=== PATIENT | male | born 1945 | race Caucasian/White ===

== ENCOUNTER 2023-02-01 18:35 | Observation (INO) ==
[2023-02-01] MEDS ORDERED: SODIUM CHLORIDE 0.9% 500 ML IV SCH (18:45)
--- NOTE | 2023-02-01 18:49 | Emergency Department Note ---
Impression & Plan Chest pain, Heart palpitations, Elevated troponin I level, Abnormal EKG ED Provider Note NAME: HUGH VILLANUEVA Jr AGE: 77 SEX: M : 1945 ARRIVES VIA: Ambulance INFORMANT: Patient, ED PROVIDER(S): Roman Varela DO CHIEF COMPLAINT: Near syncope HPI: The patient is a 77-year-old male who presented to the emergency department for an evaluation of near syncope. The patient states that he was at home sitting on his couch when he had an episode of lightheadedness. He felt as though he may pass out. The patient was not feeling well and called 911. He was noted to have episodes of tachycardia prior to coming to the emergency department. No documentation of this was obtained but the patient did have multiple twelve-lead EKGs prior to arrival. The patient denies having any chest pain or difficulty breathing at this time but he states earlier he did have some difficulty breathing. He is currently being worked up for dysphonia and vocal cord paralysis. The patient denies having any swelling in the legs. He denies having any abdominal pain or vomiting. He states his symptoms are significantly improved at this time. ROS: See above HPI for pertinent positives & negatives. A total of 10 systems reviewed and were otherwise negative. PAST MEDICAL HISTORY: See Below PAST SURGICAL HISTORY: See Below FAMILY HISTORY: See Below SOCIAL HISTORY: See Below HOME MEDICATIONS: See Below ALLERGIES: See Below VITALS: See Below PHYSICAL EXAMINATION: GENERAL: Patient is awake alert in no acute distress patient is resting comfortably and showing no signs of anxiety EYES: The conjunctivae are clear. The pupils are round and reactive. EARS, NOSE, MOUTH AND THROAT: The nose is without any evidence of any deformity. NECK: The neck is nontender and supple. RESPIRATORY: Diminished breath sounds are noted throughout. Expiratory wheezing was noted in both upper lung thomas. CARDIOVASCULAR: Regular rate and rhythm noted there no murmurs rubs or gallops normal S1 normal S2. GASTROINTESTINAL: The abdomen is soft. Abdomen is nontender. MUSCULOSKELETAL/EXTREMITIES: There is no evidence of gross deformity full range of motion is noted in the hips and shoulders. SKIN: There is no obvious evidence of any rash. There are no petechiae, pallor or cyanosis noted. NEUROLOGIC: Patient is awake alert and oriented x3 MEDICAL DECISION MAKING: The patient is a 77-year-old male who presented to the emergency department for an evaluation of near syncope and palpitations. The patient describes an episode where he became very lightheaded as though he was going to pass out. He describes some chest heaviness but no specific chest pain. This did not last very long. The patient called 911 and presented to the emergency department via ambulance. He states that his pulse rate was very high initially. The patient was not short of breath. I discussed the patient's laboratory and radiographic studies with him. He did have a troponin that was found to be elevated in the emergency department. On second draw this did appear to go up compared to his initial draw. For this reason I will discuss his condition with the on-call [facility] hospitalist. Patient was treated with aspirin. He did have a D- dimer of 540 but I feel that age adjustment would not require any further work- up. I will defer this to the admitting team. Triage Nursing notes reviewed. Prior medical records reviewed Vital Signs: reviewed and remarkable for elevated blood pressure and tachycardia. Differential diagnosis: Vasovagal event, dehydration, infection, hypoglycemia, electrolyte abnormalities, cardiac sources, intracerebral event, pulmonary embolism, seizure, toxicologic, neurologic, as well as other pathologies. ER treatment provided: See below Diagnostics interpreted by me: ECG: EKG was obtained in the emergency department. My interpretation is sinus tachycardia 110 bpm. First-degree AV block was noted with wandering atrial pacemaker. A left bundle-branch block pattern was favored. Nonspecific ST depressions were noted especially in the inferior leads. No previous EKG was available. Prehospital EKG was evaluated. My interpretation is sinus tachycardia 100 and and 4 bpm. There were PVCs noted. Bundle-branch block was appreciated. This compares similar to the initial EKG obtained in the emergency department. Cardiac Monitoring: An order was placed for continuous cardiac monitoring. The monitor shows a rate of 103 bpm with sinus tachycardia. Laboratory studies: As stated above and show below. Imaging studies: See below. Radiographic imaging was reviewed by myself Consultation(s): Discussed this case with Dr. Julian who is on-call for the [facility] hospitalist group. Past Med/Surg History Medical History Depression Multiple pulmonary nodules Chronic respiratory failure with hypoxia Ex-smoker Tobacco consumption Exertional shortness of breath Chronic bronchitis 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 Sinus tachycardia Anomalous coronary artery origin Anemia Dyspnea History of left heart catheterization 2008 Hypoxemic respiratory failure, chronic Migraine with aura, intractable, without status migrainosus Dyslipidemia Corcoran's esophagus with dysplasia Prostate cancer GERD without esophagitis Hypertension COPD (chronic obstructive pulmonary disease) Surgical History History of cataract removal with insertion of prosthetic lens bilateral H/O umbilical hernia repair 2007 Family History Mother , Cancer Cancer Father , Cancer Colorectal cancer Sister Heart disorder Stroke Brother Prostate cancer Denies family history of Crohn's disease Ulcerative colitis Social History Smoking Status: Former smoker Tobacco Type: Cigarettes Age Started Using Tobacco: 12; Age Quit Using Tobacco: 60; packs per day: 2.5; Cigarettes Per Day: 120 pack years; Do You Dip or Chew Tobacco: No; Hx Alcohol Use: Yes Hx Substance Use: No Preferred Language: Kazakh Feels Safe at Home: Yes Allergies Allergies Allergy/AdvReac Type Severity Reaction Status Date / Time simvastatin AdvReac myalgia Verified 01/19/23 11:28 Home Meds Home Medications Medication Instructions Recorded Confirmed albuterol sulfate 2.5 mg/3 mL 2.5 mg inhalation Q4H PRN 06/13/21 01/19/23 (0.083 %) solution for nebulization shortness of breath or wheezing esomeprazole magnesium 40 mg 40 mg PO DAILY 06/13/21 01/19/23 capsule,delayed release fluticasone propionate 50 1 spray intranasal Q12H 06/13/21 01/19/23 mcg/actuation nasal spray,suspension guaifenesin 600 mg tablet, 600 mg PO BID 06/13/21 01/19/23 extended release 12 hr losartan 50 mg tablet 50 mg PO DAILY 06/13/21 01/19/23 mucus clearing device 06/13/21 01/19/23 naproxen sodium 220 mg tablet 220 mg PO Q12H PRN pain 06/13/21 01/19/23 polyethylene glycol 3350 17 17 g PO DAILY PRN constipation 06/13/21 01/19/23 gram/dose oral powder (Miralax) sumatriptan succinate 6 mg/0.5 mL 6 mg subcut ONCE PRN migraine 06/13/21 01/19/23 subcutaneous pen injector headache tamsulosin 0.4 mg capsule 0.4 mg PO DAILY 06/13/21 01/19/23 multivitamin 1 tab PO DAILY 06/20/21 01/19/23 Previous Rx's Medication Instructions Recorded rosuvastatin 10 mg tablet 10 mg PO DAILY #30 tabs 07/20/21 Portable Oxygen #1 ea 09/25/22 albuterol sulfate 90 mcg/actuation 2 puff inhalation Q4H PRN 09/25/22 aerosol inhaler shortness of breath or wheezing #8.5 grams mometasone-formoterol HFA 200 2 puff inhalation BID #13 grams 09/25/22 mcg-5 mcg/actuation aerosol inhaler (Dulera) nebulizers (Aeroneb Go Nebulizer) #1 ea 09/25/22 tiotropium bromide 2.5 2 puff inhalation DAILY #4 grams 09/25/22 mcg/actuation mist for inhalation (Spiriva Respimat) Results & Data (ED) Vital Signs Vital Signs - 24 hr 02/01/23 18:45 02/01/23 18:55 02/01/23 19:00 Temperature 36.9 C Temperature Source Temporal Artery Scan Pulse Rate 108 H 105 H 105 H Respiratory Rate 19 25 H Respiratory Effort / Characteristics Non-Labored Spontaneous Respiratory Depth Normal Blood Pressure 198/111 H Blood Pressure Mean 140 Pulse Oximetry 100 100 Oxygen Delivery Method Nasal Cannula Oxygen Flow Rate 2.5 Sepsis Recent Fever Within 48 Hours No Sepsis New/Unexplained Change in Mental Status No Sepsis Action Taken by Nursing No Action Required 02/01/23 19:30 02/01/23 20:00 02/01/23 20:30 Temperature Temperature Source Pulse Rate 104 H 102 H 97 H Respiratory Rate 24 23 24 Respiratory Effort / Characteristics Respiratory Depth Blood Pressure Blood Pressure Mean Pulse Oximetry 99 99 99 Oxygen Delivery Method Oxygen Flow Rate Sepsis Recent Fever Within 48 Hours Sepsis New/Unexplained Change in Mental Status Sepsis Action Taken by Nursing 02/01/23 21:00 02/01/23 21:30 Temperature Temperature Source Pulse Rate 96 H 103 H Respiratory Rate 31 H 25 H Respiratory Effort / Characteristics Respiratory Depth Blood Pressure 161/110 H Blood Pressure Mean 127 Pulse Oximetry 99 99 Oxygen Delivery Method Oxygen Flow Rate Sepsis Recent Fever Within 48 Hours Sepsis New/Unexplained Change in Mental Status Sepsis Action Taken by [facility] Medications Current Medication List: was personally reviewed by me Laboratory Data Attestation: I reviewed the patient's lab results. 02/01/23 18:45 02/01/23 18:45 Lab Results 02/01/23 02/01/23 02/01/23 Range/Units 18:45 19:12 20:31 WBC 10.74 (4.8-10.8) K/ul RBC 4.55 L (4.70-6.10) M/uL Hgb 12.8 L (14.0-18.0) g/dl Hct 40.2 L (42.0-52.0) % MCV 88.4 (80.0-100.0) fL MCH 28.1 (25.0-34.0) pg MCHC 31.8 L (32.0-36.0) g/dL RDW Std Deviation 44.1 (36.4-46.3) fL RDW Coeff of Mich 13.7 (11.5-14.5) % Plt Count 243 (130-400) K/uL MPV 8.5 L (9.4-12.4) fL Immature Gran % (Auto) 0.3 % Neut % (Auto) 86.7 % Lymph % (Auto) 7.8 % Dickens % (Auto) 4.0 % Eos % (Auto) 0.7 % Baso % (Auto) 0.5 % Neut # (Auto) 9.31 H (1.40-6.50) K/uL Lymph # (Auto) 0.84 L (1.20-3.40) K/uL Dickens # (Auto) 0.43 (0.11-0.59) K/uL Eos # (Auto) 0.08 (0.00-0.50) K/uL Baso # (Auto) 0.05 (0.00-0.20) K/uL Immature Gran # (Auto) 0.03 (0.01-0.20) K/uL PT 10.9 (9.0-12.0) Seconds INR 1.0 (0.9-1.1) APTT 23.0 (21.0-31.0) Seconds PTT Ratio 0.8 D-Dimer 540 H* (0-500) ug/L FEU VBG pH 7.31 L (7.36-7.41) VBG pCO2 57 H (38-50) mmHg VBG pO2 < 20 mmHg VBG HCO3 29 mmol/L VBG O2 Saturation < 60.0 % VBG Base Excess 1.2 mEq/L Sodium 136 (136-145) mmol/L Potassium 3.7 (3.5-5.1) mmol/L Chloride 101 (98-107) mmol/L Carbon Dioxide 26 (21-32) mmol/L Anion Gap 9 (3-11) BUN 16 (6-23) mg/dl Creatinine 1.03 (0.6-1.4) mg/dl Est Cr Clr Drug Dosing 50.7 ml/min Est GFR ( Amer) 80.3 ml/min Est GFR (Non-Af Amer) 69.3 ml/min BUN/Creatinine Ratio 15.5 (10-20) Glucose 121 H (70-99(Fasting)) mg/dl Calcium 9.5 (8.6-10.3) mg/dl Magnesium 1.9 (1.7-2.4) mg/dl Total Bilirubin 0.3 (0.2-1.0) mg/dl AST 17 (13-39) U/L ALT 13 (7-52) U/L Alkaline Phosphatase 80 (34-104) U/L Total Creatine Kinase 81 (30-223) U/L Troponin I High Sens 20.7 H 30.2 H (0-20) pg/ml Total Protein 6.7 (6.0-8.3) gm/dl Albumin 3.7 (3.4-5.0) gm/dl Globulin 3.0 (2.5-4.0) gm/dl Albumin/Globulin Ratio 1.2 (0.9-2) TSH 3.090 (0.300-4.500) uIu/ml Administered Medications Discontinued Medications Aspirin (Aspirin Chew 324 Mg) 324 mg PO NOW STA Stop: 02/01/23 21:13 Last Admin: 02/01/23 21:17 Dose: 324 mg Documented By: PAUL Sodium Chloride (Nss) 500 mls @ 999 mls/hr IV .Q31M KACIE Stop: 02/01/23 19:15 Last Infusion: 02/01/23 20:45 Dose: Infused Documented By: Admin: 02/01/23 19:30 Dose: 999 mls/hr Documented By: PAUL Imaging Data Attestation: I personally reviewed and interpreted this imaging study as follows: My Impression: 1 view chest x-ray was obtained in the emergency department. My interpretation is no free air or free, final report pending. Radiologist's Impression: Chest X-Ray 02/01/23 18:43 XR chest 1V portable CLINICAL HISTORY: weakness COMPARISON STUDY: Chest CT June 23, 2022. FINDINGS: Emphysema is again noted. There is no pneumothorax or pleural effusion. No consolidation is identified. No evidence for pulmonary edema. Cardiomediastinal silhouette is stable. Indeterminate left lung nodules on chest CT of June 23, 2022 are not well visualized by radiography. IMPRESSION: 1. No acute cardiopulmonary findings. Emphysema. 2. Indeterminate left lung nodules on prior chest CT not well-visualized by radiography. Continued CT follow-up is recommended. ACT 112: Negative or not required by law. Electronically signed by: Stanley Zhu M.D. 02/01/2023 7:19 PM Discharge Plan Visit Data Chief Complaint: Syncope (Near Syncope) Stated Complaint: WEAKNESS ED Provider: Roman Varela Discharge Problem: Chest pain, Heart palpitations, Elevated troponin I level, Abnormal EKG Patient Disposition: Being Evaluated by Hospitalist Forms Stand Alone Forms: My [facility] [employer] Prescriptions Prescriptions: No Action polyethylene glycol 3350 [Miralax] 17 gram/dose powder 17 g PO DAILY PRN (Reason: constipation) naproxen sodium 220 mg tablet 220 mg PO Q12H PRN (Reason: pain) albuterol sulfate 2.5 mg /3 mL (0.083 %) solution for nebulization 2.5 mg inhalation Q4H PRN (Reason: shortness of breath or wheezing) (DME) mucus clearing device Device See Rx Instructions .Route Rx Instructions: As directed sumatriptan succinate 6 mg/0.5 mL pen injector 6 mg subcut ONCE PRN (Reason: migraine headache) fluticasone propionate 50 mcg/actuation spray,suspension 1 spray intranasal Q12H Rx Instructions: administer into each nostril esomeprazole magnesium 40 mg capsule,delayed release(DR/EC) 40 mg PO DAILY guaifenesin 600 mg tablet extended release 12hr 600 mg PO BID losartan 50 mg tablet 50 mg PO DAILY tamsulosin 0.4 mg capsule 0.4 mg PO DAILY multivitamin Tablet 1 tab PO DAILY rosuvastatin 10 mg tablet 10 mg PO DAILY Qty: 30 2RF (DME) nebulizers [Aeroneb Go Nebulizer] Misc See Rx Instructions .MEDSUPPLY Qty: 1 0RF Rx Instructions: With tubing and supplies. J44.9. J45.9. (DME) Portable Oxygen Misc See Rx Instructions .MEDSUPPLY Qty: 1 0RF Rx Instructions: Oxygen 2 liters continuous via nasal cannula on exertion with portable concentrator. KATIE 99 albuterol sulfate 90 mcg/actuation HFA aerosol inhaler 2 puff inhalation Q4H PRN (Reason: shortness of breath or wheezing) Qty: 8.5 3RF Dulera 200-5 mcg/actuation HFA aerosol inhaler 2 puff inhalation BID Qty: 13 6RF Spiriva Respimat 2.5 mcg/actuation mist 2 puff inhalation DAILY Qty: 4 6RF Referrals Referrals: Cyn Mejía, PALilianaC [Primary Care Provider] - Discharge Problem: Chest pain Qualifiers: Chest pain type: unspecified Qualified Code(s): R07.9 - Chest pain, unspecified
[2023-02-01 18:55] LABS: Basophils # (auto) 0.05 K/uL (0.00-0.20); Basophils % (auto) 0.5 %; Eosinophils # (auto) 0.08 K/uL (0.00-0.50); Eosinophils % (auto) 0.7 %; Hematocrit (blood only) 40.2 % (42.0-52.0); Hemoglobin 12.8 g/dl (14.0-18.0); Immature Granulocytes # (auto) 0.03 K/uL (0.01-0.20); Immature Granulocytes % (auto) 0.3 %; Lymphocytes # (auto) 0.84 K/uL (1.20-3.40); Lymphocytes % (auto) 7.8 %; Mean Corpuscular Hemoglobin 28.1 pg (25.0-34.0); Mean Corpuscular Hgb Conc 31.8 g/dL (32.0-36.0); Mean Corpuscular Volume 88.4 fL (80.0-100.0); Mean Platelet Volume 8.5 fL (9.4-12.4); Monocytes # (auto) 0.43 K/uL (0.11-0.59); Neutrophils # (auto) 9.31 K/uL (1.40-6.50); Neutrophils % (auto) 86.7 %; Platelet Count 243 K/uL (130-400); RDW Coefficient of Variation 13.7 % (11.5-14.5); RDW Standard Deviation 44.1 fL (36.4-46.3); Red Blood Count 4.55 M/uL (4.70-6.10); White Blood Count 10.74 K/ul (4.8-10.8)
[2023-02-01 19:08] LABS: Partial Thromboplastin Ratio 0.8; Prothrombin Time 10.9 Seconds (9.0-12.0)
[2023-02-01 19:17] LABS: Albumin Globulin Ratio 1.2 (0.9-2); Albumin Level 3.7 gm/dl (3.4-5.0); BUN Creatinine Ratio 15.5 (10-20); Bilirubin,Total 0.3 mg/dl (0.2-1.0); Calcium 9.5 mg/dl (8.6-10.3); Creatinine Clr Calc Pharmacy 50.7 ml/min; Est GFR (African American) 80.3 ml/min; Est GFR (Non-African American) 69.3 ml/min; Magnesium 1.9 mg/dl (1.7-2.4); Potassium 3.7 mmol/L (3.5-5.1); Total Protein 6.7 gm/dl (6.0-8.3)
[2023-02-01 19:18] LABS: D Dimer 540 ug/L FEU (0-500)
--- NOTE | 2023-02-01 19:20 | XRay Report ---
XR chest 1V portable CLINICAL HISTORY: weakness COMPARISON STUDY: Chest CT June 23, 2022. FINDINGS: Emphysema is again noted. There is no pneumothorax or pleural effusion. No consolidation is identified. No evidence for pulmonary edema. Cardiomediastinal silhouette is stable. Indeterminate l eft lung nodules on chest CT of June 23, 2022 are not well visualized by radiography. IMPRESSION: 1. No acute cardiopulmonary findings. Emphysema. 2. Indeterminate left lung nodules on prior chest CT not well-visualized by radiography. Continued CT follow-up is recommended. ACT 112: Negative or not required by law. Electronically signed by: Stanley Zhu M.D. 02/01/2023 7:19 PM
[2023-02-01 19:23] LABS: Troponin I High Sensitivity 20.7 pg/ml (0-20)
[2023-02-01 19:29] LABS: Base Excess VBG 1.2 mEq/L; HCO3 VBG 29 mmol/L; Oxygen Saturation VBG < 60.0 %; PCO2 VBG 57 mmHg (38-50); PO2 VBG < 20 mmHg; pH VBG 7.31 (7.36-7.41)
[2023-02-01 19:32] LABS: Thyroid Stimulating Hormone 3.09 uIu/ml (0.300-4.500)
[2023-02-01] MEDS ORDERED: ASPIRIN CHEW 324 MG PO STA (21:12)
--- NOTE | 2023-02-01 22:12 | History & Physical Report ---
Date of Service February 01, 2023 Assessment & Plan (1) Near syncope: Plan: Patient experienced an episode of near syncope while at home talking with his sister on the phone He felt dizzy and lightheaded however the fuzziness eased up before he got to the hospital. Etiology could have been an episode of arrhythmia or vasovagal Upon arrival at the emergency department, his troponin was slightly elevated blood pressure was also elevated He had a dobutamine stress test a few months ago which was deemed normal We will obtain 2D echo to rule out any structural heart abnormality Also obtain orthostatic blood pressure Monitor on telemetry (2) Elevated troponin I level: Plan: Slight elevation in troponin could be due to demand ischemia, from elevated blood pressure or yet to be diagnosed arrhythmia Initial troponin was 20, repeat was 30 Patient seems to have baseline bundle branch block, on EKG, no ST changes Repeat EKG, monitor troponin Obtain 2D echo as above Monitor on telemetry (3) COPD (chronic obstructive pulmonary disease): Plan: Baseline severe COPD on home oxygen Not in exacerbation Continue DuoNebs as needed and scheduled and supplemental oxygen (4) Hypertension: Plan: Poorly controlled blood pressure, initial blood pressure was almost 200 systolic Repeat 151 systolic Resume home medications Continue to monitor blood pressure. Plan Admit to telemetry Full code SCD prophylaxis History of Present Illness Chief Complaint: Near syncope Primary Care Provider: Cyn Mejía PA-C This is a 77-year-old with a history of COPD on oxygen, hypertension, CAD who presents to the hospital today following a near syncopal episode. Acco rding to the patient, he was seated at home and was on the phone talking with his sister when all of a sudden he felt dizzy and lightheaded and thought he was going to pass out. He said he brain got fuzzy for a while but eventually eased up but by that time he had already called 911. He denies any palpitations or chest pain but states because of his COPD has some baseline shortness of breath. Here in the emergency department initial blood pressure was 198/111 pulse 103 troponin was 20.7 recheck was 30.2 chest x-ray was done we did not show any acute pathology only chronic emphysema. Patient will be admitted to the hospital for further investigation. Allergies Allergy/AdvReac Type Severity Reaction Status Date / Time simvastatin AdvReac myalgia Verified 01/19/23 11:28 Home Medications Medication Instructions Recorded Confirmed Type albuterol sulfate 2.5 mg/3 mL 2.5 mg inhalation Q4H PRN 06/13/21 01/19/23 History (0.083 %) solution for nebulization shortness of breath or wheezing esomeprazole magnesium 40 mg 40 mg PO DAILY 06/13/21 01/19/23 History capsule,delayed release fluticasone propionate 50 1 spray intranasal Q12H 06/13/21 01/19/23 History mcg/actuation nasal spray,suspension guaifenesin 600 mg tablet, 600 mg PO BID 06/13/21 01/19/23 History extended release 12 hr losartan 50 mg tablet 50 mg PO DAILY 06/13/21 01/19/23 History mucus clearing device 06/13/21 01/19/23 History naproxen sodium 220 mg tablet 220 mg PO Q12H PRN pain 06/13/21 01/19/23 History polyethylene glycol 3350 17 17 g PO DAILY PRN constipation 06/13/21 01/19/23 History gram/dose oral powder (Miralax) sumatriptan succinate 6 mg/0.5 mL 6 mg subcut ONCE PRN migraine 06/13/21 01/19/23 History subcutaneous pen injector headache tamsulosin 0.4 mg capsule 0.4 mg PO DAILY 06/13/21 01/19/23 History multivitamin 1 tab PO DAILY 06/20/21 01/19/23 History rosuvastatin 10 mg tablet 10 mg PO DAILY #30 tabs 07/20/21 01/19/23 Rx Portable Oxygen #1 ea 09/25/22 01/19/23 Rx albuterol sulfate 90 mcg/actuation 2 puff inhalation Q4H PRN 09/25/22 01/19/23 Rx aerosol inhaler shortness of breath or wheezing #8.5 grams mometasone-formoterol HFA 200 2 puff inhalation BID #13 grams 09/25/22 01/19/23 Rx mcg-5 mcg/actuation aerosol inhaler (Dulera) nebulizers (Aeroneb Go Nebulizer) #1 ea 09/25/22 01/19/23 Rx tiotropium bromide 2.5 2 puff inhalation DAILY #4 grams 09/25/22 01/19/23 Rx mcg/actuation mist for inhalation (Spiriva Respimat) Past Med/Surg History Medical History Depression Multiple pulmonary nodules Chronic respiratory failure with hypoxia Ex-smoker Tobacco consumption Exertional shortness of breath Chronic bronchitis 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 Sinus tachycardia Anomalous coronary artery origin Anemia Dyspnea History of left heart catheterization 2008 Hypoxemic respiratory failure, chronic Migraine with aura, intractable, without status migrainosus Dyslipidemia Corcoran's esophagus with dysplasia Prostate cancer GERD without esophagitis Hypertension COPD (chronic obstructive pulmonary disease) Surgical History History of cataract removal with insertion of prosthetic lens bilateral H/O umbilical hernia repair 2007 Family History Mother , Cancer Cancer Father , Cancer Colorectal cancer Sister Heart disorder Stroke Brother Prostate cancer Denies family history of Crohn's disease Ulcerative colitis Social History Smoking Status: Former smoker Tobacco Type: Cigarettes Age Started Using Tobacco: 12; Age Quit Using Tobacco: 60; packs per day: 2.5; Cigarettes Per Day: 120 pack years; Do You Dip or Chew Tobacco: No; Hx Alcohol Use: Yes Hx Substance Use: No Preferred Language: Armenian Feels Safe at Home: Yes Review of Systems Review of Systems: All systems reviewed are negative, apart from the ones contained in the history. Physical Exam Physical Exam: The patient is awake, alert and oriented 3, well developed and well nourished, normocephalic and atraumatic, lying in bed and in no acute distress. HEENT--PERRL, EOMI, mucous membranes and oropharynx mildly dry Neck--supple. No JVD. No bruits. Thyroid normal, trachea midline, no adenopathy. Heart--normal S1 and S2. No murmurs, rubs or gallops. Lungs--reduced air entry on auscultation e. Abdomen--normal bowel sounds and soft. Mild epigastric and left sided abdominal pain Extremities--no cyanosis or clubbing. No edema. Dermatologic--normal skin turgor, normal color, no abnormal lymph nodes, no rash. Neurologic--cranial nerves II through XII grossly intact. Rheumatologic--normal range of motion. Psychiatric--normal affect. Results & Data Results & Data Vital Signs (Past 12 Hours) Vital Signs Temp Pulse Resp BP Pulse Ox O2 Del Method O2 Flow Rate 02/01/23 21:30 103 H 25 H 161/110 H 99 02/01/23 21:00 96 H 31 H 99 02/01/23 20:30 97 H 24 99 02/01/23 20:00 102 H 23 99 02/01/23 19:30 104 H 24 99 02/01/23 19:00 105 H 25 H 100 02/01/23 18:55 105 H 02/01/23 18:45 98.4 F 108 H 19 198/111 H 100 Nasal Cannula 2.5 PG Care Time/CCT Total # of Minutes Spent Total Time Spent with Patient: Total time spent is greater than 50% in coordination of care (as documented) at patient's floor/unit and/or counseling patient: Coding Level of Care Code 73878 INT INP/OBS CARE 3/75MIN Diagnoses Near syncope R55 Elevated troponin I level R79.89 COPD (chronic obstructive pulmonary disease) J44.9 Hypertension I10 Time Spent (min) 75
[2023-02-01] MEDS ORDERED: ALBUTEROL 0.083% NEBU SOLN 3 ML VIAL INH PRN (23:50)
--- NOTE | 2023-02-02 07:27 | Hospitalist Progress Note ---
Date of Service February 02, 2023 Assessment & Plan Plan This is a 77-year-old with a history of COPD on oxygen, hypertension, CAD who presents to the hospital today following a near syncope Near syncope: -near syncope -He felt dizzy and lightheaded however the fuzziness eased up before he got to the hospital. Etiology could have been an episode of arrhythmia or vasovagal He had a dobutamine stress test a few months ago which was deemed normal Echo ordered orthostatic blood pressure Monitor on telemetry Elevated troponin I level: Slight elevation in troponin could be due to demand ischemia, from elevated blood pressure or yet to be diagnosed arrhythmia Initial troponin: 20, repeat was 30 - baseline bundle branch block, on EKG, no ST changes Repeat EKG, monitor troponin Monitor on telemetry COPD (chronic obstructive pulmonary disease): Baseline severe COPD on home oxygen Not in exacerbation Continue DuoNebs as needed and scheduled and supplemental oxygen Hypertension: Poorly controlled blood pressure, initial blood pressure was almost 200 systolic Resume home medications Continue to monitor blood pressure. Plan Admit to telemetry Full code SCD prophylaxis Admission and Anticipated Discharge Date Admission Date: February 01, 2023 Subjective This is a 77-year-old with a history of COPD on oxygen, hypertension, CAD who presents to the hospital today following a near syncopal episode. According to the patient, he was seated at home and was on the phone talking with his sister when all of a sudden he felt dizzy and lightheaded and thought he was going to pass out. He said he brain got fuzzy for a while but eventually eased up but by that time he had already called 911. He denies any palpitations or chest pain but states because of his COPD has some baseline shortness of breath. Here in the emergency department initial blood pressure was 198/111 pulse 103 troponin was 20.7 recheck was 30.2 chest x-ray was done we did not show any acute pathology only chronic emphysema. Patient will be admitted to the hospital for further investigation. Review of Systems Review of Systems: as per HPI Physical Exam Constitutional: WD/WN, vitals as above Respiratory: Reduced air entry Cardiovascular: RRR, no murmur, no edema Gastrointestinal (Abdomen): normal bowel sounds, soft, nontender, no hepatosplenomegaly Musculoskeletal: no cyanosis or clubbing, extremities motor strength 5/5 Skin: no rashes, warm and dry Results & Data Results & Data Vital Signs (Past 12 Hours) Vital Signs Pulse Pulse Resp BP BP Pulse Ox O2 Del Method 02/02/23 06:58 69 20 158/77 H 98 Nasal Cannula 02/02/23 03:00 70 18 150/79 H 100 Nasal Cannula 02/02/23 00:35 Nasal Cannula 02/02/23 00:35 89 19 177/127 H 100 Nasal Cannula 02/02/23 00:35 Nasal Cannula 02/02/23 00:03 84 16 173/92 H 100 Nasal Cannula 02/01/23 23:00 86 23 100 02/01/23 22:54 89 02/01/23 22:30 91 H 21 177/69 H 99 02/01/23 22:00 89 20 173/95 H 99 02/01/23 21:46 96 H 20 161/110 H 100 02/01/23 21:30 103 H 25 H 161/110 H 99 02/01/23 21:00 96 H 31 H 99 02/01/23 20:30 97 H 24 99 02/01/23 20:00 102 H 23 99 02/01/23 19:30 104 H 24 99 O2 Flow Rate 02/02/23 06:58 3 02/02/23 03:00 3 02/02/23 00:35 2 02/02/23 00:35 2 02/02/23 00:35 2 02/02/23 00:03 2 02/01/23 23:00 02/01/23 22:54 02/01/23 22:30 02/01/23 22:00 02/01/23 21:46 02/01/23 21:30 02/01/23 21:00 02/01/23 20:30 02/01/23 20:00 02/01/23 19:30
[2023-02-02] MEDS ORDERED: PNEUMOCOCCAL VACCINE (PCV20) 20-VAL CONJ-DIP CRM/PF 0.5 ML SYR IM ONE (09:00)
[2023-02-02] MEDS ORDERED: ROSUVASTATIN CALCIUM 10 MG TAB PO SCH (09:00)
[2023-02-02] MEDS ORDERED: TAMSULOSIN HCL 0.4 MG CAP PO SCH (09:00)
[2023-02-02] MEDS ORDERED: PANTOprazole 40 MG TAB PO SCH (09:00)
[2023-02-02] MEDS ORDERED: LOSARTAN POTASSIUM 50 MG TAB PO SCH (09:00)
[2023-02-02] MEDS ORDERED: FLUTICASONE/VILANTEROL 100/25MCG 14 PUFFS/INHALER INH SCH (09:00)
[2023-02-02 09:07] LABS: Alanine Aminotransferase 10 U/L (7-52); Albumin Globulin Ratio 1.2 (0.9-2); Albumin Level 3.3 gm/dl (3.4-5.0); Alkaline Phosphatase 66 U/L (34-104); BUN Creatinine Ratio 16.5 (10-20); Bilirubin,Total 0.4 mg/dl (0.2-1.0); Blood Urea Nitrogen 13 mg/dl (6-23); Calcium 8.8 mg/dl (8.6-10.3); Carbon Dioxide 30 mmol/L (21-32); Chloride 105 mmol/L (98-107); Creatinine Clr Calc Pharmacy 66.1 ml/min; Est GFR (African American) 99.7 ml/min; Globulin 2.8 gm/dl (2.5-4.0); Glucose 98 mg/dl (70-99(Fasting)); Total Protein 6.1 gm/dl (6.0-8.3); Troponin I High Sensitivity 43.5 pg/ml (0-20)
[2023-02-02 10:07] LABS: Potassium 4.3 mmol/L (3.5-5.1)
--- NOTE | 2023-02-02 16:20 | XCELERA ---
[id number] \\[id number]
--- NOTE | 2023-02-02 17:32 | Discharge Summary ---
Date of Service February 02, 2023 Admission HPI Per Admitting Provider This is a 77-year-old with a history of COPD on oxygen, hypertension, CAD who presents to the hospital today following a near syncopal episode. According to the patient, he was seated at home and was on the phone talking with his sister when all of a sudden he felt dizzy and lightheaded and thought he was going to pass out. He said he brain got fuzzy for a while but eventually eased up but by that time he had already called 911. He denies any palpitations or chest pain but states because of his COPD has some baseline shortness of breath. Here in the emergency department initial blood pressure was 198/111 pulse 103 troponin was 20.7 recheck was 30.2 chest x-ray was done we did not show any acute pathology only chronic emphysema. Patient will be admitted to the hospital for further investigation. Admission Exam Per Admitting Provider The patient is awake, alert and oriented 3, well developed and well nourished, normocephalic and atraumatic, lying in bed and in no acute distress. HEENT--PERRL, EOMI, mucous membranes and oropharynx mildly dry Neck--supple. No JVD. No bruits. Thyroid normal, trachea midline, no arie nopathy. Heart--normal S1 and S2. No murmurs, rubs or gallops. Lungs--reduced air entry on auscultation e. Abdomen--normal bowel sounds and soft. Mild epigastric and left sided abdominal pain Extremities--no cyanosis or clubbing. No edema. Dermatologic--normal skin turgor, normal color, no abnormal lymph nodes, no rash. Neurologic--cranial nerves II through XII grossly intact. Rheumatologic--normal range of motion. Psychiatric--normal affect. Principal Diagnosis Pre-syncope Discharge Exam Constitutional WD/WN, vitals as above Respiratory Reduced air bilateral Cardiovascular RRR, no murmur, no edema Gastrointestinal (Abdomen) normal bowel sounds, soft, nontender, no hepatosplenomegaly Musculoskeletal no cyanosis or clubbing, extremities motor strength 5/5 Skin no rashes, warm and dry Discharge Data Allergies Allergy/AdvReac Type Severity Reaction Status Date / Time simvastatin AdvReac myalgia Verified 02/01/23 22:30 Consultations 02/01/23 21:47 ED Decision to Admit Stat Ordered Studies Labs 02/01/23 02/01/23 02/01/23 18:45 19:12 20:31 WBC 10.74 RBC 4.55 L Hgb 12.8 L Hct 40.2 L MCV 88.4 MCH 28.1 MCHC 31.8 L RDW Std Deviation 44.1 RDW Coeff of [place] 13.7 Plt Count 243 MPV 8.5 L Immature Gran % (Auto) 0.3 Neut % (Auto) 86.7 Lymph % (Auto) 7.8 [place] % (Auto) 4.0 Eos % (Auto) 0.7 Baso % (Auto) 0.5 Neut # (Auto) 9.31 H Lymph # (Auto) 0.84 L [place] # (Auto) 0.43 Eos # (Auto) 0.08 Baso # (Auto) 0.05 Immature Gran # (Auto) 0.03 PT 10.9 INR 1.0 APTT 23.0 PTT Ratio 0.8 D-Dimer 540 H* VBG pH 7.31 L VBG pCO2 57 H VBG pO2 < 20 VBG HCO3 29 VBG O2 Saturation < 60.0 VBG Base Excess 1.2 Sodium 136 Potassium 3.7 Chloride 101 Carbon Dioxide 26 Anion Gap 9 BUN 16 Creatinine 1.03 Est Cr Clr Drug Dosing 50.7 Est GFR ( Amer) 80.3 Est GFR (Non-Af Amer) 69.3 BUN/Creatinine Ratio 15.5 Glucose 121 H Calcium 9.5 Magnesium 1.9 Total Bilirubin 0.3 AST 17 ALT 13 Alkaline Phosphatase 80 Total Creatine Kinase 81 Troponin I High Sens 20.7 H 30.2 H Total Protein 6.7 Albumin 3.7 Globulin 3.0 Albumin/Globulin Ratio 1.2 TSH 3.090 02/02/23 02/02/23 08:17 09:31 WBC RBC Hgb Hct MCV MCH MCHC RDW Std Deviation RDW Coeff of Mich Plt Count MPV Immature Gran % (Auto) Neut % (Auto) Lymph % (Auto) [place] % (Auto) Eos % (Auto) Baso % (Auto) Neut # (Auto) Lymph # (Auto) [place] # (Auto) Eos # (Auto) Baso # (Auto) Immature Gran # (Auto) PT INR APTT PTT Ratio D-Dimer VBG pH VBG pCO2 VBG pO2 VBG HCO3 VBG O2 Saturation VBG Base Excess Sodium TNP 138 Potassium TNP 4.3 Chloride 105 Carbon Dioxide 30 Anion Gap TNP BUN 13 Creatinine 0.79 Est Cr Clr Drug Dosing 66.1 Est GFR ( Amer) 99.7 Est GFR (Non-Af Amer) 86.0 BUN/Creatinine Ratio 16.5 Glucose 98 Calcium 8.8 Magnesium Total Bilirubin 0.4 AST TNP 14 ALT 10 Alkaline Phosphatase 66 Total Creatine Kinase Troponin I High Sens 43.5 H D Total Protein 6.1 Albumin 3.3 L Globulin 2.8 Albumin/Globulin Ratio 1.2 TSH Chest X-Ray 02/01/23 18:43 XR chest 1V portable CLINICAL HISTORY: weakness COMPARISON STUDY: Chest CT June 23, 2022. FINDINGS: Emphysema is again noted. There is no pneumothorax or pleural effusion. No consolidation is identified. No evidence for pulmonary edema. Cardiomediastinal silhouette is stable. Indeterminate left lung nodules on chest CT of June 23, 2022 are not well visualized by radiography. IMPRESSION: 1. No acute cardiopulmonary findings. Emphysema. 2. Indeterminate left lung nodules on prior chest CT not well-visualized by radiography. Continued CT follow-up is recommended. ACT 112: Negative or not required by law. Electronically signed by: Stanley Zhu M.D. 02/01/2023 7:19 PM Hospital Course (1) Near syncope: (2) Elevated troponin I level: (3) COPD with emphysema: Plan This is a 77-year-old with a history of COPD on oxygen, hypertension, CAD who presents to the hospital today following a near syncope Near syncope: -He felt dizzy and lightheaded however the fuzziness eased up before he got to the hospital He had a dobutamine stress test a few months ago which was deemed normal Echo ordered: EF 55-60%. A new mitral regurgitation is now present No cardiac etiology See to be due to vasovagal episode We recommend heart monitor outpatient as well monitoring the mitral regurgitation Elevated troponin I level: Slight elevation in troponin could be due to demand ischemia, from elevated blood pressure Initial troponin: 20, repeat was 30 - baseline bundle branch block, on EKG, no ST changes no chest pain, no SOB COPD (chronic obstructive pulmonary disease): Baseline severe COPD on home oxygen Not in exacerbation Continue DuoNebs as needed and scheduled and supplemental oxygen Hypertension: Poorly controlled blood pressure, initial blood pressure was almost 200 systolic Resume home medications Total Time Total Time Spent Total Time Spent (In Minutes): <30 Discharge Plan Discharge Items Patient Disposition: Home - Self-Care Reason For Visit: PRESYNCOPE Discharge Diagnosis: pre -Syncope Condition on Discharge: Good Activity: Resume your previous activity Non-emergency contact: Primary Care Provider Call non-emergency contact if: you have any medication questions, your pain is worsening and your temperature is above 101 Follow-up/Referrals: Cyn Mejía PA-C [Primary Care Provider] - Diet: Regular Addtl Attending Provider Instructions: Near syncope (lightheadedness that felt like, but did not result in a faint) -Fortunately, we are not seeing any worrisome cardiac or neurologic causes for the near fainting spell. Like we discussed, most of these episodes tend to have a common pathway of blood vessels not staying squeezed tight enough against gravity, causing a bit of a drop in blood pressure. While it is a little bit hard to pin down exactly why it happened yesterday, certainly not being hydrated enough on a regular basis is a significant contributor. As we discussed, try to drink at least 60 ounces of fluid a daydo not count coffee towards your total. We will ask that you get set up for a heart monitor to wear at home for a few weeksas we discussed, while we are not really seeing anything that would suggest you had heart rhythm issues leading to the lightheadedness, you are in the right "risk profile" for slow heart rates to happen somewhat randomly. While its not likely this was the cause, it is very easy to set up a monitor to rule this out more definitively. Your echocardiogram is showing a new degree of a leaky mitral valve compared to previous. At this point it is not likely to be causing you any symptoms, but we will definitely want people to keep an eye on it to make sure it does not get worse. This should be rechecked around the end of April, or no later than early May. If it worsens, the main things we would be doing her medicines to take strain off of your heart, and create a "path of least resistance" of blood flow moving forward. Since you had said you might be trying to find a new primary care physicianDr. Toi Villegas with [facility], [phone], Dr Jj Andres [facility] on [address], , or as we discussed I have heard good things from patients in your area regarding docs in "[facility]" Pending Studies at Discharge: No Stand-Alone Forms: My [facility], Smoking Cessation Medications and DC Order Prescriptions: Continued (DME) mucus clearing device Device See Rx Instructions .Route Rx Instructions: As directed sumatriptan succinate 6 mg/0.5 mL pen injector 6 mg subcut ONCE PRN (Reason: migraine headache) fluticasone propionate 50 mcg/actuation spray,suspension 2 spray intranasal Q12H Rx Instructions: administer into each nostril esomeprazole magnesium 40 mg capsule,delayed release(DR/EC) 40 mg PO DAILY guaifenesin 600 mg tablet extended release 12hr 600 mg PO BID losartan 50 mg tablet 50 mg PO DAILY (DME) nebulizers [Aeroneb Go Nebulizer] Misc See Rx Instructions .MEDSUPPLY Qty: 1 0RF Rx Instructions: With tubing and supplies. J44.9. J45.9. (DME) Portable Oxygen Misc See Rx Instructions .MEDSUPPLY Qty: 1 0RF Rx Instructions: Oxygen 2 liters continuous via nasal cannula on exertion with portable concentrator. KATIE 99 albuterol sulfate 90 mcg/actuation HFA aerosol inhaler 2 puff inhalation Q4H PRN (Reason: shortness of breath or wheezing) Qty: 8.5 3RF Multiple Vitamin-Minerals Tablet 1 tab PO DAILY rosuvastatin 10 mg Tablet 10 mg PO DAILY tamsulosin 0.4 mg Capsule 0.4 mg PO DAILY tiotropium bromide 2.5 mcg/actuation Mist 1 puff INHALATION DAILY polyethylene glycol 3350 17 gram/dose Powder 17 g PO DAILY PRN (Reason: Constipation) Dulera 50-5 mcg/actuation Hfa Aerosol Inhaler 2 puff INHALATION Q12H latanoprost (PF) 0.005 % Dropperette 1 drp OPB HS Discharge Orders: Discharge Order (Routine); Ordered 02/02/23 Ordered By: Osbaldo Marcelino Admission Data Admit Date/Time: 02/01/23 22:03 Attending Provider: Osbaldo Marcelino Admit Provider: Og Julian Primary Care Provider: Cyn Mejía Other Providers: Og Julian Other Interventions: Discharge Summary Assessment (RN) Last Done: 02/02/23 17:24 Supervising Physician Co-Signing Physician Notes I personally examined the patient and verified all gomes points of history and exam, discussed case, and agree with decision making with Dr Toi Villegas Feeling better and would like to go home. Revisited HPIhe felt dizzy and lightheaded like he was going to pass out, he did not lose consciousness. Sat, and then lay down, symptoms resolved, hard to tell if the symptoms resolved when he laid down or before and then he laid down afteroverall he has a hard time pinning down exactly how long the symptoms lasted, but his best guess is about 15 minutes. They have not recurred since. He had nothing unusual about yesterday, but does note on directed questioning that he is sure he does not drink enough liquids. Vitals noted, in general he is awake and alert pleasant no distress. HEENT normocephalic atraumatic mucous membranes moist. Breathing unlabored no accessory muscle use good effort. Skin shows no rashes no pallor or icterus. Neuro without focal deficits. Near syncopealmost certainly vasoactive mechanism. Discussed staying adequately hydrated. Safe/stable for home. Given his age and comorbidities, cardiac event monitor to rule out bradycardia arrhythmias (although discussed with patient these seem to be fairly unlikely, but definitely appear warranted for completeness). Doubt mitral regurgitation plays a role in this Mitral regurgitationnew compared to echo from about 3 months agorepeat echo in about 2-3 months to ensure no progression. Cardiology follow-up if worsening. No specific treatment/asymptomatic from this at this time. Safe/stable for home
--- NOTE | 2023-02-02 18:46 | Billing Data ---
Date of Service February 02, 2023 Coding Level of Care Code 75077 IN/OBS DISCH 30 MIN/LESS
== END 2023-02-02 17:25 | disposition home or self-care (01) ==
LOC: EDINP 18:35 → ED 18:35 → SUATTDRO 22:03 → EDINP 23:49

== ENCOUNTER 2023-07-04 22:41 | Inpatient (IN) ==
--- OUTSIDE RECORDS SUMMARY | 2023-07-04 22:44 | External Medical Summary ---
Author Name Unknown Address Unknown Organization K01:[facility] [address] [place] [address] Laboratory Report Ordering Provider Test Date Status YAYA URIBE 05/12/2023 09:59:21 Final Observation Date Value Abnormality Reference (Units ) Status PSA 05/12/2023 09:59:21 0.34 <4.10 (ng/ mL) Final Performing Location [facility] [address] [place] [address]
--- OUTSIDE RECORDS SUMMARY | 2023-07-04 22:44 | External Medical Summary | Summary of Care ---
Author Name Unknown Organization [facility] Address [address] [place] [address] Phone [phone] Care Team Providers Care Horticulture Instructor Name Role Phone Cyn Mejía PA-C Primary Care Provider Reason for Visit * Reason Comments Outpatient Testing Encounter Details Date Type Department Care Team (Late st Contact Info) Description 05/12/2023 10:10 AM EST Laboratory [facility] [address] [place], [facility] [address] [place] [address] [phone] Malignant neoplasm of prostate (HCC) Allergies Active Allergy Reactions Criticality Noted Date Comments Simvastatin 06/20/2011 Leg cramps documented as of this encounter (statuses as of 05/12/2023) Medications Medication Sig Dispensed Refills Start Date End Date Status MULTIVITAMINS OR CAPS one q da 0 0 07/09/2004 Active FLUTTER CELESTINA Use as directed. 0 Active Naproxen Sodium 220 MG Oral Tablet Take 2 Tablets by mouth every 12 hours as needed. 0 Active oxygen GAS 2L/min EMPLOYEE SERVICES MANAGER continuously 0 Active polyethylene glycol 3350 (MIRALAX) 255 gram powder Take 17 g by mouth as needed for Constipation. Dissolve one heaping tablespoon in 8 ounces of water or juice. 1 Bottle 2 10/10/2015 Active albuterol sulfate (PROVENTIL) (2.5 MG/3ML) 0.083% nebulizer solution Inhale 1 Vial via nebulizer every 4 hours as needed for Wheezing or Shortness of Breath. 2 Box Dosing Unit 10 05/23/2019 Active guaiFENesin ER 600 MG Oral Tablet Extended Release 12 HourIndications:Bob rgic rhinitis with postnasal drip,COPD, group B, by GOLD 2017 classification ([facility]) Take 1 Tab by mouth 2 times a day as needed for Cough. 120 Tab 1 01/13/2020 Active Tamsulosin HCl 0.4 MG Oral Capsule (Flomax)Indications: Benign localized prostatic hyperplasia without lower urinary tract symptoms (LUTS) TAKE ONE CAPSULE BY MOUTH EVERY DAY 90 Capsule 0 06/05/2022 4 Active Fluticasone Propionate 50 MCG/ACT Nasal Suspension (Flonase)Indications :Allergic rhinitis with postnasal drip ADMINISTER 2 SPRAYS INTO EACH NOSTRIL EVERY 12 HOURS FOR 2 WEEKS THEN 1 SPRAY IN EACH NOSTRIL EVERY 12 HOURS PRECEDED BY SALINE RINSE 48 mL 0 06/05/2022 4 Active Albuterol Sulfate HFA 108 (90 Base) MCG/ACT Inhalation Aerosol SolutionIndications: COPD, group B, by GOLD 2017 classification ([facility]),Need for yvgkqcjyof-jttrakp-l ertussis (Tdap) vaccine Inhale 2 Puffs by mouth every 4 hours as needed for Dyspnea or Wheezing. 54 g 0 10/31/2022 Active Esomeprazole Magnesium 40 MG Oral Capsule Delayed ReleaseIndications:G astroesophageal reflux disease without esophagitis Take 1 Capsule by mouth daily before breakfast. 90 Capsule 1 10/31/2022 Active Losartan Potassium 50 MG Oral Tablet (Cozaar)Indications: HTN, goal below 140/90 Take 1 Tablet by mouth in the morning. 90 Tablet 1 10/31/2022 Active SUMAtriptan Succinate 6 MG/0.5ML Subcutaneous Solution Auto-injector (Imitrex) 0 Active Rosuvastatin Calcium 10 MG Oral Tablet (Crestor) Take 1 Tablet by mouth in the morning. 0 Active Latanoprost PF 0.005 % Ophthalmic Solution Instill 1 Drop into both eyes at bedtime. 0 02/01/2023 Active Aspirin 81 MG Oral Tablet Delayed Release Take 1 Tablet by mouth in the morning. 0 03/04/2023 Active Hospital, Clinic, or Other Facility Administered Medication Ordered Dose Route Frequency Start Date End Date Status albuterol sulfate (PROVENTIL) (2.5 MG/3ML) 0.083% inhalation solution 2.5 mgIndications:Centrilobul ar emphysema (HCC) 2.5 mg NEBULIZER ONCE PRN 05/23/2019 Active documented as of this encounter (statuses as of 05/12/2023) Active Problems Problem Noted Date Diagnosed Date Asymptomatic bilateral carotid artery stenosis 1 05/05/2022 Edentulous 05/26/2021 Prostate cancer 07/06/2019 Cancer Staging:Clinical stage from 02/01/2020:Stage II(T1c, N0, M0, G1) - Signed by Deuce Ennis MD on 02/01/2020 COPD, group B, by GOLD 2017 classification 01/24 Overview: Per COPD GOLD Classification Chronic hypoxemic respiratory failure 01/13/2019 Dupuytren's contracture of both hands 07/19/2015 Benign neoplasm of colon 09/29/2013 Overview: colonoscopy 2 endoclips History of tobacco use 12/18/2011 DYSLIPIDEMIA, GOAL TO BE DETERMINED 03/05/2009 Overview: Per Lipid Taxonomy. Other nonspecific abnormal c ardiovascular system function study 10/03/2008 hx ka dorsum left hand/173.6 04/22/2007 Umbilical hernia 01/05/2006 Osteoarthritis of multiple joints 06/19/2005 Overview: ICD-10 update of inactive term Benign localized prostatic h yperplasia without lower urinary tract symptoms (LUTS) 03/26/2005 ADVANCE DIRECTIVE INFORMATION 12/27/2004 Overview: No, Advance Directive brochure given to patient at prior appointment. Corcoran's esophagus 12/27/2004 Overview: next EGD- 01/18 Elevated prostate specific antigen (PSA) 004 Overview: see uro 11/17- back there in 6-7 months After cataract not obscuring vision 09/08/2003 Overview: ICD-10 update of inactive term Family history of colon cancer CLASSICAL MIGRAINE WITHOU MENTION OF INTRACTABLE MIGRAINE documented as of this encounter (statuses as of 05/12/2023) Resolved Problems Problem Noted Date Diagnosed Date Resolved Date Dupuytren's contracture of left hand 11/22/2015 01/10/2019 Overview: Duplicate, more specified code on PL COPD, very severe 08/28/2014 01/28/2019 Overview: Per COPD GOLD Classification Hypoxemia 12/18/2011 01/13/2019 Follow-up examination, follo wing other surgery 12/20/2008 01/13/2019 Malignant neoplasm of prostate 12/11/2008 02/09/2017 Vomiting 10/04/2008 01/10/2019 Overview: ICD-10 update of inactive term Acute condition Contracture of tendon 05/14/20072018 Dyslipidemia, goal LDL below 160 01/18/2007 03/05/2009 Overview: Per Lipid Taxonomy. Cellulitis of toe 07/10/2006 01/13/2019 CONTRACTURE FASCIA - PALMAR 01/05/2006 01/13/2019 COPD, severity to be determined 06/19/2005 03/13/2011 COPD, severe 06/19/2005 08/28/2014 Overview: Per COPD Protocol #24. Last PFT - 2010-04-23 Tobacco use disorder 012 Dermatitis 01/13/2019 Headache 01/13/2019 Overview: ICD-10 update of inactive term documented as of this encounter (statuses as of 05/12/2023) Immunizations Name Administration Dates Next Due COVID-19 mRNA, LNP-s, No Pre serve, 2-Dose Series ([employer]) 04/16/2021,05/24/2020,04/26/2020 Covid-19, Mrna, Lnp-s, Pf, B ivalent, 30 Mcg, IM, 12 yrs and above ([employer]) 01/21/2022 H1N1 2009 Influenza, IM 03/01/2009 Pneumococcal Conjugate Vacc, 13 Valent (Prevnar) 06/01/2015 Pneumococcal Polysaccharide PPV23 (Pneumovax) 06/06/2010 Season Influenza, Cell Cultu re, 18+ Yrs, With Preserv (Flucelvax) 02/17/2013 Seasonal Influenza, PF, 6 M & above, IM , (FluLaval or Fluzone) 12/18/2017,12/05/2016 Seasonal Influenza, Quadriva lent Hd (Fluzone Hd) 01/21/2022,11/22/2020 Seasonal Influenza, Quadriva lent Hd, 65+ Yrs 11/15/2019 Seasonal Influenza, Quadriva lent, No Preserve, IM 12/17/2015 Seasonal Influenza, Split, I IV3, With Preserve, Inj 12/01/2014,11/28/2013,11/26/2011,12/05,12/13/2009,12/07/2008,12/07/2008 (Deferred: Patient Refused),01/06/2008 Seasonal Influenza, Trivalen t, Adjuvanted, 65+ yrs 12/02/2018 TD, Preservative Free 11/01/2009 Varicella Zoster Vaccine (Adult) 06/04/2012 documented as of this encounter Social History Tobacco Use Types Packs/Day Years Used Date Smoking Tobacco: Former Cigarettes 2.5 40 1 - 12/28/2005 Pipe Cigars Smokeless Tobacco: Never Comments:06/18- 1-2 cig per d candida joy again12/20/04. quit on 12/11/06 Alcohol Use Standard Drinks/Week Comments Not Currently 0 (1 standard drink = 0.6 oz pure alcohol) rarely- couple of beers per year PHQ-2 Answer Date Recorded PHQ-2 Score 6 01/13/2019 Hunger Vital Sign Answer Date Recorded Worried About Running Out of Food in the Last Ye ar Never true 01/13/2019 Ran Out of Food in the Last Year Never true 01/13/2019 Sex and Gender Information Value Date Recorded Sex Assigned at Male 01/13/2019 4:27 PM EDT Gender Identity Male 01/13/2019 4:27 PM EDT Sexual Orientation Straight 01/13/2019 4: 27 PM EDT Job Start Date Occupation Industry Not on file Not on file Not on file documented as of this encounter Plan of Treatment Upcoming Encounters Date Type Department Care Team (Late st Contact Info) Description 05/13/2023 10:00 AM EST Office Visit Urology, [facility] [address] [place] [phone] Abril Walters PA-C [address] [place] [address] Pending Results Name Type Priority Associated Diagnoses Date /Time PSA Lab Routine Malignant neoplasm of prostate (HCC) 05/12/2023 9:59 AM EST Health Maintenance Due Date Last Done Comments Alpha-1 Antitrypsin 1963 Hepatitis C Screening 1963 Corcoran's Esophagus Surveilance 01/30/2007 01/31/2004 DTaP,Tdap,and Td Vaccines (1 - Tdap) 11/02/2009 11/01/2009, 08/16/1999 Zoster Vaccines (2 of 3) 07/30/2012 06/04/2012 COLONOSCOPY-ANNUAL AGES 18-100 09/29/2014 09/29/2013, 09/29/2013, 11/29/2009 Depression Screening 01/14/2020 01/13/2019 COVID-19 Vaccine (5 - 2022- season) 2022 01/21/2022, 04/16/2021, 05/24/2020, Additional history exists Influenza Vaccine (FLU shot) (#1) 2022 01/21/2022, 11/22/2020, 11/15/2019, Additional history exists O2 ASSESSMENT COMPLETED IN PAST YEAR FOR COPD 02/14/2024 02/13/2023 Pneumococcal Vaccine: 65+ Years Completed 02/02/2023, 06/01/2015, 06/06/2010, Additional history exists GARDASIL-HPV IMMUNIZATION SERIES Aged Out No longer eligible based on patient's age to complete this topic Hepatitis B Aged Out No longer eligi ble based on patient's age to complete this topic MENINGOCOCCAL (MENACTRA/MENVEO) Aged Out No longer eligible based on patient's age to complete this topic documented as of this encounter Medical Devices Implanted Type Area Dot Net Architect Device Identifier Shelf Expiration Date Model / Serial / Lot Endo Clips [place]ed:[place]: [place] [facility] [place] as of this encounter Visit Diagnoses Diagnosis Malignant neoplasm of prostate (HCC) Malignant neoplasm of prostate documented in this encounter Advance Directives Latest Code Status on File Code Status Date Activated Date Inactivated Comments Full Code 01/24/2010 1:31 PM 01/24/2010 11:53 PM Th is order reflects the patients wishes and were consensually agreed upon. Code Status History Code Status Date Activated Date Inactivated Comments Full Code 12/20/2008 4:29 PM 12/21/2008 7:57 PM This order reflects the patients wishes and were consensually agreed upon. Full Code 12/20/2008 9:44 AM 12/20/2008 4:29 PM This order reflects the patients wishes and were consensually agreed upon. Care Teams Horticulture Instructor Relationship Specialty Start Date End Date Cyn Mejía PA-C [address] [place] [id number] PCP - General Physician Senior Office Support Assistant Sosa 10/02/22 documented as of this encounter
--- OUTSIDE RECORDS SUMMARY | 2023-07-04 22:44 | External Medical Summary | Summary of Care ---
Author Name Unknown Organization [facility] Address [address] [place] [address] Phone [phone] Care Team Providers Care Chief Engineer'S Helper Name Role Phone Cyn Mejía PA-C Primary Care Provider Reason for Visit * Reason Comments Follow Up * Evaluate & Treat - Unlimited Visits (Within 30 days (routine)) - Authorized Specialty Diagnoses / Procedures Referred By Tyrell riojas Referred To Contact Urology Diagnoses Carcinoma in situ of prostate Procedures EVALUATE AND TREAT Christal Villanueva PA-C [address] [place] [address] Referral ID Status Reason Start Date Expiration Date Visits Requested Visits Authorized [id number] Authorized Specialty Services Required 05/08/2023 11/09/[phone] Encounter Details Date Type Department Care Team (Late st Contact Info) Description 05/13/2023 10:00 AM EST Office Visit Urology [facility] [address] [place] [address] Abril Walters PA-C [address] [place] [address] Malignant neoplasm of prostate (HCC)* Allergies Active Allergy Reactions Criticality Noted Date Comments Simvastatin Muscle pain 06/20/2011 Leg cramps documented as of this encounter (statuses as of 05/13/2023) Medications Medication Sig Dispensed Refills Start Date End Date Status MULTIVITAMINS OR CAPS one q da 0 0 5 Active FLUTTER CELESTINA Use as directed. 0 Active Naproxen Sodium 220 MG Oral Tablet Take 2 Tablets by mouth every 12 hours as needed. 0 Active oxygen GAS 2L/min WOOD MECHANIST continuously 0 Active polyethylene glycol 3350 (MIRALAX) 255 gram powder Take 17 g by mouth as needed for Constipation. Dissolve one heaping tablespoon in 8 ounces of water or juice. 1 Bottle 2 6 Active albuterol sulfate (PROVENTIL) (2.5 MG/3ML) 0.083% nebulizer solution Inhale 1 Vial via nebulizer every 4 hours as needed for Wheezing or Shortness of Breath. 2 Box Dosing Unit 10 0 Active guaiFENesin ER 600 MG Oral Tablet Extended Release 12 HourIndications:All ergic rhinitis with postnasal drip,COPD, group B, by GOLD 2017 classification ([facility]) Take 1 Tab by mouth 2 times a day as needed for Cough. 120 Tab 1 0 Active Tamsulosin HCl 0.4 MG Oral Capsule (Flomax)Indications :Benign localized prostatic hyperplasia without lower urinary tract symptoms (LUTS) TAKE ONE CAPSULE BY MOUTH EVERY DAY 90 Capsule 0 3 06/05/19 24 Active Fluticasone Propionate 50 MCG/ACT Nasal Suspension (Flonase)Indication s:Allergic rhinitis with postnasal drip ADMINISTER 2 SPRAYS INTO EACH NOSTRIL EVERY 12 HOURS FOR 2 WEEKS THEN 1 SPRAY IN EACH NOSTRIL EVERY 12 HOURS PRECEDED BY SALINE RINSE 48 mL 0 3 06/05/19 24 Active Albuterol Sulfate HFA 108 (90 Base) MCG/ACT Inhalation Aerosol SolutionIndications :COPD, group B, by GOLD 2017 classification ([facility]),Need for diphtheria-tetanus- pertussis (Tdap) vaccine Inhale 2 Puffs by mouth every 4 hours as needed for Dyspnea or Wheezing. 54 g 0 3 Active Esomeprazole Magnesium 40 MG Oral Capsule Delayed ReleaseIndications: Gastroesophageal reflux disease without esophagitis Take 1 Capsule by mouth daily before breakfast. 90 Capsule 1 3 Active Losartan Potassium 50 MG Oral Tablet (Cozaar)Indications :HTN, goal below 140/90 Take 1 Tablet by mouth in the morning. 90 Tablet 1 3 Active SUMAtriptan Succinate 6 MG/0.5ML Subcutaneous Solution Auto-injector (Imitrex) 0 Active Rosuvastatin Calcium 10 MG Oral Tablet (Crestor) Take 1 Tablet by mouth in the morning. 0 Active Latanoprost PF 0.005 % Ophthalmic Solution Instill 1 Drop into both eyes at bedtime. 0 3 Active Aspirin 81 MG Oral Tablet Delayed Release Take 1 Tablet by mouth in the morning. 0 3 Active Dulera 50-5 MCG/ACT Inhalation Aerosol Inhale 2 Puffs by mouth in the morning and 2 Puffs before bedtime. 0 3 Active Spiriva Respimat 2.5 MCG/ACT Inhalation Aerosol Solution Inhale 2 Puffs by mouth in the morning. 0 3 Active dilTIAZem HCl ER Coated Beads 180 MG Oral Capsule Extended Release 24 Hour (Cardizem CD) Take 1 Capsule by mouth in the morning. 0 4 Active Mometasone Furo-Formoterol Fum 200-5 MCG/ACT Inhalation Aerosol (Dulera)Indications :Chronic hypoxemic respiratory failure (HCC),COPD, group B, by GOLD 2017 classification (HCC) INHALE TWO PUFFS BY MOUTH TWICE A DAY RINSE MOUTH AFTER EACH USE 13 g 1 3 05/13/19 24 Discontinu ed(Medicat ion List Clean Up) Hospital, Clinic, or Other Facility Administered Medication Ordered Dose Route Frequency Start Date End Date Status albuterol sulfate (PROVENTIL) (2.5 MG/3ML) 0.083% inhalation solution 2.5 mgIndications:Centrilob ular emphysema (HCC) 2.5 mg NEBULIZER ONCE PRN 05/23/2019 Acti ve Leuprolide Acetate (6 Month) (Lupron) inj 45 mgIndications:Malignant neoplasm of prostate (HCC) 45 mg IM ONCE 05/13/2023 05/13/2023 Ended documented as of this encounter (statuses as of 05/13/2023) Active Problems Problem Noted Date Diagnosed Date [...] as of this encounter (statuses as of 05/13/2023) Resolved Problems Problem Noted Date Diagnosed Date [...] as of this encounter (statuses as of 05/13/2023) Immunizations Name Administration Dates Next Due COVID-19 mRNA, LNP-s, No Pre serve, 2-Dose Series ([employer]) 04/16/2021,05/24/2020,04/26/2020 Covid-19, Mrna, Lnp-s, Pf, B ivalent, 30 Mcg, IM, 12 yrs and above (Pfizer) 01/21/2022 H1N1 2009 Influenza, IM 03/01/2009 Pneumococcal [...] Tobacco: Never Comments:06/18- 1-2 cig per d ay, quti again12/20/04. quit on 12/11/06 Alcohol Use Standard [...] on file documented as of this encounter Last Filed Vital Signs Vital Sign Reading Time Taken Comments Blood Pressure - - Pulse - - Temperature 35.9 C (96.6 F) 05/13/2023 10:[address] Respiratory Rate - - Oxygen Saturation - - Inhaled Oxygen Concentration - - Weight - - Height - - Body Mass Index - - documented in this encounter Progress Notes * Abril Walters PA-C - 05/13/2023 10:04 AM EST Urology, [facility] [address] [place] [phone] Name: Mauricio Zamora . This 77 year old male was diagnosed with prostate cancer in 2008. cT1c GS 6 PSA 6.41 s/p cryoablation in 2008. Repeat biopsy before starting radiation for an elevated PSA 09/02 showed GS 6,7 favorablerisk prostate cancer. He was scheduled for radiation twice but cancelled and wants to just treat with lupron. There was no evidence of metastatic disease on CT or bone scan . He has been receiving hormonal therapy since 04/06. He denies significant side effects, urological complaints or unusual bone discomfort. Nocturia x 1 Dysuria: No Hematuria: No PSA: PSA:LAB PSA Latest Ref Rng <4.10 ng/mL 04/07/2019 25.36 (H) 07/06/2019 24.44 (H) 10/18/2019 3.95 01/03/2021 27.51 (H) 01/29/2022 0.34 10/31/2022 0.27 05/12/2023 0.34 Legend: (H) High 45 mg Lupron depot given in the right buttock Impression: A 77 year old male with prostate cancer who has been on hormonal therapy since 04/06. PSA is low and stable Plan: Continue Lupron injections Follow up in 6 months for next Lupron injection and PSA Abril Walters PA-C 05/13/2023 10:04 AM documented in this encounter Plan of Treatment Upcoming Encounters Date Type Department Care Team (Late st Contact Info) Description 11/11/2023 11:00 AM EDT Office Visit Urology, [facility] [address] [place] [address] Abril Walters PA-C [address] [place] [address] Scheduled Orders Name Type Priority Associated Diagnoses Orde r Schedule PSA Lab Routine Malignant neoplasm of prostate (HCC) Expected: 11/11/2023 (Approximate), Expires: 05/13/2024 Health Maintenance Due Date Last Done Comments Alpha-1 Antitrypsin 1963 Hepatitis C Screening 1963 Corcoran's Esophagus Surveilance 01/30/2007 01/31/2004 DTaP,Tdap,and Td Vaccines (1 - Tdap) 11/02/2009 11/01/2009, 08/16/1999 Zoster Vaccines (2 of 3) 07/30/2012 06/04/2012 COLONOSCOPY-ANNUAL AGES 18-100 09/29/2014 09/29/2013, 09/29/2013, 11/29/2009 Depression Screening 01/14/2020 01/13/2019 COVID-19 Vaccine ( season) 2022 01/21/2022, 04/16/2021, 05/24/2020, Additional history [...] this encounter Medical Devices Implanted Type Area Telephone Exchange Operator Device Identifier Shelf Expiration Date Model / Serial / Lot Endo Clips Implanted:Qty: 1 [place] 09[place]2013 [place] [facility] [place] as of this encounter Visit Diagnoses Diagnosis Malignant neoplasm of prostate (HCC)- Primary Malignant neoplasm of prostate documented in this encounter Administered Medications Inactive Administered Medications - up to 3 most recent administrations Medication Order MAR Action Action Date Dose Rate Site Leuprolide Acetate (6 Month) (Lupron) inj 45 mg 45 mg, Intramuscular, ONCE, On Thu05/13/23 at 1045, For 1 dose Given 05/13/2023 10:10 AM EST 45 mg Dorsogluteal Right documented in this encounter Advance Directives Latest [...] and were consensually agreed upon. Care Teams Chief Engineer'S Helper Relationship Specialty Start Date End Date Cyn Mejía PA-C [address] [facility], [place] [id number] PCP - General Physician Hospital Director 10/02/22 documented as of this encounter
[2023-07-04] MEDS: SODIUM CHLORIDE 0.9% 500 ML IV SCH (23:25)
[2023-07-04] MEDS: FAMOTIDINE 20MG IV PUSH 20 MG/5 ML SYR IV STA (23:31)
[2023-07-04] MEDS: ALBUT/IPRATROP 3MG/0.5MG NEB 3 ML VIAL NEB STA (23:31)
--- NOTE | 2023-07-04 23:37 | Emergency Department Note ---
Impression & Plan Weakness, COPD (chronic obstructive pulmonary disease), Elevated troponin, Elevated lactic acid level, Confusion ED Provider Note Provider: Evan Romero MD DATE OF SERVICE: 07/04/2023 CHIEF COMPLAINT: Some confusion, weakness, cough, not eating HISTORY OF PRESENT ILLNESS: Patient is a 77-year-old gentleman history of COPD on chronic oxygen, hypertension, GERD/Corcoran's esophagus, pulmonary nodule, prostate cancer, CAD, A-fib and SVT with tachybradycardia syndrome and pacemaker presenting here via ambulance from his home. The patient later arrives. According to her and from the EMS report to nursing, reports that the patient has not been himself for the last several weeks. They report that he is paranoid that his neighbors are starving him and has been staying in his house. No reports he contacted area agency on aging a week or 2 ago but did not hear anything back from them. As I had not seen him around and became concerned about him, friend states they did a welfare check and went through a window and found him. He is somewhat confused and thinking again that his neighbors are starting him. It is unclear how long it has been since he had food that could have been a week or 2. He is states he is taking some medicines but not sure if he is taking what he supposed to be. Denies falls. Denies pain. Does report he has a significant cough at this time. Does not know the month or day of the week or able to tell me the year but is able to tell me his birthday. Does have some VA benefits and does not want to give up and wants to get better and agreeable to stay in the hospital PAST MEDICAL HISTORY: As noted above MEDICATIONS: Reviewed home medication list again his compliance is questionable, on home oxygen SOCIAL HISTORY: Lives by himself, additional family in [place], former smoker PHYSICAL EXAM: GENERAL: alert and oriented to person but not time or recent history well in no acute distress on stretcher, frail in appearance Head: normocephalic and atraumatic EYES: No injection, discharge or icterus. EOMI. NECK: Trachea midline. Supple. ENT: Mucous membranes pink and dry in appearance LUNGS: Airway patent. No retractions but intermittently coughing. Breath sounds faint expiratory wheeze HEART: Regular tachycardic rate and rhythm. No chest wall tenderness ABDOMEN: Soft and non-tender, without guarding or rebound. SKIN: Acyanotic, warm, dry, without rashes EXTREMITIES: Without swelling, tenderness or deformity NEUROLOGICAL: No focal deficits which is generalized weakness. No aphasia. No facial droop or slurred speech. EK bpm sinus tachycardia. Nonspecific T wave changes without acute ST segment elevation. Right axis. QTc 418. CONTINUOUS CARDIAC MONITORING: was ordered and showed a heart rate of 90s-130s bpm in normal sinus rhythm to sinus tachycardia occasional PVC and later at times seems almost if he has rapid A-fib in the 130s to 140s. 1 view chest x-ray: Per my interpretation no evidence of pneumonia, pulmonary edema, pneumothorax, or pleural effusion. Emphysematous changes noted including some apical bulla. Pacemaker in place. Patient's laboratory studies and imaging reviewed. Differential includes Reactive airway disease, pneumonia, pneumothorax, COPD, CHF, infections, cardiac ischemia, pulmonary embolism, musculoskeletal, gastrointestinal, as well as other pathologies. IMPRESSION/MEDICAL DECISION MAKING: Patient with a history of cardiac issues as well as COPD on home oxygen. Does not appear to be secondarily hypoxic although using an air pulse ox. Appears weak and somewhat dehydrated. Given some IV fluid prior to arrival about 4 disease and will give additional 500 here. Will interrogate pacemaker. VBG and blood work ordered. CT of the head ordered although did not seem significantly focal as a stroke. Low suspicion for meningitis at this time. Benign abdomen. Denies chest pain. Will obtain chest x-ray and again given a DuoNeb to see if there is underlying pneumonia or if this is more just COPD exacerbation. Will look for significant lecture light abnormality or signs of renal dysfunction given his decreased intake and weakness. Does express that he would like a strawberry milkshake. Does have a bit of heartburn and given some Pepcid. [id number]-uuis blood sugar within normal limits. Lactate elevated 3.9 however. Again received 400 mL of fluid prior to arrival and additional 1.5 L here. Prior echo and review of chart without evidence of CHF from January. Rhythm appears to be sinus tachycardia as opposed to A-fib or SVT and will not aggressively rate control given findings concerning for some dehydration. Patient not hypercarbic but acidotic at 7.2 likely from the lactate. Chest x- ray on my review without findings of pneumonia pneumothorax or significant pulmonary edema. Stable mild anemia but leukocytosis of 13.1. No severe electrolyte abnormality with creatinine up 1.26 near baseline of 1. No significant LFT abnormalities noted. Given leukocytosis and elevated lactate will cover with a dose ceftriaxone for broad coverage in case there is any occult pulmonary process present. UA still pending. Blood cultures have been sent. Troponin elevation likely secondary to dehydration and demand from his tachycardia as he is not having active chest pain. Again at times appears that he is having some periods of rapid A-fib. Does appear to have some PVCs at times and given elevated heart rates at times exceeding 130 bpm and given a small dose of diltiazem as I have a concern he may have missed his home dose. Will give a dose of aspirin. Patient maker interrogation with a few episodes of nontreated VT and some A-fib/atrial tachycardia noted but not treated. Less than 2% period of atrial or ventricle pacing since last interrogation in April 2023. Unclear based on last cardiology note why the patient is not anticoagulated given history. Will defer to inpatient team at this point. DIAGNOSIS: Weakness, COPD, elevated lactate, elevated troponin, tachycardia, confusion DISPOSITION: Hospitalist will evaluate Patient was agreeable with this plan. Critical Care I have personally spent 38 minutes of critical care time in the direct management of this patient. This includes bedside care, interpretation of diagnostic studies, and testing, discussion with consultants, patient, and friends at bedside, and other required patient management activities. These 38 minutes is in excess of all separately billable procedures. Past Med/Surg History Medical History Near syncope Abnormal EKG Elevated troponin I level Heart palpitations Depression Multiple pulmonary nodules Chronic respiratory failure with hypoxia Ex-smoker Tobacco consumption Exertional shortness of breath Chronic bronchitis 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 Sinus tachycardia Anomalous coronary artery origin Anemia Dyspnea History of left heart catheterization Hypoxemic respiratory failure, chronic Migraine with aura, intractable, without status migrainosus Dyslipidemia Corcoran's esophagus with dysplasia Prostate cancer GERD without esophagitis Hypertension COPD (chronic obstructive pulmonary disease) Surgical History History of cataract removal with insertion of prosthetic lens H/O umbilical hernia repair Family History Mother Cancer Father Colorectal cancer Sister Heart disorder Stroke Brother Prostate cancer Denies family history of Crohn's disease Ulcerative colitis Social History Smoking Status: Former smoker Tobacco Type: Cigarettes Age Started Using Tobacco: 12; Age Quit Using Tobacco: 60; packs per day: 2.5; Cigarettes Per Day: 120 pack years; Do You Dip or Chew Tobacco: No; Hx Alcohol Use: Yes Alcohol type: beer Hx Substance Use: No Preferred Language: Irish Communication Ability: Effective Student Life Dean Required: No Beliefs That Will Affect Care: None Current Living Situation: Alone Feels Safe at Home: Yes Assistive Devices: Glasses Allergies Allergies Allergy/AdvReac Type Severity Reaction Status Date / Time simvastatin AdvReac Intermediate myalgia Verified 07/05/23 01:06 Home Meds Home Medications Medication Instructions Recorded Confirmed esomeprazole magnesium 40 mg 40 mg PO DAILY 06/13/21 07/05/23 capsule,delayed release mucus clearing device 06/13/21 07/05/23 sumatriptan succinate 6 mg/0.5 mL 6 mg subcut DIRECTED PRN 06/13/21 07/05/23 subcutaneous pen injector migraine headache latanoprost (PF) 0.005 % eye drops 1 drp OPB HS 02/01/23 07/05/23 in a dropperette multivitamin with minerals 1 tab PO DAILY 02/01/23 07/05/23 (Multiple Vitamin-Minerals tablet) polyethylene glycol 3350 17 17 g PO DAILY PRN Constipation 02/01/23 07/05/23 gram/dose oral powder rosuvastatin 10 mg tablet 10 mg PO DAILY 02/01/23 07/05/23 tamsulosin 0.4 mg capsule 0.4 mg PO DAILY 02/01/23 07/05/23 Previous Rx's Medication Instructions Recorded Portable Oxygen E0431 #1 ea 09/25/22 albuterol sulfate 90 mcg/actuation 2 puff inhalation Q4H PRN 09/25/22 aerosol inhaler shortness of breath or wheezing #8.5 grams nebulizers (Aeroneb Go Nebulizer) #1 ea 09/25/22 mometasone-formoterol HFA 50 mcg-5 2 puff inhalation Q12H #13 grams 02/23/23 mcg/actuation aerosol inhaler (Dulera) tiotropium bromide 2.5 1 puff inhalation DAILY #4 grams 02/23/23 mcg/actuation mist for inhalation diltiazem HCl 180 mg 180 mg PO DAILY #30 caps 05/06/23 capsule,extended release 24 hr Results & Data (ED) Vital Signs Vital Signs - 24 hr 07/04/23 22:50 07/04/23 23:11 07/04/23 23:15 Temperature 36.4 C L Temperature Source Oral Pulse Rate Pulse Rate [Apical] 119 H Pulse Rate from SpO2 Sensor Respiratory Rate 20 Blood Pressure Blood Pressure [Right Arm] 90/76 L Blood Pressure Mean Blood Pressure Mean [Right Arm] 80 Pulse Oximetry 100 Oxygen Delivery Method Nasal Cannula Oxygen Flow Rate 3 Sepsis Recent Fever Within 48 Hours No Sepsis New/Unexplained Change in Mental Status Yes Sepsis Action Taken by Nursing No Action Required 07/04/23 23:23 07/04/23 23:43 07/05/23 00:01 Temperature Temperature Source Pulse Rate 120 H 98 H 124 H Pulse Rate [Apical] Pulse Rate from SpO2 Sensor 120 H 125 H Respiratory Rate 23 23 Blood Pressure 136/77 149/97 H Blood Pressure [Right Arm] Blood Pressure Mean 96 114 Blood Pressure Mean [Right Arm] Pulse Oximetry 98 95 Oxygen Delivery Method Nasal Cannula Nasal Cannula Oxygen Flow Rate 3 3 Sepsis Recent Fever Within 48 Hours Sepsis New/Unexplained Change in Mental Status Sepsis Action Taken by Nursing 07/05/23 01:00 07/05/23 01:24 Temperature Temperature Source Pulse Rate 112 H Pulse Rate [Apical] 117 H Pulse Rate from SpO2 Sensor 106 H Respiratory Rate 19 Blood Pressure 137/96 Blood Pressure [Right Arm] Blood Pressure Mean 109 Blood Pressure Mean [Right Arm] Pulse Oximetry 98 Oxygen Delivery Method Nasal Cannula Oxygen Flow Rate 3 Sepsis Recent Fever Within 48 Hours Sepsis New/Unexplained Change in Mental Status Sepsis Action Taken by Nursing Laboratory Data 07/04/23 23:59 07/04/23 23:59 Lab Results 07/04/23 07/04/23 07/05/23 Range/Units 23:19 23:59 00:08 WBC 13.11 H (4.8-10.8) K/ul RBC 4.94 (4.70-6.10) M/uL Hgb 13.2 L (14.0-18.0) g/dl Hct 43.4 (42.0-52.0) % MCV 87.9 (80.0-100.0) fL MCH 26.7 (25.0-34.0) pg MCHC 30.4 L (32.0-36.0) g/dL RDW Std Deviation 53.3 H (36.4-46.3) fL RDW Coeff of [place] 16.7 H (11.5-14.5) % Plt Count 121 L (130-400) K/uL MPV 9.2 L (9.4-12.4) fL Immature Gran % (Auto) 0.7 % Neut % (Auto) 91.1 % Lymph % (Auto) 3.4 % [place] % (Auto) 4.6 % Eos % (Auto) 0.0 % Baso % (Auto) 0.2 % Neut # (Auto) 11.95 H (1.40-6.50) K/uL Lymph # (Auto) 0.45 L (1.20-3.40) K/uL [place] # (Auto) 0.60 H (0.11-0.59) K/uL Eos # (Auto) 0.00 (0.00-0.50) K/uL Baso # (Auto) 0.02 (0.00-0.20) K/uL Immature Gran # (Auto) 0.09 (0.01-0.20) K/uL PT 11.9 (9.0-12.0) Seconds INR 1.1 (0.9-1.1) VBG pH 7.25 L (7.36-7.41) VBG pCO2 47 (38-50) mmHg VBG pO2 21 mmHg VBG HCO3 21 mmol/L VBG O2 Saturation < 60.0 % VBG Base Excess -6.7 mEq/L Sodium 141 (136-145) mmol/L Potassium 4.5 (3.5-5.1) mmol/L Chloride 105 (98-107) mmol/L Carbon Dioxide 20 L (21-32) mmol/L Anion Gap 16 H (3-11) BUN 26 H (6-23) mg/dl Creatinine 1.26 (0.6-1.4) mg/dl Est Cr Clr Drug Dosing 32.5 ml/min Est GFR ( Amer) 62.9 ml/min Est GFR (Non-Af Amer) 54.3 ml/min BUN/Creatinine Ratio 20.6 H (10-20) Glucose 92 (70-99(Fasting)) mg/dl POC Glucose 77 (70-99) mg/dl Lactate 3.9 H* (0.4-2.0) mmol/L Calcium 8.8 (8.6-10.3) mg/dl Magnesium 1.8 (1.7-2.4) mg/dl Total Bilirubin 0.5 (0.2-1.0) mg/dl AST 22 (13-39) U/L ALT 13 (7-52) U/L Alkaline Phosphatase 58 (34-104) U/L Total Creatine Kinase 89 (30-223) U/L Troponin I High Sens 109.0 H* (0-20) pg/ml Total Protein 5.5 L (6.0-8.3) gm/dl Albumin 2.7 L (3.4-5.0) gm/dl Globulin 2.8 (2.5-4.0) gm/dl Albumin/Globulin Ratio 1.0 (0.9-2) Procalcitonin 0.27 (0-0.5) ng/ml TSH 5.753 H (0.300-4.500) uIu/ml Free T4 0.91 (0.61-1.60) ng/dl Adenovirus (PCR) Not Detected (NotDetected) B. pertussis DNA (PCR) Not Detected (NotDetected) B.parapertussis DNA PCR Not Detected (NotDetected) C. pneumoniae DNA (PCR) Not Detected (NotDetected) Coronavirus OC43 (PCR) Not Detected (NotDetected) Coronavirus HKU1 (PCR) Not Detected (NotDetected) Coronavirus 229E (PCR) Not Detected (NotDetected) SARS-CoV-2 (PCR) Not Detected (NotDetected) Coronavirus NL63 (PCR) Not Detected (NotDetected) Human Metapneumovir PCR Not Detected (NotDetected) Influenza Type A (PCR) Not Detected (NotDetected) Influenza Type B (PCR) Not Detected (NotDetected) M. pneumoniae (PCR) Not Detected (NotDetected) Parainfluenza 1 (PCR) Not Detected (NotDetected) Parainfluenza 2 (PCR) Not Detected (NotDetected) Parainfluenza 3 (PCR) Not Detected (NotDetected) Parainfluenza 4 (PCR) Not Detected (NotDetected) RSV (PCR) Not Detected (NotDetected) Entero/Rhino (PCR) Not Detected (NotDetected) Administered Medications Discontinued Medications Albuterol (Albut/Ipratrop 3mg/0.5mg Neb 3 Ml Vial) 3 ml NEB NOW STA; Protocol Stop: 07/04/23 23:24 Last Admin: 07/04/23 23:31 Dose: 3 ml Documented By: JELANI Aspirin (Aspirin 81 Mg Chew) 324 mg PO NOW STA Stop: 07/05/23 00:52 Last Admin: 07/05/23 01:33 Dose: 324 mg Documented By: JELANI Diltiazem HCl (Diltiazem Hcl 5 Mg/Ml 5 Ml Vial) 10 mg IV NOW STA Stop: 07/05/23 00:52 Last Admin: 07/05/23 01:29 Dose: 10 mg Documented By: JELANI Co-signed By: Sodium Chloride (Nss) 500 mls @ 999 mls/hr IV .Q31M KACIE Stop: 07/05/23 00:00 Last Infusion: 07/04/23 23:52 Dose: Infused Documented By: Admin: 07/04/23 23:25 Dose: 999 mls/hr Documented By: JELANI Famotidine (Pepcid 20mg Iv Push) 20 mg in 5 mls @ 2.5 mls/min IV NOW STA Stop: 07/04/23 23:24 Last Admin: 07/04/23 23:31 Dose: 2.5 mls/min Documented By: JELANI Sodium Chloride (Nss) 1,000 mls @ 999 mls/hr IV .Q1H1M ONE Stop: 07/05/23 01:15 Last Admin: 07/05/23 01:19 Dose: 999 mls/hr Documented By: JELANI Ceftriaxone Sodium (Rocephin) 2,000 mg in 50 mls @ 100 mls/hr IV NOW STA Stop: 07/05/23 01:06 Last Admin: 07/05/23 01:33 Dose: 100 mls/hr Documented By: JELANI Imaging Data Radiologist's Impression: Head CT 07/04/23 23:22 Exam(s): CT HEAD Without Contrast EXAM: CT Head Without Intravenous Contrast CLINICAL HISTORY: Reason for exam: ams. TECHNIQUE: Axial computed tomography images of the head/brain without intravenous contrast. Automated exposure control was utilized for the study. A dose lowering technique was utilized adhering to the principles of ALARA. COMPARISON: No relevant prior studies available. FINDINGS: No acute intracranial hemorrhage. No midline shift or mass effect. The territorial pedraza-white matter differentiation is maintained throughout. Age-related cerebral volume loss. Periventricular and subcortical white matter hypoattenuation, consistent with chronic microangiopathy. The visualized orbits appear grossly unremarkable. The calvarium is intact. The visualized paranasal sinuses and mastoid air cells are grossly clear. IMPRESSION: No acute intracranial hemorrhage, midline shift, or mass effect. Electronically signed by: Jarrett Hutton MD 07/05/23 00:38 AM Discharge Plan Visit Data Chief Complaint: Altered Mental Status Stated Complaint: Weakness, Altered ED Provider: Evan Romero Discharge Problem: Weakness, COPD (chronic obstructive pulmonary disease), Elevated troponin, Elevated lactic acid level, Confusion Patient Disposition: Being Evaluated by Hospitalist Forms Stand Alone Forms: [facility] Prescriptions Prescriptions: No Action (DME) mucus clearing device Device See Rx Instructions .Route Rx Instructions: As directed sumatriptan succinate 6 mg/0.5 mL pen injector 6 mg subcut DIRECTED PRN (Reason: migraine headache) esomeprazole magnesium 40 mg capsule,delayed release(DR/EC) 40 mg PO DAILY Dulera 50-5 mcg/actuation HFA aerosol inhaler 2 puff INHALATION Q12H Qty: 13 5RF tiotropium bromide 2.5 mcg/actuation mist 1 puff INHALATION DAILY Qty: 4 5RF (DME) nebulizers [Aeroneb Go Nebulizer] [facility] See Rx Instructions .MEDSUPPLY Qty: 1 0RF Rx Instructions: With tubing and supplies. J44.9. J45.9. (DME) Portable Oxygen E0431 [facility] See Rx Instructions .MEDSUPPLY Qty: 1 0RF Rx Instructions: Oxygen 2 liters continuous via nasal cannula on exertion with portable concentrator. KATIE 99 albuterol sulfate 90 mcg/actuation HFA aerosol inhaler 2 puff inhalation Q4H PRN (Reason: shortness of breath or wheezing) Qty: 8.5 3RF diltiazem HCl 180 mg capsule,extended release 24hr 180 mg PO DAILY Qty: 30 5RF Multiple Vitamin-Minerals Tablet 1 tab PO DAILY rosuvastatin 10 mg Tablet 10 mg PO DAILY tamsulosin 0.4 mg Capsule 0.4 mg PO DAILY polyethylene glycol 3350 17 gram/dose Powder 17 g PO DAILY PRN (Reason: Constipation) latanoprost (PF) 0.005 % Dropperette 1 drp OPB HS Referrals Referrals: Cyn Mejía PA-C [Primary Care Provider] -
[2023-07-05 00:20] LABS: Base Excess VBG -6.7 mEq/L; HCO3 VBG 21 mmol/L; Oxygen Saturation VBG < 60.0 %; PCO2 VBG 47 mmHg (38-50); PO2 VBG 21 mmHg; pH VBG 7.25 (7.36-7.41)
[2023-07-05 00:35] LABS: Albumin Level 2.7 gm/dl (3.4-5.0); BUN Creatinine Ratio 20.6 (10-20); Bilirubin,Total 0.5 mg/dl (0.2-1.0); Calcium 8.8 mg/dl (8.6-10.3); Creatinine Clr Calc Pharmacy 32.5 ml/min; Est GFR (African American) 62.9 ml/min; Est GFR (Non-African American) 54.3 ml/min; Globulin 2.8 gm/dl (2.5-4.0); Hematocrit (blood only) 43.4 % (42.0-52.0); Hemoglobin 13.2 g/dl (14.0-18.0); Magnesium 1.8 mg/dl (1.7-2.4); Mean Corpuscular Hemoglobin 26.7 pg (25.0-34.0); Mean Corpuscular Hgb Conc 30.4 g/dL (32.0-36.0); Mean Corpuscular Volume 87.9 fL (80.0-100.0); Mean Platelet Volume 9.2 fL (9.4-12.4); Platelet Count 121 K/uL (130-400); Potassium 4.5 mmol/L (3.5-5.1); RDW Coefficient of Variation 16.7 % (11.5-14.5); RDW Standard Deviation 53.3 fL (36.4-46.3); Red Blood Count 4.94 M/uL (4.70-6.10); Total Protein 5.5 gm/dl (6.0-8.3); White Blood Count 13.11 K/ul (4.8-10.8)
--- NOTE | 2023-07-05 00:39 | CT Scan Report ---
Exam(s): CT HEAD Without Contrast EXAM: CT Head Without Intravenous Contrast CLINICAL HISTORY: Reason for exam: ams. TECHNIQUE: Axial computed tomography images of the head/brain without intravenous contrast. Automated exposure control was utilized for the study. A dose lowering technique was utilized adhering to the principles of ALARA. COMPARISON: No relevant prior studies available. FINDINGS: No acute intracranial hemorrhage. No midline shift or mass effect. The territorial pedraza-white matter differentiation is maintained throughout. Age-related cerebral volume loss. Periventricular and subcortical white matter hypoattenuation, consistent with chronic microangiopathy. The visualized orbits appear grossly unremarkable. The calvarium is intact. The visualized paranasal sinuses and mastoid air cells are grossly clear. IMPRESSION: No acute intracranial hemorrhage, midline shift, or mass effect. Electronically signed by: Jarrett Hutton MD 07/05/23 00:38 AM
[2023-07-05 00:44] LABS: INR 1.1 (0.9-1.1); Prothrombin Time 11.9 Seconds (9.0-12.0)
[2023-07-05 00:50] LABS: Thyroid Stimulating Hormone 5.753 uIu/ml (0.300-4.500)
[2023-07-05 00:52] LABS: Basophils # (auto) 0.02 K/uL (0.00-0.20); Basophils % (auto) 0.2 %; Immature Granulocytes # (auto) 0.09 K/uL (0.01-0.20); Immature Granulocytes % (auto) 0.7 %; Lymphocytes # (auto) 0.45 K/uL (1.20-3.40); Lymphocytes % (auto) 3.4 %; Monocytes % (auto) 4.6 %; Neutrophils # (auto) 11.95 K/uL (1.40-6.50); Neutrophils % (auto) 91.1 %
[2023-07-05 01:15] LABS: Adenovirus PCR Not Detected (NotDetected); Bordetella parapertussis PCR Not Detected (NotDetected); Bordetella pertussis PCR Not Detected (NotDetected); Chlamydia pneumoniae PCR Not Detected (NotDetected); Coronavirus 229E PCR Not Detected (NotDetected); Coronavirus CoV-2 (COVID19)PCR Not Detected (NotDetected); Coronavirus HKU1 PCR Not Detected (NotDetected); Coronavirus NL63 PCR Not Detected (NotDetected); Coronavirus OC43PCR Not Detected (NotDetected); Human Metapneumovirus PCR Not Detected (NotDetected); Influenza A PCR Not Detected (NotDetected); Influenza B PCR Not Detected (NotDetected); Mycoplasma pneumoniae PCR Not Detected (NotDetected); Parainfluenza Virus 1 PCR Not Detected (NotDetected); Parainfluenza Virus 2 PCR Not Detected (NotDetected); Parainfluenza Virus 3 PCR Not Detected (NotDetected); Parainfluenza Virus 4 PCR Not Detected (NotDetected); Respiratory Syncytial VirusPCR Not Detected (NotDetected); Rhinovirus/Enterovirus PCR Not Detected (NotDetected)
[2023-07-05] MEDS: SODIUM CHLORIDE 0.9% 1,000 ML IV ONE (01:19)
[2023-07-05 01:25] LABS: T4 Free Thyroxine 0.91 ng/dl (0.61-1.60)
[2023-07-05] MEDS: dilTIAZem HCl 5 MG/ML 5 ML VIAL IV STA (01:29)
[2023-07-05] MEDS: ASPIRIN 81 MG CHEW PO STA (01:33)
[2023-07-05] MEDS: cefTRIAXone SODIUM 2,000 MG/50 ML BAG IV STA (01:33)
--- NOTE | 2023-07-05 01:41 | History & Physical Report ---
Date of Service July 05, 2023 Assessment & Plan (1) Protein calorie malnutrition: (2) Confusion: (3) NSTEMI (non-ST elevated myocardial infarction): (4) Weakness: (5) Weight loss, abnormal: (6) Tachy-tiffany syndrome: (7) Paroxysmal atrial fibrillation: (8) COPD (chronic obstructive pulmonary disease): (9) Corcoran's esophagus with dysplasia: (10) Prostate cancer: (11) Tobacco consumption: (12) Depression: (13) Hypertension: (14) Visual hallucinations: (15) Paranoia: Plan Failure to thrive/abnormal weight loss/protein calorie malnutrition/dehydration- Patient has had severe weight loss, and by estimates may be only eating a meal every few days to a week The patient is not physically able to live by himself at this time, and his living environment is reportedly to [place] [facility] Will consult speech therapy and dietitian, and then place him on what ever diet they recommend From the ED received the following: NSS total of 1.5 L LR at 80 mL/h x 2 L Chronic respiratory failure with hypoxia/COPD/tobacco use history- Nasal cannula oxygen, titrate to keep pulse ox around 90-92% Albuterol HFA 2 puffs every 4 hours as needed Mometasone-formoterol HFA 2 puffs every 12 hours Spiriva 1 inhalation daily Elevated troponin/uncontrolled hypertension and tachycardia/history of paroxysmal atrial fibrillation/tachybradycardia syndrome/mild CAD/presence of pacemaker- Unclear when patient may have taken his last medication The patient will be admitted to telemetry for serial cardiac enzymes, serial EKG's, cardiac rhythm monitoring and a 2-D echocardiogram with Dopplers. Troponin 109.0 on admission with follow-up ordered Give Cardizem 30 mg p.o. now, and then resume Cardizem CD 180 mg in the a.m. Consult cardiology, whom he followed with as recently as 05/06/2023 Visual hallucinations/paranoia/depression- Patient has reportedly been carrying a gun with him in the house, and friend says he has not been out for days to weeks When asked, he reports that he feels that his neighbors are out to get him, but cannot explain why CT scan of head negative No suggestion of encephalopathy at this time, but he is showing significant signs of dehydration GERD/Corcoran's esophagus/dysphagia- Continue esomeprazole/pantoprazole Nursing reports that patient was having some intermittent issues with swallowing, will therefore minimize oral intake until assessed by speech therapy Prostate cancer/bladder outlet obstruction- Continue tamsulosin 0.4 mg p.o. daily Disposition- Patient is not fit to live by himself, and will need to have his home living situation assessed. His house reportedly has significant issues with mouse droppings, bird droppings and in general is not fit for him to live and Will ask social science research assistant to get involved, and contact office of aging Patient does have a sister who lives in one of the [facility] One of his neighbors has periodically checked in on him, and she helped bring his situation up to get him help Patient is a , and suspect he would be able to get some form of benefits from the [place] system History of Present Illness Chief Complaint: The patient is brought to the emergency department by ambulance from his home, after a friend became concerned that she had not been seeing him regularly, and she contacted tire maintenance technician to go in through a window and have the patient brought to the ED for assessment Primary Care Provider: Cyn Mejía PA-C The patient is a 77-year-old male with a past medical history including tachybradycardia syndrome, sinus node dysfunction, paroxysmal atrial fibrillation, complete heart block, SVT, carotid stenosis, dysphonia, depression, COPD, hypertension, prostate cancer, GERD, dyslipidemia, migraine with aura, tobacco use, chronic respiratory failure with hypoxia and multiple pulmonary nodules. The patient's friend had been periodically breaking him food, which she later reports she thinks he was only eating that meal for the entire week. She became concerned when he become more more reclusive in his home, and reports that while she had his sister talk to him on the phone to keep him occupied, a tire maintenance technician went into his house to the window, and talked the patient to coming into the ED for assessment. The patient has been carrying a gun with him in the house, as he has become very paranoid with hallucinations about saying that his neighbors were out to get him. His home reportedly is full of mice droppings, bird droppings and has a terrible smell to it. He reportedly has lost significant amounts of weight, and in general has not been taking care of himself. His friend reports that she had called the office of aging, and they had done some type of assessment a few weeks ago, and reported that they were unable to help. The patient was brought to the emergency department for general health assessment, and possible skilled nursing placement. The friend is also concerned that the patient has not been keeping his doctors appointments. The patient himself is somewhat confused and disoriented, and has an HPI and ROS which are not considered to be reliable Allergies Allergy/AdvReac Type Severity Reaction Status Date / Time simvastatin AdvReac Intermediate myalgia Verified 07/05/23 01:06 Home Medications Medication Instructions Recorded Confirmed Type esomeprazole magnesium 40 mg 40 mg PO DAILY 06/13/21 07/05/23 History capsule,delayed release mucus clearing device 06/13/21 07/05/23 History sumatriptan succinate 6 mg/0.5 mL 6 mg subcut DIRECTED PRN 06/13/21 07/05/23 History subcutaneous pen injector migraine headache Portable Oxygen E0431 #1 ea 09/25/22 07/05/23 Rx albuterol sulfate 90 mcg/actuation 2 puff inhalation Q4H PRN 09/25/22 07/05/23 Rx aerosol inhaler shortness of breath or wheezing #8.5 grams nebulizers (Aeroneb Go Nebulizer) #1 ea 09/25/22 07/05/23 Rx latanoprost (PF) 0.005 % eye drops 1 drp OPB HS 02/01/23 07/05/23 History in a dropperette multivitamin with minerals 1 tab PO DAILY 02/01/23 07/05/23 History (Multiple Vitamin-Minerals tablet) polyethylene glycol 3350 17 17 g PO DAILY PRN Constipation 02/01/23 07/05/23 History gram/dose oral powder rosuvastatin 10 mg tablet 10 mg PO DAILY 02/01/23 07/05/23 History tamsulosin 0.4 mg capsule 0.4 mg PO DAILY 02/01/23 07/05/23 History mometasone-formoterol HFA 50 mcg-5 2 puff inhalation Q12H #13 grams 02/23/23 07/05/23 Rx mcg/actuation aerosol inhaler (Dulera) tiotropium bromide 2.5 1 puff inhalation DAILY #4 grams 02/23/23 07/05/23 Rx mcg/actuation mist for inhalation diltiazem HCl 180 mg 180 mg PO DAILY #30 caps 05/06/23 07/05/23 Rx capsule,extended release 24 hr Past Med/Surg History Medical History Near syncope Abnormal EKG Elevated troponin I level Heart palpitations Depression Multiple pulmonary nodules Chronic respiratory failure with hypoxia Ex-smoker Tobacco consumption Exertional shortness of breath Chronic bronchitis 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 Sinus tachycardia Anomalous coronary artery origin Anemia Dyspnea History of left heart catheterization Hypoxemic respiratory failure, chronic Migraine with aura, intractable, without status migrainosus Dyslipidemia Corcoran's esophagus with dysplasia Prostate cancer GERD without esophagitis Hypertension COPD (chronic obstructive pulmonary disease) Surgical History History of cataract removal with insertion of prosthetic lens H/O umbilical hernia repair Family History Mother Cancer Father Colorectal cancer Sister Heart disorder Stroke Brother Prostate cancer Denies family history of Crohn's disease Ulcerative colitis Social History Smoking Status: Former smoker Tobacco Type: Cigarettes Age Started Using Tobacco: 12; Age Quit Using Tobacco: 60; packs per day: 2.5; Cigarettes Per Day: 120 pack years; Do You Dip or Chew Tobacco: No; Hx Alcohol Use: Yes Alcohol type: beer Hx Substance Use: No Preferred Language: Paraguayan Communication Ability: Effective Stone Decorator Required: No Beliefs That Will Affect Care: None Current Living Situation: Alone Feels Safe at Home: Yes Assistive Devices: Glasses Review of Systems Review of Systems: HPI and review of systems is not considered reliable, due to patient confusion and hallucinations Physical Exam Physical Exam: The patient is awake, disoriented and confused, disheveled and malnourished, normocephalic and atraumatic, lying in bed and in no acute distress. HEENT--PERRL, EOMI, mucous membranes and oropharynx moderately dry. Neck--supple. No JVD. No bruits. Thyroid normal, trachea midline, no adenopathy. Heart--tachycardic and regular. No murmurs, rubs or gallops. Lungs--decreased breath sounds throughout Abdomen--normal bowel sounds and soft. Nontender. Nondistended, no hernias or masses, no organomegaly. Extremities--no cyanosis or clubbing. No edema. Dermatologic--normal skin turgor, normal color, no abnormal lymph nodes, no rash. Neurologic--cranial nerves II through XII grossly intact. Rheumatologic--normal range of motion. Psychiatric--confused and disoriented Results & Data Results & Data Vital Signs (Past 12 Hours) Vital Signs Temp Pulse Pulse Resp BP BP Pulse Ox 07/05/23 01:24 117 H 07/05/23 01:00 112 H 19 137/96 98 07/05/23 00:01 124 H 23 149/97 H 95 07/04/23 23:43 98 H 07/04/23 23:23 120 H 23 136/77 98 07/04/23 23:11 100 07/04/23 22:50 36.4 C L 119 H 20 90/76 L O2 Del Method O2 Flow Rate 07/05/23 01:24 07/05/23 01:00 Nasal Cannula 3 07/05/23 00:01 Nasal Cannula 3 07/04/23 23:43 07/04/23 23:23 Nasal Cannula 3 07/04/23 23:11 Nasal Cannula 3 07/04/23 22:50 Laboratory Results Laboratory Results WBC 13.11 K/ul (4.8-10.8) H 07/04/23 23:59 RBC 4.94 M/uL (4.70-6.10) 07/04/23 23:59 Hgb 13.2 g/dl (14.0-18.0) L 07/04/23 23:59 Hct 43.4 % (42.0-52.0) 07/04/23 23:59 MCV 87.9 fL (80.0-100.0) 07/04/23 23:59 MCH 26.7 pg (25.0-34.0) 07/04/23 23:59 MCHC 30.4 g/dL (32.0-36.0) L 07/04/23 23:59 RDW Std Deviation 53.3 fL (36.4-46.3) H 07/04/23 23:59 RDW Coeff of Mich 16.7 % (11.5-14.5) H 07/04/23 23:59 Plt Count 121 K/uL (130-400) L 07/04/23 23:59 MPV 9.2 fL (9.4-12.4) L 07/04/23 23:59 Immature Gran % (Auto) 0.7 % 07/04/23 23:59 Neut % (Auto) 91.1 % 07/04/23 23:59 Lymph % (Auto) 3.4 % 07/04/23 23:59 Cassia % (Auto) 4.6 % 07/04/23 23:59 Eos % (Auto) 0.0 % 07/04/23 23:59 Baso % (Auto) 0.2 % 07/04/23 23:59 Neut # (Auto) 11.95 K/uL (1.40-6.50) H 07/04/23 23:59 Lymph # (Auto) 0.45 K/uL (1.20-3.40) L 07/04/23 23:59 Cassia # (Auto) 0.60 K/uL (0.11-0.59) H 07/04/23 23:59 Eos # (Auto) 0.00 K/uL (0.00-0.50) 07/04/23 23:59 Baso # (Auto) 0.02 K/uL (0.00-0.20) 07/04/23 23:59 Immature Gran # (Auto) 0.09 K/uL (0.01-0.20) 07/04/23 23:59 PT 11.9 Seconds (9.0-12.0) 07/04/23 23:59 INR 1.1 (0.9-1.1) 07/04/23 23:59 VBG pH 7.25 (7.36-7.41) L 07/04/23 23:59 VBG pCO2 47 mmHg (38-50) 07/04/23 23:59 VBG pO2 21 mmHg 07/04/23 23:59 VBG HCO3 21 mmol/L 07/04/23 23:59 VBG O2 Saturation < 60.0 % 07/04/23 23:59 VBG Base Excess -6.7 mEq/L 07/04/23 23:59 Sodium 141 mmol/L (136-145) 07/04/23 23:59 Potassium 4.5 mmol/L (3.5-5.1) 07/04/23 23:59 Chloride 105 mmol/L (98-107) 07/04/23 23:59 Carbon Dioxide 20 mmol/L (21-32) L 07/04/23 23:59 Anion Gap 16 (3-11) H 07/04/23 23:59 BUN 26 mg/dl (6-23) H 07/04/23 23:59 Creatinine 1.26 mg/dl (0.6-1.4) 07/04/23 23:59 Est Cr Clr Drug Dosing 32.5 ml/min 07/04/23 23:59 Est GFR ( Amer) 62.9 ml/min 07/04/23 23:59 Est GFR (Non-Af Amer) 54.3 ml/min 07/04/23 23:59 BUN/Creatinine Ratio 20.6 (10-20) H 07/04/23 23:59 Glucose 92 mg/dl (70-99(Fasting)) 07/04/23 23:59 POC Glucose 77 mg/dl (70-99) 07/04/23 23:19 Lactate 2.9 mmol/L (0.4-2.0) H* 07/05/23 02:12 Calcium 8.8 mg/dl (8.6-10.3) 07/04/23 23:59 Magnesium 1.8 mg/dl (1.7-2.4) 07/04/23 23:59 Total Bilirubin 0.5 mg/dl (0.2-1.0) 07/04/23 23:59 AST 22 U/L (13-39) 07/04/23 23:59 ALT 13 U/L (7-52) 07/04/23 23:59 Alkaline Phosphatase 58 U/L (34-104) 07/04/23 23:59 Total Creatine Kinase 89 U/L (30-223) 07/04/23 23:59 Troponin I High Sens 104.8 pg/ml (0-20) H* 07/05/23 02:12 Total Protein 5.5 gm/dl (6.0-8.3) L 07/04/23 23:59 Albumin 2.7 gm/dl (3.4-5.0) L 07/04/23 23:59 Globulin 2.8 gm/dl (2.5-4.0) 07/04/23 23:59 Albumin/Globulin Ratio 1.0 (0.9-2) 07/04/23 23:59 Procalcitonin 0.27 ng/ml (0-0.5) 07/04/23 23:59 TSH 5.753 uIu/ml (0.300-4.500) H 07/04/23 23:59 Free T4 0.91 ng/dl (0.61-1.60) 07/04/23 23:59 Adenovirus (PCR) Not Detected (NotDetected) 07/05/23 00:08 B. pertussis DNA (PCR) Not Detected (NotDetected) 07/05/23 00:08 B.parapertussis DNA PCR Not Detected (NotDetected) 07/05/23 00:08 C. pneumoniae DNA (PCR) Not Detected (NotDetected) 07/05/23 00:08 Coronavirus OC43 (PCR) Not Detected (NotDetected) 07/05/23 00:08 Coronavirus HKU1 (PCR) Not Detected (NotDetected) 07/05/23 00:08 Coronavirus 229E (PCR) Not Detected (NotDetected) 07/05/23 00:08 SARS-CoV-2 (PCR) Not Detected (NotDetected) 07/05/23 00:08 Coronavirus NL63 (PCR) Not Detected (NotDetected) 07/05/23 00:08 Human Metapneumovir PCR Not Detected (NotDetected) 07/05/23 00:08 Influenza Type A (PCR) Not Detected (NotDetected) 07/05/23 00:08 Influenza Type B (PCR) Not Detected (NotDetected) 07/05/23 00:08 M. pneumoniae (PCR) Not Detected (NotDetected) 07/05/23 00:08 Parainfluenza 1 (PCR) Not Detected (NotDetected) 07/05/23 00:08 Parainfluenza 2 (PCR) Not Detected (NotDetected) 07/05/23 00:08 Parainfluenza 3 (PCR) Not Detected (NotDetected) 07/05/23 00:08 Parainfluenza 4 (PCR) Not Detected (NotDetected) 07/05/23 00:08 RSV (PCR) Not Detected (NotDetected) 07/05/23 00:08 Entero/Rhino (PCR) Not Detected (NotDetected) 07/05/23 00:[address] 07/04/23 23:22 Exam(s): CT HEAD Without Contrast EXAM: CT Head Without Intravenous Contrast CLINICAL HISTORY: Reason for exam: ams. TECHNIQUE: Axial computed tomography images of the head/brain without intravenous contrast. Automated exposure control was utilized for the study. A dose lowering technique was utilized adhering to the principles of ALARA. COMPARISON: No relevant prior studies available. FINDINGS: No acute intracranial hemorrhage. No midline shift or mass effect. The territorial pedraza-white matter differentiation is maintained throughout. Age-related cerebral volume loss. Periventricular and subcortical white matter hypoattenuation, consistent with chronic microangiopathy. The visualized orbits appear grossly unremarkable. The calvarium is intact. The visualized paranasal sinuses and mastoid air cells are grossly clear. IMPRESSION: No acute intracranial hemorrhage, midline shift, or mass effect. Electronically signed by: Jarrett Hutton MD 07/05/23 00:38 AM Code Status & VTE Plan Code Status Full code VTE Prophylaxis Plan VTE Prophylaxis will be ordered: Yes PG Care Time/CCT Total # of Minutes Spent Total Time Spent with Patient: Total time spent is greater than 50% in coordination of care (as documented) at patient's floor/unit and/or counseling patient: Coding Level of Care Code 53973 INT INP/OBS CARE 3/75MIN Diagnoses Protein calorie malnutrition E46 Confusion R41.0 NSTEMI (non-ST elevated myocardial infarction) I21.4 Weakness R53.1 Weight loss, abnormal R63.4 Tachy-tiffany syndrome I49.5 Paroxysmal atrial fibrillation I48.0 COPD (chronic obstructive pulmonary disease) J44.9 Corcoran's esophagus with dysplasia K22.719 Prostate cancer C61 Tobacco consumption Z72.0 Depression F32.A Hypertension, unspecified type I10 Hypertension type: unspecified Visual hallucinations R44.1 Paranoia F22 (13) Hypertension Hypertension type: unspecified Qualified Code(s): I10 - Essential (primary) hypertension
[2023-07-05] MEDS ORDERED: ACETAMINOPHEN 325 MG TAB PO PRN (03:17)
[2023-07-05] MEDS: LACTATED RINGER'S 1,000 ML IV SCH (03:56)
[2023-07-05] MEDS: dilTIAZem HCL 30 MG TAB PO ONE (06:17)
--- NOTE | 2023-07-05 07:18 | XRay Report ---
XR chest 1V portable CLINICAL HISTORY: weakness, cough COMPARISON STUDY: Chest CT February 04, 2023. Chest radiograph March 26, 2023. FINDINGS: A dual-lead left subclavian pacer remains in place. There are severe emphysema. No pneumoth orax or pleural effusion is present. There is no evidence for pulmonary edema or pneumonia. 1.1 cm le ft upper lobe nodule appears similar to chest CT of February 04, 2023. This remains indeterminate. IMPRESSION: 1. No acute cardiopulmonary findings. 2. Emphysema. 3. Redemonstration of an indeterminate 1.1 cm left upper lobe nodule, similar in appearance to chest CT of February 04, 2023. ACT 112: Negative or not required by law. Electronically signed by: Stanley Zhu M.D. 07/05/2023 7:15 AM
--- NOTE | 2023-07-05 08:48 | Hospitalist Progress Note ---
Date of Service July 05, 2023 Assessment & Plan (1) Pulmonary embolism: Plan: 77-year-old male with a past medical history including tachybradycardia syndrome, sinus node dysfunction, paroxysmal atrial fibrillation, complete heart block, SVT, carotid stenosis, dysphonia, depression, COPD, hypertension, prostate cancer, GERD, dyslipidemia, migraine with aura, tobacco use, chronic respiratory failure with hypoxia and multiple pulmonary nodules. By report of neighbors has been living in [facility], not eating, paranoid, seems confused. Obtained contrast CT to evaluate suspicious BARBIE pulmonary nodules - found to have several PEs especially 3.6x1.5 cm PE adherent to wall of R pulmonary artery -start enoxaparin 1 mg/kg -eventual DOAC - likely low dose apixaban -troponin elevation is caused by PE - trend flat at 100. mildly decreased RV on TTE 07/04 (2) Protein calorie malnutrition: Plan: Severe protein calorie malnutrition >15 kg weight loss since last summer, severe sarcopenia, BMI 17 Severe pulmonary disease, possible lung cancer, encephalopathy, lack of access to food -consulted RD and discussed with him. dermatitis could be symptom of an EFA deficiency -hx B12 deficiency has been on injections, checked B12 level nl 537 -check B1 and replace empirically -nutritional supplements -started mirtazapine 7.5 HS -at risk for refeeding syndrome BMP/mag/phos in AM (3) Pneumonia: Plan: Productive cough, leukocytosis, weakness, ground glass opacities in RLL on chest CT suspicious for infectious process, bronchial wall thickening and moderate secretions. At risk of gram negative infections inc pseudomonas because of chronic lung disease -MRSA nares was negative -PCT in ED neg, recheck in AM -pip-tazo started 07/04 -ST consulted - VFSS negative 01/2023 (4) Pulmonary nodule: Plan: BARBIE suspicious pulmonary nodule, had FDG uptake on PET, Dr. Agarwal offered bronch early February but carries significant risk of complications, Mauricio said "he'd think about it" follow up CT was planned for 3 mo which is a little overdue at this point -chest CT with contrast ordered - reviewed CT films and report - two suspicious BARBIE pulmonary nodules persist (5) Encephalopathy: Plan: possible acute or chronic encephalopathy or neurodegenerative disorder less likely primary psychiatric disorder - failure to care for self, paranoia, denies depressive symptoms and SI/HI, severe medical illness Patient has reportedly been carrying a gun with him in the house, and friend says he has not been out for days to weeks When asked, he reports that he feels that his neighbors are out to get him, but cannot explain why Unclear whether acute and chronic components. Could have delirium related to acute illness including pneumonia and dehydration, at risk for nutritional deficiencies, may have dementia. -consulted psychiatry - discussed with behavioral health liaison -TSH 5.7 T4 0.91 -vbg without hypercarbia -B12 wnl 04/2023, TSH 5.7 on admission, vbg without hypercarbia, no evidence of liver disease, check B1 and start empiric IV thiamine 500 mg q8h x 6 doses then 200 mg po bid -reviewed med list - no culprits to cause mental status changes -UA not collected yet. Got one dose ceftriaxone 2g in ED and on ABX for pna (6) Tachy-tiffany syndrome: Plan: dual-chamber pacer with left bundle pacing lead 03/26/23 Dr. Caraballo - for complete heart block, near syncope, PSVT - followed by Dr. Casas. Recent device interrogation PSVT likely atrial tachycardia mild CAD, neg DSE normal EF 10/2022, mod MR sinus node dysfunction, atrial tachycardia - improved since diltiazem resumed on admission -appreciate consult by Dr. Burns, discussed with him -follow up device interrogation (7) COPD (chronic obstructive pulmonary disease): Plan: Chronic hypoxic respiratory failure with 2L home O2, Severe COPD at baseline, -reviewed PFT from [address] Agarwal, has chronic bronchitis and severe emphysema on chest CT -not wheezing or laboring does not appear to be in exacerbation Nasal cannula oxygen, titrate to keep pulse ox around 90-92% Albuterol HFA 2 puffs every 4 hours as needed Mometasone-formoterol HFA 2 puffs every 12 hours Spiriva 1 inhalation daily (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 per my review of [facility] records, has been followed by GI at [facility] -continue PPI -maalox PRN -moderately dilated stomach noted on CT (9) Prostate cancer: Plan: Treated cryoablation in 2008 per [facility] records, is on q6 mo lupron injections but states he missed his last one -cont tamsulosin -some urinary retention noted 07/04 Plan Tobacco use Hypertension Bilateral carotid stenosis - seen on previous neck CT PT/OT eval Consult case management [facility]. Was in the [place] Admission and Anticipated Discharge Date Admission Date: July 05, 2023 Subjective chronic cough severe weight loss no chest pain vague on why he's not eating - neighbor who owns diner has been bringing food once a week and not clear he's eating anything else, used to drive and go to diner but recently too sick to go out having heartburn symptoms Physical Exam 2 Physical Exam: PHYSICAL EXAMINATION Last 24h vital signs reviewed, see documentation in flowsheet General: comfortable appearing, no distress, extremely cachectic appearing - bitemporal wasting severe sarcopenia of 4 extremities HEENT: Normocephalic, atraumatic, pupils round and equal, sclerae anicteric, no conjunctival injection, moist mucus membranes Lungs: barrel chested prolonged expiratory phase coarse scattered breath sounds and loose cough no wheezing Heart: Regular rate and rhythm, systolic murmur. No JVD Abdomen: Soft, nontender, nondistended. Bowel sounds present. Extremities: Warm, dry, well-perfused. No extremity edema. Skin: severe thick flaky dry skin especially both feet, severe onychomycosis Neuro: Alert and oriented x 4, face symmetric, moves 4 extremities well Psych: affect and behavior, vague historian, makes paranoid statements Results & Data Results & Data Vital Signs (Past 12 Hours) Vital Signs Temp Pulse Pulse Resp BP BP Pulse Ox 07/05/23 07:53 36.5 C 94 H 20 152/80 H 100 07/05/23 04:00 07/05/23 03:17 36.6 C 71 20 139/91 98 07/05/23 03:10 103 H 07/05/23 02:34 162/109 H 07/05/23 01:30 103 H 23 99 07/05/23 01:24 117 H 07/05/23 01:00 112 H 19 137/96 98 07/05/23 00:01 124 H 23 149/97 H 95 07/04/23 23:43 98 H 07/04/23 23:23 120 H 23 136/77 98 07/04/23 23:11 100 07/04/23 22:50 36.4 C L 119 H 20 90/76 L O2 Del Method O2 Flow Rate 07/05/23 07:53 Nasal Cannula 2 07/05/23 04:00 Nasal Cannula 3 07/05/23 03:17 Nasal Cannula 3 07/05/23 03:10 07/05/23 02:34 07/05/23 01:30 Nasal Cannula 3 07/05/23 01:24 07/05/23 01:00 Nasal Cannula 3 07/05/23 00:01 Nasal Cannula 3 07/04/23 23:43 07/04/23 23:23 Nasal Cannula 3 07/04/23 23:11 Nasal Cannula 3 07/04/23 22:50 Laboratory Results 07/05/23 09:10 07/05/23 09:10 PG Care Time/CCT Total # of Minutes Spent Total Time Spent with Patient: I personally spent: 55 minutes today on clinical care activities including: reviewing chart notes and vital signs reviewing labs reviewing studies, imaging films discussion with vinyl welder and fabricator, dietitian, behavioral health liaison examining and counseling the patient obtaining history from neighbor, bedside RN reviewing outside records writing orders documentation Coding Level of Care Code 56075 SUB INP/OBS CARE 3/50MIN Diagnoses Pulmonary embolism I26.99 Protein calorie malnutrition E46 Pneumonia J18.9 Pulmonary nodule R91.1 Encephalopathy G93.40 Tachy-tiffany syndrome I49.5 COPD (chronic obstructive pulmonary disease) J44.9 Corcoran's esophagus with dysplasia K22.719 Prostate cancer C61
[2023-07-05] MEDS: THIAMINE HCL 500 MG in SODIUM CHLORIDE 0.9% 50 ML IV SCH (09:13)
[2023-07-05] MEDS: dilTIAZem HCL 180 MG CAPCR PO SCH (09:15)
[2023-07-05] MEDS: TAMSULOSIN HCL 0.4 MG CAP PO SCH (09:15)
[2023-07-05] MEDS: ASPIRIN 81 MG ECTAB PO SCH (09:15)
[2023-07-05] MEDS: CEROVITE ADV FORMULA TAB PO SCH (09:16)
[2023-07-05] MEDS: HEPARIN SOD 5,000 UNIT/0.5 ML VIAL SQ SCH (09:16)
[2023-07-05] MEDS: PANTOprazole 40 MG TAB PO SCH ×2 (09:16→21:23)
[2023-07-05] MEDS: FLUTICASONE/VILANTEROL 100/25MCG 14 PUFFS/INHALER INH SCH (09:20)
[2023-07-05] MEDS: UMECLIDINIUM BROMIDE 62.5MCG/BLISTER 7 PUFFS/INHALER INH SCH (09:20)
[2023-07-05 09:35] LABS: Hematocrit (blood only) 39.7 % (42.0-52.0); Hemoglobin 12.5 g/dl (14.0-18.0); Mean Corpuscular Hemoglobin 27.3 pg (25.0-34.0); Mean Corpuscular Hgb Conc 31.5 g/dL (32.0-36.0); Mean Corpuscular Volume 86.7 fL (80.0-100.0); Mean Platelet Volume 10.3 fL (9.4-12.4); Platelet Count 122 K/uL (130-400); RDW Standard Deviation 53.3 fL (36.4-46.3); Red Blood Count 4.58 M/uL (4.70-6.10); White Blood Count 10.82 K/ul (4.8-10.8)
[2023-07-05 09:41] LABS: BUN Creatinine Ratio 21.4 (10-20); Calcium 8.5 mg/dl (8.6-10.3); Creatinine Clr Calc Pharmacy 37.1 ml/min; Est GFR (African American) 68.8 ml/min; Est GFR (Non-African American) 59.4 ml/min; Potassium 4.4 mmol/L (3.5-5.1)
[2023-07-05 09:56] LABS: Troponin I High Sensitivity 105.3 pg/ml (0-20)
--- NOTE | 2023-07-05 10:55 | Cardiology Consultation ---
Date of Consultation July 05, 2023 Assessment & Plan (1) Weakness: (2) Elevated troponin: (3) Sinus node dysfunction: (4) Pacemaker: (5) Tachy-tiffany syndrome: (6) Complete heart block: Plan 1. Weakness: He presented with weakness which appears to be due to malnourishment and dehydration. There is not appear to be a cardiovascular reason for this. 2. Elevated troponin: His troponin is elevated, however I do not believe there is an acute cardiac event and the trend does not suggest that. I would not pursue coronary evaluation. 3. Sinus node dysfunction: He has a history of sinus node dysfunction but here in the hospital his heart rate has been elevated, probably due to his presenting condition, it does not seem to be an abnormal rhythm. He is back on diltiazem (I suspect he was not taking at home) and with that and other treatment his heart rate has improved following presentation. I would not specifically treat the tachycardia at this time. 4. Pacemaker: His pacemaker was put in for bradycardia, I believe both sinus bradycardia and intermittent heart block. As of his last office visit was not pacing often. I believe it has been interrogated this admission but I do not see the paperwork. There is no evidence that is not functioning correctly and I do not think further evaluation is indicated at this time. Once available I will review his interrogation. 5. Tachybradycardia syndrome: We have not seen evidence of tachycardia on the monitor. If he does develop this we could consider increasing his AV leny blocking medications but I would not do it without documentation of rapidly conducting atrial arrhythmias. 6. Complete heart block: We have not seen evidence of ventricular pacing, we can review his pacemaker interrogation when it becomes available, however the device should be able to accommodate this if it occurs. It could be missed on telemetry as the pacemaker will berry picker pacing but that would not alter our treatment of his tachycardia. History of Present Illness Reason for Consultation: Weakness, tachycardia Attending Physician: Yana Pinzon MD History of Present Illness This is a 77-year-old male with a a lot of medical problems including COPD, hypertension dyslipidemia, pulmonary nodules, prostate cancer, mild coronary artery disease as well as carotid arterial disease, paroxysmal atrial fibrillation and sinus node dysfunction (tachybradycardia syndrome) and high- grade AV block. He had a [employer]onic dual-chamber pacemaker implanted on March 26, 2023. He was recently seen in the office May 06, 2023 and was doing well with his pacemaker which was essentially not pacing due to appropriate heart rate without pacing. He did continue to episodes of PSVT and his diltiazem was increased to 180 mg daily for rate and rhythm control. It is not clear however whether he was taking medications at home, probably not. He presented to the emergency room on July 04, 2023 with confusion and weakness, he arrived by ambulance but apparently has not been doing well for the last several weeks with paranoia and not eating and progressive weakness and his neighbors were concerned and called the ambulance. On arrival here he was not hypoxic, he was weak and dehydrated and was given intravenous fluid. No clear metabolic abnormalities were identified and it was felt that a lot of his difficulty was malnutrition and dehydration. Due to his cognitive status I cannot obtain a history. Allergies Allergy/AdvReac Type Severity Reaction Status Date / Time simvastatin AdvReac Intermediate myalgia Verified 07/05/23 01:06 Home Medications Medication Instructions Recorded Confirmed Type mucus clearing device 06/13/21 07/05/23 History Portable Oxygen E0431 #1 ea 09/25/22 07/05/23 Rx albuterol sulfate 90 mcg/actuation 2 puff inhalation Q4H PRN 09/25/22 07/05/23 Rx aerosol inhaler shortness of breath or wheezing #8.5 grams nebulizers (Aeroneb Go Nebulizer) #1 ea 09/25/22 07/05/23 Rx latanoprost (PF) 0.005 % eye drops 1 drp OPB HS 02/01/23 07/05/23 History in a dropperette multivitamin with minerals 1 tab PO DAILY 02/01/23 07/05/23 History (Multiple Vitamin-Minerals tablet) polyethylene glycol 3350 17 17 g PO DAILY PRN Constipation 02/01/23 07/05/23 History gram/dose oral powder rosuvastatin 10 mg tablet 10 mg PO DAILY 02/01/23 07/05/23 History tamsulosin 0.4 mg capsule 0.4 mg PO DAILY 02/01/23 07/05/23 History mometasone-formoterol HFA 50 mcg-5 2 puff inhalation Q12H #13 grams 02/23/23 07/05/23 Rx mcg/actuation aerosol inhaler (Dulera) tiotropium bromide 2.5 1 puff inhalation DAILY #4 grams 02/23/23 07/05/23 Rx mcg/actuation mist for inhalation L.acidop,casei,lactis,rham-B.lact,shaunna 1 cap PO DAILY #0 caps 07/14/23 Rx 625 mg (10 billion cell) capsule (Advanced Probiotic) acetaminophen 325 mg tablet 650 mg (2 x 325 mg) PO Q4H PRN #0 07/14/23 Rx tabs aluminum-magnesium hydroxide 200 30 ml PO Q6H PRN #0 mL 07/14/23 Rx mg-200 mg/5 mL oral suspension (MAG-AL) apixaban 5 mg tablet (Eliquis) 5 mg PO BID #0 tabs 07/14/23 Rx aspirin 81 mg tablet,delayed 81 mg PO QAM #0 tabs 07/14/23 Rx release cholecalciferol (vitamin D3) 125 125 mcg PO QAM #0 tabs 07/14/23 Rx mcg (5,000 unit) tablet ipratropium 0.5 mg-albuterol 3 mg 3 ml NEB QIDR PRN shortness of 07/14/23 Rx (2.5 mg base)/3 mL nebulization breath or wheezing #0 mL soln loperamide 2 mg capsule 2 mg PO Q4H PRN #0 caps 07/14/23 Rx melatonin 3 mg tablet 3 mg PO HS #0 tabs 07/14/23 Rx metoprolol succinate 25 mg 25 mg PO QAM #0 tabs 07/14/23 Rx tablet,extended release 24 hr mirtazapine 15 mg tablet 15 mg PO HS #0 tabs 07/14/23 Rx pantoprazole 40 mg tablet,delayed 40 mg PO BID #0 tabs 07/14/23 Rx release prednisone 20 mg tablet 20 mg PO QAM 2 days #2 tabs 07/14/23 Rx thiamine HCl (vitamin B1) 100 mg 200 mg (2 x 100 mg) PO BID #0 tabs 07/14/23 Rx tablet Patient History Medical History Pulmonary embolism Near syncope Abnormal EKG Elevated troponin I level Heart palpitations Depression Multiple pulmonary nodules Chronic respiratory failure with hypoxia Ex-smoker Tobacco consumption Exertional shortness of breath Chronic bronchitis 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 Sinus tachycardia Anomalous coronary artery origin Anemia Dyspnea History of left heart catheterization 2009 Hypoxemic respiratory failure, chronic Migraine with aura, intractable, without status migrainosus Dyslipidemia Corcoran's esophagus with dysplasia Prostate cancer GERD without esophagitis Hypertension COPD (chronic obstructive pulmonary disease) Surgical History History of cataract removal with insertion of prosthetic lens bilateral H/O umbilical hernia repair 2007 Family History Mother , Cancer Cancer Father , Cancer Colorectal cancer Sister Heart disorder Stroke Brother Prostate cancer Denies family history of Crohn's disease Ulcerative colitis Social History Smoking Status: Former smoker Tobacco Type: Cigarettes Age Started Using Tobacco: 12; Age Quit Using Tobacco: 60; packs per day: 2.5; Cigarettes Per Day: 120 pack years; Do You Dip or Chew Tobacco: No; Hx Alcohol Use: No Hx Substance Use: No Preferred Language: Australian Communication Ability: Effective Insole And Outsole Preparer Required: No Beliefs That Will Affect Care: None Current Living Situation: Alone Feels Safe at Home: Hesitant to Answer Assistive Devices: Glasses and Oxygen - Continuous Review of Systems Review of Systems: Unobtainable due to cognitive status Physical Exam Physical Exam: Constitutional: Alert, cooperative and in no obvious distress and he is somewhat conversational. He is very cachectic HEENT: Unremarkable Neck: No jugular venous distention, carotid pulses are normal and equal bilaterally without bruits. Pulmonary: Clear to auscultation bilaterally. Cardiac: Regular rhythm with a soft holosystolic murmur at the apex, no gallop or rub. Abdomen: Soft, nontender with normal bowel sounds. Extremities: No edema. Neurologic: No focal findings. Skin: The device site is well-healed without erythema, swelling or tenderness. No rash, ecchymoses or petechiae. Results & Data Vital Signs (Past 12 Hours) Vital Signs Temp Pulse Pulse Resp BP BP Pulse Ox 07/05/23 08:12 07/05/23 07:53 36.5 C 94 H 20 152/80 H 100 07/05/23 04:00 07/05/23 03:17 36.6 C 71 20 139/91 98 07/05/23 03:10 103 H 07/05/23 02:34 162/109 H 07/05/23 01:30 103 H 23 99 07/05/23 01:24 117 H 07/05/23 01:00 112 H 19 137/96 98 07/05/23 00:01 124 H 23 149/97 H 95 07/04/23 23:43 98 H 07/04/23 23:23 120 H 23 136/77 98 07/04/23 23:11 100 O2 Del Method O2 Flow Rate 07/05/23 08:12 Nasal Cannula 3 07/05/23 07:53 Nasal Cannula 2 07/05/23 04:00 Nasal Cannula 3 07/05/23 03:17 Nasal Cannula 3 07/05/23 03:10 07/05/23 02:34 07/05/23 01:30 Nasal Cannula 3 07/05/23 01:24 07/05/23 01:00 Nasal Cannula 3 07/05/23 00:01 Nasal Cannula 3 07/04/23 23:43 07/04/23 23:23 Nasal Cannula 3 07/04/23 23:11 Nasal Cannula 3 Laboratory Results Cardiac Enzymes 07/04/23 07/05/23 07/05/23 Range/Units 23:59 02:12 09:10 AST 22 (13-39) U/L Troponin I High Sens 109.0 H* 104.8 H* 105.3 H* (0-20) pg/ml Coagulation 07/04/23 Range/Units 23:59 PT 11.9 (9.0-12.0) Seconds CBC 07/04/23 07/05/23 Range/Units 23:59 09:10 WBC 13.11 H 10.82 H (4.8-10.8) K/ul RBC 4.94 4.58 L (4.70-6.10) M/uL Hgb 13.2 L 12.5 L (14.0-18.0) g/dl Hct 43.4 39.7 L (42.0-52.0) % Plt Count 121 L 122 L (130-400) K/uL Neut # (Auto) 11.95 H (1.40-6.50) K/uL Lymph # (Auto) 0.45 L (1.20-3.40) K/uL Cataño # (Auto) 0.60 H (0.11-0.59) K/uL Eos # (Auto) 0.00 (0.00-0.50) K/uL Baso # (Auto) 0.02 (0.00-0.20) K/uL Comprehensive Metabolic Panel 07/04/23 07/05/23 Range/Units 23:59 09:10 Sodium 141 141 (136-145) mmol/L Potassium 4.5 4.4 (3.5-5.1) mmol/L Chloride 105 107 (98-107) mmol/L Carbon Dioxide 20 L 22 (21-32) mmol/L BUN 26 H 25 H (6-23) mg/dl Creatinine 1.26 1.17 (0.6-1.4) mg/dl Glucose 92 133 H (70-99(Fasting)) mg/dl Calcium 8.8 8.5 L (8.6-10.3) mg/dl AST 22 (13-39) U/L ALT 13 (7-52) U/L Alkaline Phosphatase 58 (34-104) U/L Total Protein 5.5 L (6.0-8.3) gm/dl Albumin 2.7 L (3.4-5.0) gm/dl Intake and Output 07/04/23 07/05/23 07/05/23 22:59 06:59 14:59 Intake Total 1650 / 1650 55 / 55 Balance 1650 / 1650 55 / 55 Intake: IV 1550 / 1550 55 / 55 Sodium Chloride 0.9% 1,000 ml @ 1000 / 1000 999 mls/hr IV .Q1H1M ONE Rx#: [id number] Sodium Chloride 0.9% 500 ml @ 500 / 500 999 mls/hr IV .Q31M [facility] Rx#: [id number] Thiamine HCl 500 mg In Sodium 55 / 55 Chloride 0.9% 50 ml @ 210 mls/ hr IV Q8H [facility] Rx#:[id number] cefTRIAXone SODIUM 2,000 mg In 50 / 50 50 ml @ 100 mls/hr IV NOW STA Rx#:[id number] Oral 100 / 100 Other: Weight 50.349 kg Weight Measurement Method Built in [facility] Diagnostic Findings Telemetry: Predominantly sinus tachycardia with a heart rate of around 100, frequent premature atrial beats. No clear atrial arrhythmia. ECG Additional Comments: His presenting electrocardiogram shows sinus tachycardia at 117 bpm with inferior T wave abnormalities but no ST elevation. PG Care Time/CCT Total # of Minutes Spent Total Time Spent with Patient: Total time spent is greater than 50% in coordination of care (as documented) at patient's floor/unit and/or counseling patient: Coding Level of Care Code 25262 INT INP/OBS CARE 3/75MIN Diagnoses Weakness R53.1 Elevated troponin R79.89 Sinus node dysfunction I49.5 Pacemaker Z95.0 Tachy-tiffany syndrome I49.5 Complete heart block I44.2
[2023-07-05] MEDS: OPTIRAY 320 100ml IV ONE (11:46)
[2023-07-05] MEDS: ALUMINUM/MAGNESIUM SUSP 30 ML UDC PO STA (12:03)
[2023-07-05] MEDS: CLOTRIMAZOLE 1% CR 15 GM TUBE EXT SCH (12:04)
[2023-07-05] MEDS: ONDANSETRON INJ 2 MG/ML 2 ML VIAL IV PRN (12:05)
--- NOTE | 2023-07-05 12:18 | CT Scan Report ---
CT OF THE CHEST WITH IV CONTRAST CLINICAL HISTORY: BARBIE suspicious nodule, cough, cachexia COMPARISON STUDY: Chest CT February 04, 2023 and PET/CT February 18, 2023. TECHNIQUE: Following IV administration of 94 mL of Optiray, helical axial images of the chest were o btained. Sagittal and coronal reconstructions were viewed as well as maximal intensity projections o n an independent 3-D workstation. Automated exposure control was utilized for the study. A dose low ering technique was utilized adhering to the principles of ALARA. CT DOSE: 370.33 mGy.cm FINDINGS: No enlarged axillary, mediastinal or hilar lymph nodes are present. A partially calcified low-attenuation left paraesophageal abnormality remains unchanged since initial CT of September 12, 2021. The esophagus is moderately dilated and fluid-filled. There is mild esophageal wall thickening. The s tomach is mildly distended and partially fluid-filled. There is no thoracic aortic dissection. Left s ubclavian pacer is in place. There is extensive coronary artery calcification. Note is made of a 3.6 x 1.5 cm embolus adherent to the wall of the distal right pulmonary artery extending into the interlo bar pulmonary artery. This slightly extends into segmental branch of the right middle lobe. An additi onal segmental embolus within the left lower lobe is present. These are new since CT of February 04, 2023. There is no pneumothorax. Trace bilateral pleural effusions are present. There are severe emphy sema. Bronchial wall thickening is noted. There are moderate secretions within the airways. Minimal g roundglass opacity within the right lower lobe is new since chest CT of February 04, 2023. A 1.1 cm l eft upper lobe nodule on image 62, measured in coronal plane, is unchanged since initial CT of August 162021. A 1.3 cm left upper lobe nodule on image 118 of [address] of February 04. This has slightly increased since CT of September 12, 2022. No suspicious lesions within the bony thor ax are noted. Bilateral adrenal nodules are unchanged since initial chest CT. These are likely benign . IMPRESSION: 1. Several pulmonary emboli, including a 3.6 x 1.5 cm embolus adherent to the wall of the right pulmo nary artery. These emboli are new since CT of February 04, 2023 and likely acute to subacute. 2. Two left upper lobe pulmonary nodules, as described above. These nodules remain indeterminate and may reflect neoplasms, particularly the more inferior of the left upper lobe nodules, as described ab ove. 3. Severe emphysema. 4. Mild groundglass opacities within the right lower lobe which favors a mild infectious process. 5. Moderately distended, fluid-filled stomach with mild esophageal wall thickening. Partially fluid-f illed, mildly distended stomach. 6. Trace bilateral pleural effusions. 7. Bronchial wall thickening. Moderate secretions within the airways. ACT 112: Negative or not required by law. Electronically signed by: Stanley Zhu M.D. 07/05/2023 12:15 PM
[2023-07-05] MEDS: ENOXAPARIN INJ 60 MG/0.6 ML SYR SC SCH (14:00)
[2023-07-05] MEDS: PIPER/TAZO 4.5g in D5W MINI-B 100 ML IV ONE (15:13)
--- NOTE | 2023-07-05 15:20 | XCELERA ---
[id number]
[2023-07-05] MEDS: PIPERACILLIN/TAZOBACTAM 4.5 GM in DEXTROSE 5% MINI-B 100 ML IV SCH (21:15)
[2023-07-05] MEDS: LATANOPROST 0.005% OP SOLN 2.5 ML BTL OP SCH (21:22)
[2023-07-05] MEDS: MIRTAZAPINE TAB 15 MG TAB PO SCH (21:23)
[2023-07-06] MEDS: ALUMINUM/MAGNESIUM SUSP 30 ML UDC PO PRN (02:33)
[2023-07-06 02:34] LABS: Appearance Urine Cloudy (Clear); Bacteria Urine Automated 3+ (None Seen); Bilirubin Urine Negative (Negative); Blood Urine Negative (Negative); Cast Urine Automated 0-2 /lpf (0-2); Color Urine Yellow; Epithelial Cell Urine Auto 0-2 /hpf (0-2); Glucose Urine UA Negative (Negative); Ketones Urine Trace (Negative); Leukocyte Esterase Urine 1+ (Negative); Nitrite Urine Negative (Negative); Protein Urine 1+ (Negative); Specific Gravity Urine > 1.045 (1.000-1.030); Uric Acid Crystals Urine Present (None Prsent); Urobilinogen Urine Negative (Negative); WBC Urine Automated >50 /hpf (0-5); pH Urine 5.5 (4.5-7.5)
--- NOTE | 2023-07-06 05:46 | Electrocardiogram Report ---
Test Reason : Blood Pressure : / mmHG Vent. Rate : 117 BPM Atrial Rate : 117 BPM P-R Int : 182 ms QRS Dur : 102 ms QT Int : 300 ms P-R-T Axes : 088 090 -84 degrees QTc Int : 418 ms Sinus tachycardia Rightward axis Pulmonary disease pattern T wave abnormality, consider inferior ischemia Abnormal ECG When compared with ECG of 26-MAR-2023 09:55, T wave inversion now evident in Inferior leads Confirmed by Tomi Burns ([id number]) on 07/06/2023 5:46:20 AM Referred By: REFERRED SELF Confirmed By:Tomi Burns
[2023-07-06 07:19] LABS: Basophils # (auto) 0.02 K/uL (0.00-0.20); Basophils % (auto) 0.3 %; Eosinophils # (auto) 0.05 K/uL (0.00-0.50); Eosinophils % (auto) 0.7 %; Hematocrit (blood only) 34.4 % (42.0-52.0); Hemoglobin 10.9 g/dl (14.0-18.0); Immature Granulocytes # (auto) 0.03 K/uL (0.01-0.20); Immature Granulocytes % (auto) 0.4 %; Lymphocytes # (auto) 0.83 K/uL (1.20-3.40); Lymphocytes % (auto) 12.3 %; Mean Corpuscular Hemoglobin 27.2 pg (25.0-34.0); Mean Corpuscular Hgb Conc 31.7 g/dL (32.0-36.0); Mean Corpuscular Volume 85.8 fL (80.0-100.0); Mean Platelet Volume 9.5 fL (9.4-12.4); Monocytes # (auto) 0.39 K/uL (0.11-0.59); Monocytes % (auto) 5.8 %; Neutrophils # (auto) 5.41 K/uL (1.40-6.50); Neutrophils % (auto) 80.5 %; Platelet Count 112 K/uL (130-400); RDW Coefficient of Variation 16.8 % (11.5-14.5); RDW Standard Deviation 51.9 fL (36.4-46.3); Red Blood Count 4.01 M/uL (4.70-6.10); White Blood Count 6.73 K/ul (4.8-10.8)
[2023-07-06 07:56] LABS: Albumin Level 2.2 gm/dl (3.4-5.0); BUN Creatinine Ratio 20.6 (10-20); Bilirubin,Total 0.4 mg/dl (0.2-1.0); Calcium 8.3 mg/dl (8.6-10.3); Est GFR (African American) 81.2 ml/min; Est GFR (Non-African American) 70.1 ml/min; Globulin 2.2 gm/dl (2.5-4.0); Magnesium 1.8 mg/dl (1.7-2.4); Phosphorus 1.6 mg/dl (2.5-4.9); Potassium 3.8 mmol/L (3.5-5.1); Total Protein 4.4 gm/dl (6.0-8.3)
[2023-07-06] MEDS ORDERED: SODIUM PHOSPHATE 3 MMOL/1 ML INFUSION IV STA (08:51)
[2023-07-06] MEDS: SODIUM PHOSPHATE 21 MMOL in SODIUM CHLORIDE 0.9% 500 ML IV ONE (09:19)
[2023-07-06] MEDS: MAGNESIUM SULFATE / D5W 1 GM/100 ML BAG IV ONE (09:34)
--- NOTE | 2023-07-06 17:51 | Hospitalist Progress Note ---
Date of Service July 06, 2023 Assessment & Plan (1) Pulmonary embolism: Plan: 77-year-old male with a past medical history including tachybradycardia syndrome, sinus node dysfunction, paroxysmal atrial fibrillation, complete heart block, SVT, carotid stenosis, dysphonia, depression, COPD, hypertension, prostate cancer, GERD, dyslipidemia, migraine with aura, tobacco use, chronic respiratory failure with hypoxia and multiple pulmonary nodules. By report of neighbors has been living in [facility], not eating, paranoid, seems confused. Obtained contrast CT to evaluate suspicious BARBIE pulmonary nodules - found to have several PEs especially 3.6x1.5 cm PE adherent to wall of R pulmonary artery -start enoxaparin 1 mg/kg -eventual DOAC - likely low dose apixaban -troponin elevation is caused by PE - trend flat at 100. mildly decreased RV on TTE 07/04 (2) Protein calorie malnutrition: Plan: Severe protein calorie malnutrition >15 kg weight loss since last summer, severe sarcopenia, BMI 17 Severe pulmonary disease, possible lung cancer, encephalopathy, lack of access to food -consulted RD and discussed with him. dermatitis could be symptom of an EFA deficiency -hx B12 deficiency has been on injections, checked B12 level nl 537 -check B1- pending and replace empirically -nutritional supplements -started mirtazapine 7.5 HS -at risk for refeeding syndrome BMP/mag/phos in QA (3) Pneumonia: Plan: Productive cough, leukocytosis, weakness, ground glass opacities in RLL on chest CT suspicious for infectious process, bronchial wall thickening and moderate secretions. At risk of gram negative infections inc pseudomonas because of chronic lung disease -MRSA nares was negative -PCT negative -pip-tazo started 07/04 -ST consulted - VFSS negative 01/2023 (4) Pulmonary nodule: Plan: BARBIE suspicious pulmonary nodule, had FDG uptake on PET, Dr. Agarwal offered bronch early February but carries significant risk of complications, Mauricio said "he'd think about it" follow up CT was planned for 3 mo which is a little overdue at this point -chest CT with contrast ordered - reviewed CT films and report - two suspicious BARBIE pulmonary nodules persist -planned to consult Dr. Agarwal who is on service this week, but today Mr. Zamora refused to talk to anyone. Try again later (5) Encephalopathy: Plan: possible acute or chronic encephalopathy or neurodegenerative disorder less likely primary psychiatric disorder - failure to care for self, paranoia, denies depressive symptoms and SI/HI, severe medical illness Patient has reportedly been carrying a gun with him in the house, and friend says he has not been out for days to weeks When asked, he reports that he feels that his neighbors are out to get him, but cannot explain why Unclear whether acute and chronic components. Could have delirium related to acute illness including pneumonia and dehydration, at risk for nutritional deficiencies, may have dementia. -consulted psychiatry - discussed with behavioral health liaison. He is [facility], and [facility] requiring psychiatric consult prior to assisting with placement etc, discussed with psychiatrist - will eval tomorrow -TSH 5.7 T4 0.91 -vbg without hypercarbia -B12 wnl 04/2023, TSH 5.7 on admission, vbg without hypercarbia, no evidence of liver disease, check B1 and start empiric IV thiamine 500 mg q8h x 6 doses then 200 mg po bid -reviewed med list - no culprits to cause mental status changes -UA with pyuria - await culture. Got one dose ceftriaxone 2g in ED and on ABX for pna (6) Tachy-tiffany syndrome: Plan: dual-chamber pacer with left bundle pacing lead 03/26/23 Dr. Caraballo - for complete heart block, near syncope, PSVT - followed by Dr. Casas. Recent device interrogation PSVT likely atrial tachycardia mild CAD, neg DSE normal EF 10/2022, mod MR sinus node dysfunction, atrial tachycardia - improved since diltiazem resumed on admission -appreciate consult by Dr. Burns, discussed with him -follow up device interrogation (7) COPD (chronic obstructive pulmonary disease): Plan: Chronic hypoxic respiratory failure with 2L home O2, Severe COPD at baseline, -reviewed PFT from [address] Agarwal, has chronic bronchitis and severe emphysema on chest CT -not wheezing or laboring does not appear to be in exacerbation Nasal cannula oxygen, titrate to keep pulse ox around 90-92% Albuterol HFA 2 puffs every 4 hours as needed Mometasone-formoterol HFA 2 puffs every 12 hours Spiriva 1 inhalation daily (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 per my review of [place] records, has been followed by GI at [place] -continue PPI -maalox PRN -moderately dilated stomach noted on CT (9) Prostate cancer: Plan: Treated [facility]abl[facility] 2008 [facility], is on q6 mo lupron injections but states he missed his last one -cont tamsulosin -some urinary retention noted 07/04 Plan VT - had 15 beats today, low phosphorus at that time. If recurrent can discuss with cardiology - saw earlier in stay Hypophosphatemia - replacing with 21g IV, repeat in AM. Replacing normal borderline magnesium IV today, recheck in AM Tobacco use Hypertension Bilateral carotid stenosis - seen on previous neck CT PT/OT eval Consult case management Reviewed outside records from the [place] - is service connected. Was in the [place] Admission and Anticipated Discharge Date Admission Date: July 05, 2023 Subjective Per report of nursing staff he was extremely cooperative pleasant and appreciative this morning did his ADLs, meds, ate well. Then midmorning he had an abrupt change with no clear precipitant became angry and hostile refused to talk to anyone. When I saw him he would not talk to me he was staring straight ahead and said "leave me the F alone" Physical Exam 2 Physical Exam: PHYSICAL EXAMINATION Last 24h vital signs reviewed, see documentation in flowsheet General: comfortable appearing, no distress, extremely cachectic appearing - bitemporal wasting severe sarcopenia of 4 extremities. Sitting in bed awake alert and staring forward at the wall HEENT: Normocephalic, atraumatic, pupils round and equal, sclerae anicteric, no conjunctival injection, moist mucus membranes Lungs: Refused exam but appears to be in no respiratory distress Heart: Refused Abdomen: Refused Extremities: Covered up in blankets, yesterday had no edema Skin: severe thick flaky dry skin especially both feet, severe onychomycosis - 07/04 exam Neuro: Alert speech intact, face symmetric Psych: angry affect, refused to talk to me Results & Data Results & Data Vital Signs (Past 12 Hours) Vital Signs Temp Pulse Pulse Resp BP Pulse Ox O2 Del Method 07/06/23 14:59 36.5 C 72 18 115/66 100 Nasal Cannula 07/06/23 14:55 80 07/06/23 11:52 36.4 C L 69 18 115/66 100 Nasal Cannula 07/06/23 09:30 68 07/06/23 08:00 Nasal Cannula 07/06/23 07:48 36.3 C L 68 18 114/66 100 Nasal Cannula O2 Flow Rate 07/06/23 14:59 1.5 07/06/23 14:55 07/06/23 11:52 2 07/06/23 09:30 07/06/23 08:00 3 07/06/23 07:48 2 Laboratory Results 07/06/23 06:20 07/06/23 06:20 PG Care Time/CCT Total # of Minutes Spent Total Time Spent with Patient: Total time spent is greater than 50% in coordination of care (as documented) at patient's floor/unit and/or counseling patient: Coding Level of Care Code 27742 SUB INP/OBS CARE 2/35MIN Diagnoses Pulmonary embolism I26.99 Protein calorie malnutrition E46 Pneumonia J18.9 Pulmonary nodule R91.1 Encephalopathy G93.40 Tachy-tiffany syndrome I49.5 COPD (chronic obstructive pulmonary disease) J44.9 Corcoran's esophagus with dysplasia K22.719 Prostate cancer C61
[2023-07-07 06:55] LABS: Basophils # (auto) 0.02 K/uL (0.00-0.20); Basophils % (auto) 0.4 %; Eosinophils # (auto) 0.23 K/uL (0.00-0.50); Eosinophils % (auto) 4.4 %; Hematocrit (blood only) 33.3 % (42.0-52.0); Hemoglobin 10.5 g/dl (14.0-18.0); Immature Granulocytes # (auto) 0.03 K/uL (0.01-0.20); Immature Granulocytes % (auto) 0.6 %; Lymphocytes # (auto) 0.87 K/uL (1.20-3.40); Lymphocytes % (auto) 16.8 %; Mean Corpuscular Hemoglobin 27.3 pg (25.0-34.0); Mean Corpuscular Hgb Conc 31.5 g/dL (32.0-36.0); Mean Corpuscular Volume 86.5 fL (80.0-100.0); Mean Platelet Volume 9.7 fL (9.4-12.4); Monocytes # (auto) 0.37 K/uL (0.11-0.59); Monocytes % (auto) 7.2 %; Neutrophils # (auto) 3.65 K/uL (1.40-6.50); Neutrophils % (auto) 70.6 %; Platelet Count 120 K/uL (130-400); RDW Coefficient of Variation 16.5 % (11.5-14.5); RDW Standard Deviation 51.6 fL (36.4-46.3); Red Blood Count 3.85 M/uL (4.70-6.10); White Blood Count 5.17 K/ul (4.8-10.8)
[2023-07-07 07:16] LABS: BUN Creatinine Ratio 19.8 (10-20); Calcium 7.8 mg/dl (8.6-10.3); Creatinine Clr Calc Pharmacy 48.1 ml/min; Est GFR (African American) 87.4 ml/min; Est GFR (Non-African American) 75.4 ml/min; Magnesium 1.9 mg/dl (1.7-2.4); Phosphorus 2.4 mg/dl (2.5-4.9); Potassium 3.3 mmol/L (3.5-5.1)
[2023-07-07] MEDS: POTASSIUM CHLORIDE CRTAB 20 MEQ TABCR PO SCH (09:42)
--- NOTE | 2023-07-07 09:52 | Psychiatric Consultation ---
Date of Consultation July 07, 2023 Impression / Recommendations Impression Mr. Zamora exhibits cognitive deterioration in the midst being malnourished and other health-related problems. He did not appear delirious at the time of the interview but holds strong false beliefs directed to specific individuals. Due to his history of being a , prior Trauma-related symptoms, living by himself and retort setter of guns, he is at a high risk of acting on those ideas if feeling threatened and in the need to defend himself by misinterpreting cues in the environment. He is currently in the hospital, without access to the guns or the neighbors. Primary team has recommended transitioning to rehab and and patient is agreeable. Imminent risk of harm is low. These ideas made disappear in the course of treatment and will need to be reassessed prior to returning home (if he is to return home) in order to comply with [place] Duty to Warn laws. 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 Rexulti is FDA approved for agitation in dementia and may be useful to target the delusional thoughts. Psych History Identifying Data Mr. Zamora is a 77 yo WM with no formal psychiatric dx. He was admitted to the medical floor due to confusion, weakness, cough, not eating. He is being treated for failure to thrive/abnormal weight loss/protein calorie malnutrition/dehydration. He has multiple chronic medical conditions including history of COPD on chronic oxygen, hypertension, GERD/Corcoran's esophagus, pulmonary nodule, prostate cancer, CAD, A-fib and SVT with tachybradycardia syndrome and pacemaker presenting. Psychiatry was consulted to explore paranoia. Chief Complaint "I have personal problems with so called friends". History of Present Illness According to the ED not on 07/04/23 : ". . . He is somewhat confused and thinking again that his neighbors are starting him. It is unclear how long it has been since he had food that could have been a week or 2. He is states he is taking some medicines but not sure if he is taking what he supposed to be . . ." According to primary team H&P on 07/05/23: ". . .he patient's friend had been periodically breaking him food, which she later reports she thinks he was only eating that meal for the entire week. She became concerned when he become more more reclusive in his home, and reports that while she had his sister talk to him on the phone to keep him occupied, a vegetable specker went into his house to the window, and talked the patient to coming into the ED for assessment. The patient has been carrying a gun with him in the house, as he has become very paranoid with hallucinations about saying that his neighbors were out to get him. His home reportedly is full of mice droppings, bird droppings and has a terrible smell to it. He reportedly has lost significant amounts of weight, and in general has not been taking care of himself. . ." Mr. Zamora is a [place] . He denied receiving psychotropic medication treatment for PTSD but acknowledged a history of emotional difficulties related to his experience and the loss of friends during the war. He described one period of depressed mood 7 years ago after the of his . He recalled being "In a very dark place" at that time and receiving psychotherapy but not psychotropic medications. During the exam, he denied symptoms of depression or anxiety. He was polite and superficially forthcoming with information. He appeared selective of which questions to answer and was careful with the use of certain words; however, he indicated that he strongly believes his neighbors are stealing from him. He stated that his neighbors took his credit card and later returned it, he believes they took his checkbook. He also expressed that he hears his neighbors talk thought the radio and use the radio to hear/spy on him. He did not overtly threaten to harm others but suggested that if someone comes to his property, he would defend himself. Mr. Zamora told me he own guns and lives by himself at home. He is strange form his two adult children. His step daughter and sister, contact him frequently but live in other states([place], [place]). He does not appear to have the same suspicious thoughts against other friends aside from his neighbor. On exam, he was oriented in person and situation but disoriented in time. There is no collateral informant to assess if his concerns are based on reality or not. The allusion to hearing the neighbors voice thought the radio, make me believe this is a false belief. Past Psychiatric History Previous Psych History: As stated above. Past Medication Trials: MIrtazapine for sleep Allergies Allergy/AdvReac Type Severity Reaction Status Date / Time simvastatin AdvReac Intermediate myalgia Verified 07/05/23 01:06 Home Medications Medication Instructions Recorded Confirmed Type esomeprazole magnesium 40 mg 40 mg PO DAILY 06/13/21 07/05/23 History capsule,delayed release mucus clearing device 06/13/21 07/05/23 History sumatriptan succinate 6 mg/0.5 mL 6 mg subcut DIRECTED PRN 06/13/21 07/05/23 History subcutaneous pen injector migraine headache Portable Oxygen [id number] #1 ea 09/25/22 07/05/23 Rx albuterol sulfate 90 mcg/actuation 2 puff inhalation Q4H PRN 09/25/22 07/05/23 Rx aerosol inhaler shortness of breath or wheezing #8.5 grams nebulizers (Aeroneb Go Nebulizer) #1 ea 09/25/22 07/05/23 Rx latanoprost (PF) 0.005 % eye drops 1 drp OPB HS 02/01/23 07/05/23 History in a dropperette multivitamin with minerals 1 tab PO DAILY 02/01/23 07/05/23 History (Multiple Vitamin-Minerals tablet) polyethylene glycol 3350 17 17 g PO DAILY PRN Constipation 02/01/23 07/05/23 History gram/dose oral powder rosuvastatin 10 mg tablet 10 mg PO DAILY 02/01/23 07/05/23 History tamsulosin 0.4 mg capsule 0.4 mg PO DAILY 02/01/23 07/05/23 History mometasone-formoterol HFA 50 mcg-5 2 puff inhalation Q12H #13 grams 02/23/23 07/05/23 Rx mcg/actuation aerosol inhaler (Dulera) tiotropium bromide 2.5 1 puff inhalation DAILY #4 grams 02/23/23 07/05/23 Rx mcg/actuation mist for inhalation diltiazem HCl 180 mg 180 mg PO DAILY #30 caps 05/06/23 07/05/23 Rx capsule,extended release 24 hr Patient History Medical History Pulmonary embolism Near syncope Abnormal EKG Elevated troponin I level Heart palpitations Depression Multiple pulmonary nodules Chronic respiratory failure with hypoxia Ex-smoker Tobacco consumption Exertional shortness of breath Chronic bronchitis 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 Sinus tachycardia Anomalous coronary artery origin Anemia Dyspnea History of left heart catheterization 2009 Hypoxemic respiratory failure, chronic Migraine with aura, intractable, without status migrainosus Dyslipidemia Corcoran's esophagus with dysplasia Prostate cancer GERD without esophagitis Hypertension COPD (chronic obstructive pulmonary disease) Surgical History History of cataract removal with insertion of prosthetic lens bilateral H/O umbilical hernia repair 2007 Family History Mother , Cancer Cancer Father , Cancer Colorectal cancer Sister Heart disorder Stroke Brother Prostate cancer Denies family history of Crohn's disease Ulcerative colitis Social History Smoking Status: Former smoker Tobacco Type: Cigarettes Age Started Using Tobacco: 12; Age Quit Using Tobacco: 60; packs per day: 2.5; Cigarettes Per Day: 120 pack years; Do You Dip or Chew Tobacco: No; Hx Alcohol Use: No Hx Substance Use: No Preferred Language: Yi Communication Ability: Effective Fruit Picker Required: No Beliefs That Will Affect Care: None Current Living Situation: Alone Feels Safe at Home: Hesitant to Answer Assistive Devices: Glasses and Oxygen - Continuous Physical Exam Psychiatric: Orientation: alert and oriented to person; + not oriented to time Apperance: + disheveled Eye Contact: + fair eye contact Not assessed. Patient in bed. He reported he is able to ambulate without assistance. Speech: + loud speech and normal rate/rhythm/volume of speech Affect: euthymic affect Mood: no depressed mood and no irritable mood Thought Process: + confabulations Thought Content: + delusions Suicidal Thoughts: + reports suicidal thoughts Only if he feels threatened. Hallucinations: + auditory hallucinations Insight: + poor insight Judgment: + limited judgement Vital Signs (Past 24 Hours): Last Vital Signs Temp 36.6 C 07/07/23 07:39 Pulse 75 07/07/23 07:39 Resp 18 07/07/23 07:39 BP 131/73 07/07/23 07:39 Pulse Ox 97 07/07/23 07:39 O2 Del Method Nasal Cannula 07/07/23 07:39 O2 Flow Rate 0.5 07/07/23 07:39 Results & Data (PSY) Laboratory Results 07/07/23 Range/Units 06:12 WBC 5.17 (4.8-10.8) K/ul RBC 3.85 L (4.70-6.10) M/uL Hgb 10.5 L (14.0-18.0) g/dl Hct 33.3 L (42.0-52.0) % MCV 86.5 (80.0-100.0) fL MCH 27.3 (25.0-34.0) pg MCHC 31.5 L (32.0-36.0) g/dL RDW Std Deviation 51.6 H (36.4-46.3) fL RDW Coeff of Mich 16.5 H (11.5-14.5) % Plt Count 120 L (130-400) K/uL MPV 9.7 (9.4-12.4) fL Immature Gran % (Auto) 0.6 % Neut % (Auto) 70.6 % Lymph % (Auto) 16.8 % [place] % (Auto) 7.2 % Eos % (Auto) 4.4 % Baso % (Auto) 0.4 % Neut # (Auto) 3.65 (1.40-6.50) K/uL Lymph # (Auto) 0.87 L (1.20-3.40) K/uL [place] # (Auto) 0.37 (0.11-0.59) K/uL Eos # (Auto) 0.23 (0.00-0.50) K/uL Baso # (Auto) 0.02 (0.00-0.20) K/uL Immature Gran # (Auto) 0.03 (0.01-0.20) K/uL Sodium 144 (136-145) mmol/L Potassium 3.3 L (3.5-5.1) mmol/L Chloride 112 H (98-107) mmol/L Carbon Dioxide 27 (21-32) mmol/L Anion Gap 5 (3-11) BUN 19 (6-23) mg/dl Creatinine 0.96 (0.6-1.4) mg/dl Est Cr Clr Drug Dosing 48.1 ml/min Est GFR ( Amer) 87.4 ml/min Est GFR (Non-Af Amer) 75.4 ml/min BUN/Creatinine Ratio 19.8 (10-20) Glucose 89 (70-99(Fasting)) mg/dl Calcium 7.8 L (8.6-10.3) mg/dl Phosphorus 2.4 L (2.5-4.9) mg/dl Magnesium 1.9 (1.7-2.4) mg/dl Diagnostic Findings Unspecfied psychosis, late onset Consider neurocognitive disorder with behavioral disturbance Medications Administered Al Hydrox/Mg Hydrox/Simethicone (Aluminum/Magnesium Susp 30 Ml Udc) 30 ml PO Q6H PRN PRN Reason: Dyspepsia Stop: 08/04/23 11:03 Last Admin: 07/06/23 02:33 Dose: 30 ml Documented By: MICHELLE Aspirin (Aspirin 81 Mg Ectab) 81 mg PO QAM [facility] Stop: 08/04/23 08:59 Last Admin: 07/07/23 08:29 Dose: 81 mg Documented By: Admin: 07/06/23 08:45 Dose: 81 mg Documented By: Admin: 07/05/23 09:15 Dose: 81 mg Documented By: MAKENZIE Clotrimazole (Clotrimazole 1% Cr 15 Gm Tube) 1 appln EXT BID [facility] Stop: 08/04/23 11:06 Last Admin: 07/07/23 08:31 Dose: 1 appln Documented By: Admin: 07/06/23 21:09 Dose: 1 appln Documented By: Admin: 07/06/23 08:45 Dose: 1 appln Documented By: Admin: 07/05/23 21:21 Dose: 1 appln Documented By: Admin: 07/05/23 12:04 Dose: 1 appln Documented By: MAKENZIE Diltiazem HCl (Diltiazem Hcl 180 Mg Capcr) 180 mg PO DAILY [facility] Stop: 08/04/23 08:59 Last Admin: 07/07/23 08:30 Dose: 180 mg Documented By: Admin: 07/06/23 08:44 Dose: 180 mg Documented By: Admin: 07/05/23 09:15 Dose: 180 mg Documented By: EP Enoxaparin Sodium (Enoxaparin Inj 60 Mg/0.6 Ml Syr) 50 mg SC Q12H [facility]ACIE Stop: 08/04/23 13:44 Last Admin: 07/07/23 01:22 Dose: 50 mg Documented By: Admin: 07/06/23 13:05 Dose: 50 mg Documented By: Admin: 07/06/23 01:38 Dose: 50 mg Documented By: Admin: 07/05/23 14:00 Dose: 50 mg Documented By: EP Fluticasone/Vilanterol (Fluticasone/Vilanterol 100/25mcg 14 Puffs/Inhaler) 1 puffs INH DAILY KACIE Stop: 08/04/23 08:59 Last Admin: 07/07/23 08:30 Dose: 1 puffs Documented By: Admin: 07/06/23 08:45 Dose: 1 puffs Documented By: Admin: 07/05/23 09:20 Dose: 1 puffs Documented By: MAKENZIE Piperacillin Sod/Tazobactam (Sod 4.5 gm/ Dextrose) 100 mls @ 25 mls/hr IV Q8H KACIE; Protocol Stop: 07/12/23 19:59 Last Infusion: 07/07/23 07:59 Dose: Infused Documented By: Admin: 07/07/23 03:59 Dose: 25 mls/hr Documented By: Infusion: 07/07/23 01:08 Dose: Infused Documented By: Admin: 07/06/23 20:06 Dose: 25 mls/hr Documented By: Infusion: 07/06/23 17:23 Dose: Infused Documented By: Admin: 07/06/23 12:55 Dose: 25 mls/hr Documented By: Infusion: 07/06/23 08:49 Dose: Infused Documented By: Admin: 07/06/23 04:17 Dose: 25 mls/hr Documented By: Infusion: 07/06/23 01:49 Dose: Infused Documented By: Admin: 07/05/23 21:15 Dose: 25 mls/hr Documented By: MICHELLE Latanoprost (Latanoprost 0.005% Op Soln 2.5 Ml Btl) 1 drops OP HS KACIE Stop: 08/04/23 20:59 Last Admin: 07/06/23 21:06 Dose: 1 drops Documented By: Admin: 07/05/23 21:22 Dose: 1 drops Documented By: MICHELLE Mirtazapine (Mirtazapine Tab 15 Mg Tab) 7.5 mg PO HS KACIE Stop: 08/04/23 20:59 Last Admin: 07/06/23 21:05 Dose: 7.5 mg Documented By: Admin: 07/05/23 21:23 Dose: 7.5 mg Documented By: MICHELLE Multivitamins/Minerals (Cerovite Adv Formula Tab) 1 tab PO DAILY KACIE Stop: 08/04/23 08:59 Last Admin: 07/07/23 08:30 Dose: 1 tab Documented By: Admin: 07/06/23 08:46 Dose: 1 tab Documented By: Admin: 07/05/23 09:16 Dose: 1 tab Documented By: MAKENZIE Ondansetron HCl (Ondansetron Inj 2 Mg/Ml 2 Ml Vial) 4 mg IV Q6H PRN PRN Reason: Nausea Stop: 08/04/23 03:16 Last Admin: 07/05/23 12:05 Dose: 4 mg Documented By: MAKENZIE Pantoprazole Sodium (Pantoprazole 40 Mg Tab) 40 mg PO BID KACIE Stop: 08/04/23 20:59 Last Admin: 07/07/23 08:31 Dose: 40 mg Documented By: Admin: 07/06/23 21:06 Dose: 40 mg Documented By: Admin: 07/06/23 08:47 Dose: 40 mg Documented By: Admin: 07/05/23 21:23 Dose: 40 mg Documented By: MICHELLE Tamsulosin HCl (Tamsulosin Hcl 0.4 Mg Cap) 0.4 mg PO DAILY KACIE Stop: 08/04/23 08:59 Last Admin: 07/07/23 08:31 Dose: 0.4 mg Documented By: Admin: 07/06/23 08:43 Dose: 0.4 mg Documented By: Admin: 07/05/23 09:15 Dose: 0.4 mg Documented By: MAKENZIE Umeclidinium [place] (Umeclidinium [place] 62.5mcg/Blister 7 Puffs/Inhaler) 1 puffs INH DAILY KACIE Stop: 08/04/23 08:59 Last Admin: 07/07/23 08:30 Dose: 1 puffs Documented By: Admin: 07/06/23 08:46 Dose: 1 puffs Documented By: Admin: 07/05/23 09:20 Dose: 1 puffs Documented By: EP [place] [address] IN/OBS CONSULT LVL 5,80M Patient Type New History Expanded Problem Focused Exam Expanded Problem Focused Medical Decision Making High Complexity Diagnoses Encephalopathy G93.40 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
[2023-07-07] MEDS: POTASSIUM CHLORIDE 20 MEQ/15 ML UDC PO SCH (10:25)
[2023-07-07] MEDS: POT PHOSPHATE MONOBASIC W/ SOD TAB PO SCH (12:45)
--- NOTE | 2023-07-07 19:55 | Hospitalist Progress Note ---
Date of Service July 07, 2023 Assessment & Plan (1) Pulmonary embolism: Plan: CT chest at admission - multiple PEs with largest in the right pulmonary artery Likely provoked by suspected lung cancer Remains on lovenox 50mg BID Can likely change to Eliquis in near-future if not cost-prohibitive (2) Protein calorie malnutrition: Plan: Severe protein calorie malnutrition 15+ kg weight loss since 2022 BMI 18.5 Suspected lung cancer, lack of access to food, other factors likely to blame Severe pulmonary disease, possible lung cancer, encephalopathy, lack of access to food Replace low K, low phos Mag noted to be wnl today Cont MVI Remeron low-dose started by Dr Pinzon - agree with such Await B1 level - thiamine empirically in meantime B12 level wnl TSH 5.7, but FT4 0.9 (normal) -- likely sick euthyroid Folate was normal in April but recheck in am (3) Pneumonia: Plan: ground glass opacities in RLL sputum cx with staph species and ?fungus as well remains on zosyn VFSS negative 01/2023 o2 sats wnl today (4) Pulmonary nodule: Plan: BARBIE -- 2 nodules highly suspicious for lung cancer has seen Dr Agarwal from pulmonary in the past but patient declined additional w/u at that time likely will consult pulmonary formally this week (5) Encephalopathy: Plan: uncertain if what we are seeing is acute metabolic encephalopathy from infection, nutritional deficiencies, etc. OR - could be more of a chronic issue (ie early dementia process) appreciate psych consultation treat infections (pneumonia, UTI, etc) again TSH 5.7 but FT4 0.91 - no replacement at this time B12 wnl 04/2023, B1 level pending - s/p empiric IV thiamine 500 mg q8h x 6 doses then [address] head neg at admission Could consider MRI brain if pacer is MR compatible (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 apical akinesis noted by cardiology - also new from prior echo. this is highly suggestive of ischemic cardiomyopathy. despite depressed EF he is compensated on exam today. of note, per chart review, last cardiac catheterization was in 2008 at [facility]. 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 * 50% ostial RCA stenosis noted. * Mild luminal irregularities in the coronary arteries otherwise. No further stress testing or invasive cardiac evaluation since 2008. In light of numerous other issues pursuing additional, invasive w/u right now likely not possible. Treat medically for now with aspirin. Ideally we change his diltiazem to low-dose meto succinate. Should be on statin agent but allergy list with simvastatin (myalgias). (14) UTI (urinary tract infection): Plan: 2nd enterococcus - cont zosyn until final cx results (15) Hypokalemia: Plan: replace repeat BMP am (16) Hypophosphatemia: Plan: replaced IV improving repeat level 48 hours add K-phos neutral QID orally (17) NSVT (nonsustained ventricular tachycardia): Plan: 15-beat run by report 48 hours ago switch diltiazem to metoprolol monitor for recurrent runs could be electrolyte related could be ischemic related given echo findings Plan PT/OT evals needed Psych consult appreciated manager equity assistance appreciated If patient remains confused he would need a healthcare power of corporate associate attorney by proxy to make decisions on his behalf Hopefully confusion does improve, however Very complicated medical issues at this time Admission and Anticipated Discharge Date Admission Date: July 05, 2023 Subjective tele overnight wnl patient resting in bed comfortably eating his meal he likes our food he was calm, cooperative and pleasant during the visit he denied any pain in any location denied dyspnea or chest pain does have cough he talked significantly about his time in the [place] 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 Review of Systems Review of Systems: gen - feels decent today; no fever GI - no N/V pulm - no hemoptysis CV - no orthopnea Physical Exam Physical Exam: gen - cachectic but NAD; cooperative/calm for me; mildly confused neck - no JVD mouth - MMM heart - RRR, s1 s2 lungs - mild rales bases; no increased work of breathing; severe bronchial cough with wheezes b/l as well abd - soft NT ND BS+ ext - thin, no edema, pulses 1+ b/l psych - not responding to internal stimuli, awake, alert, oriented to person Results & Data Results & Data Vital Signs (Past 12 Hours) Vital Signs Temp Pulse Resp BP BP Pulse Ox O2 Del Method 07/07/23 19:39 Nasal Cannula 07/07/23 19:08 36.6 C 72 19 150/77 H 98 Nasal Cannula 07/07/23 15:00 36.7 C 79 19 129/79 98 Nasal Cannula 07/07/23 11:44 36.5 C 74 17 148/78 H 98 Nasal Cannula 07/07/23 09:57 Nasal Cannula O2 Flow Rate 07/07/23 19:39 0.5 07/07/23 19:08 0.5 07/07/23 15:00 0.5 07/07/23 11:44 0.5 07/07/23 09:57 0.5 Laboratory Results Laboratory Results - last 24 hr 07/07/23 06:12 WBC 5.17 RBC 3.85 L Hgb 10.5 L Hct 33.3 L MCV 86.5 MCH 27.3 MCHC 31.5 L RDW Std Deviation 51.6 H RDW Coeff of Mich 16.5 H Plt Count 120 L MPV 9.7 Immature Gran % (Auto) 0.6 Neut % (Auto) 70.6 Lymph % (Auto) 16.8 [place] % (Auto) 7.2 Eos % (Auto) 4.4 Baso % (Auto) 0.4 Neut # (Auto) 3.65 Lymph # (Auto) 0.87 L [place] # (Auto) 0.37 Eos # (Auto) 0.23 Baso # (Auto) 0.02 Immature Gran # (Auto) 0.03 Sodium 144 Potassium 3.3 L Chloride 112 H Carbon Dioxide 27 Anion Gap 5 BUN 19 Creatinine 0.96 Est Cr Clr Drug Dosing 48.1 Est GFR ( Amer) 87.4 Est GFR (Non-Af Amer) 75.4 BUN/Creatinine Ratio 19.8 Glucose 89 Calcium 7.8 L Phosphorus 2.4 L Magnesium 1.9 PG Care Time/CCT Total # of Minutes Spent Total Time Spent with Patient: Total time spent is greater than 50% in coordination of care (as documented) at patient's floor/unit and/or counseling patient: Coding Level of Care Code 86293 SUB INP/OBS CARE 3/50MIN Diagnoses Pulmonary embolism I26.99 Protein calorie malnutrition E46 Pneumonia J18.9 Pulmonary nodule R91.1 Encephalopathy G93.40 Tachy-tiffany syndrome I49.5 COPD (chronic obstructive pulmonary disease) J44.9 Corcoran's esophagus with dysplasia K22.719 Prostate cancer C61 Pacemaker Z95.0 Hypoxemic respiratory failure, chronic J96.11 Tobacco consumption Z72.0 Ischemic cardiomyopathy I25.5 UTI (urinary tract infection) N39.0 Hypokalemia E87.6 Hypophosphatemia E83.39 NSVT (nonsustained ventricular tachycardia) I47.29
[2023-07-08] MEDS: ALBUTEROL HFA 8 GM INHALER INH PRN (04:20)
[2023-07-08 07:33] LABS: BUN Creatinine Ratio 21.7 (10-20); Calcium 7.8 mg/dl (8.6-10.3); Est GFR (African American) 97.7 ml/min; Est GFR (Non-African American) 84.3 ml/min; Potassium 3.7 mmol/L (3.5-5.1)
[2023-07-08] MEDS: METOPROLOL TARTRATE 25 MG TAB PO SCH (09:19)
[2023-07-08] MEDS: THIAMINE HCL 100 MG TAB PO SCH (09:21)
[2023-07-08] MEDS: CHOLECALCIFEROL 125 MCG (5,000 UNITS) TAB PO SCH (09:37)
[2023-07-08] MEDS: AMOXICILLIN/CLAVULANATE 875 MG TAB PO ONE (20:08)
[2023-07-08] MEDS: MELATONIN 3 MG TAB PO SCH (21:00)
--- NOTE | 2023-07-08 21:17 | Hospitalist Progress Note ---
Date of Service July 08, 2023 Assessment & Plan (1) Pulmonary embolism: Plan: CT chest at admission - multiple PEs with largest in the right pulmonary artery Likely provoked by suspected lung cancer Remains on lovenox 50mg BID Can likely change to Eliquis in near-future if not cost-prohibitive (2) Protein calorie malnutrition: Plan: Severe protein calorie malnutrition 15+ kg weight loss since 2022 BMI 18.5 Suspected lung cancer, lack of access to food, other factors likely to blame Severe pulmonary disease, possible lung cancer, encephalopathy, lack of access to food Cont MVI Remeron low-dose started by Dr Pinzon - agree with such Await B1 level - thiamine empirically in meantime B12 level wnl TSH 5.7, but FT4 0.9 (normal) -- likely sick euthyroid Folate normal today (3) Pneumonia: Plan: ground glass opacities in RLL sputum cx with staph aureus - MSSA remains on zosyn - since stable/improved can d/c and change to augmentin to complete the course VFSS negative 01/2023 o2 sats wnl today sputum cx with fungus?? will speak with Dr Agarwal about this (4) Pulmonary nodule: Plan: BARBIE -- 2 nodules highly suspicious for lung cancer has seen Dr Agarwal from pulmonary in the past but patient declined additional w/u at that time patient still uncertain on what he wants to do - offered to consult Dr Agarwal to talk with him about it more he was agreeable (5) Encephalopathy: Plan: improving at minimum metabolic factors from his infections contributing nutritional deficiencies also likely at play appreciate psych consultation treat infections (pneumonia, UTI, etc) again TSH 5.7 but FT4 0.91 - no replacement at this time B12 wnl 04/2023, B1 level pending - s/p empiric IV thiamine 500 mg q8h x 6 doses then [address] head neg at admission Could consider MRI brain if pacer is MR compatible (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 Caraballo placed due to complete heart block, near syncope, PSVT primary lithograph designer - Dr. 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 apical akinesis noted by cardiology - also new from prior echo. this is highly suggestive of ischemic cardiomyopathy. despite depressed EF he is compensated on exam today. of note, per chart review, last cardiac catheterization was in [address] [facility]. 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 * 50% ostial RCA stenosis noted. * Mild luminal irregularities in the coronary arteries otherwise. No further stress testing or invasive cardiac evaluation since 2008. In light of numerous other issues pursuing additional, invasive w/u right now likely not possible. Treat medically for now with aspirin. Ideally we change his diltiazem to low-dose meto succinate. Should be on statin agent but allergy list with simvastatin (myalgias). (14) UTI (urinary tract infection): Plan: 2nd enterococcus stop zosyn; change to augmentin PO (15) Hypokalemia: Plan: replace resolved (16) Hypophosphatemia: Plan: replaced IV improving repeat level later this week cont K-phos neutral QID (17) NSVT (nonsustained ventricular tachycardia): Plan: 15-beat run by report earlier this week switch diltiazem to metoprolol monitor for recurrent runs could be electrolyte related could be ischemic related given echo findings Plan PT/OT evals needed Psych consult appreciated piping manager assistance appreciated progressing can likely d/c tele tomorrow and move to med/surg diarrhea - check a c diff Admission and Anticipated Discharge Date Admission Date: July 05, 2023 Subjective tele overnight again wnl patient resting comfortably in bed denies any new complaints although staff report diarrhea about 2x/shift liquid stool coughing, but no dyspnea at rest he is not sure if he wants to perform additional work-up for the nodules in the lungs (previously saw Dr Agarwal for this) Review of Systems Review of Systems: cv - no chest pain pulm - no hemoptysis GI - no abd pain or N/V Physical Exam Physical Exam: gen - cachectic but NAD; no hallucinations; knows he is in the hospital and that it is 2023 neck - no JVD mouth - MMM heart - RRR, s1 s2, no murmur lungs - mild rales bases; b/l wheezes; coughing; no distress abd - soft NT ND BS+ ext - thin, no edema, pulses 1+ b/l psych - awake,alert,more oriented Results & Data Results & Data Vital Signs (Past 12 Hours) Vital Signs Temp Pulse Pulse Resp BP Pulse Ox O2 Del Method 07/08/23 15:50 36.4 C L 75 18 119/71 100 Nasal Cannula 07/08/23 15:21 75 07/08/23 11:28 36.3 C L 79 18 115/66 100 Nasal Cannula 07/08/23 09:39 Nasal Cannula O2 Flow Rate 07/08/23 15:50 1 07/08/23 15:21 07/08/23 11:28 1 07/08/23 09:39 0.5 Laboratory Results Laboratory Results - last 48 hr 07/08/23 07/08/23 06:18 Unknown Sodium 141 Potassium 3.7 Chloride 110 H Carbon Dioxide 27 Anion Gap 4 BUN 18 Creatinine 0.83 Est Cr Clr Drug Dosing 57.0 Est GFR ( Amer) 97.7 Est GFR (Non-Af Amer) 84.3 BUN/Creatinine Ratio 21.7 H Glucose 101 H Calcium 7.8 L 25-OH Vitamin D Total 20.7 L Folate 9.00 Stl C. diff Tox B Gene Negative Cdiff Gene Diagnostic Findings Microbiology 07/05/23 Unknown Sputum, Expectorated Gram Stain - Final 07/05/23 Unknown Sputum, Expectorated Sputum Culture - Final Staphylococcus aureus Aspergillus sp.not fumigatus 07/06/23 01:48 Urine,Clean Catch Urine Culture - Final Enterococcus faecalis 07/04/23 23:59 Blood Aerobic Blood Culture - Preliminary No growth in Aerobic bottle after 48 hours. 07/04/23 23:59 Blood Anaerobic Blood Culture - Final 07/04/23 23:59 Blood Aerobic Blood Culture - Preliminary No growth in Aerobic bottle after 48 hours. 07/04/23 23:59 Blood Anaerobic Blood Culture - Preliminary No growth in Anaerobic bottle after 48 hours. PG Care Time/CCT Total # of Minutes Spent Total Time Spent with Patient: Total time spent is greater than 50% in coordination of care (as documented) at patient's floor/unit and/or counseling patient: Coding Level of Care Code 17815 SUB INP/OBS CARE 3/50MIN Diagnoses Pulmonary embolism I26.99 Protein calorie malnutrition E46 Pneumonia J18.9 Pulmonary nodule R91.1 Encephalopathy G93.40 Tachy-tiffany syndrome I49.5 COPD (chronic obstructive pulmonary disease) J44.9 Corcoran's esophagus with dysplasia K22.719 Prostate cancer C61 Pacemaker Z95.0 Hypoxemic respiratory failure, chronic J96.11 Tobacco consumption Z72.0 Ischemic cardiomyopathy I25.5 UTI (urinary tract infection) N39.0 Hypokalemia E87.6 Hypophosphatemia E83.39 NSVT (nonsustained ventricular tachycardia) I47.29
[2023-07-09 06:51] LABS: BUN Creatinine Ratio 21.2 (10-20); Calcium 7.9 mg/dl (8.6-10.3); Creatinine Clr Calc Pharmacy 55.9 ml/min; Est GFR (African American) 96.7 ml/min; Est GFR (Non-African American) 83.5 ml/min; Potassium 4.3 mmol/L (3.5-5.1)
[2023-07-09] MEDS: AMOXICILLIN/CLAVULANATE 875 MG TAB PO SCH (09:14)
--- NOTE | 2023-07-09 13:01 | Pulmonary Consultation ---
Date of Consultation July 09, 2023 Assessment & Plan (1) Pulmonary embolism: (2) COPD with emphysema: (3) Exertional shortness of breath: (4) Ex-smoker: (5) Multiple pulmonary nodules: (6) Hypoxemic respiratory failure, chronic: Plan CT chest 07/05/2023 personally reviewed: Severe centrilobular and paraseptal emphysema appreciated bilaterally Left upper lobe as well as lingular pulmonary nodule Pulmonary emboli in the right main as well as right upper pulmonary artery Dilated esophagus No significant mediastinal lymphadenopathy 2D echo 07/05/2023: EF 45-50%, apical akinesis, RV grossly normal in size, systolic function borderline reduced --Acute pulmonary emboli Unprovoked In a patient who has known history of pulmonary nodules Would recommend lifetime anticoagulation --Multiple pulmonary nodules Largest measuring around 13 mm * 11mm (10mm 11/2021) in the lingula [id number] smoking history Left upper lobe pulmonary nodules has been gradually increased in size. In a patient who has significant smoking history, possibility of lung cancer is there Patient is interested in robotic bronchoscopy in the near future. PET/CT 02/18/2023 showed mildly FDG avid nodules in the left upper lobe Mild FDG avid hilar lymph nodes Paraesophageal lesion does not demonstrate FDG uptake significantly -- COPD with emphysema and chronic bronchitis Gold class E On Dulera as well as Spiriva at home [id number] on 07/04/2023, will consider azithromycin 250 mg [id number] as an outpatient For chronic bronchitis use Mucinex on an as-needed basis PFT 12/05/21 personally reviewed: Severe obstructive lung dysfunction, insignificant bronchodilator response, increased lung volume with air trapping, moderate decrease in DLCO FVC 2.270 to 67%, FEV1 0.91 L 78%, FEV1/FVC 40%, RV 188%, TLC 126%, RV/TLC 150%, DLCO 47%, DLCO/VA 54% -- Ex-smoker [id number] smoking history Quit in 2005 Encouraged to continue abstinence from smoking Plan: Patient has lost weight significantly compared to when I saw him in the clinic Unprovoked pulmonary emboli is always of concern especially in somebody who has history of pulmonary nodules. I did go over robotic bronchoscopy again with the patient, he is Inclining towards pursuing the biopsy in the near future. I order Doppler bilateral lower extremity to see if he had any clot in the legs. The Aspergillus in the sputum is a colonizer and I would not pursue treating it MSSA in the sputum can be treated with amoxicillin clavulanic acid, complete the course for 10-14 days Case was discussed with primary team Please note the above document was generated using voice recognition software. It may contain grammatical, syntax or spelling errors.Any formal questions or concerns about the content, text or information contained within the body of this dictation should be directly addressed to the provider for clarification. History of Present Illness Attending Physician: Thor Aldridge MD History of Present Illness 77-year-old male was brought to the hospital because of generalized weakness Previous medical history GERD, hyper tension, migraine, dyslipidemia Patient follows up with me in the pulmonary clinic and was last seen by me on 02/23/2023 Pulmonary consulted for multiple pulmonary nodules that he has along with unprovoked PE. At the time of examination patient stated that he is feeling much better compared to when he presented to the hospital He was able to recognize me and remember the discussion that I had with him on the last visit regarding his pulmonary nodule. He said he is doing well when it comes to his breathing right now. Has been using oxygen as needed. Denies any chest pain No cough, no hemoptysis No headache, no blurry vision No dysuria, no diarrhea. Social history: [id number] smoking history, quit in 2005. No alcohol, denies any illicit drug use. 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 No exposure to chemicals or fumes Pets: Has a dog at home. Used to have horses in the past. No birds or poultry nearby Allergies: Seasonal. Asthma: No personal or family history of asthma Lung cancer: No history of lung cancer in the family Allergies Allergy/AdvReac Type Severity Reaction Status Date / Time simvastatin AdvReac Intermediate myalgia Verified 07/05/23 01:06 Home Medications Medication Instructions Recorded Confirmed Type esomeprazole magnesium 40 mg 40 mg PO DAILY 06/13/21 07/05/23 History capsule,delayed release mucus clearing device 06/13/21 07/05/23 History sumatriptan succinate 6 mg/0.5 mL 6 mg subcut DIRECTED PRN 06/13/21 07/05/23 History subcutaneous pen injector migraine headache Portable Oxygen [id number] #1 ea 09/25/22 07/05/23 Rx albuterol sulfate 90 mcg/actuation 2 puff inhalation Q4H PRN 09/25/22 07/05/23 Rx aerosol inhaler shortness of breath or wheezing #8.5 grams nebulizers (Aeroneb Go Nebulizer) #1 ea 09/25/22 07/05/23 Rx latanoprost (PF) 0.005 % eye drops 1 drp OPB HS 02/01/23 07/05/23 History in a dropperette multivitamin with minerals 1 tab PO DAILY 02/01/23 07/05/23 History (Multiple Vitamin-Minerals tablet) polyethylene glycol 3350 17 17 g PO DAILY PRN Constipation 02/01/23 07/05/23 History gram/dose oral powder rosuvastatin 10 mg tablet 10 mg PO DAILY 02/01/23 07/05/23 History tamsulosin 0.4 mg capsule 0.4 mg PO DAILY 02/01/23 07/05/23 History mometasone-formoterol HFA 50 mcg-5 2 puff inhalation Q12H #13 grams 02/23/23 07/05/23 Rx mcg/actuation aerosol inhaler (Dulera) tiotropium bromide 2.5 1 puff inhalation DAILY #4 grams 02/23/23 07/05/23 Rx mcg/actuation mist for inhalation diltiazem HCl 180 mg 180 mg PO DAILY #30 caps 05/06/23 07/05/23 Rx capsule,extended release 24 hr Patient History Medical History Pulmonary embolism Near syncope Abnormal EKG Elevated troponin I level Heart palpitations Depression Multiple pulmonary nodules Chronic respiratory failure with hypoxia Ex-smoker Tobacco consumption Exertional shortness of breath Chronic bronchitis 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 Sinus tachycardia Anomalous coronary artery origin Anemia Dyspnea History of left heart catheterization 2008 Hypoxemic respiratory failure, chronic Migraine with aura, intractable, without status migrainosus Dyslipidemia Corcoran's esophagus with dysplasia Prostate cancer GERD without esophagitis Hypertension COPD (chronic obstructive pulmonary disease) Surgical History History of cataract removal with insertion of prosthetic lens bilateral H/O umbilical hernia repair 2007 Family History Mother , Cancer Cancer Father , Cancer Colorectal cancer Sister Heart disorder Stroke Brother Prostate cancer Denies family history of Crohn's disease Ulcerative colitis Social History Smoking Status: Former smoker Tobacco Type: Cigarettes Age Started Using Tobacco: 12; Age Quit Using Tobacco: 60; packs per day: 2.5; Cigarettes Per Day: 120 pack years; Do You Dip or Chew Tobacco: No; Hx Alcohol Use: No Hx Substance Use: No Preferred Language: Guatemalan Communication Ability: Effective Library Science Instructor Required: No Beliefs That Will Affect Care: None Current Living Situation: Alone Feels Safe at Home: Hesitant to Answer Assistive Devices: Glasses and Oxygen - Continuous Review of Systems 2 Review of Systems: All systems reviewed & are unremarkable except as noted in HPI & below Physical Exam 2 Physical Exam: Constitutional: No acute distress HEENT: EOMI, PERRLA Respiratory system: Decreased air entry bilaterally, no wheeze, no rhonchi, no crackles CVS: S1-S2 positive, no murmurs or gallops Abdomen: Soft, nontender, nondistended, positive bowel sounds x4 Extremities: +2 pulses bilaterally radialis/ dorsalis pedis, no cyanosis, minimal clubbing bilaterally Neuro: Awake alert oriented x3 Psych: Normal mood and affect G/U: No [place] Skin: no rashes, warm and dry Lymphatic: no cervical or axillary lymphadenopathy Results & Data Results & Data Vital Signs (Past 12 Hours) Vital Signs Temp Pulse Pulse Pulse Resp BP Pulse Ox 07/09/23 11:52 36.4 C L 75 16 116/79 100 07/09/23 08:03 36.6 C 79 16 144/73 H 95 07/09/23 08:00 07/09/23 06:00 78 07/09/23 03:24 36.5 C 75 18 128/58 L 100 O2 Del Method O2 Flow Rate 07/09/23 11:52 Nasal Cannula 1 07/09/23 08:03 Nasal Cannula 1 07/09/23 08:00 Nasal Cannula 1 07/09/23 06:00 07/09/23 03:24 Nasal Cannula 1.0 Laboratory Results 07/07/23 06:12 04/25/24 05:45 PG Care Time/CCT Total # of Minutes Spent Total Time Spent with Patient: Total time spent is greater than 50% in coordination of care (as documented) at patient's floor/unit and/or counseling patient: Coding Level of Care Code 63209 INT INP/OBS CARE 3/75MIN Diagnoses Pulmonary embolism I26.99 COPD with emphysema J43.9 Exertional shortness of breath R06.02 Ex-smoker Z87.891 Multiple pulmonary nodules R91.8 Hypoxemic respiratory failure, chronic J96.11
--- NOTE | 2023-07-09 16:21 | Ultrasound Report ---
BILATERAL LOWER EXTREMITY VENOUS DOPPLER HISTORY: Bilateral lower extremity pain. r/o DVT COMPARISON STUDY: None. FINDINGS: There is normal compressibility, flow, and augmentation within the bilateral lower extremit y deep venous systems. IMPRESSION: No DVT within the right or left lower extremity. ACT 112: Negative or not required by law. Electronically signed by: Kevyn Palacio M.D. 07/09/2023 4:19 PM
--- NOTE | 2023-07-09 20:28 | Hospitalist Progress Note ---
Date of Service July 09, 2023 Assessment & Plan (1) Pulmonary embolism: Plan: CT chest at admission - multiple PEs with largest in the right pulmonary artery Likely provoked by suspected lung cancer Remains on lovenox 50mg BID At 7 days would change to Eliquis 5mg BID (2) Protein calorie malnutrition: Plan: Severe protein calorie malnutrition 15+ kg weight loss since 2022 BMI 18.5 Suspected lung cancer, lack of access to food, other factors likely to blame Severe pulmonary disease, possible lung cancer, encephalopathy, lack of access to food Cont MVI Cont remeron Await B1 level - thiamine empirically in meantime B12 level wnl TSH 5.7, but FT4 0.9 (normal) -- likely sick euthyroid Folate normal (3) Pneumonia: Plan: ground glass opacities in RLL sputum cx with staph aureus - MSSA initially on zosyn; changed to augmentin BID overall clinically improved VFSS negative 01/2023 sputum cx with aspergillus - Dr Agarwal feels this is a colonizer - no Rx needed (4) Pulmonary nodule: Plan: BARBIE -- 2 nodules highly suspicious for lung cancer consulted Dr Agarwal -- he offered navigational bronch for biopsy -- patient leaning towards doing such Dr Agarwal would do as outpatient in about a month (5) Encephalopathy: Plan: improving/resolving suspect metabolic factors from his infections contributing nutritional deficiencies also likely at play appreciate psych consultation treat infections (pneumonia, UTI, etc) again TSH 5.7 but FT4 0.91 - no replacement at this time B12 wnl 04/2023 B1 level pending - s/p empiric IV thiamine 500 mg q8h x 6 doses; now on [address] head neg at admission Could consider MRI brain if pacer is MR compatible but defer for now (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 apical akinesis noted by cardiology - also new from prior echo. this is highly suggestive of ischemic cardiomyopathy. despite depressed EF he is compensated on exam today. of note, per chart review, last cardiac catheterization was in 2008 at [facility]. 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 * 50% ostial RCA stenosis noted. * Mild luminal irregularities in the coronary arteries otherwise. No further stress testing or invasive cardiac evaluation since 2008. In light of numerous other issues pursuing additional, invasive w/u right now likely not possible. Treat medically for now with aspirin. Stopped his diltiazem; changed to meto tartrate; ultimately make this meto succ. Should be on statin agent but allergy list with simvastatin (myalgias). (14) UTI (urinary tract infection): Plan: 2nd enterococcus s/p zosyn; changed to augmentin PO (15) Hypokalemia: Plan: replaced resolved (16) Hypophosphatemia: Plan: repeat level tomorrow s/p IV and PO replacement (17) NSVT (nonsustained ventricular tachycardia): Plan: 15-beat run by report earlier this week switched diltiazem to metoprolol no recurrent runs could have been electrolyte related could have been ischemic related given echo findings Plan PT/OT evals completed; needs rehab Psych consult appreciated it program manager assistance appreciated progressing d/c tele move to med/surg diarrhea - c diff negative Admission and Anticipated Discharge Date Admission Date: July 05, 2023 Subjective no issues overnight pt continues to feel better each day tele overnight wnl eating well denies any hallucinations more oriented, and feels more like himself he recalls the visit earlier today with Dr Agarwal leaning towards doing bx of his pulmonary nodules Review of Systems Review of Systems: cv - no chest pain, no orthopnea pulm - coughing but no hemoptysis or significant sputum GI - no abd pain or N/V; still with diarrhea Physical Exam Physical Exam: gen - cachectic but NAD; no hallucinations; knows he is in the hospital and that it is 2023; looks better than earlier this week neck - no JVD mouth - MMM heart - RRR, s1 s2, no murmur lungs - mild rales bases; b/l wheezes abd - soft NT ND BS+ ext - thin, no edema, pulses 1+ b/l psych - awake,alert,oriented x 3 Results & Data Results & Data Vital Signs (Past 12 Hours) Vital Signs Temp Pulse Pulse Resp BP BP Pulse Ox 07/09/23 15:26 36.4 C 76 18 138/66 98 07/09/23 11:52 36.4 C L 75 16 116/79 100 O2 Del Method O2 Flow Rate 07/09/23 15:26 Nasal Cannula 1 07/09/23 11:52 Nasal Cannula 1 Laboratory Results Laboratory Results - last 24 hr 07/09/23 05:45 Sodium 143 Potassium 4.3 Chloride 112 H Carbon Dioxide 30 Anion Gap 1 L BUN 18 Creatinine 0.85 Est Cr Clr Drug Dosing 55.9 Est GFR ( Amer) 96.7 Est GFR (Non-Af Amer) 83.5 BUN/Creatinine Ratio 21.2 H Glucose 93 Calcium 7.9 L Diagnostic Findings Microbiology 07/05/23 Unknown Sputum, Expectorated Gram Stain - Final 07/05/23 Unknown Sputum, Expectorated Sputum Culture - Final Staphylococcus aureus Aspergillus sp.not fumigatus 07/06/23 01:48 Urine,Clean Catch Urine Culture - Final Enterococcus faecalis 07/04/23 23:59 Blood Aerobic Blood Culture - Preliminary No growth in Aerobic bottle after 48 hours. 07/04/23 23:59 Blood Anaerobic Blood Culture - Final 07/04/23 23:59 Blood Aerobic Blood Culture - Preliminary No growth in Aerobic bottle after 48 hours. 07/04/23 23:59 Blood Anaerobic Blood Culture - Preliminary No growth in Anaerobic bottle after 48 hours. PG Care Time/CCT Total # of Minutes Spent Total Time Spent with Patient: Total time spent is greater than 50% in coordination of care (as documented) at patient's floor/unit and/or counseling patient: Coding Level of Care Code 94097 SUB INP/OBS CARE 2/35MIN Diagnoses Pulmonary embolism I26.99 Protein calorie malnutrition E46 Pneumonia J18.9 Pulmonary nodule R91.1 Encephalopathy G93.40 Tachy-tiffany syndrome I49.5 COPD (chronic obstructive pulmonary disease) J44.9 Corcoran's esophagus with dysplasia K22.719 Prostate cancer C61 Pacemaker Z95.0 Hypoxemic respiratory failure, chronic J96.11 Tobacco consumption Z72.0 Ischemic cardiomyopathy I25.5 UTI (urinary tract infection) N39.0 Hypokalemia E87.6 Hypophosphatemia E83.39 NSVT (nonsustained ventricular tachycardia) I47.29
[2023-07-10 07:57] LABS: Calcium 7.6 mg/dl (8.6-10.3); Carbon Dioxide 28 mmol/L (21-32); Chloride 109 mmol/L (98-107)
[2023-07-10 07:59] LABS: BUN Creatinine Ratio 24.6 (10-20); Blood Urea Nitrogen 17 mg/dl (6-23); Creatinine Clr Calc Pharmacy 68.9 ml/min; Est GFR (African American) 105.4 ml/min; Est GFR (Non-African American) 90.9 ml/min; Glucose 92 mg/dl (70-99(Fasting)); Phosphorus 1.8 mg/dl (2.5-4.9)
[2023-07-10] MEDS: ADVANCED PROBIOTIC 625 MG CAPSULE PO SCH (08:13)
[2023-07-10 09:00] LABS: Potassium 4.1 mmol/L (3.5-5.1)
--- NOTE | 2023-07-10 12:04 | Pulmonology Progress Note ---
Date of Service July 10, 2023 Assessment & Plan (1) Pulmonary embolism: (2) COPD with emphysema: (3) Exertional shortness of breath: (4) Ex-smoker: (5) Multiple pulmonary nodules: (6) Hypoxemic respiratory failure, chronic: Plan CT chest 07/05/2023 personally reviewed: Severe centrilobular and paraseptal emphysema appreciated bilaterally Left upper lobe as well as lingular pulmonary nodule Pulmonary emboli in the right main as well as right upper pulmonary artery Dilated esophagus No significant mediastinal lymphadenopathy 2D echo 07/05/2023: EF 45-50%, apical akinesis, RV grossly normal in size, systolic function borderline reduced --Acute pulmonary emboli Unprovoked In a patient who has known history of pulmonary nodules Doppler bilateral lower extremities negative for DVT on 07/09/2023 Would recommend lifetime anticoagulation --Multiple pulmonary nodules Largest measuring around 13 mm * 11mm (10mm 11/2021) in the lingula [id number] smoking history Left upper lobe pulmonary nodules has been gradually increased in size. In a patient who has significant smoking history, possibility of lung cancer is there Patient is interested in robotic bronchoscopy in the near future. PET/CT 02/18/2023 showed mildly FDG avid nodules in the left upper lobe Mild FDG avid hilar lymph nodes Paraesophageal lesion does not demonstrate FDG uptake significantly Patient has lost weight significantly compared to when I saw him in the clinic Unprovoked pulmonary emboli is always of concern especially in somebody who has history of pulmonary nodules. I did go over robotic bronchoscopy again with the patient, he is Inclining towards pursuing the biopsy in the near future. -- COPD with emphysema and chronic bronchitis Gold class E On Dulera as well as Spiriva at home [id number] on 07/04/2023, will consider azithromycin 250 mg [id number] as an outpatient For chronic bronchitis use Mucinex on an as-needed basis PFT 12/05/21 personally reviewed: Severe obstructive lung dysfunction, insignificant bronchodilator response, increased lung volume with air trapping, moderate decrease in DLCO FVC 2.270 to 67%, FEV1 0.91 L 78%, FEV1/FVC 40%, RV 188%, TLC 126%, RV/TLC 150%, DLCO 47%, DLCO/VA 54% -- Ex-smoker [id number] smoking history Quit in 2005 Encouraged to continue abstinence from smoking Plan: Patient is thinking about robotic bronchoscopy. He wants me to talk to his friend who is a decision maker. I will come and talk to her later today I order Doppler bilateral lower extremity to see if he had any clot in the legs. The Aspergillus in the sputum is a colonizer and I would not pursue treating it MSSA in the sputum can be treated with amoxicillin clavulanic acid, complete the course for 10-14 days Case was discussed with primary team Please note the above document was generated using voice recognition software. It may contain grammatical, syntax or spelling errors.Any formal questions or concerns about the content, text or information contained within the body of this dictation should be directly addressed to the provider for clarification. Admission and Anticipated Discharge Date Admission Date: July 05, 2023 Subjective Patient seen and examined at bedside. No acute distress, no dressings overnight Patient was saturating 97% on 1 L nasal cannula, I went down to 0.5 L Stated that overall he is feeling better. His appetite is improved Denies any nausea vomiting No headache, no blurry vision No chest pain Review of Systems 2 Review of Systems: All systems reviewed & are unremarkable except as noted in Subjective Physical Exam 2 Physical Exam: Constitutional: No acute distress HEENT: EOMI, PERRLA Respiratory system: Decreased air entry bilaterally, no wheeze, no rhonchi, no crackles CVS: S1-S2 positive, no murmurs or gallops Abdomen: Soft, nontender, nondistended, positive bowel sounds x4 Extremities: +2 pulses bilaterally radialis/ dorsalis pedis, no cyanosis, minimal clubbing bilaterally Neuro: Awake alert oriented x3 Psych: Normal mood and affect G/U: No Celaya Skin: no rashes, warm and dry Lymphatic: no cervical or axillary lymphadenopathy Results & Data Results & Data Vital Signs (Past 12 Hours) Vital Signs Temp Pulse Pulse Resp BP Pulse Ox O2 Del Method 07/10/23 07:42 36.4 C L 79 79 18 143/79 H 95 Nasal Cannula Laboratory Results 07/07/23 06:12 07/10/23 08:12 PG Care Time/CCT Total # of Minutes Spent Total Time Spent with Patient: Total time spent is greater than 50% in coordination of care (as documented) at patient's floor/unit and/or counseling patient: Coding Level of Care Code 90573 SUB INP/OBS CARE 50MIN Diagnoses Pulmonary embolism I26.99 COPD with emphysema J43.9 Exertional shortness of breath R06.02 Ex-smoker Z87.891 Multiple pulmonary nodules R91.8 Hypoxemic respiratory failure, chronic J96.11
[2023-07-10] MEDS: POT PHOSPHATE MONOBASIC W/ SOD TAB PO SCH (12:12)
[2023-07-10] MEDS: LOPERAMIDE HCL 2 MG CAP PO STA (12:12)
--- NOTE | 2023-07-10 20:05 | Hospitalist Progress Note ---
Date of Service July 10, 2023 Assessment & Plan (1) Pulmonary embolism: Plan: CT chest at admission - multiple PEs with largest in the right pulmonary artery Likely provoked by suspected lung cancer Remains on lovenox 50mg BID - day #6 of such After 7 days of lovenox would change to Eliquis 5mg BID of note - dopplers b/l LEs neg for DVT (2) Protein calorie malnutrition: Plan: Severe protein calorie malnutrition 15+ kg weight loss since 2022 BMI 18.5 Suspected lung cancer, lack of access to food, severe COPD, other factors likely to blame Cont MVI Cont remeron 7.5mg HS Await B1 level - thiamine empirically in meantime B12 level wnl TSH 5.7, but FT4 0.9 (normal) -- likely sick euthyroid - recheck 1 month Folate normal (3) Pneumonia: Plan: ground glass opacities in RLL sputum cx with staph aureus - MSSA initially on zosyn; changed to augmentin BID day #6 of IV/PO abx after 7 days of Rx d/c all abx overall clinically improved weaning NC O2 VFSS negative 01/2023 sputum cx with aspergillus - Dr Agarwal feels this is a colonizer - no Rx needed (4) Pulmonary nodule: Plan: BARBIE -- 2 nodules highly suspicious for lung cancer consulted Dr Agarwal -- he offered navigational bronch for biopsy -- patient leaning towards doing such Dr Agarwal would do as outpatient in about a month (5) Encephalopathy: Plan: improving/resolving suspect metabolic factors from his infections contributing nutritional deficiencies also likely at play appreciate psych consultation treat infections (pneumonia, UTI, etc) again TSH 5.7 but FT4 0.91 - no replacement at this time B12 wnl 04/2023 B1 level pending - s/p empiric IV thiamine 500 mg q8h x 6 doses; now on [address] head neg at admission Could consider MRI brain if pacer is MR compatible but defer for now since he is improving (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 apical akinesis noted by cardiology - also new from prior echo. this is highly suggestive of ischemic cardiomyopathy. despite depressed EF he is compensated on exam today. of note, per chart review, last cardiac catheterization was in 2008 at [facility]. 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 * 50% ostial RCA stenosis noted. * Mild luminal irregularities in the coronary arteries otherwise. No further stress testing or invasive cardiac evaluation since 2008. In light of numerous other issues pursuing additional, invasive w/u right now likely not possible. Treat medically for now with aspirin. Stopped his diltiazem; changed to meto tartrate; ultimately make this meto succ - will make that change tomorrow am. Should be on statin agent but allergy list with simvastatin (myalgias). (14) UTI (urinary tract infection): Plan: 2nd enterococcus s/p zosyn; changed to augmentin PO Rx 7 days in total; he is day #6 today (15) Hypokalemia: Plan: replaced resolved (16) Hypophosphatemia: Plan: repeat level still low will resume PO replacement (17) NSVT (nonsustained ventricular tachycardia): Plan: 15-beat run by report earlier this week switched diltiazem to metoprolol no recurrent runs could have been electrolyte related could have been ischemic related given echo findings Plan PT/OT evals completed; needs rehab Psych consult appreciated woods manager assistance appreciated progressing diarrhea - c diff negative - may use loperamide prn I updated pt's sister by phone this evening - she lives in [place] Admission and Anticipated Discharge Date Admission Date: July 05, 2023 Subjective no events overnight still having loose stools but no abd pain mild cough unchanged no dyspnea at rest appetite is good / improved knows the plan is for rehab post-d/c today he knew he was in the hospital, knew the year, but could not tell me the date/month/day no hallucinations Review of Systems Review of Systems: cv - no orthopnea, no chest pain GI - no vomiting gen - "feeling better" Physical Exam Physical Exam: gen - very thin but NAD; no hallucinations neck - no JVD mouth - MMM heart - RRR, s1 s2, no murmur lungs - relatively clear today b/l, no rales or wheeze; no increased work of breathing abd - soft NT ND BS+ ext - thin, no edema, pulses 1+ b/l Results & Data Results & Data Vital Signs (Past 12 Hours) Vital Signs Temp Pulse Resp BP Pulse Ox O2 Del Method O2 Flow Rate 07/10/23 15:03 36.7 C 77 18 133/76 100 Nasal Cannula 1 07/10/23 11:51 Nasal Cannula 1 Laboratory Results Laboratory Results - last 24 hr 07/10/23 07/10/23 07:09 08:12 Sodium TNP 140 Potassium TNP 4.1 Chloride 109 H Carbon Dioxide 28 Anion Gap TNP BUN 17 Creatinine 0.69 Est Cr Clr Drug Dosing 68.9 Est GFR ( Amer) 105.4 Est GFR (Non-Af Amer) 90.9 BUN/Creatinine Ratio 24.6 H Glucose 92 Calcium 7.6 L Phosphorus 1.8 L PG Care Time/CCT Total # of Minutes Spent Total Time Spent with Patient: Total time spent is greater than 50% in coordination of care (as documented) at patient's floor/unit and/or counseling patient: Coding Level of Care Code 02908 SUB INP/OBS CARE 2/35MIN Diagnoses Pulmonary embolism I26.99 Protein calorie malnutrition E46 Pneumonia J18.9 Pulmonary nodule R91.1 Encephalopathy G93.40 Tachy-tiffany syndrome I49.5 COPD (chronic obstructive pulmonary disease) J44.9 Corcoran's esophagus with dysplasia K22.719 Prostate cancer C61 Pacemaker Z95.0 Hypoxemic respiratory failure, chronic J96.11 Tobacco consumption Z72.0 Ischemic cardiomyopathy I25.5 UTI (urinary tract infection) N39.0 Hypokalemia E87.6 Hypophosphatemia E83.39 NSVT (nonsustained ventricular tachycardia) I47.29
[2023-07-11] MEDS ORDERED: LOPERAMIDE HCL 2 MG CAP PO PRN (06:02)
[2023-07-11 07:04] LABS: BUN Creatinine Ratio 31.8 (10-20); Blood Urea Nitrogen 21 mg/dl (6-23); Calcium 7.2 mg/dl (8.6-10.3); Carbon Dioxide 30 mmol/L (21-32); Chloride 111 mmol/L (98-107); Est GFR (African American) 107.3 ml/min; Est GFR (Non-African American) 92.6 ml/min; Glucose 95 mg/dl (70-99(Fasting))
[2023-07-11] MEDS: METOPROLOL SUCC 25MG EXT REL TAB PO SCH (07:18)
--- NOTE | 2023-07-11 08:09 | Pulmonology Progress Note ---
Date of Service July 11, 2023 Assessment & Plan (1) Pulmonary embolism: (2) COPD with emphysema: (3) Exertional shortness of breath: (4) Ex-smoker: (5) Multiple pulmonary nodules: (6) Hypoxemic respiratory failure, chronic: Plan CT chest 07/05/2023 personally reviewed: Severe centrilobular and paraseptal emphysema appreciated bilaterally Left upper lobe as well as lingular pulmonary nodule Pulmonary emboli in the right main as well as right upper pulmonary artery Dilated esophagus No significant mediastinal lymphadenopathy 2D echo 07/05/2023: EF 45-50%, apical akinesis, RV grossly normal in size, systolic function borderline reduced --Acute pulmonary emboli Unprovoked In a patient who has known history of pulmonary nodules Doppler bilateral lower extremities negative for DVT on 07/09/2023 Would recommend lifetime anticoagulation --Multiple pulmonary nodules Largest measuring around 13 mm * 11mm (10mm 11/2021) in the lingula [id number] smoking history Left upper lobe pulmonary nodules has been gradually increased in size. In a patient who has significant smoking history, possibility of lung cancer is there Patient is interested in robotic bronchoscopy in the near future. PET/CT 02/18/2023 showed mildly FDG avid nodules in the left upper lobe Mild FDG avid hilar lymph nodes Paraesophageal lesion does not demonstrate FDG uptake significantly Patient has lost weight significantly compared to when I saw him in the clinic Unprovoked pulmonary emboli is always of concern especially in somebody who has history of pulmonary nodules. I did go over robotic bronchoscopy again with the patient, he is Inclining towards pursuing the biopsy in the near future. -- COPD with emphysema and chronic bronchitis Gold class E On Dulera as well as Spiriva at home [id number] on 07/04/2023, will consider azithromycin 250 mg [id number] as an outpatient For chronic bronchitis use Mucinex on an as-needed basis PFT 12/05/21 personally reviewed: Severe obstructive lung dysfunction, insignificant bronchodilator response, increased lung volume with air trapping, moderate decrease in DLCO FVC 2.270 to 67%, FEV1 0.91 L 78%, FEV1/FVC 40%, RV 188%, TLC 126%, RV/TLC 150%, DLCO 47%, DLCO/VA 54% -- Ex-smoker [id number] smoking history Quit in 2005 Encouraged to continue abstinence from smoking Plan: Patient is thinking about robotic bronchoscopy. He wants me to talk to his friend who is a decision maker. I did speak with Mansoor Flores at [phone]. I gave brief overview of what the procedure entitles, risks as well as benefits. Try to answer the question in the best possible way. She will let us know if she has any more questions The Aspergillus in the sputum is a colonizer and I would not pursue treating it MSSA in the sputum can be treated with amoxicillin clavulanic acid, complete the course for 10-14 days Please note the above document was generated using voice recognition software. It may contain grammatical, syntax or spelling errors.Any formal questions or concerns about the content, text or information contained within the body of this dictation should be directly addressed to the provider for clarification. Admission and Anticipated Discharge Date Admission Date: July 05, 2023 Subjective Patient seen and examined at bedside. No acute distress, no symptoms overnight He was saturating 97% on 3 to nasal cannula but I went down to 1 L. Appetite is getting better. No nausea vomiting Denies any headache, no blurry vision Review of Systems 2 Review of Systems: All systems reviewed & are unremarkable except as noted in Subjective Physical Exam 2 Physical Exam: Constitutional: No acute distress HEENT: EOMI, PERRLA Respiratory system: Decreased air entry bilaterally, no wheeze, no rhonchi, no crackles CVS: S1-S2 positive, no murmurs or gallops Abdomen: Soft, nontender, nondistended, positive bowel sounds x4 Extremities: +2 pulses bilaterally radialis/ dorsalis pedis, no cyanosis, minimal clubbing bilaterally Neuro: Awake alert oriented x3 Psych: Normal mood and affect G/U: No Celaya Skin: no rashes, warm and dry Lymphatic: no cervical or axillary lymphadenopathy Results & Data Results & Data Vital Signs (Past 12 Hours) Vital Signs Temp Pulse Resp BP Pulse Ox O2 Del Method O2 Flow Rate 07/10/23 21:51 36.4 C L 65 18 121/72 97 Nasal Cannula 2.5 07/10/23 20:39 Nasal Cannula 1 Laboratory Results 07/07/23 06:12 PG Care Time/CCT Total # of Minutes Spent Total Time Spent with Patient: Total time spent is greater than 50% in coordination of care (as documented) at patient's floor/unit and/or counseling patient: Coding Level of Care Code 23286 SUB INP/OBS CARE MIN Diagnoses Pulmonary embolism I26.99 COPD with emphysema J43.9 Exertional shortness of breath R06.02 Ex-smoker Z87.891 Multiple pulmonary nodules R91.8 Hypoxemic respiratory failure, chronic J96.11
[2023-07-11 08:21] LABS: Magnesium 1.4 mg/dl (1.7-2.4)
[2023-07-11] MEDS: MAGNESIUM SULFATE / D5W 1 GM/100 ML BAG IV SCH (11:24)
--- NOTE | 2023-07-11 14:38 | Hospitalist Progress Note ---
Date of Service July 11, 2023 Assessment & Plan (1) Pulmonary embolism: Plan: CT chest at admission - multiple PEs with largest in the right pulmonary artery Likely provoked by suspected lung cancer Remains on lovenox 50mg BID - day #7 of such -will change to apixaban 5 mg bid in AM of note - dopplers b/l LEs neg for DVT (2) Protein calorie malnutrition: Plan: Severe protein calorie malnutrition 15+ kg weight loss since 2022 BMI 18.5 Suspected lung cancer, lack of access to food, severe COPD, other factors likely to blame Cont MVI Cont remeron 7.5mg HS Await B1 level - thiamine empirically in meantime B12 level wnl TSH 5.7, but FT4 0.9 (normal) -- likely sick euthyroid - recheck 1 month Folate normal (3) Pneumonia: Plan: ground glass opacities in RLL sputum cx with staph aureus - MSSA initially on zosyn; changed to augmentin BID day #7 of IV/PO abx -will stop antibiotics overall clinically improved weaning NC O2 VFSS negative 01/2023 sputum cx with aspergillus - Dr Agarwal feels this is a colonizer - no Rx needed (4) Pulmonary nodule: Plan: BARBIE -- 2 nodules highly suspicious for lung cancer consulted Dr Agarwal -- he offered navigational bronch for biopsy -- patient leaning towards doing such Dr Agarwal would do as outpatient in about a month (5) Encephalopathy: Plan: seems to be much improved compared to a week ago suspect metabolic factors from his infections contributing nutritional deficiencies also likely at play appreciate psych consultation treat infections (pneumonia, UTI, etc) again TSH 5.7 but FT4 0.91 - no replacement at this time B12 wnl 04/2023 B1 level pending - s/p empiric IV thiamine 500 mg q8h x 6 doses; now on [address] head neg at admission Could consider MRI brain if pacer is MR compatible but defer for now since he is improving (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 apical akinesis noted by cardiology - also new from prior echo. this is highly suggestive of ischemic cardiomyopathy. despite depressed EF he is compensated on exam today. of note, per chart review, last cardiac catheterization was in 2008 at [facility]. 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 * 50% ostial RCA stenosis noted. * Mild luminal irregularities in the coronary arteries otherwise. No further stress testing or invasive cardiac evaluation since 2008. In light of numerous other issues pursuing additional, invasive w/u right now likely not possible. Treat medically for now with aspirin. Stopped his diltiazem; changed to meto tartrate; ultimately make this meto succ - will make that change tomorrow am. Should be on statin agent but allergy list with simvastatin (myalgias). (14) UTI (urinary tract infection): Plan: 2nd enterococcus s/p zosyn; changed to augmentin PO Rx 7 days in total, completed 07/10 (15) Hypokalemia: Plan: replaced resolved (16) Hypophosphatemia: Plan: repeat level still low will resume PO replacement hypomagnesemia - replacing IV 07/10 (17) NSVT (nonsustained ventricular tachycardia): Plan: 15-beat run by report earlier this week switched diltiazem to metoprolol no recurrent runs could have been electrolyte related could have been ischemic related given echo findings Plan PT/OT evals completed; needs rehab Psych consult appreciated internal communications manager assistance appreciated progressing diarrhea - c diff negative - may use loperamide prn I updated pt's sister by phone this evening - she lives in [place] Admission and Anticipated Discharge Date Admission Date: July 05, 2023 Subjective having an episode of increased dyspnea at the moment, no CP or wheezing, had been eating appetite and mental status has improved Physical Exam Physical Exam: PHYSICAL EXAMINATION Last 24h vital signs reviewed, see documentation in flowsheet General: comfortable appearing, no distress, extremely cachectic appearing - bitemporal wasting severe sarcopenia of 4 extremities. Sitting in bed with breakfast, has hands on top of head HEENT: Normocephalic, atraumatic, pupils round and equal, sclerae anicteric, no conjunctival injection, moist mucus membranes Lungs: increased WOB, diminished breath sounds throughout without rrw Heart: reg distant no JVD Abdomen: S/NT/ND +BT Extremities: wwp no edema Neuro: Alert oriented to hospital and situation, speech intact, face symmetric Psych: normal affect, calm and cooperative Results & Data Results & Data Vital Signs (Past 12 Hours) Vital Signs O2 Del Method O2 Flow Rate 07/11/23 07:15 Nasal Cannula 1 PG Care Time/CCT Total # of Minutes Spent Total Time Spent with Patient: Total time spent is greater than 50% in coordination of care (as documented) at patient's floor/unit and/or counseling patient: Coding Level of Care Code 23718 SUB INP/OBS CARE 2/35MIN Diagnoses Pulmonary embolism I26.99 Protein calorie malnutrition E46 Pneumonia J18.9 Pulmonary nodule R91.1 Encephalopathy G93.40 Tachy-tiffany syndrome I49.5 COPD (chronic obstructive pulmonary disease) J44.9 Corcoran's esophagus with dysplasia K22.719 Prostate cancer C61 Pacemaker Z95.0 Hypoxemic respiratory failure, chronic J96.11 Tobacco consumption Z72.0 Ischemic cardiomyopathy I25.5 UTI (urinary tract infection) N39.0 Hypokalemia E87.6 Hypophosphatemia E83.39 NSVT (nonsustained ventricular tachycardia) I47.29
[2023-07-12 06:32] LABS: Hematocrit (blood only) 31.9 % (42.0-52.0); Hemoglobin 9.7 g/dl (14.0-18.0); Mean Corpuscular Hemoglobin 27.5 pg (25.0-34.0); Mean Corpuscular Hgb Conc 30.4 g/dL (32.0-36.0); Mean Corpuscular Volume 90.4 fL (80.0-100.0); Mean Platelet Volume 9.6 fL (9.4-12.4); Platelet Count 228 K/uL (130-400); RDW Coefficient of Variation 18.2 % (11.5-14.5); RDW Standard Deviation 57.6 fL (36.4-46.3); Red Blood Count 3.53 M/uL (4.70-6.10); White Blood Count 4.49 K/ul (4.8-10.8)
[2023-07-12 06:47] LABS: BUN Creatinine Ratio 31.7 (10-20); Calcium 7.4 mg/dl (8.6-10.3); Creatinine Clr Calc Pharmacy 79.2 ml/min; Est GFR (African American) 111.6 ml/min; Est GFR (Non-African American) 96.3 ml/min; Potassium 4.6 mmol/L (3.5-5.1)
--- NOTE | 2023-07-12 08:12 | Pulmonology Progress Note ---
Date of Service July 12, 2023 Assessment & Plan (1) Pulmonary embolism: (2) COPD with emphysema: (3) Exertional shortness of breath: (4) Ex-smoker: (5) Multiple pulmonary nodules: (6) Hypoxemic respiratory failure, chronic: Plan CT chest 07/05/2023 personally reviewed: Severe centrilobular and paraseptal emphysema appreciated bilaterally Left upper lobe as well as lingular pulmonary nodule Pulmonary emboli in the right main as well as right upper pulmonary artery Dilated esophagus No significant mediastinal lymphadenopathy 2D echo 07/05/2023: EF 45-50%, apical akinesis, RV grossly normal in size, systolic function borderline reduced --Acute pulmonary emboli Unprovoked In a patient who has known history of pulmonary nodules Doppler bilateral lower extremities negative for DVT on 07/09/2023 Would recommend lifetime anticoagulation --Multiple pulmonary nodules Largest measuring around 13 mm * 11mm (10mm 11/2021) in the lingula [id number] smoking history Left upper lobe pulmonary nodules has been gradually increased in size. In a patient who has significant smoking history, possibility of lung cancer is there Patient is interested in robotic bronchoscopy in the near future. PET/CT 02/18/2023 showed mildly FDG avid nodules in the left upper lobe Mild FDG avid hilar lymph nodes Paraesophageal lesion does not demonstrate FDG uptake significantly Patient has lost weight significantly compared to when I saw him in the clinic Unprovoked pulmonary emboli is always of concern especially in somebody who has history of pulmonary nodules. I did go over robotic bronchoscopy again with the patient, he is Inclining towards pursuing the biopsy in the near future. -- COPD with emphysema and chronic bronchitis Gold class E On Dulera as well as Spiriva at home [id number] on 07/04/2023, will consider azithromycin 250 mg [id number] as an outpatient For chronic bronchitis use Mucinex on an as-needed basis PFT 12/05/21 personally reviewed: Severe obstructive lung dysfunction, insignificant bronchodilator response, increased lung volume with air trapping, moderate decrease in DLCO FVC 2.270 to 67%, FEV1 0.91 L 78%, FEV1/FVC 40%, RV 188%, TLC 126%, RV/TLC 150%, DLCO 47%, DLCO/VA 54% -- Ex-smoker [id number] smoking history Quit in 2005 Encouraged to continue abstinence from smoking Plan: Patient is wheezing today as well as rhonchorous sounds and difficulty bringing up the phlegm Start the patient hypertonic saline nebulized twice a day, give 20 mg of Solu- Medrol Mucinex and flutter valve Patient is thinking about robotic bronchoscopy. He wants me to talk to his friend who is a decision maker. I did speak with Mansoor Flores at [phone]. I gave brief overview of what the procedure entitles, risks as well as benefits. Try to answer the question in the best possible way. 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 It may contain grammatical, syntax or spelling errors.Any formal questions or concerns about the content, text or information contained within the body of this dictation should be directly addressed to the provider for clarification. Admission and Anticipated Discharge Date Admission Date: July 05, 2023 Subjective Patient seen and examined at bedside. No acute distress. He says that today he is feeling more tight. More lethargic Is coughing and is having some difficulty bringing up phlegm. Denies any headache, no blurry vision No chest pain. Saturating 98-99% on 2 L nasal cannula Review of Systems 2 Review of Systems: All systems reviewed & are unremarkable except as noted in Subjective Physical Exam 2 Physical Exam: Constitutional: No acute distress HEENT: EOMI, PERRLA Respiratory system: Decreased air entry bilaterally, positive expiratory wheeze bilaterally, no rhonchi, no crackles CVS: S1-S2 positive, no murmurs or gallops Abdomen: Soft, nontender, nondistended, positive bowel sounds x4 Extremities: +2 pulses bilaterally radialis/ dorsalis pedis, no cyanosis, minimal clubbing bilaterally Neuro: Awake alert oriented x3 Psych: Normal mood and affect G/U: No [place] Skin: no rashes, warm and dry Lymphatic: no cervical or axillary lymphadenopathy Results & Data Results & Data Vital Signs (Past 12 Hours) Vital Signs Temp Pulse Resp BP Pulse Ox O2 Del Method O2 Flow Rate 07/11/23 21:50 Nasal Cannula 2 07/11/23 20:50 36.3 C L 71 18 119/62 98 Nasal Cannula 2 Laboratory Results 07/12/23 05:36 07/12/23 05:36 PG Care Time/CCT Total # of Minutes Spent Total Time Spent with Patient: Total time spent is greater than 50% in coordination of care (as documented) at patient's floor/unit and/or counseling patient: Coding Level of Care Code 79361 SUB INP/OBS CARE 2/35MIN Diagnoses Pulmonary embolism I26.99 COPD with emphysema J43.9 Exertional shortness of breath R06.02 Ex-smoker Z87.891 Multiple pulmonary nodules R91.8 Hypoxemic respiratory failure, chronic J96.11
[2023-07-12] MEDS: APIXABAN 5 MG TABLET PO SCH (08:16)
[2023-07-12] MEDS ORDERED: methylPREDNISolone 1000 MG/16 ML IV STA (09:20)
[2023-07-12] MEDS: methylPREDNISolone 20 MG in SYRINGE 0 ML IV STA (09:52)
--- NOTE | 2023-07-12 14:42 | Hospitalist Progress Note ---
Date of Service July 12, 2023 Assessment & Plan (1) Pulmonary embolism: Plan: CT chest at admission - multiple PEs with largest in the right pulmonary artery Likely provoked by suspected lung cancer Completed 7 days of lovenox 50mg BID Switching to Eliquis 5mg BID today of note - dopplers b/l LEs neg for DVT (2) Protein calorie malnutrition: Plan: Severe protein calorie malnutrition 15+ kg weight loss since 2022 BMI 18.5 Suspected lung cancer, lack of access to food, severe COPD, other factors likely to blame Cont MVI Cont remeron 7.5mg HS Await B1 level - thiamine empirically in meantime B12 level wnl TSH 5.7, but FT4 0.9 (normal) -- likely sick euthyroid - recheck 1 month Folate normal (3) Pneumonia: Plan: ground glass opacities in RLL sputum cx with staph aureus - MSSA initially on zosyn; changed to augmentin BID -- completed 7 days of IV/PO abx overall clinically improved VFSS negative 01/2023 sputum cx with aspergillus - Dr Agarwal feels this is a colonizer - no Rx needed (4) Pulmonary nodule: Plan: BARBIE -- 2 nodules highly suspicious for lung cancer consulted Dr Agarwal -- he offered navigational bronch for biopsy -- patient leaning towards doing such Dr Agarwal would do as outpatient in about a month (5) Encephalopathy: Plan: seems resolved suspect metabolic factors from his infections contributing nutritional deficiencies also likely at play appreciate psych consultation treat infections (pneumonia, UTI, etc) again TSH 5.7 but FT4 0.91 - no replacement at this time B12 wnl 04/2023 B1 level pending - s/p empiric IV thiamine 500 mg q8h x 6 doses; now on [address] head neg at admission Could consider MRI brain if pacer is MR compatible but defer for now since he is improving (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 Caraballo placed due to complete heart block, near syncope, PSVT primary machine greaser - Dr. 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 [facility] continue PPI twice daily (9) Prostate cancer: Plan: Treated [facility]ablation [facility] q6 month lupron injections - but patient stated he missed his last one cont tamsulosin Treated his UTI (10) Pacemaker: Plan: s/p placement 03/2023 - Dr Caraballo (11) Hypoxemic respiratory failure, chronic: Plan: on home O2 - stable; is requiring less NC O2 than at baseline 2nd severe COPD (12) Tobacco consumption: Plan: heavy usage, 2ppd minimum for 50+ years (13) Ischemic cardiomyopathy: Plan: EF 45-50% on echo this admission - which is reduction from 2022 echo. apical akinesis noted by cardiology - also new from prior echo. this is highly suggestive of ischemic cardiomyopathy. despite depressed EF he is compensated on exam today. of note, per chart review, last cardiac catheterization was in 2008 at [facility]. 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 * 50% ostial RCA stenosis noted. * Mild luminal irregularities in the coronary arteries otherwise. No further stress testing or invasive cardiac evaluation since 2008. In light of numerous other issues pursuing additional, invasive w/u right now likely not possible. Treat medically for now with aspirin. Stopped his diltiazem; changed to meto tartrate; ultimately make this meto succ - will make that change tomorrow am. Should be on statin agent but allergy list with simvastatin (myalgias). Today's episode of "chest tightness" could have been due to bronchospasm from COPD Ischemia less likely Tightness resolved with steroids, bronchodilators, time Checked troponin this afternoon - negative Monitor (14) UTI (urinary tract infection): Plan: 2nd enterococcus completed course of IV zosyn/PO augmentin now off abx (15) Hypokalemia: Plan: replaced resolved (16) Hypophosphatemia: Plan: replaced with IV/PO supplementation now resolved will stop K-phos neutral supplement (17) NSVT (nonsustained ventricular tachycardia): Plan: 15-beat run by report earlier this week switched diltiazem to metoprolol no recurrent runs could have been electrolyte related could have been ischemic related given echo findings (18) Hypocalcemia: Plan: most recent albumin 2.2 today's total calcium level 7.4 correct calcium for the low albumin is normal ionized calcium also normal no Rx needed Plan PT/OT evals completed; needs rehab Psych consult appreciated sales planning manager assistance appreciated diarrhea - c diff negative - may use loperamide prn I updated pt's sister by phone 07/09 - she lives in [place] Admission and Anticipated Discharge Date Admission Date: July 05, 2023 Subjective patient had episode of chest tightness with dyspnea lasting about 20-30 min this am he states the staff increased his O2 briefly symptoms ultimately resolved he has had episodes like this at home in the past tightness/pain was central; did not radiate has cough - no change from prior visits eating well Review of Systems Review of Systems: gen - no fevers; fatigue/weak cv - see subjective portion of note; no orthopnea pulm - cough, wheezing GI - no abd pain or N/V Physical Exam Physical Exam: gen - very thin but NAD; no hallucinations; coughing neck - no JVD mouth - MMM heart - RRR, s1 s2, no murmur chest - no reproducible chest wall pain to palpation lungs - b/l wheezes; no increased work of breathing; no rales abd - soft NT ND BS+ ext - thin, no edema, pulses 1+ b/l Results & Data Results & Data Vital Signs (Past 12 Hours) Vital Signs Temp Pulse Resp BP Pulse Ox O2 Del Method O2 Flow Rate 07/12/23 08:27 36.3 C L 97 H 18 131/68 100 Nasal Cannula 2 07/12/23 07:15 Nasal Cannula 2 Laboratory Results Laboratory Results - last 48 hr 07/11/23 07/12/23 07/12/23 07:58 05:36 14:53 WBC 4.49 L RBC 3.53 L Hgb 9.7 L Hct 31.9 L MCV 90.4 MCH 27.5 MCHC 30.4 L RDW Std Deviation 57.6 H RDW Coeff of [place] 18.2 H Plt Count 228 MPV 9.6 Sodium 144 144 Potassium 4.0 4.6 Chloride 110 H Carbon Dioxide 33 H Anion Gap 1 L BUN 19 Creatinine 0.60 Est Cr Clr Drug Dosing 79.2 Est GFR ( Amer) 111.6 Est GFR (Non-Af Amer) 96.3 BUN/Creatinine Ratio 31.7 H Glucose 96 Calcium 7.4 L Ionized Calcium 1.13 Phosphorus 2.9 Magnesium 1.4 L 2.0 Troponin I High Sens 19.3 PG Care Time/CCT Total # of Minutes Spent Total Time Spent with Patient: Total time spent is greater than 50% in coordination of care (as documented) at patient's floor/unit and/or counseling patient: Coding Level of Care Code 87367 SUB INP/OBS CARE 2/35MIN Diagnoses Pulmonary embolism I26.99 Protein calorie malnutrition E46 Pneumonia J18.9 Pulmonary nodule R91.1 Encephalopathy G93.40 Tachy-tiffany syndrome I49.5 COPD (chronic obstructive pulmonary disease) J44.9 Corcoran's esophagus with dysplasia K22.719 Prostate cancer C61 Pacemaker Z95.0 Hypoxemic respiratory failure, chronic J96.11 Tobacco consumption Z72.0 Ischemic cardiomyopathy I25.5 UTI (urinary tract infection) N39.0 Hypokalemia E87.6 Hypophosphatemia E83.39 NSVT (nonsustained ventricular tachycardia) I47.29 Hypocalcemia E83.51
[2023-07-12 15:44] LABS: Phosphorus 2.9 mg/dl (2.5-4.9); Troponin I High Sensitivity 19.3 pg/ml (0-20)
[2023-07-12] MEDS: SODIUM CHLOR 7% 4 ML NEB NEB SCH (19:10)
[2023-07-12] MEDS: guaiFENesin 600 MG TABCR PO SCH (20:59)
[2023-07-13] MEDS: predniSONE 20 MG TAB PO SCH (16:30)
--- NOTE | 2023-07-13 19:43 | Hospitalist Progress Note ---
Date of Service July 13, 2023 Assessment & Plan (1) Pulmonary embolism: Plan: CT chest at admission - multiple PEs with largest in the right pulmonary artery Likely provoked by suspected lung cancer Completed 7 days of lovenox 50mg BID Switched to Eliquis 5mg BID on 07/12/23 of note - dopplers b/l LEs neg for DVT (2) Protein calorie malnutrition: Plan: Severe protein calorie malnutrition 15+ kg weight loss since 2022 BMI 18.5 Suspected lung cancer, lack of access to food, severe COPD, other factors likely to blame Cont MVI Cont remeron 7.5mg HS B1 level undetectable - cont thiamine B12 level wnl TSH 5.7, but FT4 0.9 (normal) -- likely sick euthyroid - recheck 1 month Folate normal (3) Pneumonia: Plan: ground glass opacities in RLL sputum cx with staph aureus - MSSA initially on zosyn; changed to augmentin BID -- completed 7 days of IV/PO abx overall clinically improved VFSS negative 01/2023 sputum cx with aspergillus - Dr Agarwal feels this is a colonizer - no Rx needed (4) Pulmonary nodule: Plan: BARBIE -- 2 nodules highly suspicious for lung cancer consulted Dr Agarwal -- he offered navigational bronch for biopsy -- patient leaning towards doing such Dr Agarwal would do as outpatient in about a month (5) Encephalopathy: Plan: seems resolved suspect metabolic factors from his infections contributed; thiamine deficiency could have contribute; other factors possible appreciate psych consultation treated infections (pneumonia, UTI, etc) replacing thiamine again TSH 5.7 but FT4 0.91 - no replacement at this time B12 wnl 04/2023 CT head neg at admission Could consider MRI brain if pacer is MR compatible but defer for now since he is improved (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 Caraballo placed due to complete heart block, near syncope, PSVT primary reprint sorter - Dr. Casas Recent device interrogation - likely runs of atrial tachycardia (7) COPD (chronic obstructive pulmonary disease): Plan: Chronic hypoxic respiratory failure with 2L home O2 Severe COPD at baseline Has seen Dr Agarwal in the past Mild-mod wheezing on exam yesterday & today -- Dr Agarwal gave IV solumedrol on 07/11 Will start PO prednisone 40mg daily starting today, 07/12 plan 5-7 days of PO prednisone start scheduled duonebs qid for cough/wheeze/congestion Cont NC O2 - adjust to keep sats 90-92% Cont Mometasone-formoterol HFA 2 puffs every 12 hours Spiriva 1 inhalation daily Extensive tobacco use history per the chart (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 [facility] continue PPI twice daily (9) Prostate cancer: Plan: Treated with cryoablation in 2008 [facility] q6 month lupron injections - but patient stated he missed his last one cont tamsulosin Treated his UTI (10) Pacemaker: Plan: s/p placement 03/2023 - Dr Caraballo (11) Hypoxemic respiratory failure, chronic: Plan: on home O2 - stable; is requiring less NC O2 than at baseline 2nd severe COPD (12) Tobacco consumption: Plan: heavy usage, 2ppd minimum for 50+ years (13) Ischemic cardiomyopathy: Plan: EF 45-50% on echo this admission - which is reduction from 2022 echo. apical akinesis noted by cardiology - also new from prior echo. this is highly suggestive of ischemic cardiomyopathy. despite depressed EF he is compensated on exam today. of note, per chart review, last cardiac catheterization was in 2008 at [facility]. 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 * 50% ostial RCA stenosis noted. * Mild luminal irregularities in the coronary arteries otherwise. No further stress testing or invasive cardiac evaluation since 2008. In light of numerous other issues pursuing additional, invasive w/u right now likely not possible. Treat medically for now with aspirin. Stopped his diltiazem; changed to meto tartrate; ultimately make this meto succ - will make that change tomorrow am. Should be on statin agent but allergy list with simvastatin (myalgias). Had "chest tightness" on 07/11 -- troponin checked -- negative could have been due to bronchospasm from COPD Ischemia less likely Tightness resolved with steroids, bronchodilators monitor closely (14) UTI (urinary tract infection): Plan: 2nd enterococcus completed course of IV zosyn/PO augmentin now off abx (15) Hypokalemia: Plan: replaced resolved (16) Hypophosphatemia: Plan: replaced with IV/PO supplementation now resolved stopped K-phos supplement (17) NSVT (nonsustained ventricular tachycardia): Plan: 15-beat run by report early in admission switched diltiazem to metoprolol no recurrent runs could have been electrolyte related could have been ischemic related given echo findings (18) Hypocalcemia: Plan: most recent albumin 2.2 recent total calcium level 7.4 corrected calcium for the low albumin is normal ionized calcium also normal no Rx needed (19) Thiamine deficiency: Plan: undetectable level s/p high-dose thiamine early in admission now on PO thiamine 200mg BID x 1 month Plan PT/OT evals completed; needs rehab referrals are pending diarrhea - c diff negative - was abx associated diarrhea diarrhea has resolved I updated pt's sister by phone 07/09 and again nelly, 07/12, by phone Admission and Anticipated Discharge Date Admission Date: July 05, 2023 Subjective no events overnight c/o fatigue and being tired cough at baseline HARRIS at baseline denies pain any location mental status - knew he was in the hospital ("[facility]"), 2023 for year, did ultimately get the month; could not name the day or date is recalling prior events from this hospitalization more easily eating well diarrhea is better Review of Systems Review of Systems: gen - fatigue/weak/tired; no fevers cv - no chest pain or tightness today pulm - coughing/wheezing; but no dyspnea today (had such yesterday) Gi - no abd pain or N/V Physical Exam Physical Exam: gen - very thin but NAD; lying in bed flat comfortably; no hallucinations; coughing - harsh, bronchial neck - no JVD mouth - MMM, no thrush heart - RRR, s1 s2, no murmur lungs - b/l wheezes especially anteriorly; no increased work of breathing; no rales abd - soft NT ND BS+ ext - thin, no edema, pulses 1+ b/l psych - alert, oriented to person/place/and partially time Results & Data Results & Data Vital Signs (Past 12 Hours) Vital Signs Temp Pulse Resp BP Pulse Ox O2 Del Method O2 Flow Rate 07/13/23 15:12 36.6 C 88 16 121/70 96 Nasal Cannula 2.5 Laboratory Results Laboratory Results - last 24 hr 07/05/23 09:10 Vitamin B1 <6 L PG Care Time/CCT Total # of Minutes Spent Total Time Spent with Patient: Total time spent is greater than 50% in coordination of care (as documented) at patient's floor/unit and/or counseling patient: Coding Level of Care Code 96464 SUB INP/OBS CARE 2/35MIN Diagnoses Pulmonary embolism I26.99 Protein calorie malnutrition E46 Pneumonia J18.9 Pulmonary nodule R91.1 Encephalopathy G93.40 Tachy-tiffany syndrome I49.5 COPD (chronic obstructive pulmonary disease) J44.9 Corcoran's esophagus with dysplasia K22.719 Prostate cancer C61 Pacemaker Z95.0 Hypoxemic respiratory failure, chronic J96.11 Tobacco consumption Z72.0 Ischemic cardiomyopathy I25.5 UTI (urinary tract infection) N39.0 Hypokalemia E87.6 Hypophosphatemia E83.39 NSVT (nonsustained ventricular tachycardia) I47.29 Hypocalcemia E83.51 Thiamine deficiency E51.9
[2023-07-13] MEDS: ALBUT/IPRATROP 3MG/0.5MG NEB 3 ML VIAL NEB SCH (19:50)
--- NOTE | 2023-07-14 12:12 | Discharge Summary ---
Date of Service July 14, 2023 Admission HPI Per Admitting Provider The patient is a 77-year-old male with a past medical history including tachybradycardia syndrome, sinus node dysfunction, paroxysmal atrial fibrillation, complete heart block, SVT, carotid stenosis, dysphonia, depression, COPD, hypertension, prostate cancer, GERD, dyslipidemia, migraine with aura, tobacco use, chronic respiratory failure with hypoxia and multiple pulmonary nodules. The patient's friend had been periodically breaking him food, which she later reports she thinks he was only eating that meal for the entire week. She became concerned when he become more more reclusive in his home, and reports that while she had his sister talk to him on the phone to keep him occupied, a [employer]ance [employer] officer went into his house to the window, and talked the patient to coming into the ED for assessment. The patient has been carrying a gun with him in the house, as he has become very paranoid with hallucinations about saying that his neighbors were out to get him. His home reportedly is full of mice droppings, bird droppings and has a terrible smell to it. He reportedly has lost significant amounts of weight, and in general has not been taking care of himself. His friend reports that she had called the office of aging, and they had done some type of assessment a few weeks ago, and reported that they were unable to help. The patient was brought to the emergency department for general health assessment, and possible snf placement. The friend is also concerned that the patient has not been keeping his doctors appointments. The patient himself is somewhat confused and disoriented, and has an HPI and ROS which are not considered to be reliable Principal Diagnosis Acute metabolic encephalopathy, acute pulmonary embolism, pneumonia Discharge Exam PHYSICAL EXAMINATION Last 24h vital signs reviewed, see documentation in flowsheet General: awake alert sitting in bed looks much improved HEENT: Normocephalic, atraumatic, pupils round and equal, sclerae anicteric, no conjunctival injection, moist mucus membranes Lungs: comfortable WOB, diminished breath sounds throughout but improved, barrel chest, prolonged exp phase, one low pitched exp wheeze, occasional scattered ronchi but fairly clear bilaterally Heart: reg distant no JVD Abdomen: S/NT/ND +BT Extremities: wwp no edema Neuro: Alert oriented x4, speech intact, face symmetric Psych: normal affect, calm and cooperative Discharge Data Allergies Allergy/AdvReac Type Severity Reaction Status Date / Time simvastatin AdvReac Intermediate myalgia Verified 07/05/23 01:06 Consultations 07/05/23 01:41 Consult Cardiology Routine 07/06/23 15:24 Consult Psychiatry Routine 07/09/23 12:14 Consult Pulmonology Routine Ordered Studies 07/04/23 23:22 CT head/brain wo con Stat 07/05/23 11:16 CT chest diagnostic w con Routine 07/09/23 13:07 US venous doppler LE BI Routine Chest X-Ray 07/04/23 23:22 XR chest 1V portable CLINICAL HISTORY: weakness, cough COMPARISON STUDY: Chest CT February 04, 2023. Chest radiograph March 26, 2023. FINDINGS: A dual-lead left subclavian pacer remains in place. There are severe emphysema. No pneumothorax or pleural effusion is present. There is no evidence for pulmonary edema or pneumonia. 1.1 cm left upper lobe nodule appears similar to chest CT of February 04, 2023. This remains indeterminate. IMPRESSION: 1. No acute cardiopulmonary findings. 2. Emphysema. 3. Redemonstration of an indeterminate 1.1 cm left upper lobe nodule, similar in appearance to chest CT of February 04, 2023. ACT 112: Negative or not required by law. Electronically signed by: Stanley Zhu M.D. 07/05/2023 7:[address] 07/04/23 23:22 Exam(s): CT HEAD Without Contrast EXAM: CT Head Without Intravenous Contrast CLINICAL HISTORY: Reason for exam: ams. TECHNIQUE: Axial computed tomography images of the head/brain without intravenous contrast. Automated exposure control was utilized for the study. A dose lowering technique was utilized adhering to the principles of ALARA. COMPARISON: No relevant prior studies available. FINDINGS: No acute intracranial hemorrhage. No midline shift or mass effect. The territorial pedraza-white matter differentiation is maintained throughout. Age-related cerebral volume loss. Periventricular and subcortical white matter hypoattenuation, consistent with chronic microangiopathy. The visualized orbits appear grossly unremarkable. The calvarium is intact. The visualized paranasal sinuses and mastoid air cells are grossly clear. IMPRESSION: No acute intracranial hemorrhage, midline shift, or mass effect. Electronically signed by: Jarrett Hutton MD 07/05/23 00:[address] 07/05/23 11:16 CT OF THE CHEST WITH IV CONTRAST CLINICAL HISTORY: BARBIE suspicious nodule, cough, cachexia COMPARISON STUDY: Chest CT February 04, 2023 and PET/CT February 18, 2023. TECHNIQUE: Following IV administration of 94 mL of Optiray, helical axial images of the chest were obtained. Sagittal and coronal reconstructions were viewed as well as maximal intensity projections on an independent 3-D workstation. Automated exposure control was utilized for the study. A dose lowering technique was utilized adhering to the principles of ALARA. CT DOSE: 370.33 mGy.cm FINDINGS: No enlarged axillary, mediastinal or hilar lymph nodes are present. A partially calcified low-attenuation left paraesophageal abnormality remains unchanged since initial CT of September 12, 2021. The esophagus is moderately dilated and fluid-filled. There is mild esophageal wall thickening. The stomach is mildly distended and partially fluid-filled. There is no thoracic aortic dissection. Left subclavian pacer is in place. There is extensive coronary artery calcification. Note is made of a 3.6 x 1.5 cm embolus adherent to the wall of the distal right pulmonary artery extending into the interlobar pulmonary artery. This slightly extends into segmental branch of the right middle lobe. An additional segmental embolus within the left lower lobe is present. These are new since CT of February 04, 2023. There is no pneumothorax. Trace bilateral pleural effusions are present. There are severe emphysema. Bronchial wall thickening is noted. There are moderate secretions within the airways. Minimal groundglass opacity within the right lower lobe is new since chest CT of February 04, 2023. A 1.1 cm left upper lobe nodule on image 62, measured in coronal plane, is unchanged since initial CT of September 12, 2021. A 1.3 cm left upper lobe nodule on image 118 of [address] of February 04, 2023. This has slightly increased since CT of September 12, 2022. No suspicious lesions within the bony thorax are noted. Bilateral adrenal nodules are unchanged since initial chest CT. These are likely benign. IMPRESSION: 1. Several pulmonary emboli, including a 3.6 x 1.5 cm embolus adherent to the wall of the right pulmonary artery. These emboli are new since CT of February 04, 2023 and likely acute to subacute. 2. Two left upper lobe pulmonary nodules, as described above. These nodules remain indeterminate and may reflect neoplasms, particularly the more inferior of the left upper lobe nodules, as described above. 3. Severe emphysema. 4. Mild groundglass opacities within the right lower lobe which favors a mild infectious process. 5. Moderately distended, fluid-filled stomach with mild esophageal wall thickening. Partially fluid-filled, mildly distended stomach. 6. Trace bilateral pleural effusions. 7. Bronchial wall thickening. Moderate secretions within the airways. ACT 112: Negative or not required by law. Electronically signed by: Stanley Zhu M.D. 07/05/2023 12:15 PM Venous Doppler Study 07/09/23 13:07 BILATERAL LOWER EXTREMITY VENOUS DOPPLER HISTORY: Bilateral lower extremity pain. r/o DVT COMPARISON STUDY: None. FINDINGS: There is normal compressibility, flow, and augmentation within the bilateral lower extremity deep venous systems. IMPRESSION: No DVT within the right or left lower extremity. ACT 112: Negative or not required by law. Electronically signed by: Kevyn Palacio M.D. 07/09/2023 4:19 PM 07/12/23 05:36 07/12/23 05:36 Hospital Course (1) Pulmonary embolism: 77 y/o man with severe PE and BARBIE pulmonary nodule suspicious for lung cancer admitted with altered mental status, had been confused hallucinating paranoid and not eating according to neighbors. Found to have pulmonary embolism and pneumonia on CT chest. Completed course of antibiotics for pneumonia and UTI in hospital. PE treated with apixaban. Was severely malnourished and thiamine deficient - treated with IV thiamine in hospital. With this his mental status normalized and has been oriented and cooperative with care. Remains malnourished and physically deconditioned and SNF arranged for rehab. CT chest after admission - multiple PEs with largest in the right pulmonary artery. dopplers b/l LEs neg for DVT Likely related to suspected lung cancer Completed 7 days of lovenox 50mg BID Switched to Eliquis 5mg BID on 07/12/23 Treatment should probably be indefinite given probable underlying malignancy. (2) Pneumonia: ground glass opacities in RLL sputum cx with staph aureus - MSSA initially on zosyn for presumed aspiration pneumonia; changed to augmentin BID -- completed 7 days of IV/PO abx overall clinically improved VFSS negative 01/2023 sputum cx with aspergillus - Dr Agarwal feels this is a colonizer - no Rx needed (3) Pulmonary nodule: BARBIE -- 2 nodules highly suspicious for lung cancer. They have been stable for 6 months. Had PET scan in February. consulted Dr Agarwal -- he offered navigational bronch for biopsy -- Mr. Zamora has been on the fence about proceeding with this because of risk:benefit. Follow up with Dr. Stefano Agarwal would do as outpatient in about a month (4) Protein calorie malnutrition: Severe protein calorie malnutrition 15+ kg weight loss since 2022 BMI 18.5 Suspected lung cancer, lack of access to food, severe COPD, other factors likely to blame Cont MVI Cont remeron 7.5mg HS - increased to 15 mg on discharge B1 level undetectable - cont thiamine B12 level wnl TSH 5.7, but FT4 0.9 (normal) -- likely sick euthyroid - recheck 1 month Folate normal (5) Encephalopathy: Acute metabolic encephalopathy, resolved metabolic factors from his infections contributed; thiamine deficiency could have contribute; other factors possible appreciate psych consultation treated infections (pneumonia, UTI, etc) replacing thiamine again TSH 5.7 but FT4 0.91 - no replacement at this time B12 wnl 04/2023 CT head neg at admission (6) Tachy-tiffany syndrome: dual-chamber pacemaker with left bundle pacing lead - 03/26/23 - Dr. 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 Casas Recent device interrogation - likely runs of atrial tachycardia (7) COPD (chronic obstructive pulmonary disease): Chronic hypoxic respiratory failure with 2L home O2 Severe COPD at baseline Has seen Dr Agarwal in the past Mild acute COPD exacerbation started 07/11 with increased wheezing. solumedrol IV 07/11 followed by oral prednisone. No wheezing today, will complete two more days oral prednisone (for total 5d course) Cont NC O2 - adjust to keep sats 90-92% Cont bronchodilators and control inhaler Extensive tobacco use history per the chart (8) Corcoran's esophagus with dysplasia: Hx esophageal leiomyoma [facility] continue PPI twice daily (9) Prostate cancer: Treated with cryoablation in 2008 [facility] q6 month lupron injections - but patient stated he missed his last one - will need to be scheduled cont tamsulosin Treated his UTI (10) Pacemaker: s/p placement 03/2023 - Dr Caraballo (11) Hypoxemic respiratory failure, chronic: on home O2 - stable; is requiring less NC O2 than at baseline 2nd severe COPD (12) Tobacco consumption: heavy usage, 2ppd minimum for 50+ years (13) Ischemic cardiomyopathy: EF 45-50% on echo this admission - which is reduction from 2022 echo. apical akinesis noted by cardiology - also new from prior echo. this is highly suggestive of ischemic cardiomyopathy. despite depressed EF he is compensated on exam. of note, per chart review, last cardiac catheterization was in 2008 at [facility]. 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 * 50% ostial RCA stenosis noted. * Mild luminal irregularities in the coronary arteries otherwise. No further stress testing or invasive cardiac evaluation since 2008. In light of numerous other issues pursuing additional, invasive w/u right now likely not possible. Treat medically for now with aspirin. Stopped his diltiazem; changed to metoprolol Resumed atorvastatin Had "chest tightness" on 07/11 -- troponin checked -- negative could have been due to bronchospasm from COPD Ischemia less likely Tightness resolved with steroids, bronchodilators Cardiology consulted this admission did not have any additional recommendations. Follow up with Dr. Casas (14) UTI (urinary tract infection): 2nd enterococcus completed course of IV zosyn/PO augmentin now off abx (15) Hypokalemia: replaced resolved (16) Hypophosphatemia: replaced with IV/PO supplementation now resolved stopped K-phos supplement (17) NSVT (nonsustained ventricular tachycardia): 15-beat run by report early in admission switched diltiazem to metoprolol no recurrent runs could have been electrolyte related could have been ischemic related given echo findings (18) Hypocalcemia: most recent albumin 2.2 recent total calcium level 7.4 corrected calcium for the low albumin is normal ionized calcium also normal no Rx needed (19) Thiamine deficiency: undetectable level high-dose IV thiamine early in admission now on PO thiamine 200mg BID x 1 month, then should be on 100 mg po daily indefinitely Plan PT/OT evals completed; needs rehab diarrhea - c diff negative - was abx associated diarrhea diarrhea has resolved updated pt's sister by phone 07/09, 07/12 Total Time Total Time Spent Total Time Spent (In Minutes): I personally spent: 40 minutes today on clinical care activities including: reviewing chart notes and vital signs discussion with care companion examining and counseling the patient discharge orders, instructions and documentation Discharge Plan Discharge Items Patient Disposition: Transfer Alf Fac Reason For Visit: NSTEMI,PROTEIN CALORIE MALNUTRITION Discharge Diagnosis: Acute metabolic encephalopathy, pneumonia, pulmonary embolism, severe malnutrition, severe COPD in mild acute exacerbation Activity: Resume your previous activity Weightbearing: Full weightbearing Non-emergency contact: Primary Care Provider and Poultry Breeder Call non-emergency contact if: you have any medication questions and your symptoms worsen Follow-up/Referrals: Cyn Mejía PA-C [Primary Care Provider] - Diet: Regular Diet Comment: easy to chew Addtl Attending Provider Instructions: PT and OT evaluate and treat BID nutritional supplement has home oxygen at baseline for severe COPD two more days prednisone for mild exacerbation completed antibiotics for pneumonia and UTI in hospital apixaban for PE - likely indefinite because of suspicion of BARBIE lung cancer thiamine deficiency - 200 mg po bid for a month then 100 mg po daily indefinitely please schedule follow up with Dr. Agarwal - pulmonology Pending Studies at Discharge: No Stand-Alone Forms: My [facility] Skilled Items Patient informed of condition?: Yes DNR: No Discharge Level of Care: Skilled Communicable Disease: No Discharge Prognosis: Improving Lines: None Urinary Catheter: No Medications and DC Order Prescriptions: New thiamine HCl (vitamin B1) 100 mg Tablet 200 mg PO BID Qty: 0 0RF MAG-AL 200-200 mg/5 mL Suspension 30 ml PO Q6H PRNQty: 0 0RF cholecalciferol (vitamin D3) 125 mcg (5,000 unit) Tablet 125 mcg PO QAM Qty: 0 0RF melatonin 3 mg Tablet 3 mg PO HS Qty: 0 0RF loperamide 2 mg Capsule 2 mg PO Q4H PRNQty: 0 0RF metoprolol succinate 25 mg Tablet Extended Release 24 Hr 25 mg PO QAM Qty: 0 0RF ipratropium-albuterol 0.5 mg-3 mg(2.5 mg base)/3 mL Solution For Nebulization 3 ml NEB QIDR PRN (Reason: shortness of breath or wheezing) Qty: 0 0RF prednisone 20 mg Tablet 20 mg PO QAM 2 Days Qty: 2 0RF aspirin 81 mg Tablet,Delayed Release (Dr/Ec) 81 mg PO QAM Qty: 0 0RF acetaminophen 325 mg Tablet 650 mg PO Q4H PRNQty: 0 0RF mirtazapine 15 mg Tablet 15 mg PO HS Qty: 0 0RF pantoprazole 40 mg Tablet,Delayed Release (Dr/Ec) 40 mg PO BID Qty: 0 0RF Advanced Probiotic 625 mg (10 billion cell) Capsule 1 cap PO DAILY Qty: 0 0RF Eliquis 5 mg Tablet 5 mg PO BID Qty: 0 0RF Continued (DME) mucus clearing device Device See Rx Instructions .Route Rx Instructions: As directed Dulera 50-5 mcg/actuation HFA aerosol inhaler 2 puff INHALATION Q12H Qty: 13 5RF tiotropium bromide 2.5 mcg/actuation mist 1 puff INHALATION DAILY Qty: 4 5RF (DME) nebulizers [Aeroneb Go Nebulizer] Mis See Rx Instructions .MEDSUPPLY Qty: 1 0RF Rx Instructions: With tubing and supplies. J44.9. J45.9. (DME) Portable Oxygen E0431 Mis See Rx Instructions .MEDSUPPLY Qty: 1 0RF Rx Instructions: Oxygen 2 liters continuous via nasal cannula on exertion with portable concentrator. KATIE 99 albuterol sulfate 90 mcg/actuation HFA aerosol inhaler 2 puff inhalation Q4H PRN (Reason: shortness of breath or wheezing) Qty: 8.5 3RF Multiple Vitamin-Minerals Tablet 1 tab PO DAILY rosuvastatin 10 mg Tablet 10 mg PO DAILY tamsulosin 0.4 mg Capsule 0.4 mg PO DAILY polyethylene glycol 3350 17 gram/dose Powder 17 g PO DAILY PRN (Reason: Constipation) latanoprost (PF) 0.005 % Dropperette 1 drp OPB HS Discontinued sumatriptan succinate 6 mg/0.5 mL pen injector 6 mg subcut DIRECTED PRN (Reason: migraine headache) esomeprazole magnesium 40 mg capsule,delayed release(DR/EC) 40 mg PO DAILY diltiazem HCl 180 mg capsule,extended release 24hr 180 mg PO DAILY Qty: 30 5RF Discharge Orders: Discharge Order (Routine); Ordered 07/14/23 Ordered By: Yana Pinzon Admission Data Admit Date/Time: 07/05/23 01:41 Attending Provider: Yana Pinzon Admit Provider: Jay Morgan Primary Care Provider: Cyn Mejía Other Providers: [facility]; Robi [facility] [place]; [facility],; [place]; [facility]; Tomi Burns; Kelly Galvez; Deuce Ragland; Rene Blackwell Jr; Izabella Amaro; Sophy Michael; Gaby Agarwal Coding Level of Care Code 04671 INP/OBS DISCH >30 MIN Diagnoses Pulmonary embolism I26.99 Pneumonia J18.9 Pulmonary nodule R91.1 Protein calorie malnutrition E46 Encephalopathy G93.40 Tachy-tiffany syndrome I49.5 COPD (chronic obstructive pulmonary disease) J44.9 Corcoran's esophagus with dysplasia K22.719 Prostate cancer C61 Pacemaker Z95.0 Hypoxemic respiratory failure, chronic J96.11 Tobacco consumption Z72.0 Ischemic cardiomyopathy I25.5 UTI (urinary tract infection) N39.0 Hypokalemia E87.6 Hypophosphatemia E83.39 NSVT (nonsustained ventricular tachycardia) I47.29 Hypocalcemia E83.51 Thiamine deficiency E51.9
== END 2023-07-14 14:37 | DRG 175 ==
LOC: ED 22:41 → SUATTDRO 07-05 01:41 → 2S 07-05 01:41 → 3N 07-09 18:31

== ENCOUNTER 2024-05-04 15:03 | Inpatient (IN) ==
[2024-05-04 16:10] LABS: Basophils # (auto) 0.02 K/uL (0.00-0.20); Basophils % (auto) 0.1 %; Eosinophils # (auto) 0.02 K/uL (0.00-0.50); Eosinophils % (auto) 0.1 %; Hematocrit (blood only) 33.2 % (42.0-52.0); Hemoglobin 9.9 g/dl (14.0-18.0); Immature Granulocytes # (auto) 0.09 K/uL (0.01-0.20); Immature Granulocytes % (auto) 0.6 %; Lymphocytes # (auto) 0.72 K/uL (1.20-3.40); Mean Corpuscular Hemoglobin 24.8 pg (25.0-34.0); Mean Corpuscular Hgb Conc 29.8 g/dL (32.0-36.0); Mean Platelet Volume 8.7 fL (9.4-12.4); Monocytes # (auto) 0.85 K/uL (0.11-0.59); Monocytes % (auto) 5.8 %; Neutrophils # (auto) 12.83 K/uL (1.40-6.50); Neutrophils % (auto) 88.4 %; Platelet Count 331 K/uL (130-400); RDW Coefficient of Variation 19.5 % (11.5-14.5); RDW Standard Deviation 57.1 fL (36.4-46.3); White Blood Count 14.53 K/ul (4.8-10.8)
--- NOTE | 2024-05-04 16:20 | XRay Report ---
Chest radiograph, one view History: Weakness Comparison: None Findings: Single AP view of the chest performed. No focal consolidation. Blunting of the costophrenic angles with possible small pleural effusions. No pneumothorax. The cardiomediastinal silhouette is within normal limits. Normal pulmonary vascularity. No evidence for lymphadenopathy. Left chest wall dual-lead AICD. No visualized bony or soft tissue abnormality. Impression: Possible small pleural effusions. Electronically signed by Dino Au 05-04-2024 4:19 PM
[2024-05-04 16:22] LABS: Alanine Aminotransferase 18 U/L (7-52); Albumin Globulin Ratio 0.7 (0.9-2); Alkaline Phosphatase 165 U/L (34-104); Anion Gap 6 (3-11); Aspartate Aminotransferase 22 U/L (13-39); BUN Creatinine Ratio 21.4 (10-20); Bilirubin,Total 0.3 mg/dl (0.2-1.0); Blood Urea Nitrogen 22 mg/dl (6-23); Carbon Dioxide 26 mmol/L (21-32); Chloride 107 mmol/L (98-107); Glucose 104 mg/dl (70-99(Fasting)); Magnesium 1.5 mg/dl (1.7-2.4); Potassium 4.2 mmol/L (3.5-5.1); Sodium 139 mmol/L (136-145)
[2024-05-04 16:28] LABS: Troponin I High Sensitivity 19.4 pg/ml (0-20)
[2024-05-04 16:37] LABS: Partial Thromboplastin Ratio 0.9; Partial Thromboplastin Time 25 Seconds (21-31); Prothrombin Time 10.9 Seconds (9.0-12.0)
[2024-05-04 16:38] LABS: Thyroid Stimulating Hormone 6.671 uIu/ml (0.300-4.500)
--- NOTE | 2024-05-04 17:14 | Emergency Department Note ---
Impression & Plan Weakness, Anemia, Leukocytosis, Tachycardia, SOB (shortness of breath), Acute UTI, Elevated lactic acid level, Hypomagnesemia ED Provider Note NAME: HUGH VILLANUEVA Jr AGE: 78 SEX: M : 1945 ARRIVES VIA: Walk-In INFORMANT: [Patient] ED PROVIDER(S): [Tenzin Landry MD] CHIEF COMPLAINT: Weakness HISTORY OF PRESENT ILLNESS: The patient is a 78-year-old male who was sent from the cancer center to this ED for the possibility of bacteremia or sepsis. The patient has been weak for 2 days. He states that currently, he feels short of breath and is asking for a breathing treatment. He does believe he has been coughing a bit more lately. No fever, no vomiting. He does have diarrhea chronically but this is unchanged. He denies chest pain or abdominal pain. The patient does admit that he has noticed a difficult time making his urine lately, he thinks the penile head is a bit swollen. PMHx/PSHx/Social Hx: See Below PHYSICAL EXAM: GENERAL: Patient is in mild respiratory distress. Thin and frail. HEENT: No acute trauma, normocephalic atraumatic, mucous membranes moist, no nasal congestion. NECK: No stridor, no adenopathy, no meningismus, trachea is midline. LUNGS: Diminished breath sounds bilaterally, appears short of breath, mild respiratory distress. Speaks in shorter sentences. Scattered crackles and wheezes heard. HEART: Tachycardic with a regular rhythm. Heart tones are quite distant. No obvious murmur. ABDOMEN: Soft, nontender, no peritonitis. EXTREMITIES: No cyanosis, full range of motion of all the joints without pain or difficulty. Mild bilateral pedal edema. NEUROLOGIC: Oriented x 3, no acute motor or sensory deficits, no focal weakness. SKIN: No jaundice, no diaphoresis. Pale. Groin: He does have some penile shaft edema. No erythema to suggest cellulitis. DIFFERENTIAL DIAGNOSIS: Exacerbation of COPD, bronchitis or pneumonia, UTI, bacteremia or sepsis, dehydration, among others. EMERGENCY DEPARTMENT PROCEDURES: MEDICAL DECISION MAKING: There is a moderate leukocytosis, this would be consistent with infection. The patient was anemic however, this appears to be a chronic issue. Platelet count was normal. No coagulopathy. Magnesium was low 1.5, no renal failure. Lactic acid level was elevated at over 4. This lactic acid elevation could be consistent with bacteremia/sepsis. No worrisome liver enzyme elevation. ECG showed a sinus tachycardia with a poor baseline, no acute ischemia. Cardiac enzyme testing x 1 was not consistent with acute cardiac injury. TSH was somewhat elevated indicating some hypothyroidism. Urinalysis was suggestive of infection. Respiratory bio fire was negative. Chest x-ray showed some chronic change, no focal pneumonia. On exam, the patient appeared dyspneic and pale. He presented weak with concerns for sepsis. The patient was aggressively managed. He did receive 1750 cc of IV saline. This would cover for the 30 cc/kg for sepsis protocol. This was given based on his actual body weight. He was given IV Solu-Medrol, IV magnesium and IV cefepime. He received 2 DuoNebs. The patient does feel improved with treatment. He is less short of breath. The patient will meet criteria for sepsis. The source may be urinary. He was treated for this possibility. He will require further IV antibiotic therapy, close monitoring and further pulmonary care. I did speak with the patient and case management, the on-call hospitalist was consulted. Prior/Outside records/notes reviewed: None ECG per my interpretation: Indication was weakness. The ECG shows what appears to be a sinus tachycardia with a very poor baseline. The rate is 131. There is an old anterior septal infarct. No acute ST elevation, no PVCs. The QTc is 443. Continuous Cardiac Monitoring per my interpretation: An order was placed for continuous cardiac monitoring. The monitor shows a rate of 106 with sinus tachycardia. Imaging/x-ray results per my interpretation: Chest x-ray shows some chronic lung disease, no focal pneumonia or CHF. Chronic Medical/Social conditions affecting care: Advanced age, currently undergoing cancer treatment. Care/Management discussed with: Case management, the on-call hospitalist. Level of care consideration(s): After review of the information above and other included data: --I believe the patient requires escalation of care to admission Critical Care Note: I have personally spent 51 minutes of critical care time in the direct management of this patient. This includes bedside care, interpretation of diagnostic studies, and testing, discussion with consultants, patient, and family members, and other required patient management activities. This 51 minutes is in excess of all separately billable procedures. DISPOSITION: Admission Past Med/Surg History Problem List (Updated 05/04/24 @ 22:31 by Tenzin Landry MD) Hypomagnesemia (Acute) Elevated lactic acid level (Acute) Acute UTI (Acute) SOB (shortness of breath) (Acute) Tachycardia (Acute) Leukocytosis (Acute) Anemia (Acute) Weakness (Acute) Colonic mass Thiamine deficiency Pulmonary nodule Pulmonary embolism Weight loss, abnormal Protein calorie malnutrition Confusion (Acute) entered into EMR 07/05/23 Weakness (Acute) Pacemaker Sinus node dysfunction Tachy-tiffany syndrome Paroxysmal atrial fibrillation Complete heart block SVT (supraventricular tachycardia) Carotid stenosis Near syncope last activated in EMR 03/25/23 Chest pain (Acute) entered into EMR 02/01/23; unable to verify with patient Dysphonia Vocal fold paralysis, right Mild CAD Depression Multiple pulmonary nodules Chronic respiratory failure with hypoxia Ex-smoker Chronic bronchitis 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 Sinus tachycardia Anomalous coronary artery origin Anemia Dyspnea Hypoxemic respiratory failure, chronic Migraine with aura, intractable, without status migrainosus Dyslipidemia Corcoran's esophagus with dysplasia Prostate cancer GERD without esophagitis Hypertension Medical History History of confusion per record 07/07, pt. 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 ron, [facility]- pacer 04/08 Pacemaker (03/2023) [facility], [employer] Multiple pulmonary nodules Hx of migraines Hypertension GERD (gastroesophageal reflux disease) Dyslipidemia Depression Complete heart block Medtronic pacemaker 03/2023, [facility] On home O2 2L continous Chronic respiratory failure with hypoxia 2L 02 continuously C. 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 ron, [place] Surgical History History of bronchoscopy (08/26/23) [facility] History of esophagogastroduodenoscopy (EGD) Hx of colonoscopy History of cryosurgery for prostate cancer S/P cardiac pacemaker procedure (03/2023) [facility] - follows with cardio at [facility] History of cataract removal with insertion of prosthetic lens bilateral H/O umbilical hernia repair (2007) Family History Mother , Cancer Cancer Father , Cancer Colorectal cancer Sister Heart disorder Stroke Brother Prostate cancer Denies family history of Crohn's disease Ulcerative colitis Social History Smoking Status: Former smoker Tobacco Type: Cigarettes Age Started Using Tobacco: 12; Age Quit Using Tobacco: 60; packs per day: 2.5; Cigarettes Per Day: 120 pack years; Second Hand Exposure: No; Do You Dip or Chew Tobacco: No; Hx Alcohol Use: Yes Alcohol type: beer Hx Substance Use: No Preferred Language: Polish Communication Ability: Effective 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 Beliefs That Will Affect Care: None Current Living Situation: Alone Current Living Situation Comment: nursing comes in 2x per week Feels Safe at Home: No Is there a partner from a previous relationship who is making you feel unsafe now?: No Assistive Devices: Cane, Oxygen - Continuous, Walker and Wheelchair Allergies Allergies Allergy/AdvReac Type Severity Reaction Status Date / Time simvastatin AdvReac Intermediate myalgia Verified 03/25/24 15:17 Home Meds Home Medications Medication Instructions Recorded Confirmed mucus clearing device 06/13/21 03/25/24 latanoprost (PF) 0.005 % eye drops 1 drp OPB HS 02/01/23 03/25/24 in a dropperette polyethylene glycol 3350 17 17 g PO DAILY PRN Constipation 02/01/23 03/25/24 gram/dose oral powder tamsulosin 0.4 mg capsule 0.4 mg PO DAILY 02/01/23 03/25/24 aluminum-magnesium hydroxide 200 30 ml PO Q6H PRN Indigestion 08/19/23 03/25/24 mg-200 mg/5 mL oral suspension (MAG-AL) atorvastatin 20 mg tablet 20 mg PO QAM 08/19/23 03/25/24 loperamide 2 mg capsule (Imodium 2 mg PO Q4H PRN Diarrhea 08/19/23 03/25/24 A-D) melatonin 5 mg capsule 5 mg PO HS 08/19/23 03/25/24 umeclidinium 62.5 mcg/actuation 1 inh inhalation QAM 08/19/23 03/25/24 blister powder for inhalation (Incruse Ellipta) mirtazapine 15 mg tablet (Remeron) 15 mg PO HS 08/26/23 03/25/24 tiotropium bromide 2.5 1 puff inhalation DAILY 08/26/23 03/25/24 mcg/actuation mist for inhalation (Spiriva Respimat) cephalexin 500 mg capsule 500 mg PO TID 03/25/24 03/25/24 Previous Rx's Medication Instructions Recorded Portable Oxygen #1 ea 09/25/22 albuterol sulfate 90 mcg/actuation 2 puff inhalation Q4H PRN 09/25/22 aerosol inhaler shortness of breath or wheezing #8.5 grams nebulizers (Aeroneb Go Nebulizer) #1 ea 09/25/22 L.acidop,casei,lactis,rham-B.lact,katie 1 cap PO DAILY #0 caps 07/14/23 625 mg (10 billion cell) capsule (Advanced Probiotic) acetaminophen 325 mg tablet 650 mg (2 x 325 mg) PO Q4H PRN #0 07/14/23 tabs apixaban 5 mg tablet (Eliquis) 5 mg PO BID #0 tabs 07/14/23 aspirin 81 mg tablet,delayed 81 mg PO QAM #0 tabs 07/14/23 release cholecalciferol (vitamin D3) 125 125 mcg PO QAM #0 tabs 07/14/23 mcg (5,000 unit) tablet ipratropium 0.5 mg-albuterol 3 mg 3 ml NEB QIDR PRN shortness of 07/14/23 (2.5 mg base)/3 mL nebulization breath or wheezing #0 mL soln metoprolol succinate 25 mg 25 mg PO QAM #0 tabs 07/14/23 tablet,extended release 24 hr pantoprazole 40 mg tablet,delayed 40 mg PO BID #0 tabs 07/14/23 release thiamine HCl (vitamin B1) 100 mg 200 mg (2 x 100 mg) PO BID #0 tabs 07/14/23 tablet mometasone-formoterol HFA 50 mcg-5 2 puff inhalation Q12H #13 grams 08/17/23 mcg/actuation aerosol inhaler (Dulera) peg 3350-electrolytes 236 240 ml PO Q10M #4,000 mL 10/01/23 gram-22.74 gram-6.74 gram-5.86 gram solution (GaviLyte-G) Results & Data (ED) Vital Signs Vital Signs - 24 hr 05/04/24 15:17 05/04/24 17:26 05/04/24 17:30 Temperature 36.4 C L Temperature Source Skin Pulse Rate 72 121 H Pulse Rate [Apical] 127 H Pulse Rate from SpO2 Sensor 121 H Respiratory Rate 20 24 20 Respiratory Effort / Characteristics Respiratory Depth Normal Respiratory Pattern Blood Pressure 102/67 Blood Pressure [Right Arm] 153/71 H Blood Pressure Mean 78 Blood Pressure Mean [Right Arm] 98 Blood Pressure Position [Right Arm] Pulse Oximetry 97 100 100 Oxygen Delivery Method Nasal Cannula Nebulizer Nasal Cannula Oxygen Flow Rate 2 4 Sepsis Recent Fever Within 48 Hours No Sepsis New/Unexplained Change in Mental Status N/A Sepsis Action Taken by Nursing No Action Required 05/04/24 17:30 05/04/24 17:31 05/04/24 18:15 Temperature Temperature Source Pulse Rate 124 H 108 H Pulse Rate [Apical] Pulse Rate from SpO2 Sensor 115 H Respiratory Rate 20 Respiratory Effort / Characteristics Respiratory Depth Respiratory Pattern Blood Pressure 118/83 Blood Pressure [Right Arm] Blood Pressure Mean 99 Blood Pressure Mean [Right Arm] Blood Pressure Position [Right Arm] Pulse Oximetry 100 Oxygen Delivery Method Nasal Cannula Oxygen Flow Rate 4 Sepsis Recent Fever Within 48 Hours Sepsis New/Unexplained Change in Mental Status Sepsis Action Taken by Nursing 05/04/24 18:30 05/04/24 18:36 05/04/24 19:00 Temperature Temperature Source Pulse Rate 118 H Pulse Rate [Apical] Pulse Rate from SpO2 Sensor 118 H Respiratory Rate 19 Respiratory Effort / Characteristics Respiratory Depth Respiratory Pattern Blood Pressure 122/76 Blood Pressure [Right Arm] Blood Pressure Mean 98 Blood Pressure Mean [Right Arm] Blood Pressure Position [Right Arm] Pulse Oximetry 100 100 Oxygen Delivery Method Nasal Cannula Nasal Cannula Oxygen Flow Rate 4 3 Sepsis Recent Fever Within 48 Hours Sepsis New/Unexplained Change in Mental Status Sepsis Action Taken by Nursing 05/04/24 19:00 05/04/24 19:00 05/04/24 19:06 Temperature 36.3 C L Temperature Source Oral Pulse Rate 120 H Pulse Rate [Apical] 105 H Pulse Rate from SpO2 Sensor 119 H Respiratory Rate 21 19 Respiratory Effort / Characteristics Non-Labored Spontaneous Respiratory Depth Normal Respiratory Pattern Regular Blood Pressure 114/85 Blood Pressure [Right Arm] 114/85 Blood Pressure Mean 92 Blood Pressure Mean [Right Arm] 94 Blood Pressure Position [Right Arm] Semi-fowlers Pulse Oximetry 100 100 Oxygen Delivery Method Room Air Oxygen Flow Rate Sepsis Recent Fever Within 48 Hours Sepsis New/Unexplained Change in Mental Status Sepsis Action Taken by Nursing 05/04/24 19:30 05/04/24 19:39 05/04/24 20:00 Temperature Temperature Source Pulse Rate 116 H 108 H Pulse Rate [Apical] Pulse Rate from SpO2 Sensor 116 H 108 H Respiratory Rate 21 20 Respiratory Effort / Characteristics Respiratory Depth Respiratory Pattern Blood Pressure 126/81 106/57 L Blood Pressure [Right Arm] Blood Pressure Mean 91 73 Blood Pressure Mean [Right Arm] Blood Pressure Position [Right Arm] Pulse Oximetry 100 100 Oxygen Delivery Method Nasal Cannula Oxygen Flow Rate 2 Sepsis Recent Fever Within 48 Hours Sepsis New/Unexplained Change in Mental Status Sepsis Action Taken by Nursing 05/04/24 20:30 05/04/24 20:36 05/04/24 21:00 Temperature Temperature Source Pulse Rate 121 H Pulse Rate [Apical] 115 H Pulse Rate from SpO2 Sensor 122 H Respiratory Rate 15 18 Respiratory Effort / Characteristics Respiratory Depth Respiratory Pattern Blood Pressure 111/76 Blood Pressure [Right Arm] Blood Pressure Mean 100 Blood Pressure Mean [Right Arm] Blood Pressure Position [Right Arm] Pulse Oximetry 100 Oxygen Delivery Method Oxygen Flow Rate Sepsis Recent Fever Within 48 Hours Sepsis New/Unexplained Change in Mental Status Sepsis Action Taken by Nursing 05/04/24 21:00 05/04/24 21:06 05/04/24 21:14 Temperature Temperature Source Pulse Rate 125 H 127 H Pulse Rate [Apical] Pulse Rate from SpO2 Sensor 125 H Respiratory Rate 23 Respiratory Effort / Characteristics Respiratory Depth Respiratory Pattern Blood Pressure 113/74 Blood Pressure [Right Arm] Blood Pressure Mean 91 Blood Pressure Mean [Right Arm] Blood Pressure Position [Right Arm] Pulse Oximetry 100 Oxygen Delivery Method Oxygen Flow Rate Sepsis Recent Fever Within 48 Hours Sepsis New/Unexplained Change in Mental Status Sepsis Action Taken by Nursing 05/04/24 21:30 05/04/24 21:40 Temperature Temperature Source Pulse Rate 117 H Pulse Rate [Apical] 130 H Pulse Rate from SpO2 Sensor 116 H Respiratory Rate 17 20 Respiratory Effort / Characteristics Non-Labored Spontaneous Respiratory Depth Normal Respiratory Pattern Regular Blood Pressure 93/65 L Blood Pressure [Right Arm] 123/71 Blood Pressure Mean 74 Blood Pressure Mean [Right Arm] 88 Blood Pressure Position [Right Arm] Semi-fowlers Pulse Oximetry 100 100 Oxygen Delivery Method Nasal Cannula Nasal Cannula Oxygen Flow Rate 2 2 Sepsis Recent Fever Within 48 Hours Sepsis New/Unexplained Change in Mental Status Sepsis Action Taken by [facility] Medications Current Medication List: was personally reviewed by me Laboratory Data Attestation: I reviewed the patient's lab results. 05/04/24 15:44 05/04/24 15:44 Lab Results 05/04/24 05/04/24 05/04/24 Range/Units 15:44 18:04 18:25 WBC 14.53 H (4.8-10.8) K/ul RBC 4.00 L (4.70-6.10) M/uL Hgb 9.9 L (14.0-18.0) g/dl Hct 33.2 L (42.0-52.0) % MCV 83.0 (80.0-100.0) fL MCH 24.8 L (25.0-34.0) pg MCHC 29.8 L (32.0-36.0) g/dL RDW Std Deviation 57.1 H (36.4-46.3) fL RDW Coeff of Mich 19.5 H (11.5-14.5) % Plt Count 331 (130-400) K/uL MPV 8.7 L (9.4-12.4) fL Immature Gran % (Auto) 0.6 % Neut % (Auto) 88.4 % Lymph % (Auto) 5.0 % Stearns % (Auto) 5.8 % Eos % (Auto) 0.1 % Baso % (Auto) 0.1 % Neut # (Auto) 12.83 H (1.40-6.50) K/uL Lymph # (Auto) 0.72 L (1.20-3.40) K/uL Stearns # (Auto) 0.85 H (0.11-0.59) K/uL Eos # (Auto) 0.02 (0.00-0.50) K/uL Baso # (Auto) 0.02 (0.00-0.20) K/uL Immature Gran # (Auto) 0.09 (0.01-0.20) K/uL PT 10.9 (9.0-12.0) Seconds INR 1.0 (0.9-1.1) APTT 25 (21-31) Seconds PTT Ratio 0.9 Sodium 139 (136-145) mmol/L Potassium 4.2 (3.5-5.1) mmol/L Chloride 107 (98-107) mmol/L Carbon Dioxide 26 (21-32) mmol/L Anion Gap 6 (3-11) BUN 22 (6-23) mg/dl Creatinine 1.03 (0.6-1.4) mg/dl Est Cr Clr Drug Dosing Not Reportable eGFR 73.89 BUN/Creatinine Ratio 21.4 H (10-20) Glucose 104 H (70-99(Fasting)) mg/dl Lactate 4.3 H* (0.4-2.0) mmol/L Calcium 8.0 L (8.6-10.3) mg/dl Magnesium 1.5 L (1.7-2.4) mg/dl Total Bilirubin 0.3 (0.2-1.0) mg/dl AST 22 (13-39) U/L ALT 18 (7-52) U/L Alkaline Phosphatase 165 H (34-104) U/L Troponin I High Sens 19.4 (0-20) pg/ml Total Protein 5.0 L (6.0-8.3) gm/dl Albumin 2.0 L (3.4-5.0) gm/dl Globulin 3.0 (2.5-4.0) gm/dl Albumin/Globulin Ratio 0.7 L (0.9-2) Procalcitonin 0.20 (0-0.5) ng/ml TSH 6.671 H (0.300-4.500) uIu/ml Urine Color Yellow Urine Appearance Cloudy A (Clear) Urine pH 8.5 H (4.5-7.5) Ur Specific Bowler 1.020 (1.000-1.030) Urine Protein 3+ H (Negative) Urine Glucose (UA) Negative (Negative) Urine Ketones Negative (Negative) Urine Blood Trace-intact H (Negative) Urine Nitrite Negative (Negative) Urine Bilirubin Negative (Negative) Urine Urobilinogen Negative (Negative) Ur Leukocyte Esterase 3+ H (Negative) Adenovirus (PCR) Not Detected (NotDetected) B. pertussis DNA (PCR) Not Detected (NotDetected) B.parapertussis DNA PCR Not Detected (NotDetected) C. pneumoniae DNA (PCR) Not Detected (NotDetected) Coronavirus OC43 (PCR) Not Detected (NotDetected) Coronavirus HKU1 (PCR) Not Detected (NotDetected) Coronavirus 229E (PCR) Not Detected (NotDetected) SARS-CoV-2 (PCR) Not Detected (NotDetected) Coronavirus NL63 (PCR) Not Detected (NotDetected) Human Metapneumovir PCR Not Detected (NotDetected) Influenza Type A (PCR) Not Detected (NotDetected) Influenza Type B (PCR) Not Detected (NotDetected) M. pneumoniae (PCR) Not Detected (NotDetected) Parainfluenza 1 (PCR) Not Detected (NotDetected) Parainfluenza 2 (PCR) Not Detected (NotDetected) Parainfluenza 3 (PCR) Not Detected (NotDetected) Parainfluenza 4 (PCR) Not Detected (NotDetected) RSV (PCR) Not Detected (NotDetected) Entero/Rhino (PCR) Not Detected (NotDetected) 05/04/24 Range/Units 20:27 WBC (4.8-10.8) K/ul RBC (4.70-6.10) M/uL Hgb (14.0-18.0) g/dl Hct (42.0-52.0) % MCV (80.0-100.0) fL MCH (25.0-34.0) pg MCHC (32.0-36.0) g/dL RDW Std Deviation (36.4-46.3) fL RDW Coeff of Mich (11.5-14.5) % Plt Count (130-400) K/uL MPV (9.4-12.4) fL Immature Gran % (Auto) % Neut % (Auto) % Lymph % (Auto) % Stearns % (Auto) % Eos % (Auto) % Baso % (Auto) % Neut # (Auto) (1.40-6.50) K/uL Lymph # (Auto) (1.20-3.40) K/uL Stearns # (Auto) (0.11-0.59) K/uL Eos # (Auto) (0.00-0.50) K/uL Baso # (Auto) (0.00-0.20) K/uL Immature Gran # (Auto) (0.01-0.20) K/uL PT (9.0-12.0) Seconds INR (0.9-1.1) APTT (21-31) Seconds PTT Ratio Sodium (136-145) mmol/L Potassium (3.5-5.1) mmol/L Chloride (98-107) mmol/L Carbon Dioxide (21-32) mmol/L Anion Gap (3-11) BUN (6-23) mg/dl Creatinine (0.6-1.4) mg/dl Est Cr Clr Drug Dosing eGFR BUN/Creatinine Ratio (10-20) Glucose (70-99(Fasting)) mg/dl Lactate 3.1 H* (0.4-2.0) mmol/L Calcium (8.6-10.3) mg/dl Magnesium (1.7-2.4) mg/dl Total Bilirubin (0.2-1.0) mg/dl AST (13-39) U/L ALT (7-52) U/L Alkaline Phosphatase (34-104) U/L Troponin I High Sens (0-20) pg/ml Total Protein (6.0-8.3) gm/dl Albumin (3.4-5.0) gm/dl Globulin (2.5-4.0) gm/dl Albumin/Globulin Ratio (0.9-2) Procalcitonin (0-0.5) ng/ml TSH (0.300-4.500) uIu/ml Urine Color Urine Appearance (Clear) Urine pH (4.5-7.5) Ur Specific Bowler (1.000-1.030) Urine Protein (Negative) Urine Glucose (UA) (Negative) Urine Ketones (Negative) Urine Blood (Negative) Urine Nitrite (Negative) Urine Bilirubin (Negative) Urine Urobilinogen (Negative) Ur Leukocyte Esterase (Negative) Adenovirus (PCR) (NotDetected) B. pertussis DNA (PCR) (NotDetected) B.parapertussis DNA PCR (NotDetected) C. pneumoniae DNA (PCR) (NotDetected) Coronavirus OC43 (PCR) (NotDetected) Coronavirus HKU1 (PCR) (NotDetected) Coronavirus 229E (PCR) (NotDetected) SARS-CoV-2 (PCR) (NotDetected) Coronavirus NL63 (PCR) (NotDetected) Human Metapneumovir PCR (NotDetected) Influenza Type A (PCR) (NotDetected) Influenza Type B (PCR) (NotDetected) M. pneumoniae (PCR) (NotDetected) Parainfluenza 1 (PCR) (NotDetected) Parainfluenza 2 (PCR) (NotDetected) Parainfluenza 3 (PCR) (NotDetected) Parainfluenza 4 (PCR) (NotDetected) RSV (PCR) (NotDetected) Entero/Rhino (PCR) (NotDetected) Administered Medications Magnesium Sulfate/Dextrose (Magnesium Sulfate / D5w) 1 gm in 100 mls @ 50 mls/hr IV Q2H KACIE Stop: 05/05/24 00:59 Last Admin: 05/04/24 21:27 Dose: 50 mls/hr Documented By: COLTEN Discontinued Medications Albuterol (Albut/Ipratrop 3mg/0.5mg Neb 3 Ml Vial) 3 ml NEB NOW STA; Protocol Stop: 05/04/24 17:07 Last Admin: 05/04/24 17:22 Dose: 3 ml Documented By: ENRIQUE Albuterol (Albut/Ipratrop 3mg/0.5mg Neb 3 Ml Vial) 3 ml NEB NOW STA; Protocol Stop: 05/04/24 18:04 Last Admin: 05/04/24 18:39 Dose: 3 ml Documented By: ENRIQUE Cefepime HCl (Maxipime 2000mg) 2,000 mg in 20 mls @ 5 mls/min IV NOW STA; Protocol Stop: 05/04/24 17:09 Last Admin: 05/04/24 18:37 Dose: 5 mls/min Documented By: ENRIQUE Sodium Chloride (Nss) 500 mls @ 999 mls/hr IV .Q31M ONE Stop: 05/04/24 18:00 Last Infusion: 05/04/24 18:13 Dose: Infused Documented By: Admin: 05/04/24 17:43 Dose: 999 mls/hr Documented By: ENRIQUE Magnesium Sulfate/Dextrose (Magnesium Sulfate / D5w) 1 gm in 100 mls @ 100 mls/hr IV NOW STA Stop: 05/04/24 18:29 Last Infusion: 05/04/24 18:43 Dose: Infused Documented By: Admin: 05/04/24 17:43 Dose: 100 mls/hr Documented By: ENRIQUE Sodium Chloride (Nss) 500 mls @ 999 mls/hr IV .Q31M ONE Stop: 05/04/24 19:16 Last Infusion: 05/04/24 20:30 Dose: Infused Documented By: Admin: 05/04/24 18:53 Dose: 999 mls/hr Documented By: ENRIQUE Sodium Chloride (Nss) 500 mls @ 999 mls/hr IV .Q31M ONE Stop: 05/04/24 19:17 Last Infusion: 05/04/24 20:40 Dose: Infused Documented By: Admin: 05/04/24 18:53 Dose: 999 mls/hr Documented By: ENRIQUE Sodium Chloride (Nss) 250 mls @ 999 mls/hr IV .Q16M ONE Stop: 05/04/24 19:02 Last Infusion: 05/04/24 19:13 Dose: Infused Documented By: Admin: 05/04/24 18:54 Dose: 999 mls/hr Documented By: ENRIQUE Sodium Chloride (Nss) 500 mls @ 999 mls/hr IV .Q31M KCAIE Stop: 05/04/24 21:27 Last Admin: 05/04/24 21:29 Dose: 999 mls/hr Documented By: COLTEN Methylprednisolone (Methylprednisolone 125 Mg/2 Ml Vial) 40 mg IV NOW STA Stop: 05/04/24 18:04 Last Admin: 05/04/24 18:36 Dose: 40 mg Documented By: ENRIQUE Metoprolol Succinate (Metoprolol Succ 25mg Ext Rel Tab) 25 mg PO NOW STA Stop: 05/04/24 20:58 Last Admin: 05/04/24 21:42 Dose: 25 mg Documented By: COLTEN Imaging Data Radiologist's Impression: Chest X-Ray 05/04/24 15:22 Chest radiograph, one view History: Weakness Comparison: None Findings: Single AP view of the chest performed. No focal consolidation. Blunting of the costophrenic angles with possible small pleural effusions. No pneumothorax. The cardiomediastinal silhouette is within normal limits. Normal pulmonary vascularity. No evidence for lymphadenopathy. Left chest wall dual-lead AICD. No visualized bony or soft tissue abnormality. Impression: Possible small pleural effusions. Electronically signed by Dino Au 05-04-2024 4:19 PM Discharge Plan Visit Data Chief Complaint: Weakness Stated Complaint: RULE OUT SEPSIS, [facility] Provider: Tenzin Landry Discharge Problem: Weakness, Anemia, Leukocytosis, Tachycardia, SOB (shortness of breath), Acute UTI, Elevated lactic acid level, Hypomagnesemia Patient Disposition: Admitted As Inpatient Condition: Serious Forms Stand Alone Forms: My [facility] [employer] Prescriptions Prescriptions: No Action peg 3350-electrolytes [GaviLyte-G] 236-22.74-6.74 -5.86 gram recon soln 240 ml PO Q10M Qty: 4000 0RF Rx Instructions: until fecal effluent is clear (DME) mucus clearing device Device See Rx Instructions .Route Rx Instructions: As directed (DME) nebulizers [Aeroneb Go Nebulizer] Misc See Rx Instructions .MEDSUPPLY Qty: 1 0RF Rx Instructions: With tubing and supplies. J44.9. J45.9. (DME) Portable Oxygen Misc See Rx Instructions .MEDSUPPLY Qty: 1 0RF Rx Instructions: Oxygen 2 liters continuous via nasal cannula on exertion with portable concentrator. KATIE 99 albuterol sulfate 90 mcg/actuation HFA aerosol inhaler 2 puff inhalation Q4H PRN (Reason: shortness of breath or wheezing) Qty: 8.5 3RF Dulera 50-5 mcg/actuation HFA aerosol inhaler 2 puff INHALATION Q12H Qty: 13 5RF cephalexin 500 mg capsule 500 mg PO TID tamsulosin 0.4 mg Capsule 0.4 mg PO DAILY polyethylene glycol 3350 17 gram/dose Powder 17 g PO DAILY PRN (Reason: Constipation) latanoprost (PF) 0.005 % Dropperette 1 drp OPB HS ipratropium-albuterol 0.5 mg-3 mg(2.5 mg base)/3 mL Solution For Nebulization 3 ml NEB QIDR PRN (Reason: shortness of breath or wheezing) Qty: 0 0RF Eliquis 5 mg Tablet 5 mg PO BID Qty: 0 0RF acetaminophen 325 mg Tablet 650 mg PO Q4H PRNQty: 0 0RF metoprolol succinate 25 mg Tablet Extended Release 24 Hr 25 mg PO QAM Qty: 0 0RF aspirin 81 mg Tablet,Delayed Release (Dr/Ec) 81 mg PO QAM Qty: 0 0RF pantoprazole 40 mg Tablet,Delayed Release (Dr/Ec) 40 mg PO BID Qty: 0 0RF Advanced Probiotic 625 mg (10 billion cell) Capsule 1 cap PO DAILY Qty: 0 0RF cholecalciferol (vitamin D3) 125 mcg (5,000 unit) Tablet 125 mcg PO QAM Qty: 0 0RF thiamine HCl (vitamin B1) 100 mg Tablet 200 mg PO BID Qty: 0 0RF Incruse Ellipta 62.5 mcg/actuation blister with device 1 inh INHALATION QAM atorvastatin 20 mg tablet 20 mg PO QAM melatonin 5 mg Capsule 5 mg PO HS loperamide [Imodium A-D] 2 mg capsule 2 mg PO Q4H PRN (Reason: Diarrhea) MAG-AL 200-200 mg/5 mL suspension 30 ml PO Q6H PRN (Reason: Indigestion) Spiriva Respimat 2.5 mcg/actuation mist 1 puff INHALATION DAILY mirtazapine [Remeron] 15 mg tablet 15 mg PO HS Referrals Referrals: Malini Szymanski MD [Primary Care Provider] - Discharge Problem: Anemia Qualifiers: Anemia type: unspecified type Qualified Code(s): D64.9 - Anemia, unspecified Leukocytosis Qualifiers: Leukocytosis type: unspecified Qualified Code(s): D72.829 - Elevated white blood cell count, unspecified
[2024-05-04] MEDS: ALBUT/IPRATROP 3MG/0.5MG NEB 3 ML VIAL NEB STA ×2 (17:22→18:39)
[2024-05-04] MEDS: SODIUM CHLORIDE 0.9% 500 ML IV ONE ×3 (17:43→18:53)
[2024-05-04] MEDS: MAGNESIUM SULFATE / D5W 1 GM/100 ML BAG IV STA (17:43)
[2024-05-04 18:19] LABS: Adenovirus PCR Not Detected (NotDetected); Bordetella parapertussis PCR Not Detected (NotDetected); Bordetella pertussis PCR Not Detected (NotDetected); Chlamydia pneumoniae PCR Not Detected (NotDetected); Coronavirus 229E PCR Not Detected (NotDetected); Coronavirus CoV-2 (COVID19)PCR Not Detected (NotDetected); Coronavirus HKU1 PCR Not Detected (NotDetected); Coronavirus NL63 PCR Not Detected (NotDetected); Coronavirus OC43PCR Not Detected (NotDetected); Human Metapneumovirus PCR Not Detected (NotDetected); Influenza A PCR Not Detected (NotDetected); Influenza B PCR Not Detected (NotDetected); Mycoplasma pneumoniae PCR Not Detected (NotDetected); Parainfluenza Virus 1 PCR Not Detected (NotDetected); Parainfluenza Virus 2 PCR Not Detected (NotDetected); Parainfluenza Virus 3 PCR Not Detected (NotDetected); Parainfluenza Virus 4 PCR Not Detected (NotDetected); Respiratory Syncytial VirusPCR Not Detected (NotDetected); Rhinovirus/Enterovirus PCR Not Detected (NotDetected)
[2024-05-04] MEDS: methylPREDNISolone 125 MG/2 ML VIAL IV STA (18:36)
[2024-05-04] MEDS: CEFEPIME 2000MG 2,000 MG/20 ML SYR IV STA (18:37)
[2024-05-04 18:41] LABS: Bilirubin Urine Negative (Negative); Blood Urine Trace-intact (Negative); Color Urine Yellow; Glucose Urine UA Negative (Negative); Ketones Urine Negative (Negative); Leukocyte Esterase Urine 3+ (Negative); Nitrite Urine Negative (Negative); Protein Urine 3+ (Negative); Urobilinogen Urine Negative (Negative); pH Urine 8.5 (4.5-7.5)
[2024-05-04 18:45] LABS: Appearance Urine Cloudy (Clear)
[2024-05-04] MEDS: SODIUM CHLORIDE 0.9% 250 ML IV ONE (18:54)
--- NOTE | 2024-05-04 21:03 | History & Physical Report ---
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: (18) Dyslipidemia: (19) GERD without esophagitis: (20) Hypertension: Plan 78 year old male with extensive past medical history that includes active colon cancer, pAF, tachy-tiffany syndrome with 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 Faecalis on prior urine culture Blood and urine cultures pending Bladder scan with PVR 107mL - repeat as needed if there is concern for urinary retention #Shortness of Breath // #COPD: CXR negative for acute process. Subjective shortness of breath relieved with neb tx, no increase in supplemental O2 demand or cough/sputum production - therefore, would not characterize as a true COPD exacerbation but will augment home regimen: - Continue home inhalers (LABA/LAMA/ICS) - Duoneb Q6H - IV Solumedrol 30mg BID - Titrate supplemental O2 to maintain SpO2>90% #Tachycardia: EKG consistent with SVT at rate of 131, likely combination of missing AM meds + volume contraction + acute infection S/p fluid resuscitation and electrolyte repletion No associated sx at this time, continue to monitor Chronic Conditions: HLD: continue Atorvastatin Depression: continue Mirtazapine pAF: continue metoprolol, Eliquis GERD: continue Protonix CAD: continue aspirin, statin, BB Dispo: Admit PCU FEN/GI: HH diet VTE ppx: Eliquis Full Code History of Present Illness Chief Complaint: weakness Primary Care Provider: Malini Szymanski MD 78 year old male with extensive past medical history that includes active colon cancer, pAF, 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 Patient reports diffuse loss of strength, became concerned when he could not lift himself off of toilet. Denies fevers/chills, denies recent illness. Did feel more short of breath today but O2 demand at baseline 2-3L. Also notes difficulty urinating, could not void at all this morning. Also states that he thinks the tip of his penis is swollen, denies associated pain/tenderness/discharge. Later was able to urinate but notes weak stream and feeling of incomplete emptying, mild dysuria. ED Course: +Leukocytosis, elevated lactate Neg. procal, respiratory biofire UA consistent with infectious process S/P fluid resuscitation NSS x 1750mL, neb tx, IV solumedrol x40mg, IV Ceftriaxone x1 Allergies Allergy/AdvReac Type Severity Reaction Status Date / Time simvastatin AdvReac Intermediate myalgia Verified 03/25/24 15:17 Home Medications Medication Instructions Recorded Confirmed Type mucus clearing device 06/13/21 03/25/24 History Portable Oxygen #1 ea 09/25/22 03/25/24 Rx albuterol sulfate 90 mcg/actuation 2 puff inhalation Q4H PRN 09/25/22 03/25/24 Rx aerosol inhaler shortness of breath or wheezing #8.5 grams nebulizers (Aeroneb Go Nebulizer) #1 ea 09/25/22 03/25/24 Rx latanoprost (PF) 0.005 % eye drops 1 drp OPB HS 02/01/23 03/25/24 History in a dropperette polyethylene glycol 3350 17 17 g PO DAILY PRN Constipation 02/01/23 03/25/24 History gram/dose oral powder tamsulosin 0.4 mg capsule 0.4 mg PO DAILY 02/01/23 03/25/24 History L.acidop,casei,lactis,rham-B.lact,shaunna 1 cap PO DAILY #0 caps 07/14/23 03/25/24 Rx 625 mg (10 billion cell) capsule (Advanced Probiotic) acetaminophen 325 mg tablet 650 mg (2 x 325 mg) PO Q4H PRN #0 07/14/23 03/25/24 Rx tabs apixaban 5 mg tablet (Eliquis) 5 mg PO BID #0 tabs 07/14/23 03/25/24 Rx aspirin 81 mg tablet,delayed 81 mg PO QAM #0 tabs 07/14/23 03/25/24 Rx release cholecalciferol (vitamin D3) 125 125 mcg PO QAM #0 tabs 07/14/23 03/25/24 Rx mcg (5,000 unit) tablet ipratropium 0.5 mg-albuterol 3 mg 3 ml NEB QIDR PRN shortness of 07/14/23 03/25/24 Rx (2.5 mg base)/3 mL nebulization breath or wheezing #0 mL soln metoprolol succinate 25 mg 25 mg PO QAM #0 tabs 07/14/23 03/25/24 Rx tablet,extended release 24 hr pantoprazole 40 mg tablet,delayed 40 mg PO BID #0 tabs 07/14/23 03/25/24 Rx release thiamine HCl (vitamin B1) 100 mg 200 mg (2 x 100 mg) PO BID #0 tabs 07/14/23 03/25/24 Rx tablet mometasone-formoterol HFA 50 mcg-5 2 puff inhalation Q12H #13 grams 08/17/23 03/25/24 Rx mcg/actuation aerosol inhaler (Dulera) aluminum-magnesium hydroxide 200 30 ml PO Q6H PRN Indigestion 08/19/23 03/25/24 History mg-200 mg/5 mL oral suspension (MAG-AL) atorvastatin 20 mg tablet 20 mg PO QAM 08/19/23 03/25/24 History loperamide 2 mg capsule (Imodium 2 mg PO Q4H PRN Diarrhea 08/19/23 03/25/24 History A-D) melatonin 5 mg capsule 5 mg PO HS 08/19/23 03/25/24 History umeclidinium 62.5 mcg/actuation 1 inh inhalation QAM 08/19/23 03/25/24 History blister powder for inhalation (Incruse Ellipta) mirtazapine 15 mg tablet (Remeron) 15 mg PO HS 08/26/23 03/25/24 History tiotropium bromide 2.5 1 puff inhalation DAILY 08/26/23 03/25/24 History mcg/actuation mist for inhalation (Spiriva Respimat) peg 3350-electrolytes 236 240 ml PO Q10M #4,000 mL 10/01/23 03/25/24 Rx gram-22.74 gram-6.74 gram-5.86 gram solution (GaviLyte-G) cephalexin 500 mg capsule 500 mg PO TID 03/25/24 03/25/24 History Past Med/Surg History Problem List Hypomagnesemia (Acute) Elevated lactic acid level (Acute) Acute UTI (Acute) SOB (shortness of breath) (Acute) Tachycardia (Acute) Leukocytosis (Acute) Anemia (Acute) Weakness (Acute) Colonic mass Thiamine deficiency Pulmonary nodule Pulmonary embolism Weight loss, abnormal Protein calorie malnutrition Confusion (Acute) entered into EMR 07/05/23 Weakness (Acute) Pacemaker Sinus node dysfunction Tachy-tiffany syndrome Paroxysmal atrial fibrillation Complete heart block SVT (supraventricular tachycardia) Carotid stenosis Near syncope last activated in EMR 03/25/23 Chest pain (Acute) entered into EMR 02/01/23; unable to verify with patient Dysphonia Vocal fold paralysis, right Mild CAD Depression Multiple pulmonary nodules Chronic respiratory failure with hypoxia Ex-smoker Chronic bronchitis 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 Sinus tachycardia Anomalous coronary artery origin Anemia Dyspnea Hypoxemic respiratory failure, chronic Migraine with aura, intractable, without status migrainosus Dyslipidemia Corcoran's esophagus with dysplasia Prostate cancer GERD without esophagitis Hypertension Medical History History of confusion per record 07/07, pt. able to answer questions during PAT phone interview but poor historian/did not know meds - requested friend Sandra be contacted Aneurysm of left renal artery monitored by [facility] vascular surgery Hx of tachycardia-bradycardia syndrome pacer placed 03/2023, [facility] Ischemic cardiomyopathy COPD with emphysema O2 2L continuous History of prostate cancer ~2018 or 2019, sx and injection Q90D Paroxysmal atrial fibrillation f/u dr. ron, [facility]- pacer 04/08 Pacemaker (03/2023) [facility], [employer] Multiple pulmonary nodules Hx of migraines Hypertension GERD (gastroesophageal reflux disease) Dyslipidemia Depression Complete heart block [employer] pacemaker 03/2023, follows with [facility] On home O2 2L continous Chronic respiratory failure with hypoxia 2L 02 continuously C. difficile diarrhea (07/30/23) dx 07/30/23, reports continuing diarrhea History of pneumonia (06/2023) hosptialized for 10 days at [facility] Hx pulmonary embolism (06/2023) 06/2023, hospitalized at [facility], on eliquis Carotid stenosis 80% left ICA; 60% right ICA on 01/2023 imaging; additional imaging at [facility] 50- 69% stenosis bilat with plan to repeat imaging in 1 year per [facility] vascular Corcoran's esophagus with dysplasia History of anemia 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 ron, [facility] Surgical History History of bronchoscopy (08/26/23) [facility] History of esophagogastroduodenoscopy (EGD) Hx of colonoscopy History of cryosurgery for prostate cancer S/P cardiac pacemaker procedure (03/2023) [facility] - follows with cardio at [facility] History of cataract removal with insertion of prosthetic lens bilateral H/O umbilical hernia repair (2007) Family History Mother , Cancer Cancer Father , Cancer Colorectal cancer Sister Heart disorder Stroke Brother Prostate cancer Denies family history of Crohn's disease Ulcerative colitis Social History Smoking Status: Former smoker Tobacco Type: Cigarettes Age Started Using Tobacco: 12; Age Quit Using Tobacco: 60; packs per day: 2.5; Cigarettes Per Day: 120 pack years; Second Hand Exposure: No; Do You Dip or Chew Tobacco: No; Hx Alcohol Use: No Hx Substance Use: No Preferred Language: Romanian Communication Ability: Effective Plumbing Foreman Required: No Beliefs That Will Affect Care: None Current Living Situation: Alone Current Living Situation Comment: nursing comes in 2x per week Feels Safe at Home: Yes Assistive Devices: Cane, Oxygen - Continuous, Walker and Wheelchair Review of Systems Review of Systems: All systems reviewed & are unremarkable except as noted in HPI & below Physical Exam Physical Exam: Constitutional: no acute distress HEENT: NCAT, no conjunctival injection CV: +tachycardic, extremities well-perfused, no LE edema Resp: no increased work of breathing, diffuse expiratory wheezes, diminished breath sounds GI: nondistended MSK: no gross deformities Skin: warm, dry, no rash appreciated Neuro: alert, oriented, no focal neurologic deficit appreciated Results & Data Results & Data Vital Signs (Past 12 Hours) Vital Signs Temp Pulse Pulse Resp BP BP Pulse Ox 05/04/24 19:00 36.3 C L 105 H 21 114/85 100 05/04/24 19:00 100 05/04/24 18:36 118 H 19 100 05/04/24 18:30 122/76 05/04/24 18:15 108 H 20 100 05/04/24 17:31 124 H 05/04/24 17:30 118/83 05/04/24 17:30 121 H 20 100 05/04/24 17:26 127 H 24 153/71 H 100 05/04/24 15:17 36.4 C L 72 20 102/67 97 O2 Del Method O2 Flow Rate 05/04/24 19:00 Room Air 05/04/24 19:00 Nasal Cannula 3 05/04/24 18:36 Nasal Cannula 4 05/04/24 18:30 05/04/24 18:15 Nasal Cannula 4 05/04/24 17:31 05/04/24 17:30 05/04/24 17:30 Nasal Cannula 4 05/04/24 17:26 Nebulizer 05/04/24 15:17 Nasal Cannula 2 Code Status & VTE Plan VTE Prophylaxis Plan VTE Prophylaxis will be ordered: Yes Supervising Physician Co-Signing Physician Notes Patient seen and examined chart reviewed, case discussed with Dr. Carmona and I agree with the assessment and plan as above. Patient presenting with generalized weakness, likely in part secondary to UTI. Patient also with chronic issues, active malignancy On exam he is afebrile, tachycardic, no edema Labs and images reviewed Assessment/Plan -Treatment of UTI - Vancomycin and Ceftriaxone given history of Enterococcus -PT/OT evaluation Resident Activity Tracking Resident Involvement: Resident Care Provided Care Provided: Adult Hospital Medicine (6) Leukocytosis Leukocytosis type: unspecified Qualified Code(s): D72.829 - Elevated white blood cell count, unspecified (7) Anemia Anemia type: unspecified type Qualified Code(s): D64.9 - Anemia, unspecified (20) Hypertension Hypertension type: unspecified Qualified Code(s): I10 - Essential (primary) hypertension
[2024-05-04] MEDS: MAGNESIUM SULFATE / D5W 1 GM/100 ML BAG IV SCH (21:27)
[2024-05-04] MEDS: SODIUM CHLORIDE 0.9% 500 ML IV SCH (21:29)
[2024-05-04] MEDS: METOPROLOL SUCC 25MG EXT REL TAB PO STA (21:42)
[2024-05-05] MEDS ORDERED: VANCOMYCIN CONSULT ACTIVE PRN (00:38)
[2024-05-05] MEDS ORDERED: ALUMINUM/MAGNESIUM SUSP 30 ML UDC PO PRN (00:38)
[2024-05-05] MEDS ORDERED: POLYETHYLENE (MIRALAX) 17 GM PACK PO PRN (00:38)
[2024-05-05] MEDS ORDERED: ONDANSETRON INJ 2 MG/ML 2 ML VIAL IV PRN (00:38)
--- OUTSIDE RECORDS SUMMARY | 2024-05-05 01:04 | External Medical Summary | Continuity of Care Document ---
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 Name Role Phone Kym, Cyn Katie Primary Care Physician [phone] Encounter [facility] [id number] Date(s): 02/08/24 - 02/08/[address] [address] [phone] Discharge Disposition: Home or Self Care Attending Physician: MD Mcleod Jeffrey S Referring Physician: MD Mcleod Jeffrey S Allergies, Adverse Reactions, Alerts Substance Criticality Severity Reaction Reaction Severity Status simvastatin Unknown Active Medications Albuterol (Eqv-Ventolin HFA) 90 mcg/inh inhalation aerosol Start: 11/04/23 8:49:00 AM EDT, 2 puff, inhaled, q6h, PRN: as needed for wheezing Start Date: 11/04/23 Status: Ordered aspirin 81 mg oral tablet, chewable Start: 11/04/23 8:52:00 AM EDT, 1 tab, PO, Daily Start Date: 11/04/23 Status: Ordered atorvastatin 40 mg oral tablet Start: 11/04/23 8:51:00 AM EDT, 1 tab, PO, Daily Start Date: 11/04/23 Status: Ordered Eliquis 5 mg oral tablet Start: 11/06/23 2:15:00 PM EDT, 1 tab, PO, bid Start Date: 11/06/23 Status: Ordered fluticasone 50 mcg/inh nasal spray Start: 11/04/23 8:52:00 AM EDT, 1 spray, each nostril, Daily Start Date: 11/04/23 Status: Ordered formoterol-mometasone 5 mcg-200 mcg/inh inhalation aerosol Start: 11/04/23 8:52:00 AM EDT, 2 puff, inhaled, bid Start Date: 11/04/23 Status: Ordered guaiFENesin 200 mg oral tablet Start: 11/04/23 8:53:00 AM EDT, 1 tab, PO, bid Start Date: 11/04/23 Status: Ordered latanoprost 0.005% ophthalmic solution Start: 11/04/23 8:49:00 AM EDT, 1 drop, both eyes, qhs Start Date: 11/04/23 Status: Ordered losartan 25 mg oral tablet Start: 11/04/23 8:53:00 AM EDT, 1 tab, PO, Daily Start Date: 11/04/23 Status: Ordered metoprolol succinate 50 mg oral tablet, extended release Start: 11/04/23 8:51:00 AM EDT, 1 tab, PO, Daily Start Date: 11/04/23 Status: Ordered mirtazapine 15 mg oral tablet Start: 11/06/23 2:14:00 PM EDT, 1 tab, PO, qhs Start Date: 11/06/23 Status: Ordered multivitamin Start: 11/04/23 8:51:00 AM EDT, 1 tab, PO, Daily Start Date: 11/04/23 Status: Ordered pantoprazole 40 mg oral delayed release tablet Start: 11/06/23 2:14:00 PM EDT, 1 tab, PO, Daily Start Date: 11/06/23 Status: Ordered tamsulosin 0.4 mg oral capsule Start: 11/04/23 8:50:00 AM EDT, 1 cap, PO, Daily Start Date: 11/04/23 Status: Ordered tiotropium 18 mcg inhalation capsule Start: 11/04/23 8:51:00 AM EDT, 1 each, inhaled, Daily Start Date: 11/04/23 Status: Ordered Problem List Condition Confirmation Course Effective Dates Status Health St atus Informant Aortoiliac stenosis Confirmed Active Carotid stenosis, bilateral Confirmed Active Peripheral arterial disease Confirmed Active Social History Social History Type Response Smoking Status Former Smoker, quit > 1 yr Sex Male Sex Representation Male (finding) Patient Care team information Care Team Personnel Name: MD Hernandez Laura E Position: Resident Member Role: Lifetime Relationship Address: [address] [place] [id number] Name: ARIAN Mejía, Cyn Wilson Position: Referring Member Role: Primary Care Provider Address: Rene Hazel [facility] [address] [place] [address] Name: ARIAN Chiu Lynn Position: Physician Ear Nose Throat Physician Exempt - Vasc Surg Member Role: Lifetime Relationship Address: [address] [place] [address], [place] [address]
--- OUTSIDE RECORDS SUMMARY | 2024-05-05 01:04 | External Medical Summary | Summary of Care ---
Author Name Unknown Organization [facility] Address [address] [place] [address] Phone [phone] Care Team Providers Care Instrument And Controls Technician Name Role Phone Malini Szymanski MD Primary Care Provi christiane Reason for Visit * Reason Onset Date Comments Health Maintenance 04/19/2024 Encounter Details Date Type Department Care Team ([facility] st Contact Info) Description 04/19/[address] [phone] Malini Szymanski MD [address] [place] [phone] Health Maintenance Allergies Active Allergy Reactions Criticality Noted Date Comments Simvastatin Muscle pain 06/20/2011 Leg cramps documented as of this encounter (statuses as of 04/20/2024) Medications FLUTTER CELESTINA Use as directed. 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 2 Box Dosing Unit 10 05/23/19 20 Active Albuterol Sulfate HFA 108 (90 Base) MCG/ACT Inhalation Aerosol SolutionIndication s:COPD, group B, by GOLD 2017 classification (HCC),Need for diphtheria-tetanus -pertussis (Tdap) vaccine Inhale 2 Puffs by mouth every 4 hours as needed for Dyspnea or Wheezing. 54 g 3 3:21 PM EDT 11/01/19 23 Active Latanoprost PF 0.005 % Ophthalmic Solution Instill 1 Drop into both eyes at bedtime. 02/02/20 23 Active Incruse Ellipta 62.5 MCG/ACT Inhalation Aerosol Powder Breath Activated (umeclidinium [place]) Inhale 1 Puff by mouth in the morning. Active Tamsulosin HCl 0.4 MG Oral Capsule (Flomax)Indication s:Benign localized prostatic hyperplasia without lower urinary tract symptoms (LUTS) Take 1 Capsule by mouth in the morning. 90 Capsule 3 5 11:52 AM EST 08/14/19 24 Active Apixaban 5 MG Oral Tablet (Eliquis) Take 1 Tablet by mouth in the morning and 1 Tablet before bedtime. 180 Tablet 3 5 11:52 AM EST 08/14/19 24 Active Aspirin 81 MG Oral Tablet Delayed Release Take 1 Tablet by mouth in the morning. 90 Tablet 3 4 1:56 PM EDT 08/14/19 24 Active Atorvastatin Calcium 20 MG Oral Tablet (Lipitor) Take 1 Tablet by mouth in the morning. 90 Tablet 3 5 11:52 AM EST 08/14/19 24 Active Dulera 50-5 MCG/ACT Inhalation Aerosol Inhale 2 Puffs by mouth in the morning and 2 Puffs before bedtime. 13 g 5 08/14/19 24 Active Melatonin 5 MG Oral Tablet Disintegrating Take 5 mg by mouth every night at bedtime. 90 Tablet 3 5 11:52 AM EST 08/14/19 24 Active Metoprolol Succinate ER 25 MG Oral Tablet Extended Release 24 Hour (toPROL XL) Take 1 Tablet by mouth in the morning. 90 Tablet 3 5 11:52 AM EST 08/14/19 24 Active Mirtazapine 15 MG Oral Tablet (Remeron) Take 1 Tablet by mouth at bedtime. 90 Tablet 3 5 11:52 AM EST 08/14/19 24 Active One-Daily Multi Vitamins Oral Tablet Take by mouth daily. 90 Tablet 3 5 11:52 AM EST 08/14/19 24 Active Pantoprazole Sodium 40 MG Oral Tablet Delayed Release (Protonix) Take 1 Tablet by mouth in the morning and 1 Tablet before bedtime. 180 Tablet 3 5 11:52 AM EST 08/14/19 24 Active GNP Acidophilus High Potency Oral Capsule Take 1 Capsule by mouth in the morning. 90 Capsule 3 4 1:56 PM EDT 08/14/19 Active Thiamine HCl 100 MG Oral Tablet (GNP Vitamin B-1) Take 1 Tablet by mouth in the morning. 90 Tablet 3 5 11:52 AM EST 08/14/19 24 Active Vitamin D3 125 MCG (5000 UT) Oral Capsule Take 1 Capsule by mouth in the morning. 90 Capsule 3 5 11:52 AM EST 08/14/19 24 Active PEG-3350/Electroly jazz 236 GM Oral Solution Reconstituted 240 mL orally every 10 minutes; until fecal effluent is clear 4000 mL 4 5:02 PM EDT 10/01/19 Active Additional Information Patient not taking.Reported on 12/28/2023 Hospital, Clinic, or Other Facility Administered Medication Ordered Dose Route Frequency Start Date End Date Status albuterol sulfate (PROVENTIL) (2.5 MG/3ML) 0.083% inhalation solution 2.5 mgIndications:Centrilobul ar emphysema (HCC) 2.5 mg NEBULIZER ONCE PRN 05/23/2019 Active documented as of this encounter (statuses as of 04/20/2024) Active Problems Problem Noted Date Diagnosed Date PVD (peripheral vascular disease) 09/28/2023 Sick sinus syndrome 08/14/2023 Paroxysmal atrial fibrillation 08/14/2023 Complete heart block 08/14/2023 Pulmonary nodule 08/14/2023 Abnormal thyroid function test 08/14/2023 HFrEF (heart failure with reduced ejection fract ion) 08/14/2023 Ischemic cardiomyopathy 08/14/2023 Skin ulcer of heel, limited to breakdown of skin 08/14/2023 Asymptomatic bilateral carotid artery stenosis 1 05/05/2022 Edentulous 05/26/2021 Prostate cancer 07/06/2019 Cancer Staging:Clinical stage from 02/01/2020:Stage II(T1c, N0, M0, G1) - Signed by Deuce Ennis MD on 02/01/2020 Overview (08/14/2023): [facility]. [facility]. COPD, group B, by GOLD 2017 classification 01/24 Overview: Per COPD GOLD Classification Chronic hypoxemic respiratory failure 01/13/2019 Dupuytren's contracture of both hands 07/19/2015 Benign neoplasm of colon 09/29/2013 Overview (09/29/2013): colonoscopy 2 endoclips History of tobacco use 12/18/2011 DYSLIPIDEMIA, GOAL TO BE DETERMINED 03/05/2009 Overview (03/05/2009): Per Lipid Taxonomy. Umbilical hernia 01/05/2006 Osteoarthritis of multiple joints 06/19/2005 Overview (12/18/2015): ICD-10 update of inactive term Benign localized prostatic h yperplasia without lower urinary tract symptoms (LUTS) 03/26/2005 Corcoran's esophagus 12/27/2004 Overview (12/27/2004): next EGD- 01/18 Family history of colon cancer CLASSICAL MIGRAINE WITHOU MENTION OF INTRACTABLE MIGRAINE documented as of this encounter (statuses as of 04/20/2024) Resolved Problems Problem Noted Date Diagnosed Date Resolved Date Dupuytren's contracture of left hand 11/22/2015 01/10/2019 Overview (01/10/2019): Duplicate, more specified code on PL COPD, very severe 08/28/2014 01/28/2019 Overview: Per COPD GOLD Classification Hypoxemia 12/18/2011 01/13/2019 Follow-up examination, follo wing other surgery 12/20/2008 01/13/2019 Malignant neoplasm of prostate 12/11/2008 02/09/2017 Vomiting 10/04/2008 01/10/2019 Overview (01/10/2019): ICD-10 update of inactive term Acute condition Other nonspecific abnormal c ardiovascular system function study 10/03/2008 08/14/2023 Contracture of tendon 05/14/20072018 hx ka dorsum left hand/173.6 04/22/2007 08/14/2023 Dyslipidemia, goal LDL below 160 01/18/2007 03/05/2009 Overview (03/05/2009): Per Lipid Taxonomy. Cellulitis of toe 07/10/2006 01/13/2019 CONTRACTURE FASCIA - PALMAR 01/05/2006 01/13/2019 COPD, severity to be determined 06/19/2005 03/13/2011 COPD, severe 06/19/2005 08/28/2014 Overview (03/13/2011): Per COPD Protocol #24. Last PFT - 2010-04-23 ADVANCE DIRECTIVE INFORMATION 12/27/2004 01/18/2024 Overview (12/27/2004): No, Advance Directive brochure given to patient at prior appointment. Elevated prostate specific antigen (PSA) 12/10/2003 08/14/2023 Overview (12/10/2003): see uro 11/17- back there in 6-7 months After cataract not obscuring vision 09/08/2003 08/14/2023 Overview (01/06/2017): ICD-10 update of inactive term Tobacco use disorder 012 Dermatitis 01/13/2019 Headache 01/13/2019 Overview (06/06/2015): ICD-10 update of inactive term documented as of this encounter (statuses as of 04/20/2024) Immunizations Name Administration Dates Next Due COVID-19 mRNA, LNP-s, No Pre serve, 2-Dose Series (Medipacs) 04/16/2021,05/24/2020,04/26/2020 Covid-19, Mrna, Lnp-s, Pf, B ivalent, 30 Mcg, IM, 12 yrs and above (Medipacs) 01/21/2022 H1N1 2009 Influenza, IM 03/01/2009 Pneumococcal Conjugate Vacc, 13 Valent (Prevnar) 06/01/2015 Pneumococcal Polysaccharide PPV23 (Pneumovax) 06/06/2010 Seasonal Influenza Vac., MDV , IM, 0.5 mL (Fluzone) 12/01/2014,11/28/2013,11/26/2011,12/05,12/13/2009,12/07/2008,12/07/2008 (Deferred: Patient Refused),01/06/2008 Seasonal Influenza, MDCK, Tr ivalent, PF, (Flucelvax) 02/17/2013 Seasonal Influenza, PF, 6 M & above, IM , (FluLaval or Fluzone) 12/18/2017,12/05/2016 Seasonal Influenza, Quadriva lent Hd (Fluzone Hd) 01/21/2022,11/22/2020 Seasonal Influenza, Quadriva lent Hd, 65+ Yrs 11/15/2019 Seasonal Influenza, Quadriva lent, No Preserve, IM 12/17/2015 Seasonal Influenza, Trivalen t, Adjuvanted, 65+ YRS, PF, (Fluad) 12/02/2018 TD, Preservative Free 11/01/2009 Varicella Zoster [...] 01/13/2019 Hunger Vital Sign Answer Date Recorded Within the past 12 months, y ou worried that your food would run out before you got the money to buy more. Never true 08/06/19 24 Within the past 12 months, t he food you bought just didn't last and you didn't have money to get more. Never true 08/06/2023 Childcare Answer Date Recorded Do you feel overwhelmed with taking care of a child, family member or friend? No 08/06/2023 Does your family need help f inding childcare? (Household - for ages 0-17 years) Not on file 08/06/2023 Clothing Answer Date Recorded Have you been unable to get clothing when it was really needed? No 08/06/2023 Is your family able to get c lothes or diapers when needed? (Household - for ages 0-17 years) Not on file 08/06/2023 Personal Safety Answer Date Recorded Do you feel unsafe or have concerns for your saf ety? No 08/06/2023 Do you have concerns for you r family's safety? (Household - for ages 0-17 years) Not on file 08/06/2023 Utilities Answer Date Recorded Do you have trouble paying y our heating, water, or electric bill? No 08/06/2023 Is your family able to pay t he heat, water, or electric bill? (Household - for ages 0-17 years) Not on file 08/06/2023 Does your family have access to good internet? (Household - for ages 0-17 years) Not on file 08/06/2023 Employment Status Answer Date Recorded Are you unemployed or without regular income? No 08/06/2023 Does the household have a re gular source of income? (Household - for ages 0-17 years) Not on file 08/06/2023 Social Connections Answer Date Recorded How often do you feel lonely or isolated from th ose around you? Never 08/06/2023 Financial Resource Strain Answer Date R ecorded Do you have any trouble payi ng for your medications, or do you think you might in the future? No 08/06/2023 Does your family have troubl e paying for medicine? (Household - for ages 0-17 years) Not on file 08/06/2023 Transportation Needs Answer Date Record ed READ ONLY Do you have troubl e getting a ride to medical visits or work? Never True 08/06/2023 Does your family have a hard time getting a ride to doctors visits? (Household - for ages 0-17 years) Not on file 08/06/2023 Has lack of transportation k ept you from medical appointments, meetings, work, or from getting things needed for daily living? Check all that apply. (Adult - for ages 18 years and over) Not on file 08/06/2023 Do you (or your family) have trouble finding or paying for a ride (transportation)? (Household - for ages 0-17 years) Not on file 08/06/2023 Housing Stability Answer Date Recorded Do you currently live in a s helter or have no steady place to sleep at night? No 08/06/2023 READ ONLY Do you think you a re at risk of becoming homeless? No 08/06/2023 Does your family worry about paying for your home or becoming homeless? (Household - for ages 0-17 years) Not on file 0 08/06/2023 Are you homeless or worried that you might be in the future? (Adult - for ages 18 years and over) Not on file Are you (or your family) andreia eless or worried that you might be in the future? (Household - for ages 0-17 years) Not on file Food Insecurity Answer Date Recorded Do you need food for this week? No 08/06/2023 Are you able to get enough f ood for your family? (Household - for ages 0-17 years) Not on file 08/06/2023 Does your family need food t his week? (Household - for ages 0-17 years) Not on file 08/06/2023 Do you always have enough fo od for your family? 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 Not on file Not on file documented as of this encounter Miscellaneous Notes * Telephone Encounter - Marisa Ayala, CJ - 04/19/2024 3:18 PM EST Care Gaps Comprehensive Care Outreach Last Office/Telemedicine Visit: 09/28/2023 (in office), Visit date not found (telemedicine) Next Office Visit: Visit date not found Hemoglobin AIC Results: No results found for: "HEMOGLOBIN A1C" BP Readings from Last 1 Encounters: 09/28/23 126/66 Reviewed Health Maintenance below: Health Maintenance Topic Date Due Alpha-1 Antitrypsin Never done Hepatitis C Screening Never done Corcoran's Esophagus Surveilance 01/30/2007 DTap/Tdap Vaccines (1 - Tdap) 11/02/2009 Zoster Vaccines (2 of 3) 07/30/2012 Depression Screening 01/14/2020 Adult Wellness Visit 11/01/2023 Influenza Vaccine (FLU shot) (1) 11/15/2023 COVID-19 Vaccine ( season) 2023 Care Gap Outreach Action Taken: Spoke to patient Next routine exam scheduled. documented in this encounter Plan of Treatment Upcoming Encounters Date Type Department Care Team ([facility] Contact Info) Description 05/18/2024 10:00 AM EST Office Visit Urology, [facility] [address] [place] [phone] Abril Walters PA-C [address] [place] [address] 09/02/2024 12:00 PM EDT Office Visit [facility] [address] [place] [phone] Malini Szymanski MD [address] [place] [phone] Health Maintenance Due Date Last Done Comments Alpha-1 Antitrypsin 1963 Hepatitis C Screening 1963 Corcoran's Esophagus Surveilance 01/30/2007 01/31/2004 DTap/Tdap Vaccines (1 - Tdap) 11/02/2009 11/01/2009, 08/16/1999 Zoster Vaccines (2 of 3) 07/30/2012 06/04/2012 Depression Screening 01/14/2020 01/13/2019 Adult Wellness Visit 11/01/2023 10/31/2022 COVID-19 Vaccine ( season) 2023 01/21/2022, 04/16/2021, 05/24/2020, Additional history exists Influenza Vaccine (FLU shot) (#1) 2023 01/21/2022, 11/22/2020, 11/15/2019, Additional history exists O2 ASSESSMENT COMPLETED IN PAST YEAR FOR COPD 09/27/2024 09/28/2023 Colonoscopy 10/19/2024 10/20/2023, 09/13, 09/29/2013, Additional history exists Pneumococcal Vaccine: 50+ Years Completed 02/02/2023, 06/01/2015, 06/06/2010, Additional history exists RETIRED - COLONOSCOPY-ANNUAL AGES 18-100 Discontinued 10/20/2023, 09/29/2013, 09/29/2013, Additional history exists HPV (Gardasil) Vaccine Aged Out No lo nger eligible based on patient's age to complete this topic Hepatitis B Vaccine Aged Out No longe r eligible based on patient's age to complete this topic MENINGOCOCCAL (MENACTRA/MENVEO) Aged Out No longer eligible based on patient's age to complete this topic documented as of this encounter Medical Devices Implanted Type Area Cylinder Block Hole Reliner Device Identifier Shelf Expiration Date Model / Serial / Lot Endo Clips Implanted:Qty: 1 on 09/29/[address] [facility] [place] documented as of this encounter Advance Directives * Full Code (Latest Code Status on File) Date Activated Date Inactivated Comments 01/24/2010 1:31 PM 01/24/2010 11:53 PM This orde r reflects the patients wishes and were consensually agreed upon. * Full Code Date Activated Date Inactivated Comments 12/20/2008 4:29 PM 12/21/2008 7:57 PM This order r eflects the patients wishes and were consensually agreed upon. * Full Code Date Activated Date Inactivated Comments 12/20/2008 9:44 AM 12/20/2008 4:29 PM This order r eflects the patients wishes and were consensually agreed upon. Care Teams Instrument And Controls Technician Relationship Specialty Start Date End Date Malini Szymanski MD [address] [place] [phone] PCP - General Family Medicine 08/06/23 documented as of this encounter
--- OUTSIDE RECORDS SUMMARY | 2024-05-05 01:04 | External Medical Summary | Summary of Care ---
Author Name Unknown Organization [facility] Address [address] [facility] [address] Phone [phone] Care Team Providers Care Tile Layer Helper Name Role Phone Malini Szymanski MD Primary Care Provi christiane Encounter Details Date Type Department Care Team (Late st Contact Info) Description 04/07/2024 Population Health External Data Unspecified Department Allergies Active Allergy Reactions Criticality Noted Date Comments Simvastatin Muscle pain 06/20/2011 Leg cramps documented as of this encounter (statuses as of 04/07/2024) Medications FLUTTER CELESTINA Use as directed. 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 90 Tablet 3 5 11:52 AM EST 08/14/19 24 Active Vitamin D3 125 MCG (5000 UT) Oral Capsule Take 1 Capsule by mouth in the morning. 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 Not on file documented as of this encounter Plan of Treatment Upcoming Encounters Date Type Department Care Team (Late st Contact Info) Description 05/18/2024 10:00 AM EST Office Visit Urology, [facility] [address] [place] [phone] Abril Walters PA-C [address] [place] [address] Health Maintenance Due Date Last Done Comments [...] this encounter Medical Devices Implanted Type Area Process Camera Operator Device Identifier Shelf Expiration Date Model / Serial / Lot Endo Clips Implanted:Qty: 1 on 09/29/2013 at [place] [facility] [place] documented as of this encounter Advance Directives [...] and were consensually agreed upon. Care Teams Tile Layer Helper Relationship Specialty Start Date End Date Malini Szymanski MD [address] [place] [phone] PCP - General Family Medicine 08/06/23 documented as of this encounter
--- OUTSIDE RECORDS SUMMARY | 2024-05-05 01:04 | External Medical Summary | Summary of Care ---
Author Name Unknown Organization [facility] Address [address] [place] [address] Phone [phone] Care Team Providers Care Bridge Painter Name Role Phone Malini Szymanski MD Primary Care Provi christiane Encounter Details Date Type Department Care Team (Late st Contact Info) Description 12/29/2023 Population Health External Data Unspecified Department Allergies Active Allergy Reactions Criticality Noted Date Comments Simvastatin Muscle pain 06/20/2011 Leg cramps documented as of this encounter (statuses as of 12/30/2023) Medications Medication Sig Dispensed Refills Start Date End Date Status FLUTTER CELESTINA Use as directed. 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 2 Box Dosing Unit 10 05/23/2019 Active Albuterol Sulfate HFA 108 (90 Base) MCG/ACT Inhalation Aerosol SolutionIndications: COPD, group B, by GOLD 2017 classification (HCC),Need for nkxcgxygvw-hkepupt-k ertussis (Tdap) vaccine Inhale 2 Puffs by mouth every 4 hours as needed for Dyspnea or Wheezing. 54 g 10/31/2022 Active Latanoprost PF 0.005 % Ophthalmic Solution Instill 1 Drop into both eyes at bedtime. 02/01/2023 Active Incruse Ellipta 62.5 MCG/ACT Inhalation Aerosol Powder Breath Activated (umeclidinium [place]) Inhale 1 Puff by mouth in the morning. Active Tamsulosin HCl 0.4 MG Oral Capsule (Flomax)Indications: Benign localized prostatic hyperplasia without lower urinary tract symptoms (LUTS) Take 1 Capsule by mouth in the morning. 90 Capsule 3 08/14/2023 Active Apixaban 5 MG Oral Tablet (Eliquis) Take 1 Tablet by mouth in the morning and 1 Tablet before bedtime. 180 Tablet 3 08/14/2023 Active Aspirin 81 MG Oral Tablet Delayed Release Take 1 Tablet by mouth in the morning. 90 Tablet 3 08/14/2023 Active Atorvastatin Calcium 20 MG Oral Tablet (Lipitor) Take 1 Tablet by mouth in the morning. 90 Tablet 3 08/14/2023 Active Dulera 50-5 MCG/ACT Inhalation Aerosol Inhale 2 Puffs by mouth in the morning and 2 Puffs before bedtime. 13 g 5 08/14/2023 Active Melatonin 5 MG Oral Tablet Disintegrating Take 5 mg by mouth every night at bedtime. 90 Tablet 3 08/14/2023 Active Metoprolol Succinate ER 25 MG Oral Tablet Extended Release 24 Hour (toPROL XL) Take 1 Tablet by mouth in the morning. 90 Tablet 3 08/14/2023 Active Mirtazapine 15 MG Oral Tablet (Remeron) Take 1 Tablet by mouth at bedtime. 90 Tablet 3 08/14/2023 Active One-Daily Multi Vitamins Oral Tablet Take by mouth daily. 90 Tablet 3 08/14/2023 Active Pantoprazole Sodium 40 MG Oral Tablet Delayed Release (Protonix) Take 1 Tablet by mouth in the morning and 1 Tablet before bedtime. 180 Tablet 3 08/14/2023 Active GNP Acidophilus High Potency Oral Capsule Take 1 Capsule by mouth in the morning. 90 Capsule 3 08/14/2023 Active Thiamine HCl 100 MG Oral Tablet (GNP Vitamin B-1) Take 1 Tablet by mouth in the morning. 90 Tablet 3 08/14/2023 Active Vitamin D3 125 MCG (5000 UT) Oral Capsule Take 1 Capsule by mouth in the morning. 90 Capsule 3 08/14/2023 Active PEG-3350/Electrolyte s 236 GM Oral Solution Reconstituted 240 mL orally every 10 minutes; until fecal effluent is clear 4000 mL 10/01/2023 Active Additional Information Patient not taking.Reported on 12/28/2023 Hospital, Clinic, or Other Facility Administered Medication Ordered Dose Route Frequency Start Date End Date Status albuterol sulfate (PROVENTIL) (2.5 MG/3ML) 0.083% inhalation solution 2.5 mgIndications:Centrilobul ar emphysema (HCC) 2.5 mg NEBULIZER ONCE PRN 05/23/2019 Active documented as of this encounter (statuses as of 12/30/2023) Active Problems Problem Noted Date Diagnosed Date [...] Signed by Deuce Ennis MD on 02/01/2020 Overview: [facility] [...] BE DETERMINED 03/05/2009 Overview: Per Lipid Taxonomy. Umbilical hernia 01/05/2006 Osteoarthritis of multiple joints 06/19/2005 Overview: ICD-10 update of inactive term Benign localized prostatic h yperplasia without lower urinary tract symptoms (LUTS) 03/26/2005 ADVANCE DIRECTIVE INFORMATION 12/27/2004 Overview: No, Advance Directive brochure given to patient at prior appointment. Corcoran's esophagus 12/27/2004 Overview: next EGD- 01/18 Family history of colon cancer CLASSICAL MIGRAINE WITHOU MENTION OF INTRACTABLE MIGRAINE documented as of this encounter (statuses as of 12/30/2023) Resolved Problems Problem Noted Date Diagnosed Date [...] COPD Protocol #24. Last PFT - 2010-04-23 Elevated prostate specific antigen (PSA) 12/10/2003 08/14/2023 Overview: see uro 11/17- back there in 6-7 months After cataract not obscuring vision 09/08/2003 08/14/2023 Overview: ICD-10 update of inactive term Tobacco use disorder 012 Dermatitis 01/13/2019 Headache 01/13/2019 Overview: ICD-10 update of inactive term documented as of this encounter (statuses as of 12/30/2023) Immunizations Name Administration Dates Next Due COVID-19 mRNA, LNP-s, No Pre serve, 2-Dose Series (Pfizer) 04/16/2021,05/24/2020,04/26/2020 Covid-19, Mrna, Lnp-s, Pf, B ivalent, [...] No 08/06/2023 Does the household have a [facility] source of income? (Household - for ages [...] Care Team (Late st Contact Info) Description 01/04/2024 9:20 AM EDT Office Visit Family Practice [facility] [address] [place] [address] Malini Szymanski MD [address] [place] [phone] 05/18/2024 10:00 AM EST Office Visit Urology, [facility] [address] [place] [address] Abril Walters PA-C [address] [place] [id number] Health Maintenance Due Date Last Done Comments Alpha-1 Antitrypsin 1963 Hepatitis C Screening 1963 Corcoran's Esophagus Surveilance 01/30/2007 01/31/2004 DTap/Tdap Vaccines (1 - Tdap) 11/02/2009 11/01/2009, 08/16/1999 Zoster Vaccines (2 of 3) 07/30/2012 06/04/2012 Depression Screening 01/14/2020 01/13/2019 Adult Wellness Visit 11/01/2023 10/31/2022 COVID-19 Vaccine ( - season) 2023 01/21/2022, 04/16/2021, 05/24/2020, Additional history exists Influenza Vaccine (FLU shot) (#1) 2023 01/21/2022, 11/22/2020, 11/15/2019, Additional history exists O2 ASSESSMENT COMPLETED IN PAST YEAR FOR COPD 09/27/2024 09/28/2023 Colonoscopy 10/19/2024 10/20/2023, 09/13, 09/29/2013, Additional history exists Pneumococcal Vaccine: 65+ Years Completed 02/02/2023, 06/01/2015, [...] this encounter Medical Devices Implanted Type Area Beater Room Helper Device Identifier Shelf Expiration Date Model / Serial / Lot Endo Clips Implanted:Qty: 1 on 09/29/2013 at [facility] documented as of this encounter Advance Directives [...] and were consensually agreed upon. Care Teams Bridge Painter Relationship Specialty Start Date End Date Malini Szymanski MD [address] [place] [phone] PCP - General Family Medicine 08/06/23 documented as of this encounter
--- OUTSIDE RECORDS SUMMARY | 2024-05-05 01:04 | External Medical Summary ---
Author Name UNSPECIFIED Address Unknown Organization [facility] History of Encounters Reason for Assessment: Start of care - f urther visits planned Inpatient discharge facility: Past [facility] Da y[facility]: Not Discharged from Inpatient Facility Functional Assessment Patient Living Situation: Patient Lives Alone: Regular daytime Patient Has At Least 1 Unhea led Pressure Ulcer At Stage 2 Or Higher: Yes When Dyspneic: With moderate exerti on (e.g., while dressing, using commode or bedpan, walking distances less than 20 feet) Bowel Incontinence Frequency: Very rarel y or never has bowel incontinence Cognitive Functioning: Requires promptin g (cueing, repetition, reminders) only under stressful or unfamiliar conditions. When Confused (Reported or Observed): In new or complex situations only Cognitive and Behavioral and Psychiatric Symptoms: None Current Ability: Bathing: able to partic ipate in bathing self in shower or tub, but requires presence of another person throughout the bath for assistance or supervision. Current Ability: Ambulation: Able to wal k only with the supervision or assistance of another person at all times. Current: Management Of Oral Medications: Able to take medication(s) at the correct times if: (a) individual dosages are prepared in advance by another person; OR (b) another person develops a drug diary or chart Problems Primary Home Care Diagnosis ICD Code: L8 9.890, Pressure ulcer of other site, unstageable Home Care Diagnosis 1: ICD Code: I48.0, Paroxysmal atrial fibrillation Home Care Diagnosis 1: Severity Ratin Home Care Diagnosis 2: ICD Code: I10., E ssential (primary) hypertension Home Care Diagnosis 2: Severity Ratin Home Care Diagnosis 3: ICD Code: J44.9, Chronic obstructive pulmonary disease, unspecified Home Care Diagnosis 3: Severity Ratin Home Care Diagnosis 4: ICD Code: J96.11, Chronic respiratory failure with hypoxia Home Care Diagnosis 4: Severity Ratin Home Care Diagnosis 5: ICD Code: I25.10, 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
--- OUTSIDE RECORDS SUMMARY | 2024-05-05 01:04 | External Medical Summary | Summary of Care ---
Author Name Unknown Organization [facility] Address [address] [place] [address] Phone [phone] Care Team Providers Care Bog Worker Name Role Phone Malini Szymanski MD Primary Care Provi christiane Encounter Details Date Type Department Care Team (Latest Contact Info) Description 12/28/2023 Medication Management Ronan Gay [facility] [address], [place] [phone] [facility] [address], [place] [phone] Referred for management of medication therapy* Allergies Active Allergy Reactions Criticality Noted Date Comments Simvastatin Muscle pain 06/20/2011 Leg cramps documented as of this encounter (statuses as of 12/28/2023) Medications Medication Sig Dispensed Refills Start Date End Date Status FLUTTER CELESTINA Use as directed. 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 2 Box Dosing Unit 10 0 Active Albuterol Sulfate HFA 108 (90 Base) MCG/ACT Inhalation Aerosol SolutionIndications :COPD, group B, by GOLD 2017 classification (HCC),Need for diphtheria-tetanus- pertussis (Tdap) vaccine Inhale 2 Puffs by mouth every 4 hours as needed for Dyspnea or Wheezing. 54 g 3 Active Latanoprost PF 0.005 % Ophthalmic Solution Instill 1 Drop into both eyes at bedtime. 3 Active Incruse Ellipta 62.5 MCG/ACT Inhalation Aerosol Powder Breath Activated (umeclidinium Fieldale) Inhale 1 Puff by mouth in the morning. Active Tamsulosin HCl 0.4 MG Oral Capsule (Flomax)Indications :Benign localized prostatic hyperplasia without lower urinary tract symptoms (LUTS) Take 1 Capsule by mouth in the morning. 90 Capsule 3 4 Active Apixaban 5 MG Oral Tablet (Eliquis) Take 1 Tablet by mouth in the morning and 1 Tablet before bedtime. 180 Tablet 3 4 Active Aspirin 81 MG Oral Tablet Delayed Release Take 1 Tablet by mouth in the morning. 90 Tablet 3 4 Active Atorvastatin Calcium 20 MG Oral Tablet (Lipitor) Take 1 Tablet by mouth in the morning. 90 Tablet 3 4 Active Dulera 50-5 MCG/ACT Inhalation Aerosol Inhale 2 Puffs by mouth in the morning and 2 Puffs before bedtime. 13 g 5 4 Active Melatonin 5 MG Oral Tablet Disintegrating Take 5 mg by mouth every night at bedtime. 90 Tablet 3 4 Active Metoprolol Succinate ER 25 MG Oral Tablet Extended Release 24 Hour (toPROL XL) Take 1 Tablet by mouth in the morning. 90 Tablet 3 4 Active Mirtazapine 15 MG Oral Tablet (Remeron) Take 1 Tablet by mouth at bedtime. 90 Tablet 3 4 Active One-Daily Multi Vitamins Oral Tablet Take by mouth daily. 90 Tablet 3 4 Active Pantoprazole Sodium 40 MG Oral Tablet Delayed Release (Protonix) Take 1 Tablet by mouth in the morning and 1 Tablet before bedtime. 180 Tablet 3 4 Active GNP Acidophilus High Potency Oral Capsule Take 1 Capsule by mouth in the morning. 90 Capsule 3 4 Active Thiamine HCl 100 MG Oral Tablet (GNP Vitamin B-1) Take 1 Tablet by mouth in the morning. 90 Tablet 3 4 Active Vitamin D3 125 MCG (5000 UT) Oral Capsule Take 1 Capsule by mouth in the morning. 90 Capsule 3 4 Active PEG-3350/Electrolyt es 236 GM Oral Solution Reconstituted 240 mL orally every 10 minutes; until fecal effluent is clear 4000 mL 4 Active Additional Information Patient not taking.Reported on 12/28/2023 Vancomycin HCl 125 MG Oral Capsule (Vancocin) Take 1 Capsule by mouth in the morning. Take 1 capsule four times daily x 10 days; then 1 capsule three times daily x 10 days; then 1 capsule twice daily x 10 days; then 1 capsule daily x 7 days. . 4 12/28/19 24 Discontinu ed(Medicat ion List Clean Up) Amoxicillin-Pot Clavulanate 875-125 MG Oral Tablet (Augmentin)Indicati ons:Foot infection Take 1 Tablet by mouth in the morning and 1 Tablet before bedtime. Do all this for 7 days. 14 Tablet 4 12/28/19 Discontinu ed(Medicat ion List Clean Up) Hospital, Clinic, or Other Facility Administered Medication Ordered Dose Route Frequency Start Date End Date Status albuterol sulfate (PROVENTIL) (2.5 MG/3ML) 0.083% inhalation solution 2.5 mgIndications:Centrilobul ar emphysema (HCC) 2.5 mg NEBULIZER ONCE PRN 05/23/2019 Active documented as of this encounter (statuses as of 12/28/2023) Active Problems Problem Noted Date Diagnosed Date [...] as of this encounter (statuses as of 12/28/2023) Resolved Problems Problem Noted Date Diagnosed Date [...] as of this encounter (statuses as of 12/28/2023) Immunizations Name Administration Dates Next Due COVID-19 mRNA, LNP-s, No Pre serve, 2-Dose Series (Laser Light Engines) 04/16/2021,05/24/2020,04/26/2020 Covid-19, Mrna, Lnp-s, Pf, B ivalent, [...] Never Comments:06/18- 1-2 cig per d candida jyo again12/20/04. quit on 12/11/06 Alcohol Use Standard [...] on file documented as of this encounter Progress Notes * Sushma King, [facility] - 12/28/2023 4:05 PM EDT Mauricio Alicea Noah Ray. is a 78 year old male. Objective: Review of patient's allergies indicates: Allergen Reactions Simvastatin Muscle pain Leg cramps Current Outpatient Medications - WARNING: List may be incomplete due to filtering Medication Sig Dispense Refill Apixaban 5 MG Oral Tablet (Eliquis) Take 1 Tablet by mouth in the morning and 1 Tablet before bedtime. 180 Tablet 3 Aspirin 81 MG Oral Tablet Delayed Release Take 1 Tablet by mouth in the morning. 90 Tablet 3 Atorvastatin Calcium 20 MG Oral Tablet (Lipitor) Take 1 Tablet by mouth in the morning. 90 Tablet 3 Dulera 50-5 MCG/ACT Inhalation Aerosol Inhale 2 Puffs by mouth in the morning and 2 Puffs before bedtime. 13 g 5 GNP Acidophilus High Potency Oral Capsule Take 1 Capsule by mouth in the morning. 90 Capsule 3 Melatonin 5 MG Oral Tablet Disintegrating Take 5 mg by mouth every night at bedtime. 90 Tablet 3 Metoprolol Succinate ER 25 MG Oral Tablet Extended Release 24 Hour (toPROL XL) Take 1 Tablet by mouth in the morning. 90 Tablet 3 Mirtazapine 15 MG Oral Tablet (Remeron) Take 1 Tablet by mouth at bedtime. 90 Tablet 3 One-Daily Multi Vitamins Oral Tablet Take by mouth daily. 90 Tablet 3 Pantoprazole Sodium 40 MG Oral Tablet Delayed Release (Protonix) Take 1 Tablet by mouth in the morning and 1 Tablet before bedtime. 180 Tablet 3 Tamsulosin HCl 0.4 MG Oral Capsule (Flomax) Take 1 Capsule by mouth in the morning. 90 Capsule 3 Thiamine HCl 100 MG Oral Tablet (GNP Vitamin B-1) Take 1 Tablet by mouth in the morning. 90 Tablet 3 Vitamin D3 125 MCG (5000 UT) Oral Capsule Take 1 Capsule by mouth in the morning. 90 Capsule 3 Incruse Ellipta 62.5 MCG/ACT Inhalation Aerosol Powder Breath Activated (umeclidinium Fieldale) Inhale 1 Puff by mouth in the morning. Albuterol Sulfate HFA 108 (90 Base) MCG/ACT Inhalation Aerosol Solution Inhale 2 Puffs by mouth every 4 hours as needed for Dyspnea or Wheezing. 54 g 0 albuterol sulfate (PROVENTIL) (2.5 MG/3ML) 0.083% nebulizer solution Inhale 1 Vial via nebulizer every 4 hours as needed for Wheezing or Shortness of Breath. 2 Box Dosing Unit 10 PEG-3350/Electrolytes 236 GM Oral Solution Reconstituted 240 mL orally every 10 minutes; until fecal effluent is clear (Patient not taking: Reported on 12/28/2023) 4000 mL 0 Latanoprost PF 0.005 % Ophthalmic Solution Instill 1 Drop into both eyes at bedtime. 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 Immunization History Administered Date(s) Administered COVID-19 mRNA, LNP-s, No Preserve, 2-Dose Series (Laser Light Engines) 04/26/2020, 05/24/2020, 04/16/2021 Covid-19, Mrna, Lnp-s, Pf, Bivalent, 30 Mcg, IM, 12 yrs and above (Laser Light Engines) 01/21/2022 H1N1 2009 Influenza, IM 03/01/2009 Pneumococcal Conjugate Vacc, 13 Valent (Prevnar) 06/01/2015 Pneumococcal Polysaccharide PPV23 (Pneumovax) 12/27/2004, 06/06/2010 Seasonal Influenza Vac., MDV, IM, 0.5 mL (Fluzone) 03/12/2000, 01/25/2002, 12/27/2002, 12/27/2004, 01/06/2008, 12/07/2008, 12/13/2009, 12/05/2010, 11/26/2011, 11/28/2013, 12/01/2014 Seasonal Influenza Virus Vaccine, Unspecified Formulation 01/13/1995, 01/21/1996, 01/26/1997, 12/27/1997 Seasonal Influenza, MDCK, Trivalent, PF, (Flucelvax) 02/17/2013 Seasonal Influenza, PF, 6 M & above, IM , (FluLaval or Fluzone) 12/05/2016, 12/18/2017 Seasonal Influenza, Quadrivalent Hd (Fluzone Hd) 11/22/2020, 01/21/2022 Seasonal Influenza, Quadrivalent Hd, 65+ Yrs 11/15/2019 Seasonal Influenza, Quadrivalent, No Preserve, IM 12/17/2015 Seasonal Influenza, Trivalent, Adjuvanted, 65+ YRS, PF, (Fluad) 12/02/2018 TD - Tetanus/Diptheria (ADULT) 08/16/1999 TD, Preservative Free 11/01/2009 Varicella Zoster Vaccine (Adult) 06/04/2012 TMR Interventions Incomplete Encounter MTPs No medication therapy recommendations to display Complete Encounter MTPs No medication therapy recommendations to display Assessment & Plan Indication, effectiveness, safety and convenience of his medications were reviewed today. The patient's medical conditions were assessed, evaluated, and deemed meeting goals of drug therapy, with thefollowing exceptions. Additional Notes: [facility] pack from [facility]. Summary Time Spent: 16-30 min Supervising pharmacist who provided the service: Joann Fernandez Information Who was the recipient of the CMR service: caregiver Language Template for the Patient Takeaway: Danish I attest that I have reviewed and updated the patient's conditions, allergies, and medications to the best of my ability. Patient provided medication list gathered by: Allison Berry RPh 12/28/2023, 4:05 PM documented in this encounter Miscellaneous Notes * MTM To-Do-List - Sushma King RPh - 12/28/2023 4:04 PM EDT Images from the original note were not included. What we talked about: What I should do: The importance of taking your medication as prescribed Your medicine works best when taken as prescribed. It can be hard to remember to take daily medications. Consider making it a part of your daily routine. Pair taking your medication with something you do every day, like brushing your teeth or eating a meal. Consider setting daily alarms to help remind yourself when it is time to take your medicine. Using a pill box can also help you organize your medicines. Pill boxes allow you to fill each day slot with your daily medicine and help you track when your next dose is due. What we talked about: What I should do: Blood thinner - Eliquis We discussed that this medication is a blood thinner used to prevent blood clots. It is important to monitor for signs and symptoms of bleeding, such as bleeding that lasts a long time, blood in urine or stools, nose bleeds, or bruises that happen without a known cause or last very long. Monitor for these signs of bleeding and call your doctor if you experience any of these. What we talked about: What I should do: Fall prevention Falls can lead to broken bones or even more severe internal injuries. It is important to prevent falls by removing tripping hazards from your environment such as throw rugs and cords.Ensure you have good lighting and wear shoes or non-slip socks to help prevent accidental falls. Using a cane can help with unsteadiness. Grab bars in your shower/bathroom can also be helpful to ensure you do not fall. If you are frequently feeling unsteady (or experiencing dizziness) be sure to talk with your doctor about whether or not any of your medications or conditions may be contributing to these symptoms. What we talked about: What I should do: Dulera - swish/spit Your DULERA inhaler could put you at an increased risk for throat irritation oreven throat fungal infections (called thrush). An easy way to keep your throat healthy is swishing and spitting with water after each use. What we talked about: What I should do: Rescue inhaler Your ALBUTEROL is your rescue inhaler. This medication can be taken NEEDED, and helps you breathe easier. It starts working immediately. Your rescue inhaler should be taken as: 1 to2 puffs by mouth every 4 to 6 hours as needed for breathing. If you are needing to use your ALBUTEROL more than 2 days per week, please let your doctor know. This may be a sign that your breathing isnot well controlled on your current medications. Also, please check the expiration date of your ALBUTEROL frequently to ensure it is not out-of-date. * MTM Personal Medication List - Sushma King RPh - 12/28/2023 12:58 PM EDT Medication How I take it Why I use it Prescriber albuterol sulfate (PROVENTIL) (2.5 MG/3ML) 0.083% nebulizer solution Inhale the contents of 1 Vial via nebulizer every 4 hours as needed for Wheezing or Shortness of Breath. Shortness of breath/wheezing BRITTNEE Yusuf Albuterol Sulfate HFA 108 (90 Base) MCG/ACT Inhalation Aerosol Solution Inhale 2 Puffs by mouth every 4 hours as needed for shortness of breath or Wheezing. Shortness of breath/wheezing Mario Paiz PA-C Apixaban 5 MG Oral Tablet (Eliquis) Take 1 Tablet by mouth in the morning and 1 Tablet before bedtime. Blood clot prevention Malini Szymanski MD Aspirin 81 MG Oral Tablet Delayed Release Take 1 Tablet by mouth in the morning. Heart health Malini Szymanski MD Atorvastatin Calcium 20 MG Oral Tablet (Lipitor) Take 1 Tablet by mouth in the morning. High cholesterol Malini Szymanski MD Dulera 50-5 MCG/ACT Inhalation Aerosol (formoterol-mometasone) Inhale 2 Puffs by mouth in the morning and 2 Puffs before bedtime. Breathing Malini Szymansik MD GNP Acidophilus High Potency Oral Capsule Take 1 Capsule by mouth in the morning. General health Malini Szymanski MD Incruse Ellipta 62.5 MCG/ACT Inhalation Aerosol Powder Breath Activated (umeclidinium Fieldale) Inhale 1 Puff by mouth in the morning. Breathing Malini Szymanski MD Melatonin 5 MG Oral Tablet Disintegrating Take 1 tablet by mouth every night at bedtime. Sleep Malini Szymanski MD Metoprolol Succinate ER 25 MG Oral Tablet Extended Release 24 Hour (toPROL XL) Take 1 Tablet by mouth in the morning. High blood pressure Malini Szymanski MD Mirtazapine 15 MG Oral Tablet (Remeron) Take 1 Tablet by mouth at bedtime. Mood/sleep Malini Szymanski MD One-Daily Multi Vitamins Oral Tablet Take 1 tablet by mouth daily. General health Malini Benton MD Pantoprazole Sodium 40 MG Oral Tablet Delayed Release (Protonix) Take 1 Tablet by mouth in the morning and 1 Tablet before bedtime. Acid reflux Malini Szymanski MD Tamsulosin HCl 0.4 MG Oral Capsule (Flomax) Take 1 Capsule by mouth in the morning. Bladder/prostate Malini Szymanski MD Thiamine HCl 100 MG Oral Tablet (GNP Vitamin B-1) Take 1 Tablet by mouth in the morning. General health Malini Szymanski MD Vitamin D3 125 MCG (5000 UT) Oral Capsule Take 1 Capsule by mouth in the morning. General health Malini Szymanski MD documented in this encounter Plan of Treatment Upcoming Encounters Date Type Department Care Team ([facility] Contact Info) Description 01/04/2024 9:20 AM EDT Office Visit [address] [phone] Malini Szymanski MD [address] [place] [phone] 05/18/2024 10:00 AM EST Office Visit Urology, [facility] [address] [place] [address] Abril Walters PA-C [address] [place] [id number] Health Maintenance Due Date Last Done Comments Alpha-1 Antitrypsin 1963 Hepatitis C Screening 1963 Corcoran's Esophagus Surveilance 01/30/2007 01/31/2004 DTap/Tdap Vaccines (1 - Tdap) 11/02/2009 11/01/2009, 08/16/1999 Zoster Vaccines (2 of 3) 07/30/2012 06/04/2012 Depression Screening 01/14/2020 01/13/2019 Adult Wellness Visit 11/01/2023 10/31/2022 COVID-19 Vaccine (5 - season) 2023 01/21/2022, 04/16/2021, 05/24/2020, Additional [...] this encounter Medical Devices Implanted Type Area Medical Office Receptionist Assistant Device Identifier Shelf Expiration Date Model / Serial / Lot Endo Clips Implanted:Qty: 1 on 09/29/2013 at ENDOSCOPY [facility] [place] [facility] documented as of this encounter Visit Diagnoses Diagnosis Referred for management of medication therapy- Primary Encounter for long-term (current) use of other medications documented in this encounter Advance Directives * Full Code [...] and were consensually agreed upon. Care Teams Bog Worker Relationship Specialty Start Date End Date Malini Szymanski MD [address] [place] [phone] PCP - General Family Medicine 08/06/23 documented as of this encounter
--- OUTSIDE RECORDS SUMMARY | 2024-05-05 01:04 | External Medical Summary ---
Author Name UNSPECIFIED Address Unknown Organization A [facility] Nursin g Service [facility] History of Encounters Reason for Assessment: Discharge from [facility] Inpatient Facility where the patient been admitted: No inpatient facility admission Discharge Disposition: Patient remained in the community (without formal assistive services) Functional Assessment Patient Has At Least 1 Unhea led Pressure Ulcer At Stage 2 Or Higher: Yes When Dyspneic: With moderate exerti on (e.g., while dressing, using commode or bedpan, walking distances less than 20 feet) Bowel Incontinence Frequency: Very rarel y or never has bowel incontinence Cognitive and Behavioral and Psychiatric Symptoms: None Current Ability: Bathing: Able to bathe in shower or tub with the intermittent assistance of another person: (a) for intermittent supervision or encouragement or reminders, OR (b) to get in and out of the shower or tub, OR (c) for washing difficult to reach areas. Current Ability: Ambulation: Requires us e of a two-handed device (e.g., walker or crutches) to walk alone on a level surface and/or requires human supervision or assistance to negotiate stairs or steps or uneven surfaces. Current: Management Of Oral Medications: Able to independently take the correct oral medication(s) and proper dosage(s) at the correct time
--- OUTSIDE RECORDS SUMMARY | 2024-05-05 01:04 | External Medical Summary | Summary of Care ---
Author Name Unknown Organization [facility] Address [address] [facility] [place] [address] Phone [phone] Care Team Providers Care Vp Marketing Services And Skin Name Role Phone Malini Szymanski MD Primary Care Provi christiane Encounter Details Date Type Department Care Team (Late st Contact Info) Description 01/21/2024 Population Health External Data Unspecified Department Allergies Active Allergy Reactions Criticality Noted Date Comments Simvastatin Muscle pain 06/20/2011 Leg cramps documented as of this encounter (statuses as of 01/28/2024) Medications FLUTTER CELESTINA Use as directed. 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 Active Tamsulosin HCl 0.4 MG Oral Capsule (Flomax)Indication s:Benign localized prostatic hyperplasia without lower urinary tract symptoms (LUTS) Take 1 Capsule by mouth in the morning. 90 Capsule 3 4 1:56 PM EDT 08/14/19 24 Active Apixaban 5 MG Oral Tablet (Eliquis) Take 1 Tablet by mouth in the morning and 1 Tablet before bedtime. 180 Tablet 3 4 1:56 PM EDT 08/14/19 24 Active Aspirin 81 MG Oral Tablet Delayed Release Take 1 Tablet by mouth in the morning. 90 Tablet 3 4 1:56 PM EDT 08/14/19 24 Active Atorvastatin Calcium 20 MG Oral Tablet (Lipitor) Take 1 Tablet by mouth in the morning. 90 Tablet 3 4 1:56 PM EDT 08/14/19 24 Active Dulera 50-5 MCG/ACT Inhalation Aerosol Inhale 2 Puffs by mouth in the morning and 2 Puffs before bedtime. 13 g 5 08/14/19 24 Active Melatonin 5 MG Oral Tablet Disintegrating Take 5 mg by mouth every night at bedtime. 90 Tablet 3 4 1:56 PM EDT 08/14/19 24 Active Metoprolol Succinate ER 25 MG Oral Tablet Extended Release 24 Hour (toPROL XL) Take 1 Tablet by mouth in the morning. 90 Tablet 3 4 1:56 PM EDT 08/14/19 24 Active Mirtazapine 15 MG Oral Tablet (Remeron) Take 1 Tablet by mouth at bedtime. 90 Tablet 3 4 1:56 PM EDT 08/14/19 24 Active One-Daily Multi Vitamins Oral Tablet Take by mouth daily. 90 Tablet 3 4 1:56 PM EDT 08/14/19 24 Active Pantoprazole Sodium 40 MG Oral Tablet Delayed Release (Protonix) Take 1 Tablet by mouth in the morning and 1 Tablet before bedtime. 180 Tablet 3 4 1:56 PM EDT 08/14/19 24 Active GNP Acidophilus High Potency Oral Capsule Take 1 Capsule by mouth in the morning. 90 Capsule 3 4 1:56 PM EDT 08/14/19 24 Active Thiamine HCl 100 MG Oral Tablet (GNP Vitamin B-1) Take 1 Tablet by mouth in the morning. 90 Tablet 3 4 1:56 PM EDT 08/14/19 24 Active Vitamin D3 125 MCG (5000 UT) Oral Capsule Take 1 Capsule by mouth in the morning. 90 Capsule 3 4 1:56 PM EDT 08/14/19 Active PEG-3350/Electroly jazz 236 GM Oral Solution Reconstituted 240 mL orally every 10 minutes; until fecal effluent is clear 4000 mL 4 5:02 PM EDT 10/01/19 24 Active Additional Information Patient not taking.Reported on 12/28/2023 Hospital, Clinic, or Other Facility Administered Medication Ordered Dose Route Frequency Start Date End Date Status albuterol sulfate (PROVENTIL) (2.5 MG/3ML) 0.083% inhalation solution 2.5 mgIndications:Centrilobul ar emphysema (HCC) 2.5 mg NEBULIZER ONCE PRN 05/23/2019 Active documented as of this encounter (statuses as of 01/28/2024) Active Problems Problem Noted Date Diagnosed Date [...] as of this encounter (statuses as of 01/28/2024) Resolved Problems Problem Noted Date Diagnosed Date [...] as of this encounter (statuses as of 01/28/2024) Immunizations Name Administration Dates Next Due COVID-19 mRNA, LNP-s, No Pre serve, 2-Dose Series (Decision[employer]) 04/16/2021,05/24/2020,04/26/2020 Covid-19, Mrna, Lnp-s, Pf, B ivalent, 30 Mcg, IM, 12 yrs and above (Decisionlink) 01/21/2022 H1N1 2009 Influenza, IM 03/01/2009 Pneumococcal [...] 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 Not on file Not on file documented as of this encounter Plan of Treatment Upcoming Encounters Date Type Department Care Team (Late st Contact Info) Description 05/18/2024 10:00 AM EST Office Visit Urology, [facility] [address] [place] [address] Abril Walters PA-C [address] [place] [address] Health Maintenance Due Date Last Done Comments [...] this encounter Medical Devices Implanted Type Area Straight Knife Machine Cutter Device Identifier Shelf Expiration Date Model / Serial / Lot Endo Clips Implanted:Qty: 1 on 09/29/2013 at ENDOSCOPY [facility] documented as of this encounter Advance Directives [...] and were consensually agreed upon. Care Teams Vp Marketing Services And Skin Relationship Specialty Start Date End Date Malini Szymanski MD [address] [place] [phone] PCP - General Family Medicine 08/06/23 documented as of this encounter
[2024-05-05] MEDS: ALBUT/IPRATROP 3MG/0.5MG NEB 3 ML VIAL NEB SCH (01:23)
[2024-05-05] MEDS: cefTRIAXone SODIUM 2,000 MG/50 ML BAG IV SCH (02:02)
[2024-05-05] MEDS: methylPREDNISolone 30 MG in SYRINGE 0 ML IV SCH (02:05)
[2024-05-05] MEDS: APIXABAN 5 MG TABLET PO SCH (02:06)
[2024-05-05] MEDS: LATANOPROST 0.005% OP SOLN 2.5 ML BTL OP SCH (02:06)
[2024-05-05] MEDS: PANTOprazole 40 MG TAB PO SCH (02:07)
[2024-05-05] MEDS: THIAMINE HCL 100 MG TAB PO SCH (02:07)
[2024-05-05] MEDS: MIRTAZAPINE TAB 15 MG TAB PO SCH (02:07)
[2024-05-05] MEDS: VANCOMYCIN HCL 1,000 MG/270 ML BAG IV SCH (03:02)
[2024-05-05 08:16] LABS: Hematocrit (blood only) 26.5 % (42.0-52.0); Hemoglobin 8.1 g/dl (14.0-18.0); Mean Corpuscular Hemoglobin 24.8 pg (25.0-34.0); Mean Corpuscular Hgb Conc 30.6 g/dL (32.0-36.0); Mean Corpuscular Volume 81.3 fL (80.0-100.0); Mean Platelet Volume 8.8 fL (9.4-12.4); Platelet Count 242 K/uL (130-400); RDW Coefficient of Variation 19.3 % (11.5-14.5); RDW Standard Deviation 55.9 fL (36.4-46.3); Red Blood Count 3.26 M/uL (4.70-6.10); White Blood Count 15.74 K/ul (4.8-10.8)
[2024-05-05 08:37] LABS: Basophils # (auto) 0.01 K/uL (0.00-0.20); Basophils % (auto) 0.1 %; Immature Granulocytes % (auto) 0.6 %; Lymphocytes # (auto) 0.58 K/uL (1.20-3.40); Lymphocytes % (auto) 3.7 %; Monocytes % (auto) 1.3 %; Neutrophils # (auto) 14.85 K/uL (1.40-6.50); Neutrophils % (auto) 94.3 %
[2024-05-05 08:49] LABS: Albumin Globulin Ratio 0.6 (0.9-2); Albumin Level 1.5 gm/dl (3.4-5.0); BUN Creatinine Ratio 24.7 (10-20); Bilirubin,Total 0.2 mg/dl (0.2-1.0); Calcium 7.3 mg/dl (8.6-10.3); Globulin 2.5 gm/dl (2.5-4.0); Magnesium 2.2 mg/dl (1.7-2.4); Phosphorus 3.5 mg/dl (2.5-4.9); Potassium 4.3 mmol/L (3.5-5.1); Troponin I High Sensitivity 15.5 pg/ml (0-20)
[2024-05-05 09:09] LABS: T4 Free Thyroxine 0.84 ng/dl (0.61-1.60); Thyroid Stimulating Hormone 3.203 uIu/ml (0.300-4.500)
[2024-05-05] MEDS: ATORVASTATIN 20 MG TAB PO SCH (09:31)
[2024-05-05] MEDS: CHOLECALCIFEROL 125 MCG (5,000 UNITS) TAB PO SCH (09:31)
[2024-05-05] MEDS: TAMSULOSIN HCL 0.4 MG CAP PO SCH (09:31)
[2024-05-05] MEDS: ASPIRIN 81 MG ECTAB PO SCH (09:31)
[2024-05-05] MEDS: METOPROLOL SUCC 25MG EXT REL TAB PO SCH (09:31)
[2024-05-05] MEDS: FLUTICASONE/VILANTEROL 100/25MCG 14 PUFFS/INHALER INH SCH (09:32)
[2024-05-05] MEDS: UMECLIDINIUM BROMIDE 62.5MCG/BLISTER 7 PUFFS/INHALER INH SCH (09:32)
--- NOTE | 2024-05-05 09:53 | Pharmacy Report ---
Pharmacy PK ABX Note - Date of Service May 05, 2024 - Assessment and Plan Assessment 78 year old M receiving vancomycin for treatment of UTI. Pertinent microbiologic data includes: urine cx culture growing P.mirabilis preliminary, blood cx pending, hx of E.faecalis in early 2023 prompted coverage with vancomycin this admission. Day # 2 of antimicrobial therapy. Plan Vancomycin * Loading dose: 1000 mg IV x 1 * Maintenance dose: 1250 mg IV every 24 hours * Regimen is predicted to achieve target AUC/JOSE ENRIQUE of 400-600 mg/L.hr * Levels to be ordered if vancomycin continues beyond tomorrow. Pharmacy will continue to follow and will adjust dose/frequency as necessary. Thank you. Pharmacy has transitioned to AUC monitoring for vancomycin. AUC/JOSE ENRIQUE is the preferred PK/PD target and is associated with decreased risk of nephrotoxicity compared to traditional trough targets.
[2024-05-05] MEDS: VANCOMYCIN HCL 1,250 MG in SODIUM CHLORIDE 0.9% 250 ML IV SCH (09:59)
[2024-05-05] MEDS ORDERED: VANCOMYCIN HCL 1,250 MG in SODIUM CHLORIDE 0.9% 250 ML IV SCH (10:00)
[2024-05-05] MEDS ORDERED: VANCOMYCIN HCL 1,000 MG/270 ML BAG IV SCH (11:00)
--- NOTE | 2024-05-05 13:12 | Hospitalist Progress Note ---
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 Faecalis on prior urine culture Blood and urine cultures pending Bladder scan with PVR 107mL - repeat as needed if there is concern for urinary retention 05/05 seems to be clinically improving awaiting final results of Blood and Urine culture continue empiric Vanco + Ceftri for now #Shortness of Breath // #COPD: CXR negative for acute process. Subjective shortness of breath relieved with neb tx, no increase in supplemental O2 demand or cough/sputum production - therefore, would not characterize as a true COPD exacerbation but will augment home regimen: - Continue home inhalers (LABA/LAMA/ICS) - Duoneb Q6H - IV Solumedrol 30mg BID - Titrate supplemental O2 to maintain SpO2>90% 2/20 breathing is better as per patient on his baseline 3 L continue Nebs 1 more day of Solumedrol-> Prednisone tomorrow #Tachycardia: EKG consistent with SVT at rate of 131, likely combination of missing AM meds + volume contraction + acute infection S/p fluid resuscitation and electrolyte repletion No associated sx at this time, continue to monitor 220 currently on SR, HR normal continue management of sepsis Chronic Conditions: HLD: continue Atorvastatin Depression: continue Mirtazapine pAF: continue metoprolol, Eliquis GERD: continue Protonix CAD: continue aspirin, statin, BB Dispo: lives at home will order PT/OT eval FEN/GI: HH diet VTE ppx: Eliquis Full Code Admission and Anticipated Discharge Date Admission Date: May 04, 2024 Subjective ff up for sepsis, UTI, etc seen resting in bedside chair, on 3 L Nasal cannula states he feels better today than yesterday feels stronger no urinary symptoms today breathing easier as well, denies new cough no fever/chills no chest pain, dyspnea, palpitations, dizziness no abdominal pain, nausea, melena/hematochezia Review of Systems Review of Systems: all noted and negative except for above Physical Exam Physical Exam: General- oriented x 3, not in distress, speaks in sentences with no effort or accessory muscle use Eyes- anicteric Neck- no JVD Lungs- faint wheeze at the bases, BL no crackles good air entry BL Heart- normal rate, regular rhythm; no murmurs Abdomen- normal bowel sounds, nondistended, soft, nontender Extremities- mild lower leg edema, no calf tenderness Neuro- alert, oriented x 3; no gross focal neurologic deficits Skin- warm & dry Results & Data Results & Data Vital Signs (Past 12 Hours) Vital Signs Temp Pulse Resp BP Pulse Ox O2 Del Method O2 Flow Rate 05/05/24 11:44 36.6 C 80 18 128/73 97 Nasal Cannula 2 05/05/24 08:00 36.5 C 77 20 118/70 96 Nasal Cannula 2 05/05/24 07:23 80 18 95 Nasal Cannula 3 05/05/24 03:53 36.2 C L 82 18 137/86 96 Nasal Cannula 2.0 05/05/24 01:24 87 18 93 Nasal Cannula 2.5 all noted and reviewed including below
--- NOTE | 2024-05-05 18:00 | Electrocardiogram Report ---
Test Reason : Blood Pressure : */* mmHG Vent. Rate : 131 BPM Atrial Rate : * BPM P-R Int : * ms QRS Dur : 92 ms QT Int : 300 ms P-R-T Axes : * 101 53 degrees QTcB Int : 443 ms Poor data quality, interpretation may be adversely affected Supraventricular tachycardia Rightward axis Incomplete right bundle branch block Anteroseptal infarct , age undetermined Abnormal ECG When compared with ECG of 04-Jul-2023 23:28, Incomplete right bundle branch block is now Present Anteroseptal infarct is now Present T wave inversion no longer evident in Inferior leads Nonspecific T wave abnormality no longer evident in Lateral leads Confirmed by Dino Caraballo ([id number]) on 05/05/2024 5:59:46 PM Referred By: Confirmed By: Dino Caraballo
--- NOTE | 2024-05-05 19:05 | Hospitalist Progress Note ---
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 Faecalis on prior urine culture Blood and urine cultures pending Bladder scan with PVR 107mL - repeat as needed if there is concern for urinary retention 05/05 seems to be clinically improving awaiting final results of Blood and Urine culture continue empiric Vanco + Ceftri for now #Shortness of Breath // #COPD: CXR negative for acute process. Subjective shortness of breath relieved with neb tx, no increase in supplemental O2 demand or cough/sputum production - therefore, would not characterize as a true COPD exacerbation but will augment home regimen: - Continue home inhalers (LABA/LAMA/ICS) - Duoneb Q6H - IV Solumedrol 30mg BID - Titrate supplemental O2 to maintain SpO2>90% 05/05 breathing is better as per patient on his baseline 3 L continue Nebs 1 more day of Solumedrol-> Prednisone tomorrow #Tachycardia: EKG consistent with SVT at rate of 131, likely combination of missing AM meds + volume contraction + acute infection S/p fluid resuscitation and electrolyte repletion No associated sx at this time, continue to monitor 05/05 currently on SR, HR normal continue management of sepsis Chronic Conditions: HLD: continue Atorvastatin Depression: continue Mirtazapine pAF: continue metoprolol, Eliquis GERD: continue Protonix CAD: continue aspirin, statin, BB Dispo: lives at home will order PT/OT eval FEN/GI: HH diet VTE ppx: Eliquis Full Code Admission and Anticipated Discharge Date Admission Date: May 04, 2024 Subjective Follow-up for weakness, UTI, CP exacerbation, etc. Seen resting in bed, comfortable, not in distress, on 3 L of O2 Feels fine overall No abdominal pain, fevers or chills States breathing is fine, no cough Denies abdominal pain, melena or hematochezia No dizziness, chest pain No other new symptoms Review of Systems Review of Systems: all noted and negative except for above Physical Exam Physical Exam: General- oriented x 3, not in distress, speaks in sentences with no effort or accessory muscle use Eyes- anicteric Neck- no JVD Lungs- clear breath sounds bilaterally, no rales/wheezes Heart- normal rate, regular rhythm; no murmurs Abdomen- normal bowel sounds, nondistended, soft, no tender Extremities- mild pretibial edema, no calf tenderness Neuro- alert, oriented x 3; no gross focal neurologic deficits Skin- warm & dry Results & Data Results & Data Vital Signs (Past 12 Hours) Vital Signs Temp Pulse Resp BP Pulse Ox O2 Del Method O2 Flow Rate 05/05/24 15:25 36.6 C 88 20 108/63 95 Nasal Cannula 2.5 05/05/24 13:16 82 18 94 Nasal Cannula 3 05/05/24 11:44 36.6 C 80 18 128/73 97 Nasal Cannula 2.5 05/05/24 08:00 Nasal Cannula 2.5 05/05/24 08:00 36.5 C 77 20 118/70 96 Nasal Cannula 2.5 05/05/24 07:23 80 18 95 Nasal Cannula 3
--- NOTE | 2024-05-06 00:15 | Billing Data ---
Date of Service May 04, 2024 Coding Level of Care Code 13635 INT INP/OBS CARE
[2024-05-06 06:53] LABS: Hematocrit (blood only) 25.7 % (42.0-52.0); Hemoglobin 7.5 g/dl (14.0-18.0); Mean Corpuscular Hemoglobin 24.4 pg (25.0-34.0); Mean Corpuscular Hgb Conc 29.2 g/dL (32.0-36.0); Mean Corpuscular Volume 83.7 fL (80.0-100.0); Mean Platelet Volume 9.2 fL (9.4-12.4); Platelet Count 239 K/uL (130-400); RDW Coefficient of Variation 19.9 % (11.5-14.5); Red Blood Count 3.07 M/uL (4.70-6.10); White Blood Count 15.57 K/ul (4.8-10.8)
[2024-05-06 07:22] LABS: Albumin Globulin Ratio 0.6 (0.9-2); Albumin Level 1.5 gm/dl (3.4-5.0); BUN Creatinine Ratio 20.2 (10-20); Bilirubin,Total 0.1 mg/dl (0.2-1.0); Calcium 7.5 mg/dl (8.6-10.3); Creatinine Clr Calc Pharmacy 37.6 ml/min; Globulin 2.4 gm/dl (2.5-4.0); Magnesium 2.1 mg/dl (1.7-2.4); Phosphorus 3.4 mg/dl (2.5-4.9); Potassium 4.8 mmol/L (3.5-5.1); Total Protein 3.9 gm/dl (6.0-8.3)
[2024-05-06 07:28] LABS: Anisocytosis Present; Basophils # (auto) 0.01 K/uL (0.00-0.20); Basophils % (auto) 0.1 %; Immature Granulocytes # (auto) 0.11 K/uL (0.01-0.20); Immature Granulocytes % (auto) 0.7 %; Lymphocytes # (auto) 0.51 K/uL (1.20-3.40); Lymphocytes % (auto) 3.3 %; Monocytes # (auto) 0.33 K/uL (0.11-0.59); Monocytes % (auto) 2.1 %; Neutrophils # (auto) 14.61 K/uL (1.40-6.50); Neutrophils % (auto) 93.8 %; Polychromasia 2+
[2024-05-06] MEDS ORDERED: SODIUM CHLORIDE 0.9% 100 ML IV PRN (10:01)
[2024-05-06] MEDS ORDERED: SODIUM CHLORIDE 0.9% 50 ML IV PRN (10:01)
[2024-05-06] MEDS: diphenhydrAMINE Capsule 25 MG CAP PO ONE (11:36)
[2024-05-06] MEDS: ACETAMINOPHEN 325 MG TAB PO ONE (11:36)
--- NOTE | 2024-05-06 13:44 | Pharmacy Report ---
Pharmacy PK ABX Note - Date of Service May 06, 2024 - Assessment and Plan Assessment 05/06: * Scr trending upward this AM, held AM vanco dose and will provide dose reduction for today * Discussed with provider rise in Scr and recommended deescalation of abx d/t urine culture with proteus species - sensitive to rocephin. Provider aware and will assess once they see patient. 05/05: * 78 year old M receiving vancomycin for treatment of UTI. Pertinent microbiologic data includes: urine cx culture growing P.mirabilis preliminary, blood cx pending, hx of E.faecalis in early 2023 prompted coverage with vancomycin this admission. * Day # 2 of antimicrobial therapy. Plan Vancomycin * Dose reduced to vancomycin 1000 mg iv q 24 hours * Due to changing renal function, will order random tomorrow if plan is to continue therapy Pharmacy will continue to follow and will adjust dose/frequency as necessary. Thank you. Pharmacy has transitioned to AUC monitoring for vancomycin. AUC/JOSE ENRIQUE is the preferred PK/PD target and is associated with decreased risk of nephrotoxicity compared to traditional trough targets.
[2024-05-06] MEDS: VANCOMYCIN HCL 1,000 MG/270 ML BAG IV SCH (17:07)
--- NOTE | 2024-05-06 17:33 | Hospitalist Progress Note ---
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 Faecalis on prior urine culture Blood and urine cultures pending Bladder scan with PVR 107mL - repeat as needed if there is concern for urinary retention 05/05 seems to be clinically improving awaiting final results of Blood and Urine culture continue empiric Vanco + Ceftri for now 05/06 Urine culture: Proteus DC vancomycin #Shortness of Breath // #COPD: CXR negative for acute process. Subjective shortness of breath relieved with neb tx, no increase in supplemental O2 demand or cough/sputum production - therefore, would not characterize as a true COPD exacerbation but will augment home regimen: - Continue home inhalers (LABA/LAMA/ICS) - Duoneb Q6H - IV Solumedrol 30mg BID - Titrate supplemental O2 to maintain SpO2>90% 05/05 breathing is better as per patient on his baseline 3 L continue Nebs 1 more day of Solumedrol-> Prednisone tomorrow 05/06 Much better DC Solu-Medrol #Anemia Hemoglobin decreased from 9.9, 8.1, 7.5 No melonie melena or hematochezia Positive for fecal occult blood test Has history of colon cancer, ascending colon -1 unit packed RBCs ordered Repeat H&H this evening -Hold Eliquis, aspirin Protonix IV twice daily N.p.o. postmidnight GI service consult anemia panel #Tachycardia: EKG consistent with SVT at rate of 131, likely combination of missing AM meds + volume contraction + acute infection S/p fluid resuscitation and electrolyte repletion No associated sx at this time, continue to monitor 05/05 currently on SR, HR normal continue management of sepsis Chronic Conditions: HLD: continue Atorvastatin Depression: continue Mirtazapine pAF: continue metoprolol, Eliquis - hold GERD: continue Protonix CAD: continue aspirin- hold, statin, BB Dispo: lives at home will order PT/OT eval FEN/GI: HH diet VTE ppx: Eliquis- hold Full Code Admission and Anticipated Discharge Date Admission Date: May 04, 2024 Subjective Follow-up for weakness, UTI, CP exacerbation, etc. Seen resting in bed, comfortable, not in distress, on 3 L of O2 Feels fine overall No abdominal pain, fevers or chills States breathing is fine, no cough Denies abdominal pain, melena or hematochezia No dizziness, chest pain No other new symptoms Review of Systems Review of Systems: all noted and negative except for above Physical Exam Physical Exam: General- oriented x 3, not in distress, speaks in sentences with no effort or accessory muscle use Eyes- anicteric Neck- no JVD Lungs- clear breath sounds bilaterally, no rales/wheezes Heart- normal rate, regular rhythm; no murmurs Abdomen- normal bowel sounds, nondistended, soft, nontender Extremities- mild pretibial edema, no calf tenderness Neuro- alert, oriented x 3; no gross focal neurologic deficits Skin- warm & dry Results & Data Results & Data Vital Signs (Past 12 Hours) Vital Signs Temp Pulse Pulse Resp BP BP Pulse Ox 05/06/24 15:43 77 05/06/24 15:09 36.3 C L 82 16 132/91 98 05/06/24 14:13 36.2 C L 84 16 127/76 100 05/06/24 13:33 78 16 96 05/06/24 13:13 36.2 C L 84 14 109/71 100 05/06/24 12:43 36.2 C L 76 18 126/79 100 05/06/24 12:40 100 02/21/25 12:28 36.8 C 76 18 116/66 100 05/06/24 12:28 36.8 C 76 18 116/66 100 05/06/24 12:27 82 05/06/24 12:27 05/06/24 12:13 36.9 C 83 16 119/79 100 05/06/24 11:55 36.9 C 88 16 147/84 H 99 05/06/24 08:32 36.4 C L 83 18 113/71 99 05/06/24 07:16 78 20 90 O2 Del Method O2 Flow Rate 05/06/24 15:43 05/06/24 15:09 2 05/06/24 14:13 05/06/24 13:33 Nasal Cannula 2 05/06/24 13:13 05/06/24 12:43 2 05/06/24 12:40 Nasal Cannula 3 05/06/24 12:28 2 05/06/24 12:28 2 05/06/24 12:27 05/06/24 12:27 Nasal Cannula 2 05/06/24 12:13 2 05/06/24 11:55 2 05/06/24 08:32 Nasal Cannula 3 05/06/24 07:16 Nasal Cannula 3 all noted and reviewed including below
[2024-05-06 19:28] LABS: Hematocrit (blood only) 38.1 % (42.0-52.0); Hemoglobin 11.8 g/dl (14.0-18.0)
[2024-05-06] MEDS: PANTOprazole 40 MG/10 ML SYR IV SCH (21:06)
[2024-05-07 08:41] LABS: Basophils # (auto) 0.02 K/uL (0.00-0.20); Basophils % (auto) 0.1 %; Hematocrit (blood only) 37.4 % (42.0-52.0); Hemoglobin 11.7 g/dl (14.0-18.0); Immature Granulocytes # (auto) 0.23 K/uL (0.01-0.20); Immature Granulocytes % (auto) 1.1 %; Lymphocytes # (auto) 1.13 K/uL (1.20-3.40); Lymphocytes % (auto) 5.4 %; Mean Corpuscular Hemoglobin 26.7 pg (25.0-34.0); Mean Corpuscular Hgb Conc 31.3 g/dL (32.0-36.0); Mean Corpuscular Volume 85.4 fL (80.0-100.0); Mean Platelet Volume 9.3 fL (9.4-12.4); Monocytes # (auto) 1.11 K/uL (0.11-0.59); Monocytes % (auto) 5.3 %; Neutrophils # (auto) 18.56 K/uL (1.40-6.50); Neutrophils % (auto) 88.1 %; Platelet Count 235 K/uL (130-400); RDW Coefficient of Variation 18.8 % (11.5-14.5); RDW Standard Deviation 58.3 fL (36.4-46.3); Red Blood Count 4.38 M/uL (4.70-6.10); White Blood Count 21.05 K/ul (4.8-10.8)
[2024-05-07 09:00] LABS: BUN Creatinine Ratio 24.1 (10-20); Calcium 7.9 mg/dl (8.6-10.3); Creatinine Clr Calc Pharmacy 39.9 ml/min; Potassium 4.8 mmol/L (3.5-5.1)
[2024-05-07 09:19] LABS: Ferritin 188.4 ng/ml (8-388)
[2024-05-07 09:20] LABS: Folate (Folic Acid),Ser orPlas 9.23 ng/ml (>5.38)
--- NOTE | 2024-05-07 11:08 | Gastrointestinal Consultation ---
Date of Consultation May 07, 2024 Assessment & Plan (1) Anemia: Unfortunate elderly gentleman with known inoperable colon cancer. He is going to [facility] problems with anemia periodically since he has this lesion that cannot be removed. There is nothing GI can do for him at this point. On top of his cancer he is on eliquis so that will likely make bleeding more of a problem. I am sorry but there is not anything I can offer him at this time. History of Present Illness Reason for Consultation: anemia, possible GI bleed Attending Physician: Darnell Spears MD History of Present Illness 78 year old man with inoperable right colon cancer with metastases. I am asked to see for anemia. He denies any complaints with regards to his stomach and does not see blood in his stool. He has seen Dr. Mcleod and was told he would on the operating table and then Dr. Mcleod told him I probably had a year to live. Allergies Allergy/AdvReac Type Severity Reaction Status Date / Time simvastatin AdvReac Intermediate myalgia Verified 03/25/24 15:17 Home Medications Medication Instructions Recorded Confirmed Type mucus clearing device 06/13/21 03/25/24 History Portable Oxygen #1 ea 09/25/22 03/25/24 Rx albuterol sulfate 90 mcg/actuation 2 puff inhalation Q4H PRN 09/25/22 03/25/24 Rx aerosol inhaler shortness of breath or wheezing #8.5 grams nebulizers (Aeroneb Go Nebulizer) #1 ea 09/25/22 03/25/24 Rx latanoprost (PF) 0.005 % eye drops 1 drp OPB HS 02/01/23 03/25/24 History in a dropperette polyethylene glycol 3350 17 17 g PO DAILY PRN Constipation 02/01/23 03/25/24 History gram/dose oral powder tamsulosin 0.4 mg capsule 0.4 mg PO DAILY 02/01/23 03/25/24 History L.acidop,casei,lactis,rham-B.lact,shaunna 1 cap PO DAILY #0 caps 07/14/23 03/25/24 Rx 625 mg (10 billion cell) capsule (Advanced Probiotic) acetaminophen 325 mg tablet 650 mg (2 x 325 mg) PO Q4H PRN #0 07/14/23 03/25/24 Rx tabs apixaban 5 mg tablet (Eliquis) 5 mg PO BID #0 tabs 07/14/23 03/25/24 Rx aspirin 81 mg tablet,delayed 81 mg PO QAM #0 tabs 07/14/23 03/25/24 Rx release cholecalciferol (vitamin D3) 125 125 mcg PO QAM #0 tabs 07/14/23 03/25/24 Rx mcg (5,000 unit) tablet ipratropium 0.5 mg-albuterol 3 mg 3 ml NEB QIDR PRN shortness of 07/14/23 03/25/24 Rx (2.5 mg base)/3 mL nebulization breath or wheezing #0 mL soln metoprolol succinate 25 mg 25 mg PO QAM #0 tabs 07/14/23 03/25/24 Rx tablet,extended release 24 hr pantoprazole 40 mg tablet,delayed 40 mg PO BID #0 tabs 07/14/23 03/25/24 Rx release thiamine HCl (vitamin B1) 100 mg 200 mg (2 x 100 mg) PO BID #0 tabs 07/14/23 03/25/24 Rx tablet mometasone-formoterol HFA 50 mcg-5 2 puff inhalation Q12H #13 grams 08/17/23 03/25/24 Rx mcg/actuation aerosol inhaler (Dulera) aluminum-magnesium hydroxide 200 30 ml PO Q6H PRN Indigestion 08/19/23 03/25/24 History mg-200 mg/5 mL oral suspension (MAG-AL) atorvastatin 20 mg tablet 20 mg PO QAM 08/19/23 03/25/24 History loperamide 2 mg capsule (Imodium 2 mg PO Q4H PRN Diarrhea 08/19/23 03/25/24 History A-D) melatonin 5 mg capsule 5 mg PO HS 08/19/23 03/25/24 History umeclidinium 62.5 mcg/actuation 1 inh inhalation QAM 08/19/23 03/25/24 History blister powder for inhalation (Incruse Ellipta) mirtazapine 15 mg tablet (Remeron) 15 mg PO HS 08/26/23 03/25/24 History tiotropium bromide 2.5 1 puff inhalation DAILY 08/26/23 03/25/24 History mcg/actuation mist for inhalation (Spiriva Respimat) peg 3350-electrolytes 236 240 ml PO Q10M #4,000 mL 10/01/23 03/25/24 Rx gram-22.74 gram-6.74 gram-5.86 gram solution (GaviLyte-G) cephalexin 500 mg capsule 500 mg PO TID 03/25/24 03/25/24 History Patient History Medical History History of confusion per record 07/07, pt. 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 hx-"no current issues" brought to [facility] with weakness and confusion 06/2023 NSTEMI (non-ST elevated myocardial infarction) entered into EMR 07/05/23 by hospitalist-not noted in cardiology records History of left heart catheterization (2008) no stents; f/u krystal saenz Surgical History History of bronchoscopy (08/26/23) [facility] History of esophagogastroduodenoscopy (EGD) Hx of colonoscopy History of cryosurgery for prostate cancer S/P cardiac pacemaker procedure (03/2023) [facility] - follows with cardio at [facility] History of cataract removal with insertion of prosthetic lens bilateral H/O umbilical hernia repair (2007) Family History Mother , Cancer Cancer Father , Cancer Colorectal cancer Sister Heart disorder Stroke Brother Prostate cancer Denies family history of Crohn's disease Ulcerative colitis Social History Smoking Status: Former smoker Tobacco Type: Cigarettes Age Started Using Tobacco: 12; Age Quit Using Tobacco: 60; packs per day: 2.5; Cigarettes Per Day: 120 pack years; Second Hand Exposure: No; Do You Dip or Chew Tobacco: No; Hx Alcohol Use: No Hx Substance Use: No Preferred Language: Mongolian Communication Ability: Effective Portainer Operator Required: No Beliefs That Will Affect Care: None Current Living Situation: Alone Current Living Situation Comment: nursing comes in 2x per week Feels Safe at Home: Yes Assistive Devices: Cane, Oxygen - Continuous, Walker and Wheelchair Review of Systems Review of Systems: All systems reviewed & are unremarkable except as noted in HPI & below Results & Data Vital Signs (Past 12 Hours) Vital Signs Temp Pulse Pulse Resp BP BP Pulse Ox 05/07/24 07:47 105 H 24 90 05/07/24 07:30 36.3 C L 87 18 144/88 H 99 05/07/24 07:10 87 05/07/24 03:14 36.7 C 67 17 123/71 98 05/07/24 01:26 05/07/24 00:06 80 18 99 05/07/24 00:00 Pulse Ox O2 Del Method O2 Del Method O2 Flow Rate O2 Flow Rate 05/07/24 07:47 Room Air 05/07/24 07:30 Room Air 05/07/24 07:10 05/07/24 03:14 Nasal Cannula 2 05/07/24 01:26 Nasal Cannula 4 05/07/24 00:06 Nasal Cannula 2 05/07/24 00:00 92 Nasal Cannula 4 Laboratory Results 02/22/25 02/22/25 02/21/25 Range/Units 08:21 08:04 Unknown WBC 21.05 H (4.8-10.8) K/ul RBC 4.38 L (4.70-6.10) M/uL Hgb 11.7 L (14.0-18.0) g/dl Hct 37.4 L (42.0-52.0) % MCV 85.4 (80.0-100.0) fL MCH 26.7 (25.0-34.0) pg MCHC 31.3 L (32.0-36.0) g/dL RDW Std Deviation 58.3 H (36.4-46.3) fL RDW Coeff of Mich 18.8 H (11.5-14.5) % Plt Count 235 (130-400) K/uL MPV 9.3 L (9.4-12.4) fL Immature Gran % (Auto) 1.1 % Neut % (Auto) 88.1 % Lymph % (Auto) 5.4 % Alexander % (Auto) 5.3 % Eos % (Auto) 0.0 % Baso % (Auto) 0.1 % Neut # (Auto) 18.56 H (1.40-6.50) K/uL Lymph # (Auto) 1.13 L (1.20-3.40) K/uL Alexander # (Auto) 1.11 H (0.11-0.59) K/uL Eos # (Auto) 0.00 (0.00-0.50) K/uL Baso # (Auto) 0.02 (0.00-0.20) K/uL Immature Gran # (Auto) 0.23 H (0.01-0.20) K/uL Sodium 139 (136-145) mmol/L Potassium 4.8 (3.5-5.1) mmol/L Chloride 112 H (98-107) mmol/L Carbon Dioxide 27 (21-32) mmol/L Anion Gap 0 L (3-11) BUN 27 H (6-23) mg/dl Creatinine 1.12 (0.6-1.4) mg/dl Est Cr Clr Drug Dosing 39.9 ml/min eGFR 66.83 BUN/Creatinine Ratio 24.1 H (10-20) Glucose 72 (70-99(Fasting)) mg/dl Calcium 7.9 L (8.6-10.3) mg/dl Iron 37 (35-175) mcg/dl Transferrin 131 L (200-360) mg/dl Ferritin 188.4 (8-388) ng/ml Vitamin B12 977 H (180-914) pg/ml Folate 9.23 (>5.38) ng/ml Stool Occult Bld Scrn Positive A (Negative) Blood Type Antibody Screen Crossmatch 05/06/24 05/06/24 Range/Units 18:56 10:16 WBC (4.8-10.8) K/ul RBC (4.70-6.10) M/uL Hgb 11.8 L D (14.0-18.0) g/dl Hct 38.1 L (42.0-52.0) % MCV (80.0-100.0) fL MCH (25.0-34.0) pg MCHC (32.0-36.0) g/dL RDW Std Deviation (36.4-46.3) fL RDW Coeff of Mich (11.5-14.5) % Plt Count (130-400) K/uL MPV (9.4-12.4) fL Immature Gran % (Auto) % Neut % (Auto) % Lymph % (Auto) % Alexander % (Auto) % Eos % (Auto) % Baso % (Auto) % Neut # (Auto) (1.40-6.50) K/uL Lymph # (Auto) (1.20-3.40) K/uL Alexander # (Auto) (0.11-0.59) K/uL Eos # (Auto) (0.00-0.50) K/uL Baso # (Auto) (0.00-0.20) K/uL Immature Gran # (Auto) (0.01-0.20) K/uL Sodium (136-145) mmol/L Potassium (3.5-5.1) mmol/L Chloride (98-107) mmol/L Carbon Dioxide (21-32) mmol/L Anion Gap (3-11) BUN (6-23) mg/dl Creatinine (0.6-1.4) mg/dl Est Cr Clr Drug Dosing ml/min eGFR BUN/Creatinine Ratio (10-20) Glucose (70-99(Fasting)) mg/dl Calcium (8.6-10.3) mg/dl Iron (35-175) mcg/dl Transferrin (200-360) mg/dl Ferritin (8-388) ng/ml Vitamin B12 (180-914) pg/ml Folate (>5.38) ng/ml Stool Occult Bld Scrn (Negative) Blood Type A Positive Antibody Screen NEGATIVE Crossmatch See Detail Diagnostic Findings Chest X-Ray 05/04/24 15:22 Chest radiograph, one view History: Weakness Comparison: None Findings: Single AP view of the chest performed. No focal consolidation. Blunting of the costophrenic angles with possible small pleural effusions. No pneumothorax. The cardiomediastinal silhouette is within normal limits. Normal pulmonary vascularity. No evidence for lymphadenopathy. Left chest wall dual-lead AICD. No visualized bony or soft tissue abnormality. Impression: Possible small pleural effusions. Electronically signed by Dino Au 05-04-2024 4:19 PM (1) Anemia Anemia type: unspecified type Qualified Code(s): D64.9 - Anemia, unspecified
--- NOTE | 2024-05-07 16:32 | Hospitalist Progress Note ---
Date of Service May 07, 2024 Assessment & Plan (1) Weakness: Plan: Assessment & Plan (1) Acute UTI: Plan: per admitting service notes with addendum: 78 year old male with extensive past medical history that includes active colon cancer, pAF, tachy-tiffany syndrome with intermittent high grade heart block s/p pacemaker placement, CAD, depression, COPD, anemia, HLD, HTN presenting with generalized weakness: #Generalized weakness #FTT: Multifactorial - chronic failure to thrive in the setting of active malignancy, exacerbated by sepsis, acute infection Acute changes should improve with treatment of UTI PT/OT evaluate and treat, determine dispo plan Fall precautions PT recommending patient may be able to return home with home health #Sepsis #UTI // #Leukocytosis // #Elevated Lactate: UA and acute urinary symptoms suggestive of UTI +Leukocytosis, elevated lactate - lactate persistently elevated even after fluid resuscitation >30mL/kg Continue IV Ceftriaxone, Start Vanc given h/o E. Faecalis on prior urine culture Blood and urine cultures pending Bladder scan with PVR 107mL - repeat as needed if there is concern for urinary retention 05/05 seems to be clinically improving awaiting final results of Blood and Urine culture continue empiric Vanco + Ceftri for now 05/07 Urine culture: Proteus DC vancomycin Continue IV ceftriaxone #Shortness of Breath // #COPD: CXR negative for acute process. Subjective shortness of breath relieved with neb tx, no increase in supplemental O2 demand or cough/sputum production - therefore, would not characterize as a true COPD exacerbation but will augment home regimen: - Continue home inhalers (LABA/LAMA/ICS) - Duoneb Q6H - IV Solumedrol 30mg BID - Titrate supplemental O2 to maintain SpO2>90% 05/05 breathing is better as per patient on his baseline 3 L continue Nebs 1 more day of Solumedrol-> Prednisone tomorrow 05/06 Much better DC Solu-Medrol 05/07 Prednisone 40 mg daily Continue nebs #Anemia Hemoglobin decreased from 9.9, 8.1, 7.5 No melonie melena or hematochezia Positive for fecal occult blood test Has history of colon cancer, ascending colon -1 unit packed RBCs ordered Repeat H&H this evening -Hold Eliquis, aspirin Protonix IV twice daily N.p.o. postmidnight GI service consult anemia panel 05/07 Hemoglobin stable around 11 GI consulted: Anemia likely secondary to colon cancer, no EGD or colonoscopy at this point Will need to monitor closely while on Eliquis #Tachycardia: EKG consistent with SVT at rate of 131, likely combination of missing AM meds + volume contraction + acute infection S/p fluid resuscitation and electrolyte repletion No associated sx at this time, continue to monitor 05/07 currently on SR, HR normal continue management of sepsis Chronic Conditions: HLD: continue Atorvastatin Depression: continue Mirtazapine pAF: continue metoprolol, Eliquis - hold in light of anemia, resume tomorrow if Hg stable GERD: continue Protonix CAD: continue aspirin- hold, statin, BB Dispo: PT recommending d/c home when medically stable FEN/GI: HH diet VTE ppx: Eliquis- hold Full Code Admission and Anticipated Discharge Date Admission Date: May 04, 2024 Subjective Follow-up for UTI, COPD exacerbation, etc. Seen resting in bed, comfortable, on 3 L of O2 via nasal cannula States he feels fine overall No abdominal pain, no urinary symptoms, fevers or chills No shortness of breath, has occasional cough Denies melena or hematochezia Review of Systems Review of Systems: all noted and negative except for above Physical Exam Physical Exam: General- oriented x 3, not in distress, speaks in sentences with no effort or accessory muscle use Eyes- anicteric Neck- no JVD Lungs- clear breath sounds bilaterally, no crackles/wheezing Heart- normal rate, regular rhythm; no murmurs Abdomen- normal bowel sounds, nondistended, soft, nontender Extremities- no pretibial edema, no calf tenderness Neuro- alert, oriented x 3; no gross focal neurologic deficits Skin- warm & dry Results & Data Results & Data Vital Signs (Past 12 Hours) Vital Signs Temp Pulse Pulse Resp BP Pulse Ox O2 Del Method 05/07/24 15:43 36.2 C L 79 18 108/66 95 Room Air 05/07/24 14:51 85 05/07/24 13:50 88 15 100 Nasal Cannula 05/07/24 11:09 36.2 C L 71 16 115/73 99 Room Air 05/07/24 07:47 105 H 24 90 Room Air 05/07/24 07:30 36.3 C L 87 18 144/88 H 99 Room Air 05/07/24 07:10 87 O2 Flow Rate 05/07/24 15:43 05/07/24 14:51 05/07/24 13:50 3 05/07/24 11:09 05/07/24 07:47 05/07/24 07:30 05/07/24 07:10 all noted and reviewed including below
--- NOTE | 2024-05-07 16:57 | Oncology Consultation ---
Date of Consultation May 07, 2024 Assessment & Plan (1) Anemia: Transfuse packed red blood cells to maintain a hemoglobin greater than 7 g/dL (2) Colonic mass: . This is presumed to be colorectal cancer however we do not have a biopsy- proven diagnosis at this point. Have recommended CT-guided biopsy of one of the liver lesions. Unfortunately he has been evaluated by colorectal surgery in the past and has been deemed to be unfit for any kind of surgical treatment given his multiple comorbidities (3) Liver lesion: discussed with my hospital internal medicine colleagues and have recommended a CT-guided biopsy of the liver lesions Plan Thank you for this interesting hematological consult. A total of 60 minutes were spent in counseling, coordination of care, review of prior records. Medical oncology will continue to follow the patient make appropriate recommendations. History of Present Illness Reason for Consultation: Metastatic colorectal cancer Attending Physician: Darnell Spears MD History of Present Illness the patient is a very pleasant 78-year-old gentleman with multiple liver lesions and a colonic mass who comes to [facility] with a UTI, severe anemia. To date he does not have a biopsy-proven diagnosis of colorectal cancer, has multiple comorbidities. Previously we had sent him for a repeat colonoscopy, PET CT scan, biopsies however he failed to keep any of those appoi ntments. Recently he was evaluated in the clinic again for iron deficiency anemia, was noted to be septic and was sent to [facility] by my colleague Farrah Bush PA-C. He is currently very tired, is anemic. He had a recent CT scan in December which revealed multiple liver lesions. Medical oncology has been consulted to assist in management of this patient with presumed metastatic colorectal cancer without a biopsy-proven diagnosis till date, with recurrent anemia, and a large colonic mass. He has been evaluated by colorectal surgery and the patient and has been thought to be unfit for any kind of surgical procedure. Allergies Allergy/AdvReac Type Severity Reaction Status Date / Time simvastatin AdvReac Intermediate myalgia Verified 03/25/24 15:17 Home Medications Medication Instructions Recorded Confirmed Type mucus clearing device 06/13/21 03/25/24 History Portable Oxygen #1 ea 09/25/22 03/25/24 Rx albuterol sulfate 90 mcg/actuation 2 puff inhalation Q4H PRN 09/25/22 03/25/24 Rx aerosol inhaler shortness of breath or wheezing #8.5 grams nebulizers (Aeroneb Go Nebulizer) #1 ea 09/25/22 03/25/24 Rx latanoprost (PF) 0.005 % eye drops 1 drp OPB HS 02/01/23 03/25/24 History in a dropperette polyethylene glycol 3350 17 17 g PO DAILY PRN Constipation 02/01/23 03/25/24 History gram/dose oral powder tamsulosin 0.4 mg capsule 0.4 mg PO DAILY 02/01/23 03/25/24 History L.acidop,casei,lactis,rham-B.lact,shaunna 1 cap PO DAILY #0 caps 07/14/23 03/25/24 Rx 625 mg (10 billion cell) capsule (Advanced Probiotic) acetaminophen 325 mg tablet 650 mg (2 x 325 mg) PO Q4H PRN #0 07/14/23 03/25/24 Rx tabs apixaban 5 mg tablet (Eliquis) 5 mg PO BID #0 tabs 07/14/23 03/25/24 Rx aspirin 81 mg tablet,delayed 81 mg PO QAM #0 tabs 07/14/23 03/25/24 Rx release cholecalciferol (vitamin D3) 125 125 mcg PO QAM #0 tabs 07/14/23 03/25/24 Rx mcg (5,000 unit) tablet ipratropium 0.5 mg-albuterol 3 mg 3 ml NEB QIDR PRN shortness of 07/14/23 03/25/24 Rx (2.5 mg base)/3 mL nebulization breath or wheezing #0 mL soln metoprolol succinate 25 mg 25 mg PO QAM #0 tabs 07/14/23 03/25/24 Rx tablet,extended release 24 hr pantoprazole 40 mg tablet,delayed 40 mg PO BID #0 tabs 07/14/23 03/25/24 Rx release thiamine HCl (vitamin B1) 100 mg 200 mg (2 x 100 mg) PO BID #0 tabs 07/14/23 03/25/24 Rx tablet mometasone-formoterol HFA 50 mcg-5 2 puff inhalation Q12H #13 grams 08/17/23 03/25/24 Rx mcg/actuation aerosol inhaler (Dulera) aluminum-magnesium hydroxide 200 30 ml PO Q6H PRN Indigestion 08/19/23 03/25/24 History mg-200 mg/5 mL oral suspension (MAG-AL) atorvastatin 20 mg tablet 20 mg PO QAM 08/19/23 03/25/24 History loperamide 2 mg capsule (Imodium 2 mg PO Q4H PRN Diarrhea 08/19/23 03/25/24 History A-D) melatonin 5 mg capsule 5 mg PO HS 08/19/23 03/25/24 History umeclidinium 62.5 mcg/actuation 1 inh inhalation QAM 08/19/23 03/25/24 History blister powder for inhalation (Incruse Ellipta) mirtazapine 15 mg tablet (Remeron) 15 mg PO HS 08/26/23 03/25/24 History tiotropium bromide 2.5 1 puff inhalation DAILY 08/26/23 03/25/24 History mcg/actuation mist for inhalation (Spiriva Respimat) peg 3350-electrolytes 236 240 ml PO Q10M #4,000 mL 10/01/23 03/25/24 Rx gram-22.74 gram-6.74 gram-5.86 gram solution (GaviLyte-G) cephalexin 500 mg capsule 500 mg PO TID 03/25/24 03/25/24 History Patient History Medical History History of confusion per record 07/07, pt. 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 ron, [facility] [place]- [place] 04/08 Pacemaker (03/2023) [facility], [employer] Multiple pulmonary nodules Hx of migraines Hypertension GERD (gastroesophageal reflux disease) Dyslipidemia Depression Complete heart block Medtronic pacemaker 03/2023, follows with [facility] On home O2 2L continous Chronic respiratory failure with hypoxia 2L 02 continuously C. 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 ron, [facility] [place] Surgical History History of bronchoscopy (08/26/23) [facility] History of esophagogastroduodenoscopy (EGD) Hx of colonoscopy History of cryosurgery for prostate cancer S/P cardiac pacemaker procedure (03/2023) [facility] - follows with cardio at [facility] History of cataract removal with insertion of prosthetic lens bilateral H/O umbilical hernia repair (2007) Family History Mother , Cancer Cancer Father , Cancer Colorectal cancer Sister Heart disorder Stroke Brother Prostate cancer Denies family history of Crohn's disease Ulcerative colitis Social History Smoking Status: Former smoker Tobacco Type: Cigarettes Age Started Using Tobacco: 12; Age Quit Using Tobacco: 60; packs per day: 2.5; Cigarettes Per Day: 120 pack years; Second Hand Exposure: No; Do You Dip or Chew Tobacco: No; Hx Alcohol Use: No Hx Substance Use: No Preferred Language: [place] Communication Ability: Effective Car Knocker Required: No Beliefs That Will Affect Care: None Current Living Situation: Alone Current Living Situation Comment: nursing comes in 2x per week Feels Safe at Home: Yes Assistive Devices: Cane, Oxygen - Continuous, Walker and Wheelchair Review of Systems Review of Systems: All systems reviewed & are unremarkable except as noted in HPI & below Constitutional: as per Subjective / HPI Eyes: as per Subjective / HPI Ear, Nose, Mouth, Throat: as per Subjective / HPI Respiratory: as per Subjective / HPI Cardiovascular: as per Subjective / HPI Gastrointestinal: as per Subjective / HPI Genitourinary: + as per Subjective / HPI Musculoskeletal: as per Subjective / HPI Integumentary: as per Subjective / HPI Neurologic: as per Subjective / HPI Psychiatric: as per Subjective / HPI Endocrine: as per Subjective / HPI Physical Exam Constitutional: WD/WN, vitals as above Eyes: PERRL, conjunctivae normal, anicteric sclerae ENMT: external ear and nose normal, oropharynx normal Neck: trachea midline, no thyromegaly Respiratory: normal respiratory effort, lungs clear to auscultation Cardiovascular: RRR, no murmur, no edema Gastrointestinal (Abdomen): normal bowel sounds, soft, nontender, no hepatosplenomegaly Musculoskeletal: no cyanosis or clubbing, extremities motor strength 5/5 Skin: no rashes, warm and dry Neurologic: patellar DTR's 2+ bilat, sensation intact Psychiatric: A+Ox3, euthymic affect Results & Data Vital Signs (Past 12 Hours) Vital Signs Temp Pulse Pulse Resp BP Pulse Ox O2 Del Method 05/07/24 15:43 36.2 C L 79 18 108/66 95 Room Air 05/07/24 14:51 85 05/07/24 13:50 88 15 100 Nasal Cannula 05/07/24 11:09 36.2 C L 71 16 115/73 99 Room Air 05/07/24 07:47 105 H 24 90 Room Air 05/07/24 07:30 36.3 C L 87 18 144/88 H 99 Room Air 05/07/24 07:10 87 O2 Flow Rate 05/07/24 15:43 05/07/24 14:51 05/07/24 13:50 3 05/07/24 11:09 05/07/24 07:47 05/07/24 07:30 05/07/24 07:10 (1) Anemia Anemia type: unspecified type Qualified Code(s): D64.9 - Anemia, unspecified
[2024-05-08 08:10] LABS: Potassium 4.5 mmol/L (3.5-5.1)
[2024-05-08 08:16] LABS: Creatinine Clr Calc Pharmacy 42.8 ml/min
[2024-05-08 08:38] LABS: Basophils # (auto) 0.01 K/uL (0.00-0.20); Basophils % (auto) 0.1 %; Eosinophils # (auto) 0.08 K/uL (0.00-0.50); Eosinophils % (auto) 0.5 %; Hematocrit (blood only) 36.6 % (42.0-52.0); Hemoglobin 11.1 g/dl (14.0-18.0); Immature Granulocytes # (auto) 0.11 K/uL (0.01-0.20); Immature Granulocytes % (auto) 0.7 %; Lymphocytes # (auto) 1.45 K/uL (1.20-3.40); Lymphocytes % (auto) 9.4 %; Mean Corpuscular Hemoglobin 26.4 pg (25.0-34.0); Mean Corpuscular Hgb Conc 30.3 g/dL (32.0-36.0); Mean Corpuscular Volume 87.1 fL (80.0-100.0); Mean Platelet Volume 9.5 fL (9.4-12.4); Monocytes % (auto) 7.2 %; Neutrophils % (auto) 82.1 %; Platelet Count 177 K/uL (130-400); RDW Coefficient of Variation 19.3 % (11.5-14.5); RDW Standard Deviation 60.5 fL (36.4-46.3); White Blood Count 15.35 K/ul (4.8-10.8)
--- NOTE | 2024-05-08 14:17 | Hospitalist Progress Note ---
Date of Service May 08, 2024 Assessment & Plan (1) Weakness: Plan: Assessment & Plan (1) Acute UTI: Plan: per admitting service notes with addendum: 78 year old male with extensive past medical history that includes active colon cancer, pAF, tachy-tiffany syndrome with intermittent high grade heart block s/p pacemaker placement, CAD, depression, COPD, anemia, HLD, HTN presenting with generalized weakness: #Generalized weakness #FTT: Multifactorial - chronic failure to thrive in the setting of active malignancy, exacerbated by sepsis, acute infection Acute changes should improve with treatment of UTI PT/OT evaluate and treat, determine dispo plan Fall precautions PT recommending patient may be able to return home with home health 05/08 Seems to be weaker today Will request PT to re-evaluate the patient tomorrow #Sepsis #UTI // #Leukocytosis // #Elevated Lactate: UA and acute urinary symptoms suggestive of UTI +Leukocytosis, elevated lactate - lactate persistently elevated even after fluid resuscitation >30mL/kg Continue IV Ceftriaxone, Start Vanc given h/o E. Faecalis on prior urine culture Blood and urine cultures pending Bladder scan with PVR 107mL - repeat as needed if there is concern for urinary retention 05/05 seems to be clinically improving awaiting final results of Blood and Urine culture continue empiric Vanco + Ceftri for now 05/07 Urine culture: Proteus DC vancomycin Continue IV ceftriaxone 05/08 Continue IV ceftriaxone #Shortness of Breath // #COPD: CXR negative for acute process. Subjective shortness of breath relieved with neb tx, no increase in supplemental O2 demand or cough/sputum production - therefore, would not characterize as a true COPD exacerbation but will augment home regimen: - Continue home inhalers (LABA/LAMA/ICS) - Duoneb Q6H - IV Solumedrol 30mg BID - Titrate supplemental O2 to maintain SpO2>90% 05/05 breathing is better as per patient on his baseline 3 L continue Nebs 1 more day of Solumedrol-> Prednisone tomorrow 05/06 Much better DC Solu-Medrol 05/07 Prednisone 40 mg daily Continue nebs 05/08 Repeat chest x-ray Sputum culture Prednisone 40 mg daily Add Perforomist, Pulmicort Add doxycycline twice daily 9 #Anemia Hemoglobin decreased from 9.9, 8.1, 7.5 No melonie melena or hematochezia Positive for fecal occult blood test Has history of colon cancer, ascending colon -1 unit packed RBCs ordered Repeat H&H this evening -Hold Eliquis, aspirin Protonix IV twice daily N.p.o. postmidnight GI service consult anemia panel 05/07 Hemoglobin stable around 11 GI consulted: Anemia likely secondary to colon cancer, no EGD or colonoscopy at this point Will need to monitor closely while on Eliquis 05/08 (+) Melena Hg stable repeat CBC tomorrow hold Eliquis, ASA #Tachycardia: EKG consistent with SVT at rate of 131, likely combination of missing AM meds + volume contraction + acute infection S/p fluid resuscitation and electrolyte repletion No associated sx at this time, continue to monitor 05/08 currently on SR, HR normal continue management of sepsis Chronic Conditions: HLD: continue Atorvastatin Depression: continue Mirtazapine pAF: continue metoprolol, Eliquis - hold in light of anemia, resume tomorrow if Hg stable GERD: continue Protonix CAD: continue aspirin- hold, statin, BB Dispo: PT recommending d/c home when medically stable FEN/GI: HH diet VTE ppx: Eliquis- hold Full Code Admission and Anticipated Discharge Date Admission Date: May 04, 2024 Subjective ff up for UTI, COPD, Anemia, etc seen resting in bed, comfortable nebs in progress states he has some dyspnea Ambulating to the bathroom Having some increased cough With yellow sputum Noted to have melena today per electrician substation of Systems Review of Systems: all noted and negative except for above Physical Exam Physical Exam: General- oriented x 3, not in distress, speaks in sentences with no effort or accessory muscle use Eyes- anicteric Neck- no JVD Lungs- diminished BS bilaterally Heart- normal rate, regular rhythm; no murmurs Abdomen- normal bowel sounds, nondistended, soft, nontender Extremities- no pretibial edema, no calf tenderness Neuro- alert, oriented x 3; no gross focal neurologic deficits Skin- warm & dry Results & Data Results & Data Vital Signs (Past 12 Hours) Vital Signs Temp Pulse Pulse Resp BP BP Pulse Ox 05/08/24 13:51 101 H 17 98 05/08/24 11:27 36.4 C L 84 17 111/69 99 05/08/24 10:00 05/08/24 08:18 36.6 C 88 18 119/75 100 05/08/24 07:36 75 05/08/24 07:07 65 18 95 05/08/24 02:37 36.7 C 79 17 127/75 94 O2 Del Method O2 Flow Rate 05/08/24 13:51 Nasal Cannula 3 05/08/24 11:27 Nasal Cannula 3.5 05/08/24 10:00 Nasal Cannula 3.5 05/08/24 08:18 Nasal Cannula 3.5 05/08/24 07:36 05/08/24 07:07 Nasal Cannula 2.5 05/08/24 02:37 Nasal Cannula 2 all noted and reviewed including below
[2024-05-08] MEDS: predniSONE 20 MG TAB PO SCH (14:35)
--- NOTE | 2024-05-08 14:39 | XRay Report ---
INDICATION: Cough. TECHNIQUE: Frontal radiograph of the chest. COMPARISON: Radiograph from 05/04/2024. FINDINGS: Hyperinflated lungs likely related to COPD. The heart is not enlarged. Left-sided pacemaker again noted. Right greater than left pleural effusions with atelectasis/airspace disease, slightly worsened from prior. No pneumothorax. No acute fracture. IMPRESSION: Right greater than left pleural effusions with atelectasis/airspace disease, slightly worsened from prior. Electronically signed by Param Thomas 05-08-2024 2:38 PM
[2024-05-08] MEDS: DOXYCYCLINE HYCLATE 100 MG CAP PO SCH (20:30)
[2024-05-08] MEDS: FORMOTEROL 20 MCG/2 ML VIAL NEB SCH (20:46)
[2024-05-08] MEDS: BUDESONIDE 0.5 MG/2 ML VIAL (PULMICORT) NEB SCH (20:46)
[2024-05-09 07:34] LABS: Hematocrit (blood only) 32.8 % (42.0-52.0); Hemoglobin 9.9 g/dl (14.0-18.0); Mean Corpuscular Hemoglobin 26.5 pg (25.0-34.0); Mean Corpuscular Hgb Conc 30.2 g/dL (32.0-36.0); Mean Corpuscular Volume 87.7 fL (80.0-100.0); Platelet Count 157 K/uL (130-400); RDW Coefficient of Variation 19.3 % (11.5-14.5); RDW Standard Deviation 60.2 fL (36.4-46.3); Red Blood Count 3.74 M/uL (4.70-6.10); White Blood Count 12.61 K/ul (4.8-10.8)
[2024-05-09 08:18] LABS: Basophilic Stippling 1+; Basophils # (auto) 0.01 K/uL (0.00-0.20); Basophils % (auto) 0.1 %; Immature Granulocytes % (auto) 0.8 %; Lymphocytes # (auto) 0.51 K/uL (1.20-3.40); Monocytes % (auto) 2.4 %; Neutrophils # (auto) 11.69 K/uL (1.40-6.50); Neutrophils % (auto) 92.7 %; Polychromasia 2+; Tear Drop Cells 1+
[2024-05-09 09:08] LABS: BUN Creatinine Ratio 24.8 (10-20); Potassium 5.4 mmol/L (3.5-5.1)
[2024-05-09] MEDS: CEFEPIME 2000MG 2,000 MG/20 ML SYR IV SCH (09:58)
--- NOTE | 2024-05-09 16:54 | Hospitalist Progress Note ---
Date of Service May 09, 2024 Assessment & Plan (1) Weakness: Plan: Assessment & Plan (1) Acute UTI: Plan: per admitting service notes with addendum: 78 year old male with extensive past medical history that includes active colon cancer, pAF, tachy-tiffany syndrome with intermittent high grade heart block s/p pacemaker placement, CAD, depression, COPD, anemia, HLD, HTN presenting with generalized weakness: #Generalized weakness #FTT: Multifactorial - chronic failure to thrive in the setting of active malignancy, exacerbated by sepsis, acute infection Acute changes should improve with treatment of UTI PT/OT evaluate and treat, determine dispo plan Fall precautions PT recommending patient may be able to return home with home health 05/08 Seems to be weaker today Will request PT to re-evaluate the patient tomorrow 05/09 continue PT/OT eval #Sepsis #UTI // #Leukocytosis // #Elevated Lactate: UA and acute urinary symptoms suggestive of UTI +Leukocytosis, elevated lactate - lactate persistently elevated even after fluid resuscitation >30mL/kg Continue IV Ceftriaxone, Start Vanc given h/o E. Faecalis on prior urine culture Blood and urine cultures pending Bladder scan with PVR 107mL - repeat as needed if there is concern for urinary retention 05/05 seems to be clinically improving awaiting final results of Blood and Urine culture continue empiric Vanco + Ceftri for now 05/07 Urine culture: Proteus DC vancomycin Continue IV ceftriaxone 05/08 Continue IV ceftriaxone 05/09 Sputum culture: (+) Pseudomonas change Ceftriaxone to Cefepime (abx day #5 total) #Shortness of Breath // #COPD: CXR negative for acute process. Subjective shortness of breath relieved with neb tx, no increase in supplemental O2 demand or cough/sputum production - therefore, would not characterize as a true COPD exacerbation but will augment home regimen: - Continue home inhalers (LABA/LAMA/ICS) - Duoneb Q6H - IV Solumedrol 30mg BID - Titrate supplemental O2 to maintain SpO2>90% 05/05 breathing is better as per patient on his baseline 3 L continue Nebs 1 more day of Solumedrol-> Prednisone tomorrow 05/06 Much better DC Solu-Medrol 05/07 Prednisone 40 mg daily Continue nebs 05/08 Repeat chest x-ray Sputum culture Prednisone 40 mg daily Add Perforomist, Pulmicort Add doxycycline twice daily 05/09 Cefepime started continue present regimen #Anemia Hemoglobin decreased from 9.9, 8.1, 7.5 No melonie melena or hematochezia Positive for fecal occult blood test Has history of colon cancer, ascending colon -1 unit packed RBCs ordered Repeat H&H this evening -Hold Eliquis, aspirin Protonix IV twice daily N.p.o. postmidnight GI service consult anemia panel 05/07 Hemoglobin stable around 11 GI consulted: Anemia likely secondary to colon cancer, no EGD or colonoscopy at this point Will need to monitor closely while on Eliquis 05/08 (+) Melena Hg stable repeat CBC tomorrow hold Eliquis, ASA 05/09 HG dropped to 9 hold Eliquis , ASA #Tachycardia: EKG consistent with SVT at rate of 131, likely combination of missing AM meds + volume contraction + acute infection S/p fluid resuscitation and electrolyte repletion No associated sx at this time, continue to monitor 05/08 currently on SR, HR normal continue management of sepsis Chronic Conditions: HLD: continue Atorvastatin Depression: continue Mirtazapine pAF: continue metoprolol, Eliquis - hold in light of anemia, resume tomorrow if Hg stable GERD: continue Protonix CAD: continue aspirin- hold, statin, BB Dispo: PT recommending d/c home when medically stable will request PT to re-eval patient FEN/GI: HH diet VTE ppx: Eliquis- hold Full Code Admission and Anticipated Discharge Date Admission Date: May 04, 2024 Subjective Seen resting in bed, comfortable, not in distress, on 2 L O2 States breathing is better today than yesterday States cough is also improving No abdominal pain No other new symptoms Review of Systems Review of Systems: all noted and negative except for above Physical Exam Physical Exam: General- oriented x 3, not in distress, speaks in sentences with no effort or accessory muscle use Eyes- anicteric Neck- no JVD Lungs- somewhat diminished but clear breath sounds bilaterally, no crackles/wheezing Heart- normal rate, regular rhythm; no murmurs Abdomen- normal bowel sounds, nondistended, soft, nontender Extremities- no pretibial edema, no calf tenderness Neuro- alert, oriented x 3; no gross focal neurologic deficits Skin- warm & dry Results & Data Results & Data Vital Signs (Past 12 Hours) Vital Signs Temp Pulse Pulse Resp BP Pulse Ox O2 Del Method 05/09/24 15:36 36.3 C L 84 20 112/66 99 Nasal Cannula 05/09/24 12:42 88 17 92 Nasal Cannula 05/09/24 10:59 36.2 C L 91 H 19 115/71 100 Nasal Cannula 05/09/24 08:00 Nasal Cannula 05/09/24 07:49 36.8 C 93 H 17 123/76 99 Nasal Cannula 05/09/24 07:17 96 H 05/09/24 07:12 76 17 99 Nasal Cannula O2 Flow Rate 05/09/24 15:36 4 05/09/24 12:42 5 05/09/24 10:59 5 05/09/24 08:00 4 05/09/24 07:49 4 05/09/24 07:17 05/09/24 07:12 3 all noted and reviewed including below
[2024-05-10 08:42] LABS: Basophils # (auto) 0.01 K/uL (0.00-0.20); Basophils % (auto) 0.1 %; Hematocrit (blood only) 33.4 % (42.0-52.0); Immature Granulocytes # (auto) 0.11 K/uL (0.01-0.20); Immature Granulocytes % (auto) 0.6 %; Lymphocytes # (auto) 1.07 K/uL (1.20-3.40); Lymphocytes % (auto) 6.1 %; Mean Corpuscular Hemoglobin 26.7 pg (25.0-34.0); Mean Corpuscular Hgb Conc 29.9 g/dL (32.0-36.0); Mean Corpuscular Volume 89.3 fL (80.0-100.0); Mean Platelet Volume 9.6 fL (9.4-12.4); Monocytes # (auto) 0.75 K/uL (0.11-0.59); Monocytes % (auto) 4.3 %; Neutrophils # (auto) 15.51 K/uL (1.40-6.50); Neutrophils % (auto) 88.9 %; Platelet Count 190 K/uL (130-400); RDW Coefficient of Variation 19.6 % (11.5-14.5); RDW Standard Deviation 62.6 fL (36.4-46.3); Red Blood Count 3.74 M/uL (4.70-6.10); White Blood Count 17.45 K/ul (4.8-10.8)
[2024-05-10 08:49] LABS: BUN Creatinine Ratio 31.5 (10-20); Calcium 8.1 mg/dl (8.6-10.3); Creatinine Clr Calc Pharmacy 51.1 ml/min; Potassium 4.8 mmol/L (3.5-5.1)
--- NOTE | 2024-05-10 17:08 | Hospitalist Progress Note ---
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, CAD, depression, COPD, anemia, HLD, HTN presenting with generalized weakness: #Generalized weakness #FTT: Multifactorial - chronic failure to thrive in the setting of active malignancy, exacerbated by sepsis, acute infection Acute changes should improve with treatment of UTI PT/OT evaluate and treat, determine dispo plan Fall precautions PT recommending patient may be able to return home with home health 05/10 Seems to be weaker today Will request PT to re-evaluate the patient tomorrow #Sepsis #UTI // #Leukocytosis // #Elevated Lactate: UA and acute urinary symptoms suggestive of UTI +Leukocytosis, elevated lactate - lactate persistently elevated even after fluid resuscitation >30mL/kg 05/10 clinically improved Urine culture: Proteus given IV ceftriaxone 05/09 Sputum culture: (+) Pseudomonas changed Ceftriaxone to Cefepime (abx day #6 total) #Shortness of Breath // #COPD: CXR negative for acute process. Subjective shortness of breath relieved with neb tx, no increase in supplemental O2 demand or cough/sputum production - therefore, would not characterize as a true COPD exacerbation but will augment home regimen: - Continue home inhalers (LABA/LAMA/ICS) - Duoneb Q6H - IV Solumedrol 30mg BID - Titrate supplemental O2 to maintain SpO2>90% 05/10 gradually improving back to baseline 2.5L now on Prednisone 40 mg daily- taper gradually Continue nebs #Anemia Hemoglobin decreased from 9.9, 8.1, 7.5 No melonie melena or hematochezia Positive for fecal occult blood test Has history of colon cancer, ascending colon -1 unit packed RBCs ordered -Hold Eliquis, aspirin Protonix IV twice daily N.p.o. postmidnight GI service consult anemia panel 05/07 Hemoglobin stable around 11 GI consulted: Anemia likely secondary to colon cancer, no EGD or colonoscopy at this point Will need to monitor closely while on Eliquis 05/08 (+) Melena Hg stable repeat CBC tomorrow hold Eliquis, ASA 05/09 HG dropped to 9 hold Eliquis , ASA 05/10 still (+) for melena per RN Hg stable so far continue to monitor, repeat Hg tomorrow hold Samantha, ASA for now #Tachycardia: EKG consistent with SVT at rate of 131, likely combination of missing AM meds + volume contraction + acute infection S/p fluid resuscitation and electrolyte repletion No associated sx at this time, continue to monitor 05/09 currently on SR, HR normal continue management of sepsis Chronic Conditions: HLD: continue Atorvastatin Depression: continue Mirtazapine pAF: continue metoprolol, Eliquis - hold in light of anemia GERD: continue Protonix CAD: continue aspirin- hold, statin, BB Dispo: PT recommending d/c home when medically stable will request PT to re-eval patient FEN/GI: HH diet VTE ppx: Eliquis- hold Full Code Admission and Anticipated Discharge Date Admission Date: May 04, 2024 Subjective ff up for UTI, COPD exacerbation etc seen resting in bed, comfortable on 2.5L O2- baseline states breathing is improving less cough no chest pain, palpitations ,dizziness no abdominal pain no other symptoms Review of Systems Review of Systems: all noted and negative except for above Physical Exam Physical Exam: General- oriented x 3, not in distress, speaks in sentences with no effort or accessory muscle use Eyes- anicteric Neck- no JVD Lungs- somewhat diminished but clear breath sounds bilaterally, no rales/wheezes Heart- normal rate, regular rhythm; no murmurs Abdomen- normal bowel sounds, nondistended, soft, nontender Extremities- no pretibial edema, no calf tenderness Neuro- alert, oriented x 3; no gross focal neurologic deficits Skin- warm & dry Results & Data Results & Data Vital Signs (Past 12 Hours) Vital Signs Temp Pulse Pulse Resp BP Pulse Ox O2 Del Method 05/10/24 15:44 36.5 C 86 17 118/72 98 Nasal Cannula 05/10/24 14:46 90 05/10/24 12:33 93 H 20 98 Nasal Cannula 05/10/24 10:32 36.3 C L 85 17 111/66 98 Nasal Cannula 05/10/24 07:59 36.6 C 96 H 18 131/73 96 Nasal Cannula 05/10/24 07:57 Nasal Cannula 05/10/24 07:37 36.4 C L 83 18 108/71 97 Nasal Cannula 05/10/24 07:31 72 05/10/24 07:03 68 18 92 Nasal Cannula O2 Flow Rate 05/10/24 15:44 3 05/10/24 14:46 05/10/24 12:33 3.5 05/10/24 10:32 3 05/10/24 07:59 3.5 05/10/24 07:57 4 05/10/24 07:37 3 05/10/24 07:31 05/10/24 07:03 4 all noted and reviewed including below
[2024-05-11 07:14] LABS: Hematocrit (blood only) 31.2 % (42.0-52.0); Hemoglobin 9.4 g/dl (14.0-18.0); Mean Corpuscular Hemoglobin 26.6 pg (25.0-34.0); Mean Corpuscular Hgb Conc 30.1 g/dL (32.0-36.0); Mean Corpuscular Volume 88.4 fL (80.0-100.0); Mean Platelet Volume 9.5 fL (9.4-12.4); Platelet Count 167 K/uL (130-400); RDW Coefficient of Variation 20.2 % (11.5-14.5); RDW Standard Deviation 62.8 fL (36.4-46.3); Red Blood Count 3.53 M/uL (4.70-6.10); White Blood Count 16.94 K/ul (4.8-10.8)
[2024-05-11 07:47] LABS: BUN Creatinine Ratio 33.7 (10-20); Creatinine Clr Calc Pharmacy 49.4 ml/min; Potassium 5.2 mmol/L (3.5-5.1)
[2024-05-11 07:59] LABS: Anisocytosis Present; Basophils # (auto) 0.01 K/uL (0.00-0.20); Basophils % (auto) 0.1 %; Hypochromasia Present; Immature Granulocytes # (auto) 0.13 K/uL (0.01-0.20); Immature Granulocytes % (auto) 0.8 %; Lymphocytes # (auto) 0.75 K/uL (1.20-3.40); Lymphocytes % (auto) 4.4 %; Monocytes # (auto) 0.65 K/uL (0.11-0.59); Monocytes % (auto) 3.8 %; Neutrophils % (auto) 90.9 %; Polychromasia 1+
[2024-05-11] MEDS: levoFLOXacin 750 MG TAB PO SCH (09:37)
--- NOTE | 2024-05-11 14:29 | Hospitalist Progress Note ---
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, CAD, depression, COPD, anemia, HLD, HTN presenting with generalized weakness: #Generalized weakness #Failure to thrive Multifactorial - chronic failure to thrive in the setting of active malignancy, exacerbated by sepsis, acute infection Acute changes should improve with treatment of UTI PT/OT evaluate and treat, determine dispo plan Fall precautions PT recommending patient may be able to return home with home health #Possible Sepsis #UTI /Possible pneumonia UA and acute urinary symptoms suggestive of UTI Sputum culture: (+) Pseudomonas Continue on Levaquin; plan for treatment for 5 days #Shortness of Breath // #COPD: CXR negative for acute process. Subjective shortness of breath relieved with neb tx, no increase in supplemental O2 demand or cough/sputum production: - Continue home inhalers (LABA/LAMA/ICS) - Duonebs Q6H back to baseline 2.5L now on Prednisone 40 mg daily- taper gradually Continue nebs #Anemia Hemoglobin decreased from 9.9 to 7.5 g/dl. No melonie melena or hematochezia Positive for fecal occult blood test Has history of colon cancer, ascending colon -Hold Eliquis, aspirin Continue Protonix IV twice daily Evaluated by hematology/oncology on 05/07; recommended IR guided liver biopsy. Discussed with IR; plan to do it on 05/12; aspirin and Eliquis has been on hold. npo from midnight. #Tachycardia: EKG consistent with SVT at rate of 131, likely combination of missing AM meds + volume contraction + acute infection S/p fluid resuscitation and electrolyte repletion No associated sx at this time, continue to monitor no alarms on telemetry Chronic Conditions: HLD: continue Atorvastatin Depression: continue Mirtazapine pAF: continue metoprolol, Eliquis - hold in light of anemia GERD: continue Protonix CAD: continue aspirin- hold, statin, BB Dispo: PT recommending d/c home when medically stable will request PT to re-eval patient FEN/GI: HH diet VTE ppx: Eliquis- hold Full code Time spent evaluating patient, direct bedside care, chart review, placing orders, interpretation of diagnostic studies, discussion with consultants, patient, and family members, as well as other required patient management activities is 50 minutes Please note the above document was generated using voice recognition software. It may contain grammatical, syntax or spelling errors. Any formal questions or concerns about the content, text or information contained within the body of this dictation should be directly addressed to the provider for clarification Admission and Anticipated Discharge Date Admission Date: May 04, 2024 Subjective Patient seen and examined at bedside. Comfortable; not in distress. Denies fever, chills, chest pain, shortness of breath, abdominal pain or urinary symptoms. No significant overnight events Review of Systems Review of Systems: All systems reviewed & are unremarkable except as noted in Subjective Physical Exam Physical Exam: General- oriented x 3, not in distress, speaks in sentences with no effort or accessory muscle use Eyes- anicteric Neck- no JVD Lungs- somewhat diminished but clear breath sounds bilaterally, no rales/wheezes Heart- normal rate, regular rhythm; no murmurs Abdomen- normal bowel sounds, nondistended, soft, nontender Extremities- no pretibial edema, no calf tenderness Neuro- alert, oriented x 3; no gross focal neurologic deficits Skin- warm & dry Results & Data Results & Data Vital Signs (Past 12 Hours) Vital Signs Temp Pulse Pulse Resp BP BP Pulse Ox 05/11/24 13:48 78 22 100 05/11/24 11:12 36.4 C L 82 18 119/70 100 05/11/24 09:05 05/11/24 08:29 74 20 93 05/11/24 08:23 74 05/11/24 07:13 36.3 C L 83 16 120/67 99 05/11/24 02:47 36.6 C 88 16 125/74 98 O2 Del Method O2 Flow Rate 05/11/24 13:48 Nasal Cannula 2 05/11/24 11:12 Nasal Cannula 2.0 05/11/24 09:05 Nasal Cannula 2 05/11/24 08:29 Nasal Cannula 2.5 05/11/24 08:23 05/11/24 07:13 Nasal Cannula 2.0 05/11/24 02:47 Nasal Cannula 2
[2024-05-11] MEDS: SODIUM ZIRCONIUM CYCLOSILICATE 10 GM PACKET PO STA (17:34)
[2024-05-12 06:24] LABS: Basophils # (auto) 0.01 K/uL (0.00-0.20); Basophils % (auto) 0.1 %; Hematocrit (blood only) 29.6 % (42.0-52.0); Hemoglobin 8.9 g/dl (14.0-18.0); Immature Granulocytes # (auto) 0.09 K/uL (0.01-0.20); Immature Granulocytes % (auto) 0.5 %; Lymphocytes # (auto) 0.81 K/uL (1.20-3.40); Lymphocytes % (auto) 4.8 %; Mean Corpuscular Hemoglobin 26.5 pg (25.0-34.0); Mean Corpuscular Hgb Conc 30.1 g/dL (32.0-36.0); Mean Corpuscular Volume 88.1 fL (80.0-100.0); Mean Platelet Volume 9.2 fL (9.4-12.4); Monocytes # (auto) 0.82 K/uL (0.11-0.59); Monocytes % (auto) 4.9 %; Neutrophils # (auto) 15.16 K/uL (1.40-6.50); Neutrophils % (auto) 89.7 %; Platelet Count 165 K/uL (130-400); RDW Coefficient of Variation 20.6 % (11.5-14.5); RDW Standard Deviation 62.3 fL (36.4-46.3); Red Blood Count 3.36 M/uL (4.70-6.10); White Blood Count 16.89 K/ul (4.8-10.8)
[2024-05-12 06:46] LABS: BUN Creatinine Ratio 37.3 (10-20); Calcium 8.1 mg/dl (8.6-10.3); Creatinine Clr Calc Pharmacy 54.5 ml/min; Potassium 4.8 mmol/L (3.5-5.1)
[2024-05-12 07:08] LABS: Anisocytosis Present; Stomatocytes 1+
--- NOTE | 2024-05-12 09:07 | Palliative Care Consultation ---
Date of Consultation May 12, 2024 Assessment & Plan (1) Palliative care by specialist: Met with pt at bedside, no visitors present. Introduced Palliative Medicine and explained our role in advanced care planning, symptom management and navigation through the progression of life limiting disease. Patient and/or family were receptive to palliative services for goals of care discussions. Reviewed we are different from hospice, a home health nurse visiting service. (2) ACP (advance care planning): Discussed CP woth pt for 45 minutes. In summary, Pt focused on results of liver biopsy and hopeful for treatment options that might give him more time, he shared feeling shocked when he was given prognosis of 6mo - 1yr last summer. He shared that he is and has 4 adult children. Discussed importance of revising his LW/AD and importance of selecting a HCPOA who knows his wishes, will be available if needed and is willing to honor his wishes. Discussed importance of speaking with his chosen proxy now and throughout disease progression to keep them aware of his values and wishes. (3) Counseling regarding advanced directives and goals of care: Patient currently exhibits decisional capacity based on the ability to convey understanding of personal PMHx, current medical condition, treatment options nor the risks / benefits of those options, and lack of ability to make decisions based on such knowledge. Hospital does not have written documentation of patient wishes concerning his chosen proxy for medical decisions. Per PA [id number], in absence of written documentation of patient wishes, pt's proxy for medical decisions would be his adult children (Abhijit Noah, jasbir Noah, Sandra Paez, and Lars Paez). However Pt verbalized that for this and all future admissions, pt elects his sister Princess Hernandez ([phone]) to be his primary MDM proxy and his neighbor/friend of 16yrs Fadi Avila to be back up MDM proxy in the event he does not have decisional capacity. Pt does not currently require a proxy for medical decisions. Pt shared that he had previously completed an advanced directive, but would like to revise it because his primary HCPOA, his son Milton, has since . Blank advanced directive paperwork supplied for pt to review/complete. Pt shared that he had liver biopsy completed today and is awaiting results to de termine treatment options. Pt states that he has spoke with the oncologist and was given a prognosis of less than a year last summer and wa told he is too ill and debilitated for any type of surgery or radiation therapy. He shared hope that the biopsy reveals a type of cancer that will be treatable with chemotherapy. Plan Continue current level of care, pt eager for biopsy results to determine further treatment plan. Palliative care will continue to follow for ongoing ACP and navigation throughout disease progression. 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 He has been followed bymed-onc with assumed Dx of colon cancer without biopsy- proven diagnosis of colorectal cancer. He has multiple comorbidities. Colonoscopy, PET CT scan, biopsies were ordered however he failed to keep any of those appointments. Recently he was evaluated in the clinic for iron deficiency anemia, was noted to be septic and was sent to [facility] by Farrah Bush PA-C. He is currently very tired, is anemic. He had a recent CT scan in December which revealed multiple liver lesions. Medical oncology is following this admission for assistance/treatment rec's for presumed metastatic colorectal cancer w/o biopsy-proven diagnosis, with recurrent anemia, and a large colonic mass. Onc recommended IR guided Bx of liver lesion which was obtained 05/12, patho pending. Pt was evaluated by colorectal surgery and deemed unfit for any kind of surgical procedure. Allergies Allergy/AdvReac Type Severity Reaction Status Date / Time simvastatin AdvReac Intermediate myalgia Verified 03/25/24 15:17 Home Medications Medication Instructions Recorded Confirmed Type mucus clearing device 06/13/21 03/25/24 History Portable Oxygen #1 ea 09/25/22 03/25/24 Rx albuterol sulfate 90 mcg/actuation 2 puff inhalation Q4H PRN 09/25/22 03/25/24 Rx aerosol inhaler shortness of breath or wheezing #8.5 grams nebulizers (Aeroneb Go Nebulizer) #1 ea 09/25/22 03/25/24 Rx latanoprost (PF) 0.005 % eye drops 1 drp OPB HS 02/01/23 03/25/24 History in a dropperette polyethylene glycol 3350 17 17 g PO DAILY PRN Constipation 02/01/23 03/25/24 History gram/dose oral powder tamsulosin 0.4 mg capsule 0.4 mg PO DAILY 02/01/23 03/25/24 History L.acidop,casei,lactis,rham-B.lact,shaunna 1 cap PO DAILY #0 caps 07/14/23 03/25/24 Rx 625 mg (10 billion cell) capsule (Advanced Probiotic) acetaminophen 325 mg tablet 650 mg (2 x 325 mg) PO Q4H PRN #0 07/14/23 03/25/24 Rx tabs apixaban 5 mg tablet (Eliquis) 5 mg PO BID #0 tabs 07/14/23 03/25/24 Rx aspirin 81 mg tablet,delayed 81 mg PO QAM #0 tabs 07/14/23 03/25/24 Rx release cholecalciferol (vitamin D3) 125 125 mcg PO QAM #0 tabs 07/14/23 03/25/24 Rx mcg (5,000 unit) tablet ipratropium 0.5 mg-albuterol 3 mg 3 ml NEB QIDR PRN shortness of 07/14/23 03/25/24 Rx (2.5 mg base)/3 mL nebulization breath or wheezing #0 mL soln metoprolol succinate 25 mg 25 mg PO QAM #0 tabs 07/14/23 03/25/24 Rx tablet,extended release 24 hr pantoprazole 40 mg tablet,delayed 40 mg PO BID #0 tabs 07/14/23 03/25/24 Rx release thiamine HCl (vitamin B1) 100 mg 200 mg (2 x 100 mg) PO BID #0 tabs 07/14/23 03/25/24 Rx tablet mometasone-formoterol HFA 50 mcg-5 2 puff inhalation Q12H #13 grams 08/17/23 03/25/24 Rx mcg/actuation aerosol inhaler (Dulera) aluminum-magnesium hydroxide 200 30 ml PO Q6H PRN Indigestion 08/19/23 03/25/24 History mg-200 mg/5 mL oral suspension (MAG-AL) atorvastatin 20 mg tablet 20 mg PO QAM 08/19/23 03/25/24 History loperamide 2 mg capsule (Imodium 2 mg PO Q4H PRN Diarrhea 08/19/23 03/25/24 History A-D) melatonin 5 mg capsule 5 mg PO HS 08/19/23 03/25/24 History umeclidinium 62.5 mcg/actuation 1 inh inhalation QAM 08/19/23 03/25/24 History blister powder for inhalation (Incruse Ellipta) mirtazapine 15 mg tablet (Remeron) 15 mg PO HS 08/26/23 03/25/24 History tiotropium bromide 2.5 1 puff inhalation DAILY 08/26/23 03/25/24 History mcg/actuation mist for inhalation (Spiriva Respimat) peg 3350-electrolytes 236 240 ml PO Q10M #4,000 mL 10/01/23 03/25/24 Rx gram-22.74 gram-6.74 gram-5.86 gram solution (GaviLyte-G) cephalexin 500 mg capsule 500 mg PO TID 03/25/24 03/25/24 History Patient History Medical History History of confusion per record 07/07, pt. able to answer questions during PAT phone interview but poor historian/did not know meds - requested friend Sandra be contacted Aneurysm of left renal artery monitored by [facility] vascular surgery Hx of tachycardia-bradycardia syndrome pacer placed 03/2023, [facility] Ischemic cardiomyopathy COPD with emphysema O2 2L continuous History of prostate cancer ~2018 or 2019, sx and injection Q90D Paroxysmal atrial fibrillation f/u dr. ron, [facility] [place]- pacer 04/08 Pacemaker (03/2023) [facility], Medtr[employer] Multiple pulmonary nodules Hx of migraines Hypertension GERD (gastroesophageal reflux disease) Dyslipidemia Depression Complete heart block Medtronic pacemaker 03/2023, follows with [facility] cardiology On home O2 2L continous Chronic respiratory failure with hypoxia 2L 02 continuously C. 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 ron, [facility] [place] Surgical History History of bronchoscopy (08/26/23) [facility] History of esophagogastroduodenoscopy (EGD) Hx of colonoscopy History of cryosurgery for prostate cancer S/P cardiac pacemaker procedure (03/2023) [facility] - follows with cardio at [facility] History of cataract removal with insertion of prosthetic lens bilateral H/O umbilical hernia repair (2007) Family History Mother , Cancer Cancer Father , Cancer Colorectal cancer Sister Heart disorder Stroke Brother Prostate cancer Denies family history of Crohn's disease Ulcerative colitis Social History Smoking Status: Former smoker Tobacco Type: Cigarettes Age Started Using Tobacco: 12; Age Quit Using Tobacco: 60; packs per day: 2.5; Cigarettes Per Day: 120 pack years; Second Hand Exposure: No; Do You Dip or Chew Tobacco: No; Hx Alcohol Use: No Hx Substance Use: No Preferred Language: Moroccan Communication Ability: Effective Miller Apprentice Required: No Beliefs That Will Affect Care: None Current Living Situation: Alone Current Living Situation Comment: nursing comes in 2x per week Feels Safe at Home: Yes Assistive Devices: Cane, Oxygen - Continuous, Walker and Wheelchair Review of Systems Constitutional: + malaise, + weakness and + weight loss Eyes: no problem reported Ear, Nose, Mouth, Throat: + dry mouth Respiratory: + cough Cardiovascular: no dyspnea and no dyspnea on exertion Gastrointestinal: + early satiety Genitourinary: no problem reported Musculoskeletal: + muscle weakness Integumentary: no problem reported Neurologic: + generalized weakness Physical Exam Physical Exam: General- oriented x 3, not in distress, speaks in sentences with no effort or accessory muscle use Eyes- PEARLA anicteric Neck- no JVD, trachea midline Lungs- CTA diminished bilaterally, Heart- normal rate, regular rhythm; no murmurs Abdomen- normal bowel sounds, nondistended, soft, nontender Extremities- no pretibial edema, no calf tenderness Neuro- alert, oriented x 3; no gross focal neurologic deficits Skin- warm & dry Results & Data Vital Signs (Past 12 Hours) Vital Signs Temp Pulse Pulse Resp BP BP Pulse Ox 05/12/24 07:55 78 05/12/24 07:38 36.5 C 93 H 18 156/77 H 95 05/12/24 07:20 78 18 98 05/12/24 03:10 36.6 C 84 18 115/67 99 05/11/24 23:07 83 05/11/24 23:01 36.7 C 83 16 126/69 99 O2 Del Method O2 Flow Rate 05/12/24 07:55 05/12/24 07:38 Nasal Cannula 6 05/12/24 07:20 Nasal Cannula 2.5 05/12/24 03:10 Nasal Cannula 2 05/11/24 23:07 05/11/24 23:01 Nasal Cannula 2 Laboratory Results Abnormal lab results 05/12/24 Range/Units 05:57 WBC 16.89 H (4.8-10.8) K/ul RBC 3.36 L (4.70-6.10) M/uL Hgb 8.9 L (14.0-18.0) g/dl Hct 29.6 L (42.0-52.0) % MCHC 30.1 L (32.0-36.0) g/dL RDW Std Deviation 62.3 H (36.4-46.3) fL RDW Coeff of Mich 20.6 H (11.5-14.5) % MPV 9.2 L (9.4-12.4) fL Neut # (Auto) 15.16 H (1.40-6.50) K/uL Lymph # (Auto) 0.81 L (1.20-3.40) K/uL Sutton # (Auto) 0.82 H (0.11-0.59) K/uL Chloride 109 H (98-107) mmol/L Carbon Dioxide 33 H (21-32) mmol/L Anion Gap -1 L (3-11) BUN 31 H (6-23) mg/dl BUN/Creatinine Ratio 37.3 H (10-20) Calcium 8.1 L (8.6-10.3) mg/dl Diagnostic Findings Chest X-Ray 05/12/24 08:10 XR chest 1V portable CLINICAL HISTORY: increasing oxygen requirment COMPARISON STUDY: 05/08/2024 FINDINGS: Stable pacemaker. Heart size and pulmonary vasculature are normal. There is stable opacity at the right base with blunting of the right costophrenic angle. There is mildly increased hazy opacity medial left lung base with partial obscuration of the diaphragm. No pneumothorax. IMPRESSION: 1. Stable consolidation and possible small pleural effusion at the right base. 2. Mildly increased opacity at the left lung base could represent atelectasis, pneumonia, or trace pleural effusion. ACT 112: Negative or not required by law. Electronically signed by: Deuce Mcdaniel M.D. 05/12/2024 9:24 AM Medications Administered Current Inpatient Medications Acetaminophen (Acetaminophen 325 Mg Tab) 650 mg PO Q6H PRN PRN Reason: Pain or Fever Stop: 06/04/24 00:37 Al Hydrox/Mg Hydrox/Simethicone (Aluminum/Magnesium Susp 30 Ml Udc) 15 ml PO Q4H PRN PRN Reason: Dyspepsia Stop: 06/04/24 00:37 Albuterol (Albut/Ipratrop 3mg/0.5mg Neb 3 Ml Vial) 3 ml NEB Q6R [facility]; Protocol Stop: 06/04/24 00:59 Last Admin: 05/12/24 13:10 Dose: 3 ml Apixaban (Apixaban 5 Mg Tablet) 5 mg PO BID [facility] Stop: 06/04/24 00:37 Last Admin: 05/06/24 09:18 Dose: 5 mg Aspirin (Aspirin 81 Mg Ectab) [facility] Stop: 06/04/24 08:59 Last Admin: 05/06/24 09:18 Dose: 81 mg Atorvastatin Calcium (Atorvastatin 20 Mg Tab) [facility] Stop: 06/04/24 08:59 Last Admin: 05/12/24 09:04 Dose: 20 mg Budesonide (Budesonide 0.5 Mg/2 Ml Vial (Pulmicort)) 0.5 mg NEB BIDR [facility] Stop: 06/07/24 18:59 Last Admin: 05/12/24 07:19 Dose: 0.5 mg Fluticasone/Vilanterol (Fluticasone/Vilanterol 100/25mcg 14 Puffs/Inhaler) 1 puffs INH DAILY KACIE Stop: 06/04/24 08:59 Last Admin: 05/12/24 09:05 Dose: 1 puffs Formoterol Fumarate (Formoterol 20 Mcg/2 Ml Vial) 20 mcg NEB BIDR [facility] Stop: 06/07/24 18:59 Last Admin: 05/12/24 07:20 Dose: 20 mcg Pantoprazole Sodium (Protonix) 40 mg in 10 mls @ 5 mls/min IV BID [facility] Stop: 06/05/24 20:59 Last Admin: 05/12/24 11:13 Dose: 5 mls/min Ipratropium Bowlus (Ipratropium Bowlus Neb Soln 0.02% 0.5mg/2.5ml Vial) 0.5 mg NEB Q4H PRN PRN Reason: sob/wheezing Stop: 06/06/24 13:05 Latanoprost (Latanoprost 0.005% Op Soln 2.5 Ml Btl) 1 drops OP [facility] Stop: 06/04/24 01:44 Last Admin: 05/11/24 22:00 Dose: 1 drops Levalbuterol HCl (Levalbuterol 1.25 Mg/3 Ml Neb) 1.25 mg NEB Q4H PRN PRN Reason: Shortness Of Breath Or Wheezing Stop: 06/06/24 13:05 Levofloxacin (Levofloxacin 750 Mg Tab) 750 mg PO DAILY [facility] Stop: 05/15/24 09:01 Last Admin: 05/12/24 13:51 Dose: 750 mg Metoprolol Succinate (Metoprolol Succ 25mg Ext Rel Tab) 25 mg PO QAM [facility] Stop: 06/04/24 08:59 Last Admin: 05/12/24 09:04 Dose: 25 mg Mirtazapine (Mirtazapine Tab 15 Mg Tab) 15 mg PO HS [facility] Stop: 06/04/24 01:44 Last Admin: 05/11/24 22:00 Dose: 15 mg Ondansetron HCl (Ondansetron Inj 2 Mg/Ml 2 Ml Vial) 4 mg IV Q6H PRN PRN Reason: Nausea Stop: 06/04/24 00:37 Polyethylene Glycol (Polyethylene (Miralax) 17 Gm Pack) 17 gm PO DAILY PRN PRN Reason: Constipation Stop: 06/04/24 00:37 Prednisone (Prednisone 20 Mg Tab) 20 mg PO DAILY KACIE Stop: 05/15/24 08:59 Sodium Chloride (Sodium Chlor 7% 4 Ml Neb) 4 ml NEB BIDR [facility]ACIE Stop: 06/11/24 08:44 Last Admin: 05/12/24 10:20 Dose: Not Given Tamsulosin HCl (Tamsulosin Hcl 0.4 Mg Cap) 0.4 mg PO DAILY KACIE Stop: 06/04/24 08:59 Last Admin: 05/12/24 09:04 Dose: 0.4 mg Thiamine HCl (Thiamine Hcl 100 Mg Tab) 200 mg PO BID [facility] Stop: 06/04/24 01:44 Last Admin: 05/12/24 09:04 Dose: 200 mg Umeclidinium Bowlus (Umeclidinium Bowlus 62.5mcg/Blister 7 Puffs/Inhaler) 1 puffs INH DAILY [facility]ACIE Stop: 06/04/24 08:59 Last Admin: 05/12/24 09:06 Dose: 1 puffs Vitamin D (Cholecalciferol 125 Mcg (5,000 Units) Tab) 125 mcg PO QAM [facility] Stop: 06/04/24 08:59 Last Admin: 05/12/24 09:06 Dose: 125 mcg PG Care Time/CCT Total # of Minutes Spent Total Time Spent with Patient: Total time spent is greater than 50% in coordination of care (as documented) at patient's floor/unit and/or counseling patient: Advanced Care Planning 91900 Advanced Care Planning 30 [place] [address] IN/OBS CONSULT LVL 3,45M Patient Type New History Problem Focused Exam Problem Focused Medical Decision Making Low Complexity Diagnoses Palliative care by specialist Z51.5 ACP (advance care planning) Z71.89 Counseling regarding advanced directives and goals of care Z71.89 Additional Codes Advanced Care Planning - 87820 Advanced Care Planning 30 Min: 74568 Advanced Care Planning 30 Min ([id number])
--- NOTE | 2024-05-12 09:26 | XRay Report ---
XR chest 1V portable CLINICAL HISTORY: increasing oxygen requirment COMPARISON STUDY: 05/08/2024 FINDINGS: Stable pacemaker. Heart size and pulmonary vasculature are normal. There is stable opacity at the right base with blunting of the right costophrenic angle. There is mildly increased hazy opaci ty medial left lung base with partial obscuration of the diaphragm. No pneumothorax. IMPRESSION: 1. Stable consolidation and possible small pleural effusion at the right base. 2. Mildly increased opacity at the left lung base could represent atelectasis, pneumonia, or trace pl eural effusion. ACT 112: Negative or not required by law. Electronically signed by: Deuce Mcdaniel M.D. 05/12/2024 9:24 AM
[2024-05-12] MEDS: SODIUM CHLOR 7% 4 ML NEB NEB SCH (10:20)
--- NOTE | 2024-05-12 11:04 | Hospitalist Progress Note ---
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 Urinalysis on admission suggestive of infection; culture growing Proteus mirabilis Sputum culture growing Pseudomonas and E. coli Started on continue on Levaquin; plan to treat for 5 days more Continue PT OT #Shortness of Breath // #COPD: CXR negative for acute process. Subjective shortness of breath relieved with neb tx, no increase in supplemental O2 demand or cough/sputum production: - Continue home inhalers (LABA/LAMA/ICS) - Duonebs Q6H -Hypertonic saline, flutter valve for airway ay clearance Prednisone 20 mg for 3 more days #Anemia #Possible Colon Ca Hemoglobin decreased from 9.9 to 7.5 g/dl. No melonie melena or hematochezia Positive for fecal occult blood test Has history of colon cancer, ascending colon -Hold Eliquis, aspirin Colon cancer; underwent colonoscopy in October 2023; found to have ulcerated and fungating nonobstructing large mass in the cecum. Reports that he was evaluated by colorectal surgery; inoperable. Evaluated by hematology/oncology on 05/07; recommended IR guided liver biopsy. Discussed with IR; plan to do it on 05/12; aspirin and Eliquis has been on hold. npo from midnight. Goals of care was discussed with patient. He most likely has metastatic cancer, has sifnificant declined in his functional capacity and has very little support at home. He would like to get biopsy done to discuss further options wiht oncology down the road. He reports he wouldn't want chest compression and ventilatory support in case of cardiac arrest. Code status changed, Palliative care consulted for further discussion. #Tachycardia- resolved with iv hydration. Chronic Conditions: HLD: continue Atorvastatin Depression: continue Mirtazapine pAF: continue metoprolol, Eliquis - hold in light of anemia GERD: continue Protonix CAD: continue aspirin- hold, statin, BB Dispo: PT recommending d/c home when medically stable will request PT to re-eval patient FEN/GI: HH diet VTE ppx: Eliquis- hold Full code Time spent evaluating patient, direct bedside care, chart review, placing orders, interpretation of diagnostic studies, discussion with consultants, patient, and family members, as well as other required patient management activities is 50 minutes Please note the above document was generated using voice recognition software. It may contain grammatical, syntax or spelling errors. Any formal questions or concerns about the content, text or information contained within the body of this dictation should be directly addressed to the provider for clarification Admission and Anticipated Discharge Date Admission Date: May 04, 2024 Subjective Patient seen and examined at bedside. He reports that he is anxious about the procedure today. No significant events overnight He is requiring 1 L of oxygen by nasal cannula Review of Systems Review of Systems: All systems reviewed & are unremarkable except as noted in Subjective Physical Exam Physical Exam: General- oriented x 3, not in distress, speaks in sentences with no effort or accessory muscle use Eyes- anicteric Neck- no JVD Lungs- somewhat diminished but clear breath sounds bilaterally, no rales/wheezes Heart- normal rate, regular rhythm; no murmurs Abdomen- normal bowel sounds, nondistended, soft, nontender Extremities- no pretibial edema, no calf tenderness Neuro- alert, oriented x 3; no gross focal neurologic deficits Skin- warm & dry Results & Data Results & Data Vital Signs (Past 12 Hours) Vital Signs Temp Pulse Pulse Resp BP BP Pulse Ox 05/12/24 09:00 05/12/24 07:55 78 05/12/24 07:38 36.5 C 93 H 18 156/77 H 95 05/12/24 07:20 78 18 98 05/12/24 03:10 36.6 C 84 18 115/67 99 05/11/24 23:07 83 O2 Del Method O2 Flow Rate 05/12/24 09:00 Nasal Cannula 1 05/12/24 07:55 05/12/24 07:38 Nasal Cannula 6 05/12/24 07:20 Nasal Cannula 2.5 05/12/24 03:10 Nasal Cannula 2 05/11/24 23:07
[2024-05-12] MEDS: fentaNYL citrate PF 100 MCG/2 ML VIAL ONE (12:58)
[2024-05-12] MEDS: levoFLOXacin 750 MG TAB PO SCH (13:51)
--- NOTE | 2024-05-12 15:42 | Ultrasound Report ---
Ultrasound guided liver lesion core biopsy INDICATION: Large colon mass with hepatic lesions PROCEDURE: Procedure and risks were explained. Informed consent was obtained. A final timeout was com pleted. The abdomen was prepped and draped in sterile fashion. 1% lidocaine was utilized for skin ane sthesia. Utilizing ultrasound guidance, a 17-gauge coaxial needle was advanced into the left lobe liver lesion . Ultrasound images were obtained. An 18-gauge core biopsy needle was advanced, and 2 cores were obta ined and sent to the pathologist. The coaxial needle was removed and Band-Aid applied. The patient to lerated the procedure well. Vital signs be monitored postprocedure. IMPRESSION: Liver lesion core biopsy as above. Performed, dictated, and signed by Randy Rutledge PA-C; to be co-signed by Dr. Deuce Mcdaniel. Electronically signed by: Deuce Mcdaniel M.D. 05/12/2024 4:09 PM
[2024-05-13 07:14] LABS: Basophils # (auto) 0.02 K/uL (0.00-0.20); Basophils % (auto) 0.1 %; Eosinophils # (auto) 0.01 K/uL (0.00-0.50); Eosinophils % (auto) 0.1 %; Hemoglobin 9.1 g/dl (14.0-18.0); Immature Granulocytes # (auto) 0.16 K/uL (0.01-0.20); Immature Granulocytes % (auto) 0.8 %; Lymphocytes # (auto) 1.44 K/uL (1.20-3.40); Lymphocytes % (auto) 7.4 %; Mean Corpuscular Hemoglobin 26.8 pg (25.0-34.0); Mean Corpuscular Hgb Conc 30.3 g/dL (32.0-36.0); Mean Corpuscular Volume 88.2 fL (80.0-100.0); Mean Platelet Volume 9.2 fL (9.4-12.4); Monocytes # (auto) 1.35 K/uL (0.11-0.59); Monocytes % (auto) 6.9 %; Neutrophils % (auto) 84.7 %; Platelet Count 164 K/uL (130-400); RDW Coefficient of Variation 21.2 % (11.5-14.5); RDW Standard Deviation 64.7 fL (36.4-46.3); White Blood Count 19.48 K/ul (4.8-10.8)
[2024-05-13 07:42] LABS: Anisocytosis Present; Hypochromasia Present
[2024-05-13] MEDS: PANTOprazole 40 MG TAB PO SCH (08:38)
[2024-05-13] MEDS: predniSONE 20 MG TAB PO SCH (08:38)
--- NOTE | 2024-05-13 13:31 | Hospitalist Progress Note ---
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 Urinalysis on admission suggestive of infection; culture growing Proteus mirabilis Sputum culture growing Pseudomonas and E. coli Started on continue on Levaquin; plan to treat for 5 days more Continue PT OT #Shortness of Breath // #COPD: CXR negative for acute process. Subjective shortness of breath relieved with neb tx, no increase in supplemental O2 demand or cough/sputum production: - Continue home inhalers (LABA/LAMA/ICS) - Duonebs Q6H - Hypertonic saline, flutter valve for airway clearance Prednisone 20 mg for 3 more days #Anemia #Possible Colon Ca Hemoglobin decreased from 9.9 to 7.5 g/dl. No melonie melena or hematochezia Positive for fecal occult blood test Has history of colon cancer, ascending colon -Hold Eliquis, aspirin Colon cancer; underwent colonoscopy in October 2023; found to have ulcerated and fungating nonobstructing large mass in the cecum. Reports that he was evaluated by colorectal surgery; inoperable. Evaluated by hematology/oncology on 05/07; recommended IR guided liver biopsy. Patient underwent liver biopsy on 05/12; awaiting results Goals of care was discussed with patient On 05/12. He most likely has metastatic cancer, has significant declined in his functional capacity and has very little support at home. He would like to get biopsy done to discuss further options with oncology down the road. He reports he wouldn't want chest compression and ventilatory support in case of cardiac arrest. Code status changed, Palliative care consulted for further discussion. I discussed with patient again on 05/13 regarding his future goal. His goal in the future is to be at home; be comfortable without any pain/discomfort. He reports that he has some support at home. I discussed possible option of hospice care at home. Patient to get back to the treatment team/case management in next few days. #Tachycardia- resolved with iv hydration. Chronic Conditions: HLD: continue Atorvastatin Depression: continue Mirtazapine pAF: continue metoprolol, Eliquis - hold in light of anemia GERD: continue Protonix CAD: continue aspirin- hold, statin, BB Dispo: Repeat PT OT was done again on 05/13; patient's functional status had declined since he was last seen on 05/05; patient was able to ambulate 50 feet without AD; now can only take few steps with contact guard. Recommend rehab FEN/GI: HH diet VTE ppx: Eliquis- hold Full code Time spent evaluating patient, direct bedside care, chart review, placing orders, interpretation of diagnostic studies, discussion with consultants, patient, and family members, as well as other required patient management activities is 50 minutes Please note the above document was generated using voice recognition software. It may contain grammatical, syntax or spelling errors. Any formal questions or concerns about the content, text or information contained within the body of this dictation should be directly addressed to the provider for clarification Admission and Anticipated Discharge Date Admission Date: May 04, 2024 Subjective Patient seen and examined at bedside Is comfortable lying in the bed; not in distress He worked with OT and was short of breath on minimal exertion Vital signs are stable and he is requiring 2.5 L of oxygen by nasal cannula Review of Systems Review of Systems: All systems reviewed & are unremarkable except as noted in Subjective Physical Exam Physical Exam: General- oriented x 3, not in distress, speaks in sentences with no effort or accessory muscle use Eyes- anicteric Neck- no JVD Lungs- somewhat diminished but clear breath sounds bilaterally, no rales/wheezes Heart- normal rate, regular rhythm; no murmurs Abdomen- normal bowel sounds, nondistended, soft, nontender Extremities- no pretibial edema, no calf tenderness Neuro- alert, oriented x 3; no gross focal neurologic deficits Skin- warm & dry Results & Data Results & Data Vital Signs (Past 12 Hours) Vital Signs Temp Pulse Resp BP BP Pulse Ox O2 Del Method 05/13/24 13:02 85 18 100 Nasal Cannula 05/13/24 07:36 36.4 C L 102 H 18 169/81 H 99 Nasal Cannula 05/13/24 07:02 86 18 97 Nasal Cannula 05/13/24 03:04 36.5 C 84 18 126/69 98 Nasal Cannula 05/13/24 02:13 79 16 99 Nasal Cannula O2 Flow Rate 05/13/24 13:02 2.5 05/13/24 07:36 2 05/13/24 07:02 2.5 05/13/24 03:04 2 05/13/24 02:13 2.5
[2024-05-13] MEDS: ACETAMINOPHEN 325 MG TAB PO PRN (15:53)
--- NOTE | 2024-05-13 22:18 | Communication Note ---
Date of Service: May 13, 2024 Late Entry Note Palliative Med Brief Note 1030am While on rounds, was notified by pt nurse that his sister had called in and spoke with nurse re: his diagnosis and shared that he has not been telling her any information. Nursing spoke with pt who advised it is ok to share info with sister but also that he does not know how to speak with her about his health issues. Sister would like to hear more from the medical teams about his cancer, treatment options, prognosis, plan of care etc. However, his biopsy is pending and he has not met with oncology to discuss cancer directed options. Sister is going to plan a trip to visit in person. She was appraised his PS has declined and he cannot return home alone/awaiting SNF rehab. Advised for now, would defer any family meeting until biopsy results and oncology input is received. I would not presume he automatically cannot have any cancer treatment options medardo given the wider range of options, some of which may be less toxic than others. We are happy to participate in a multidisciplinary family meeting once more information about his cancer is know and oncology reccs are in formally. Will defer coordination of a multidisciplinary discussion to care mgt team. TS 22min Pt not seen NO charge submitted Thank you for allowing us to participate in the ongoing care of this patient. Please page with any additional concerns. Carlton Anderson DNP Director, Palliative Medicine
[2024-05-14 07:29] LABS: Basophils # (auto) 0.01 K/uL (0.00-0.20); Basophils % (auto) 0.1 %; Eosinophils # (auto) 0.03 K/uL (0.00-0.50); Eosinophils % (auto) 0.2 %; Hematocrit (blood only) 28.3 % (42.0-52.0); Hemoglobin 8.5 g/dl (14.0-18.0); Immature Granulocytes # (auto) 0.12 K/uL (0.01-0.20); Immature Granulocytes % (auto) 0.7 %; Lymphocytes # (auto) 1.29 K/uL (1.20-3.40); Lymphocytes % (auto) 7.7 %; Mean Corpuscular Hemoglobin 26.6 pg (25.0-34.0); Mean Corpuscular Volume 88.7 fL (80.0-100.0); Mean Platelet Volume 9.2 fL (9.4-12.4); Monocytes # (auto) 1.02 K/uL (0.11-0.59); Monocytes % (auto) 6.1 %; Neutrophils # (auto) 14.19 K/uL (1.40-6.50); Neutrophils % (auto) 85.2 %; Platelet Count 148 K/uL (130-400); RDW Coefficient of Variation 21.2 % (11.5-14.5); RDW Standard Deviation 66.5 fL (36.4-46.3); Red Blood Count 3.19 M/uL (4.70-6.10); White Blood Count 16.66 K/ul (4.8-10.8)
[2024-05-14 08:04] LABS: Anisocytosis Present; Hypochromasia Present; Polychromasia 1+
--- NOTE | 2024-05-14 17:00 | Hospitalist Progress Note ---
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 Urinalysis on admission suggestive of infection; culture growing Proteus mirabilis Sputum culture growing Pseudomonas and E. coli Started on continue on Levaquin; plan to treat for 5 days Continue PT OT #Shortness of Breath // #COPD: CXR negative for acute process. 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 No melonie melena or hematochezia Positive for fecal occult blood test Has history of colon cancer, ascending colon -Hold Eliquis, aspirin Colon cancer; underwent colonoscopy in October 2023; found to have ulcerated and fungating nonobstructing large mass in the cecum. Reports that he was evaluated by colorectal surgery; inoperable. Evaluated by hematology/oncology on 05/07; recommended IR guided liver biopsy. Patient underwent liver biopsy on 05/12; Consistent with metastatic mucinous adenocarcinoma from the cecum Goals of care was discussed with patient On 05/12. He most likely has metastatic cancer, has significant declined in his functional capacity and has very little support at home. He would like to get biopsy done to discuss further options with oncology down the road. He reports he wouldn't want chest compression and ventilatory support in case of cardiac arrest. Code status changed, Palliative care consulted for further discussion. I discussed with patient again on 05/13 regarding his future goal. His goal in the future is to be at home; be comfortable without any pain/discomfort. He reports that he has some support at home. I discussed possible option of h ospice care at home. Patient reported that he would like to be at home with home hospice on 05/14/2024. I called and updated his sister as well on his request. Chronic Conditions: HLD: continue Atorvastatin Depression: continue Mirtazapine pAF: continue metoprolol, Eliquis - hold in light of anemia GERD: continue Protonix CAD: continue aspirin- hold, statin, BB Dispo: Repeat PT OT was done again on 05/13; patient's functional status had declined since he was last seen on 05/05; patient was able to ambulate 50 feet without AD; now can only take few steps with contact guard. Plan for hospice at home in next few days FEN/GI: HH diet VTE ppx: Eliquis- hold Full code Time spent evaluating patient, direct bedside care, chart review, placing orders, interpretation of diagnostic studies, discussion with consultants, patient, and family members, as well as other required patient management activities is 50 minutes Please note the above document was generated using voice recognition software. It may contain grammatical, syntax or spelling errors. Any formal questions or concerns about the content, text or information contained within the body of this dictation should be directly addressed to the provider for clarification Admission and Anticipated Discharge Date Admission Date: May 04, 2024 Subjective Patient seen and examined at bedside Is comfortable; not in distress He reports shortness of breath on minimal exertion Feels like he is getting weaker Review of Systems Review of Systems: All systems reviewed & are unremarkable except as noted in Subjective Physical Exam Physical Exam: General- oriented x 3, not in distress, speaks in sentences with no effort or accessory muscle use Eyes- anicteric Neck- no JVD Lungs- somewhat diminished but clear breath sounds bilaterally, no rales/wheezes Heart- normal rate, regular rhythm; no murmurs Abdomen- normal bowel sounds, nondistended, soft, nontender Extremities- no pretibial edema, no calf tenderness Neuro- alert, oriented x 3; no gross focal neurologic deficits Skin- warm & dry Results & Data Results & Data Vital Signs (Past 12 Hours) Vital Signs Temp Pulse Resp BP BP Pulse Ox O2 Del Method 05/14/24 12:44 91 H 18 99 Nasal Cannula 05/14/24 11:01 88 20 120/68 92 Nasal Cannula 05/14/24 09:18 74 18 98 Nasal Cannula 05/14/24 08:00 78 20 126/65 92 Nasal Cannula 05/14/24 07:40 Nasal Cannula 05/14/24 07:11 36.6 C 79 18 115/64 99 Nasal Cannula O2 Flow Rate 05/14/24 12:44 2.5 05/14/24 11:01 2 05/14/24 09:18 2.5 05/14/24 08:00 2 05/14/24 07:40 05/14/24 07:11 2
[2024-05-14] MEDS: HEPARIN SOD 5,000 UNIT/0.5 ML VIAL SQ SCH (20:13)
--- NOTE | 2024-05-15 12:46 | Hospitalist Progress Note ---
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 Urinalysis on admission suggestive of infection; culture growing Proteus mirabilis Sputum culture growing Pseudomonas and E. coli Treated with Levaquin for 5 days #Shortness of Breath // #COPD: CXR negative for acute process. 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 No melonie melena or hematochezia Positive for fecal occult blood test Has history of colon cancer, ascending colon -Hold Eliquis, aspirin Colon cancer; underwent colonoscopy in October 2023; found to have ulcerated and fungating nonobstructing large mass in the cecum. Reports that he was evaluated by colorectal surgery; inoperable. Evaluated by hematology/oncology on 05/07; recommended IR guided liver biopsy. Patient underwent liver biopsy on 05/12; Consistent with metastatic mucinous adenocarcinoma from the cecum Goals of care was discussed with patient On 05/12. He most likely has metastatic cancer, has significant declined in his functional capacity and has very little support at home. He would like to get biopsy done to discuss further options with oncology down the road. He reports he wouldn't want chest compression and ventilatory support in case of cardiac arrest. Code status changed, Palliative care consulted for further discussion. I discussed with patient again on 05/13 regarding his future goal. His goal in the future is to be at home; be comfortable without any pain/discomfort. He reports that he has some support at home. I discussed possible option of hospice care at home. Patient reported that he would like to be at home with home hospice on 05/14/2024. I called and updated his sister as well on his request. Chronic Conditions: HLD: continue Atorvastatin Depression: continue Mirtazapine pAF: continue metoprolol, Eliquis - hold in light of anemia GERD: continue Protonix CAD: continue aspirin- hold, statin, BB Dispo: Repeat PT OT was done again on 05/13; patient's functional status had declined since he was last seen on 05/05; patient was able to ambulate 50 feet without AD; now can only take few steps with contact guard. Plan for hospice at home in next few days FEN/GI: HH diet VTE ppx: Eliquis- hold Full code Time spent evaluating patient, direct bedside care, chart review, placing orders, interpretation of diagnostic studies, discussion with consultants, verónica muhammad, and family members, as well as other required patient management activities is 50 minutes Please note the above document was generated using voice recognition software. It may contain grammatical, syntax or spelling errors. Any formal questions or concerns about the content, text or information contained within the body of this dictation should be directly addressed to the provider for clarification Admission and Anticipated Discharge Date Admission Date: May 04, 2024 Subjective Patient seen and examined at bedside. Comfortable; not in distress. Denies fever, chills, chest pain, shortness of breath, abdominal pain or urinary symptoms. No significant overnight events Review of Systems Review of Systems: All systems reviewed & are unremarkable except as noted in Subjective Physical Exam Physical Exam: General- oriented x 3, not in distress, speaks in sentences with no effort or a ccessory muscle use Eyes- anicteric Neck- no JVD Lungs- somewhat diminished but clear breath sounds bilaterally, no rales/wheezes Heart- normal rate, regular rhythm; no murmurs Abdomen- normal bowel sounds, nondistended, soft, nontender Extremities- no pretibial edema, no calf tenderness Neuro- alert, oriented x 3; no gross focal neurologic deficits Skin- warm & dry Results & Data Results & Data Vital Signs (Past 12 Hours) Vital Signs Temp Pulse Pulse Resp BP Pulse Ox O2 Del Method 05/15/24 12:23 88 18 99 Nasal Cannula 05/15/24 07:51 77 16 100 Nasal Cannula 05/15/24 07:40 Nasal Cannula 05/15/24 07:07 36.5 C 83 16 129/62 100 Nasal Cannula 05/15/24 02:09 85 16 98 Nasal Cannula O2 Flow Rate 05/15/24 12:23 2.5 05/15/24 07:51 2.5 05/15/24 07:40 1 05/15/24 07:07 3 05/15/24 02:09 2.5
[2024-05-16 07:51] VITALS: TEMP 97.5
[2024-05-16] MEDS: GABAPENTIN 100 MG CAP PO SCH (13:19)
--- NOTE | 2024-05-16 16:03 | Hospitalist Progress Note ---
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 Urinalysis on admission suggestive of infection; culture growing Proteus mirabilis Sputum culture growing Pseudomonas and E. coli Treated with Levaquin for 5 days #Shortness of Breath // #COPD: CXR negative for acute process. 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 No melonie melena or hematochezia Positive for fecal occult blood test Has history of colon cancer, ascending colon -Hold Eliquis, aspirin Colon cancer; underwent colonoscopy in October 2023; found to have ulcerated and fungating nonobstructing large mass in the cecum. Reports that he was evaluated by colorectal surgery; inoperable. Evaluated by hematology/oncology on 05/07; recommended IR guided liver biopsy. Patient underwent liver biopsy on 05/12; Consistent with metastatic mucinous adenocarcinoma from the cecum Goals of care was discussed with patient On 05/12. He most likely has metastatic cancer, has significant declined in his functional capacity and has very little support at home. He would like to get biopsy done to discuss further options with oncology down the road. He reports he wouldn't want chest compression and ventilatory support in case of cardiac arrest. Code status changed, Palliative care consulted for further discussion. I discussed with patient again on 05/13 regarding his future goal. His goal in the future is to be at home; be comfortable without any pain/discomfort. He reports that he has some support at home. I discussed possible option of hospice care at home. Patient reported that he would like to be at home with home hospice on 05/14/2024. I called and updated his sister as well on his request. Chronic Conditions: HLD: continue Atorvastatin Depression: continue Mirtazapine pAF: continue metoprolol, Eliquis - hold in light of anemia GERD: continue Protonix CAD: continue aspirin- hold, statin, BB Dispo: Repeat PT OT was done again on 05/13; patient's functional status had declined since he was last seen on 05/05; patient was able to ambulate 50 feet without AD; now can only take few steps with contact guard. Plan for hospice at home in next few days FEN/GI: HH diet VTE ppx: Eliquis- hold Full code Please note the above document was generated using voice recognition software. It may contain grammatical, syntax or spelling errors. Any formal questions or concerns about the content, text or information contained within the body of this dictation should be directly addressed to the provider for clarification Admission and Anticipated Discharge Date Admission Date: May 04, 2024 Subjective Patient seen and examined at bedside. Comfortable; not in distress. Denies fever, chills, chest pain, shortness of breath, abdominal pain or urinary symptoms. No significant overnight events Review of Systems Review of Systems: All systems reviewed & are unremarkable except as noted in Subjective Physical Exam Physical Exam: General- oriented x 3, not in distress, speaks in sentences with no effort or accessory muscle use Eyes- anicteric Neck- no JVD Lungs- somewhat diminished but clear breath sounds bilaterally, no rales/wheezes Heart- normal rate, regular rhythm; no murmurs Abdomen- normal bowel sounds, nondistended, soft, nontender Extremities- no pretibial edema, no calf tenderness Neuro- alert, oriented x 3; no gross focal neurologic deficits Skin- warm & dry Results & Data Results & Data Vital Signs (Past 12 Hours) Vital Signs Temp Pulse Resp BP Pulse Ox O2 Del Method O2 Flow Rate 05/16/24 09:24 Nasal Cannula 3 05/16/24 07:49 36.4 C L 84 16 136/77 100 Nebulizer 7 05/16/24 07:15 81 15 97 Nasal Cannula 2
[2024-05-16] MEDS ORDERED: ATROPINE SULFATE 1% OP SOLN 5 ML BTL SL PRN (16:05)
[2024-05-16] MEDS ORDERED: LORazepam 2 MG/1 ML VIAL IV PRN (16:05)
--- NOTE | 2024-05-16 16:09 | Palliative Care Progress Note ---
Date of Service May 16, 2024 Assessment & Plan (1) Palliative care by specialist: Plan: Palliative continues to follow for EOL care - comfort directed care and pt/family support. (2) Comfort measures only status: Plan: Per hospitalist notes over weekend, pt has expressed desire for transition to comfort care multiple times. Discussed with pt. He confirmed that, given the extent of his cancer and likelihood that he would not tolerate chemotherapy well, He would like to be discharged to home with hospice care. Discussed hospice benefit: an interdisciplinary program offered by nurses, n judithes aides, social workers, chaplains and a medical/surgery registered nurse for patients with a terminal condition and a life expectancy of less than 6 months. This is covered by Medicare at 100%/no out of pocket expense to patient and all meds/supplies needed by patient for the reason they are on hospice are paid for/covered by hospice. The goal is assure quality of life of the patient in their home setting (home, alf, inpatient hospice setting) by providing symptoms management, psychosocial and spiritual support. However, they cannot offer 24 hours care and if the family is unable to provide that care, they will have to consider personal care with out of pocket cost vs. alf placement. We discussed the goals of hospice as a patient service and the goals of care; we discussed EOL trajectories and transitions medardo the emotional impact of realizing mortality as a concrete reality from prior abstract considerations. Pt was reassured that no matter where they are along this trajectory, they are not alone - their medical team will remain by their side through their journey. Discussed the pros/cons of accepting help when especially weakened and distressed by pain-which would also help provide relief/decrease caregiver burden/strain. Pt discussed that he would like to be at home with his dog and friends when he dies. he shared that his sister and friends could serve as his caretakers but does not have firm plan in place. He shared that he will discuss with his sister and CM. 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 (3) Need for comfort care: Plan: SHINGLE INSPECTOR - Symptom manamgement: Pain/dyspnea/tachypnea morphine 2mg IVP PRN [id number] Consider titratable morphine drip if pt requires >3 PRN doses in under two consecutive hours. Nausea/vomitting zofran 4mg IVP q4h PRN Agitation ativan 0.5mg IVP q4h PRN Hyperactive delirium haldol 5mg IVP q6h PRN Secretions - if repositioning not effective robinul 0.4mg IV q4h PRN atropine SL 3 drops Q1h PRN Nursing care: Discontinue all medications not directed towards comfort. Detether pt from IV tubing, monitor cables, and check vitals once per shift. Please continue HFNC and titrate down as able for patient comfort. Use medications above PRN for dyspnea/tachypnea and do not increase oxygen once titrated down. Assess q1h for pain/dyspnea and treat accordingly. Plan CM working with pt to determine final disposition, re: home vs SNF with hospice. Admission and Anticipated Discharge Date Admission Date: May 04, 2024 Subjective Assessed pt at bedside, He was transitioned to SHINGLE INSPECTOR over weekend. Pt is awake and alert and appears comfortable, NAD on RA. Pt denies any pain but c/o chronic "pins and needles feeling" in both feet. Gabapentin ordered for neuropathic pain. No visitors at bedside. Review of Systems Review of Systems: All systems reviewed & are unremarkable except as noted in Subjective Physical Exam Physical Exam: General- oriented x 3, not in distress, speaks in sentences with no effort or accessory muscle use Eyes- PEARLA anicteric Neck- no JVD, trachea midline Lungs- CTA diminished bilaterally, Heart- normal rate, regular rhythm; no murmurs Abdomen- normal bowel sounds, nondistended, soft, nontender Extremities- no pretibial edema, no calf tenderness Neuro- alert, oriented x 3; no gross focal neurologic deficits Skin- warm & dry Results & Data Vital Signs (Past 12 Hours) Vital Signs Temp Pulse Resp BP Pulse Ox O2 Del Method O2 Flow Rate 05/16/24 09:24 Nasal Cannula 3 05/16/24 07:49 36.4 C L 84 16 136/77 100 Nebulizer 7 05/16/24 07:15 81 15 97 Nasal Cannula 2 Laboratory Results No further labs or diagnostics in concert with comfort directed care. Diagnostic Findings No further labs or diagnostics in concert with comfort directed care. Medications Administered Current Inpatient Medications Acetaminophen (Acetaminophen 325 Mg Tab) 650 mg PO Q6H PRN PRN Reason: Fever 37.8C or Above Stop: 06/15/24 16:04 Last Admin: 05/16/24 19:40 Dose: 650 mg Al Hydrox/Mg Hydrox/Simethicone (Aluminum/Magnesium Susp 30 Ml Udc) 15 ml PO Q4H PRN PRN Reason: Dyspepsia Stop: 06/04/24 00:37 Apixaban (Apixaban 5 Mg Tablet) 5 mg PO BID [facility] Stop: 06/04/24 00:37 Last Admin: 05/06/24 09:18 Dose: 5 mg Aspirin (Aspirin 81 Mg Ectab) 81 mg PO QAM [facility] Stop: 06/04/24 08:59 Last Admin: 05/06/24 09:18 Dose: 81 mg Atorvastatin Calcium (Atorvastatin 20 Mg Tab) 20 mg PO QAM [facility] Stop: 06/04/24 08:59 Last Admin: 05/16/24 08:51 Dose: 20 mg Atropine Sulfate (Atropine Sulfate 1% Op Soln 5 Ml Btl) 4 drops SL Q1H PRN PRN Reason: Secretions or pulm congestion Stop: 06/15/24 16:04 Budesonide (Budesonide 0.5 Mg/2 Ml Vial (Pulmicort)) 0.5 mg NEB BIDR [facility] Stop: 06/07/24 18:59 Last Admin: 05/16/24 20:26 Dose: 0.5 mg Formoterol Fumarate (Formoterol 20 Mcg/2 Ml Vial) 20 mcg NEB BIDR [facility] Stop: 06/07/24 18:59 Last Admin: 05/16/24 20:27 Dose: 20 mcg Gabapentin (Gabapentin 100 Mg Cap) 100 mg PO BID [facility] Stop: 06/15/24 11:59 Last Admin: 05/16/24 19:41 Dose: 100 mg Glycopyrrolate (Glycopyrrolate 0.2 Mg/Ml Vial) 0.4 mg IV Q4H PRN PRN Reason: Rattling Secretions or Pulm Congestion Stop: 06/15/24 16:04 Ipratropium [place] (Ipratropium [place] Neb Soln 0.02% 0.5mg/2.5ml Vial) 0.5 mg NEB Q4H PRN PRN Reason: sob/wheezing Stop: 06/06/24 13:05 Latanoprost (Latanoprost 0.005% Op Soln 2.5 Ml Btl) 1 drops OP HS [facility] Stop: 06/04/24 01:44 Last Admin: 05/16/24 19:42 Dose: 1 drops Levalbuterol HCl (Levalbuterol 1.25 Mg/3 Ml Neb) 1.25 mg NEB Q4H PRN PRN Reason: Shortness Of Breath Or Wheezing Stop: 06/06/24 13:05 Lorazepam (Lorazepam 2 Mg/1 Ml Vial) 0.5 mg IV Q4H PRN PRN Reason: Anxiety/Agitation Stop: 06/15/24 16:04 Metoprolol Succinate (Metoprolol Succ 25mg Ext Rel Tab) 25 mg PO QAM [facility] Stop: 06/04/24 08:59 Last Admin: 05/16/24 08:51 Dose: 25 mg Mirtazapine (Mirtazapine Tab 15 Mg Tab) 15 mg PO HS [facility] Stop: 06/04/24 01:44 Last Admin: 05/16/24 19:42 Dose: 15 mg Morphine Sulfate (Morphine Sulfate 10 Mg/0.5 Ml Udp) 5 mg PO Q3H PRN PRN Reason: Pain or Respiratory Distress Stop: 05/30/24 16:04 Ondansetron HCl (Ondansetron Inj 2 Mg/Ml 2 Ml Vial) 4 mg IV Q4H PRN PRN Reason: Nausea &/or Vomiting Stop: 06/15/24 16:04 Pantoprazole Sodium (Pantoprazole 40 Mg Tab) 40 mg PO BID [facility] Stop: 06/12/24 08:59 Last Admin: 05/16/24 19:41 Dose: 40 mg Polyethylene Glycol (Polyethylene (Miralax) 17 Gm Pack) 17 gm PO DAILY PRN PRN Reason: Constipation Stop: 06/04/24 00:37 Tamsulosin HCl (Tamsulosin Hcl 0.4 Mg Cap) 0.4 mg PO DAILY [facility] Stop: 06/04/24 08:59 Last Admin: 05/16/24 08:51 Dose: 0.4 mg Umeclidinium [place] (Umeclidinium [place] 62.5mcg/Blister 7 Puffs/Inhaler) 1 puffs INH DAILY [facility] Stop: 06/04/24 08:59 Last Admin: 05/16/24 08:52 Dose: 1 puffs PG Care Time/CCT Total # of Minutes Spent Total Time Spent with Patient: Total time spent is greater than 50% in coordination of care (as documented) at patient's floor/unit and/or counseling patient: [place] [address] SUB INP/OBS CARE 235MIN Patient Type Established History Expanded Problem Focused Exam Expanded Problem Focused Medical Decision Making Low Complexity Diagnoses Palliative care by specialist Z51.5 Comfort measures only status Z51.5 Need for comfort care
[2024-05-16] MEDS: ACETAMINOPHEN 325 MG TAB PO PRN (19:40)
--- NOTE | 2024-05-17 10:48 | Palliative Care Progress Note ---
Date of Service May 17, 2024 Assessment & Plan (1) Palliative care by specialist: Plan: Palliative continues to follow for EOL care - comfort directed care and pt/family support. (2) Comfort measures only status: Plan: Pt transition to comfort care05/16/24. Pt would like to be discharged to home with hospice care. He is very opposed to SNF/[facility]CH placement. Discussed hospice benefit: an interdisciplinary program offered by nurses, nurses aides, social workers, chaplains and a healthcare or medical for patients with a terminal condition and a life expectancy of less than 6 months. This is cove red by Medicare at 100%/no out of pocket expense to patient and all meds/supplies needed by patient for the reason they are on hospice are paid for/covered by hospice. The goal is assure quality of life of the patient in their home setting (home, usp, inpatient hospice setting) by providing symptoms management, psychosocial and spiritual support. However, they cannot offer 24 hours care and if the family is unable to provide that care, they will have to consider personal care with out of pocket cost vs. usp placement. We discussed the goals of hospice as a patient service and the goals of care; we discussed EOL trajectories and transitions medardo the emotional impact of realizing mortality as a concrete reality from prior abstract considerations. Pt was reassured that no matter where they are along this trajectory, they are not alone - their medical team will remain by their side through their journey. Discussed the pros/cons of accepting help when especially weakened and distressed by pain-which would also help provide relief/decrease caregiver burden/strain. Pt discussed that he would like to be at home with his dog and friends when he dies. he shared that his sister and friends could serve as his caretakers but does not have firm plan in place. Made phone contact with pt's sister, Princess, who lives in [place]. She shared that she does wish to visit with pt when he is dc'd to home, however she cannot stay with him very long because she is the primary gauge checker for her disabled spouse and daughter. Pt shared that he will have friends "checking on him regularly". He reinforced his wish to go home. Discussed with BSRN, CM and attending. CM will be investigating possible home hospice options given situation. 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 Neuropathic pain (chronic) gabapentin 200mg TID Nausea/vomitting zofran 4mg IVP q4h PRN Agitation ativan 0.5mg IVP q4h PRN Hyperactive delirium haldol 5mg IVP q6h PRN Secretions - if repositioning not effective robinul 0.4mg IV q4h PRN atropine SL 3 drops Q1h PRN Nursing care: Discontinue all medications not directed towards comfort. Detether pt from IV tubing, monitor cables, and check vitals once per shift. Please continue HFNC and titrate down as able for patient comfort. Use medications above PRN for dyspnea/tachypnea and do not increase oxygen once titrated down. Assess q1h for pain/dyspnea and treat accordingly. Plan CM working with pt to determine final disposition, re: home vs SNF with hospice. Admission and Anticipated Discharge Date Admission Date: May 04, 2024 Subjective Assessed pt at bedside, He was transitioned to SUPPLY CHAIN BUYER on 05/17/24. Pt is unresponsive to verbal and gentle tactile stimuli, did not attempt to awaken in concert with comfort directed care. He appears comfortable. Respiratory effort decreased, rate 16/min with no periods of apnea. no visitors at bedside. Review of Systems Review of Systems: All systems reviewed & are unremarkable except as noted in Subjective Physical Exam Physical Exam: General- oriented x 3, not in distress, speaks in sentences with no effort or accessory muscle use Eyes- PEARLA anicteric Neck- no JVD, trachea midline Lungs- CTA diminished bilaterally, Heart- normal rate, regular rhythm; no murmurs Abdomen- normal bowel sounds, nondistended, soft, nontender Extremities- no pretibial edema, no calf tenderness Neuro- alert, oriented x 3; no gross focal neurologic deficits Skin- warm & dry Results & Data Vital Signs (Past 12 Hours) Vital Signs Pulse Pulse Resp BP Pulse Ox O2 Del Method O2 Flow Rate 05/17/24 08:06 87 18 115/70 96 Nasal Cannula 3 05/17/24 07:05 78 16 96 Nasal Cannula 2.5 Laboratory Results No further labs or diagnostics in concert with comfort directed care. Diagnostic Findings No further labs or diagnostics in concert with comfort directed care. Medications Administered Current Inpatient Medications Acetaminophen (Acetaminophen 325 Mg Tab) 650 mg PO Q6H PRN PRN Reason: Fever 37.8C or Above Stop: 06/15/24 16:04 Last Admin: 05/17/24 04:26 Dose: 650 mg Al Hydrox/Mg Hydrox/Simethicone (Aluminum/Magnesium Susp 30 Ml Udc) 15 ml PO Q4H PRN PRN Reason: Dyspepsia Stop: 06/04/24 00:37 Apixaban (Apixaban 5 Mg Tablet) 5 mg PO BID [facility] Stop: 06/04/24 00:37 Last Admin: 05/06/24 09:18 Dose: 5 mg Aspirin (Aspirin 81 Mg Ectab) 81 mg PO QAM [facility] Stop: 06/04/24 08:59 Last Admin: 05/06/24 09:18 Dose: 81 mg Atropine Sulfate (Atropine Sulfate 1% Op Soln 5 Ml Btl) 4 drops SL Q1H PRN PRN Reason: Secretions or pulm congestion Stop: 06/15/24 16:04 Budesonide (Budesonide 0.5 Mg/2 Ml Vial (Pulmicort)) 0.5 mg NEB BIDR [facility] Stop: 06/07/24 18:59 Last Admin: 05/17/24 07:05 Dose: 0.5 mg Formoterol Fumarate (Formoterol 20 Mcg/2 Ml Vial) 20 mcg NEB BIDR [facility] Stop: 06/07/24 18:59 Last Admin: 05/17/24 07:05 Dose: 20 mcg Gabapentin (Gabapentin 100 Mg Cap) 100 mg PO BID [facility] Stop: 06/15/24 11:59 Last Admin: 05/17/24 08:08 Dose: 100 mg Glycopyrrolate (Glycopyrrolate 0.2 Mg/Ml Vial) 0.4 mg IV Q4H PRN PRN Reason: Rattling Secretions or Pulm Congestion Stop: 06/15/24 16:04 Ipratropium [place] (Ipratropium [place] Neb Soln 0.02% 0.5mg/2.5ml Vial) 0.5 mg NEB Q4H PRN PRN Reason: sob/wheezing Stop: 06/06/24 13:05 Latanoprost (Latanoprost 0.005% Op Soln 2.5 Ml Btl) 1 drops OP HS [facility] Stop: 06/04/24 01:44 Last Admin: 05/16/24 19:42 Dose: 1 drops Levalbuterol HCl (Levalbuterol 1.25 Mg/3 Ml Neb) 1.25 mg NEB Q4H PRN PRN Reason: Shortness Of Breath Or Wheezing Stop: 06/06/24 13:05 Lorazepam (Lorazepam 2 Mg/1 Ml Vial) 0.5 mg IV Q4H PRN PRN Reason: Anxiety/Agitation Stop: 06/15/24 16:04 Metoprolol Succinate (Metoprolol Succ 25mg Ext Rel Tab) 25 mg PO QAM [facility] Stop: 06/04/24 08:59 Last Admin: 05/17/24 08:08 Dose: 25 mg Mirtazapine (Mirtazapine Tab 15 Mg Tab) 15 mg PO HS [facility] Stop: 06/04/24 01:44 Last Admin: 05/16/24 19:42 Dose: 15 mg Morphine Sulfate (Morphine Sulfate 10 Mg/0.5 Ml Udp) 5 mg PO Q3H PRN PRN Reason: Pain or Respiratory Distress Stop: 05/30/24 16:04 Ondansetron HCl (Ondansetron Inj 2 Mg/Ml 2 Ml Vial) 4 mg IV Q4H PRN PRN Reason: Nausea &/or Vomiting Stop: 06/15/24 16:04 Pantoprazole Sodium (Pantoprazole 40 Mg Tab) 40 mg PO BID [facility] Stop: 06/12/24 08:59 Last Admin: 05/17/24 08:08 Dose: 40 mg Polyethylene Glycol (Polyethylene (Miralax) 17 Gm Pack) 17 gm PO DAILY PRN PRN Reason: Constipation Stop: 06/04/24 00:37 Tamsulosin HCl (Tamsulosin Hcl 0.4 Mg Cap) 0.4 mg PO DAILY [facility] Stop: 06/04/24 08:59 Last Admin: 05/17/24 08:08 Dose: 0.4 mg Umeclidinium [place] (Umeclidinium [place] 62.5mcg/Blister 7 Puffs/Inhaler) 1 puffs INH DAILY [facility] Stop: 06/04/24 08:59 Last Admin: 05/17/24 08:07 Dose: 1 puffs PG Care Time/CCT Total # of Minutes Spent Total Time Spent with Patient: Total time spent is greater than 50% in coordination of care (as documented) at patient's floor/unit and/or counseling patient: C[place] [address] SUB INP/OBS CARE 04/09MIN Patient Type Established History Problem Focused Exam Problem Focused Medical Decision Making Low Complexity Diagnoses Palliative care by specialist Z51.5 Comfort measures only status Z51.5 Need for comfort care
[2024-05-17] MEDS: IPRATROPIUM BROMIDE NEB SOLN 0.02% 0.5MG/2.5ML VIAL NEB PRN (11:37)
[2024-05-17] MEDS: LEVALBUTEROL 1.25 MG/3 ML NEB NEB PRN (11:38)
[2024-05-17] MEDS: GABAPENTIN 100 MG CAP PO SCH (13:23)
--- NOTE | 2024-05-17 14:30 | Hospitalist Progress Note ---
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 No melonie melena or hematochezia Positive for fecal occult blood test Has history of colon cancer, ascending colon -Hold Eliquis, aspirin Colon cancer; underwent colonoscopy in October 2023; found to have ulcerated and fungating nonobstructing large mass in the cecum. Reports that he was evaluated by colorectal surgery; inoperable. Evaluated by hematology/oncology on 05/07; recommended IR guided liver biopsy. Patient underwent liver biopsy on 05/12; Consistent with metastatic mucinous marie ocarcinoma from the cecum Goals of care was discussed with patient On 05/12. He most likely has metastatic cancer, has significant declined in his functional capacity and has very little support at home. He would like to get biopsy done to discuss further options with oncology down the road. He reports he wouldn't want chest compression and ventilatory support in case of cardiac arrest. Code status changed, Palliative care consulted for further discussion. I discussed with patient again on 05/13 regarding his future goal. His goal in the future is to be at home; be comfortable without any pain/discomfort. He reports that he has some support at home. I discussed possible option of hospice care at home. Patient reported that he would like to be at home with home hospice on 05/14/2024. I called and updated his sister as well on his request. #Generalized weakness #Failure to thrive #UTI /Possible pneumonia Patient presented to the hospital with generalized weakness. Urinalysis on admission suggestive of infection; culture growing Proteus mirabilis Sputum culture growing Pseudomonas and E. coli Treated with Levaquin for 5 days #Shortness of Breath // #COPD: CXR negative for acute process. Subjective shortness of breath relieved with neb tx, no increase in supplemental O2 demand or cough/sputum production: - Continue home inhalers (LABA/LAMA/ICS) - Hypertonic saline, flutter valve for airway clearance s/p prednisone taper Chronic Conditions: HLD: continue Atorvastatin Depression: continue Mirtazapine pAF: continue metoprolol, Eliquis - hold in light of anemia GERD: continue Protonix CAD: continue aspirin- hold, statin, BB Dispo: Repeat PT OT was done again on 05/13; patient's functional status had declined since he was last seen on 05/05; patient was able to ambulate 50 feet without AD; now can only take few steps with contact guard. Plan for hospice at home in next few days. CM on board. FEN/GI: HH diet VTE ppx: Eliquis- hold DNR/DNI Please note the above document was generated using voice recognition software. It may contain grammatical, syntax or spelling errors. Any formal questions or concerns about the content, text or information contained within the body of this dictation should be directly addressed to the provider for clarification Admission and Anticipated Discharge Date Admission Date: May 04, 2024 Subjective Patient seen and examined at bedside. Comfortable; not in distress. Denies fever, chills, chest pain, shortness of breath, abdominal pain or urinary symptoms. No significant overnight events Review of Systems Review of Systems: All systems reviewed & are unremarkable except as noted in Subjective Physical Exam Physical Exam: General- oriented x 3, not in distress, speaks in sentences with no effort or accessory muscle use Eyes- anicteric Neck- no JVD Lungs- somewhat diminished but clear breath sounds bilaterally, no rales/wheezes Heart- normal rate, regular rhythm; no murmurs Abdomen- normal bowel sounds, nondistended, soft, nontender Extremities- no pretibial edema, no calf tenderness Neuro- alert, oriented x 3; no gross focal neurologic deficits Skin- warm & dry Results & Data Results & Data Vital Signs (Past 12 Hours) Vital Signs Pulse Pulse Resp BP Pulse Ox O2 Del Method O2 Flow Rate 05/17/24 11:38 92 H 28 H 97 Nasal Cannula 3 05/17/24 08:06 87 18 115/70 96 Nasal Cannula 3 05/17/24 07:05 78 16 96 Nasal Cannula 2.5
--- NOTE | 2024-05-18 15:09 | Palliative Care Progress Note ---
Date of Service May 18, 2024 Assessment & Plan (1) Palliative care by specialist: Plan: Palliative continues to follow for EOL care - comfort directed care and pt/family support. (2) Comfort measures only status: Plan: Pt transition to comfort care 05/16/24. Pt would like to be discharged to home with hospice care. He remains very opposed to SNF/PCH placement. Pt discussed that he would like to be at home with his dog and friends when he dies. he shared that his neighbors may be able serve as his caretakers but has not spoken with them about it. I shared with his that his sister, Princess, who lives in [place]. She shared that she oes wish to visit with pt when he is dc'd to home, however she cannot stay with him very long because she is the primary heater helper forge for her disabled spouse and daughter. Pt shared that he will have friends "checking on him regularly". He again reinforced his wish to go home. Discussed with BSRN, CM and attending. CM will be investigating possible home hospice options given situation. 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 Neuropathic pain (chronic) gabapentin 200mg TID Nausea/vomitting zofran 4mg IVP q4h PRN Agitation ativan 0.5mg IVP q4h PRN Hyperactive delirium haldol 5mg IVP q6h PRN Secretions - if repositioning not effective robinul 0.4mg IV q4h PRN atropine SL 3 drops Q1h PRN Nursing care: Discontinue all medications not directed towards comfort. Detether pt from IV tubing, monitor cables, and check vitals once per shift. Please continue HFNC and titrate down as able for patient comfort. Use medications above PRN for dyspnea/tachypnea and do not increase oxygen once titrated down. Assess q1h for pain/dyspnea and treat accordingly. Plan CM working with pt to determine final disposition, re: home vs SNF with hospice. Admission and Anticipated Discharge Date Admission Date: May 04, 2024 Subjective Assessed pt at bedside, He was transitioned to CABLE WAY OPERATOR on 05/17/24. Pt is awake and alert, oriented x4 and pleasantly communicative. He shared that the neuropathic type pain in his feet is "still there but better". He appears comfortable and vo ices no other complaints. Respiratory effort normal, rate 16/min with no periods of apnea. He remains focused on getting home with hospice care and emphasizes "I will not go to a care home to be forgotten and left to ". no visitors at bedside. Review of Systems Review of Systems: All systems reviewed & are unremarkable except as noted in Subjective Physical Exam Physical Exam: General- oriented x 3, not in distress, speaks in sentences with no effort or accessory muscle use Eyes- PEARLA anicteric Neck- no JVD, trachea midline Lungs- CTA diminished bilaterally, Heart- normal rate, regular rhythm; no murmurs Abdomen- normal bowel sounds, nondistended, soft, nontender Extremities- no pretibial edema, no calf tenderness Neuro- alert, oriented x 3; no gross focal neurologic deficits Skin- warm & dry Results & Data Vital Signs (Past 12 Hours) Vital Signs Pulse Pulse Resp BP Pulse Ox O2 Del Method O2 Flow Rate 05/18/24 10:06 82 18 127/69 96 Nasal Cannula 3 05/18/24 07:53 80 20 94 Nasal Cannula 2 Laboratory Results No further labs or diagnostics in concert with comfort directed care. Diagnostic Findings No further labs or diagnostics in concert with comfort directed care. Medications Administered Current Inpatient Medications Acetaminophen (Acetaminophen 325 Mg Tab) 650 mg PO Q6H PRN PRN Reason: Fever 37.8C or Above Stop: 06/15/24 16:04 Last Admin: 05/17/24 04:26 Dose: 650 mg Al Hydrox/Mg Hydrox/Simethicone (Aluminum/Magnesium Susp 30 Ml Udc) 15 ml PO Q4H PRN PRN Reason: Dyspepsia Stop: 06/04/24 00:37 Apixaban (Apixaban 5 Mg Tablet) 5 mg PO BID [facility] Stop: 06/04/24 00:37 Last Admin: 05/06/24 09:18 Dose: 5 mg Aspirin (Aspirin 81 Mg Ectab) 81 mg PO QAM [facility] Stop: 06/04/24 08:59 Last Admin: 05/06/24 09:18 Dose: 81 mg Atropine Sulfate (Atropine Sulfate 1% Op Soln 5 Ml Btl) 4 drops SL Q1H PRN PRN Reason: Secretions or pulm congestion Stop: 06/15/24 16:04 Budesonide (Budesonide 0.5 Mg/2 Ml Vial (Pulmicort)) 0.5 mg NEB BIDR KACIE Stop: 06/07/24 18:59 Last Admin: 05/18/24 19:08 Dose: 0.5 mg Formoterol Fumarate (Formoterol 20 Mcg/2 Ml Vial) 20 mcg NEB BIDR KACIE Stop: 06/07/24 18:59 Last Admin: 05/18/24 19:08 Dose: 20 mcg Gabapentin (Gabapentin 100 Mg Cap) 200 mg PO TID KACIE Stop: 06/16/24 13:59 Last Admin: 05/18/24 20:18 Dose: 200 mg Glycopyrrolate (Glycopyrrolate 0.2 Mg/Ml Vial) 0.4 mg IV Q4H PRN PRN Reason: Rattling Secretions or Pulm Congestion Stop: 06/15/24 16:04 Ipratropium [place] (Ipratropium [place] Neb Soln 0.02% 0.5mg/2.5ml Vial) 0.5 mg NEB Q4H PRN PRN Reason: sob/wheezing Stop: 06/06/24 13:05 Last Admin: 05/17/24 11:37 Dose: 0.5 mg Latanoprost (Latanoprost 0.005% Op Soln 2.5 Ml Btl) 1 drops OP HS KACIE Stop: 06/04/24 01:44 Last Admin: 05/18/24 20:19 Dose: 1 drops Levalbuterol HCl (Levalbuterol 1.25 Mg/3 Ml Neb) 1.25 mg NEB Q4H PRN PRN Reason: Shortness Of Breath Or Wheezing Stop: 06/06/24 13:05 Last Admin: 05/17/24 11:38 Dose: 1.25 mg Metoprolol Succinate (Metoprolol Succ 25mg Ext Rel Tab) 25 mg PO QAM KACIE Stop: 06/04/24 08:59 Last Admin: 05/18/24 10:08 Dose: 25 mg Mirtazapine (Mirtazapine Tab 15 Mg Tab) 15 mg PO HS KACIE Stop: 06/04/24 01:44 Last Admin: 05/18/24 20:18 Dose: 15 mg Morphine Sulfate (Morphine Sulfate 10 Mg/0.5 Ml Udp) 5 mg PO Q3H PRN PRN Reason: Pain or Respiratory Distress Stop: 05/30/24 16:04 Ondansetron HCl (Ondansetron Inj 2 Mg/Ml 2 Ml Vial) 4 mg IV Q4H PRN PRN Reason: Nausea &/or Vomiting Stop: 06/15/24 16:04 Pantoprazole Sodium (Pantoprazole 40 Mg Tab) 40 mg PO BID KACIE Stop: 06/12/24 08:59 Last Admin: 05/18/24 20:18 Dose: 40 mg Polyethylene Glycol (Polyethylene (Miralax) 17 Gm Pack) 17 gm PO DAILY PRN PRN Reason: Constipation Stop: 06/04/24 00:37 Tamsulosin HCl (Tamsulosin Hcl 0.4 Mg Cap) 0.4 mg PO DAILY [facility] Stop: 06/04/24 08:59 Last Admin: 05/18/24 10:08 Dose: 0.4 mg Umeclidinium [place] (Umeclidinium [place] 62.5mcg/Blister 7 Puffs/Inhaler) 1 puffs INH DAILY [facility] Stop: 06/04/24 08:59 Last Admin: 05/18/24 10:08 Dose: 1 puffs PG Care Time/CCT Total # of Minutes Spent Total Time Spent with Patient: Total time spent is greater than 50% in coordination of care (as documented) at patient's floor/unit and/or counseling patient: Coding [place] [address] SUB INP/OBS CARE 04/09MIN Patient Type Established History Problem Focused Exam Problem Focused Medical Decision Making Low Complexity Diagnoses Palliative care by specialist Z51.5 Comfort measures only status Z51.5 Need for comfort care
--- NOTE | 2024-05-18 15:56 | Hospitalist Progress Note ---
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 Reports that he was evaluated by colorectal surgery; inoperable. Evaluated by hematology/oncology on 05/07; recommended IR guided liver biopsy. Patient underwent liver biopsy on 05/12; Consistent with metastatic mucinous adenocarcinoma from the cecum --As per prior hospitalist: Goals of care was discussed with patient On 05/12. He most likely has metastatic cancer, has significant declined in his functional capacity and has very little support at home. He would like to get biopsy done to discuss further options with oncology down the road. He reports he wouldn't want chest compression and ventilatory support in case of cardiac arrest. Code status changed, Palliative care consulted for further discussion. I discussed with patient again on 05/13 regarding his future goal. His goal in the future is to be at home; be comfortable without any pain/discomfort. He reports that he has some support at home. I discussed possible option of hospice care at home. Patient reported that he would like to be at home with home hospice on 05/14/2024. I called and updated his sister as well on his request. --S/P 1 unit PRBC transfusion --No obvious bleeding issues currently -- Palliative care following --Plan to transition to home hospice as able Generalized weakness Failure to thrive UTI /Possible pneumonia --CXR:Stable consolidation and possible small pleural effusion at the right base. Mildly increased opacity at the left lung base could represent atelectasis, pneumonia, or trace pleural effusion. -- Blood cultures negative --Urine culture growing Pseudomonas, E. coli -Received Levaquin completed the course Shortness of Breath/COPD: CXR negative for acute process. Subjective shortness of breath relieved with neb tx, no increase in supplemental O2 demand or cough/sputum production: - Continue home inhalers (LABA/LAMA/ICS) - Hypertonic saline, flutter valve for airway clearance - s/p prednisone taper course Chronic Conditions: HLD: continue Atorvastatin Depression: continue Mirtazapine pAF: continue metoprolol, Eliquis - hold in light of anemia GERD: continue Protonix CAD: continue aspirin- hold, statin, metoprolol DVT Px: Eliquis- on hold Code Status DNR/DNI Disposition Eventually plan to be transition to hospice To be determined Admission and Anticipated Discharge Date Admission Date: May 04, 2024 Subjective Patient is seen and examined at bedside States having numbness and tingling of feet Also reports chronic cough and diarrhea Denies any chest pain, dyspnea No other complaints Review of Systems Review of Systems: All systems reviewed & are unremarkable except as noted in Subjective Physical Exam Physical Exam: Physical Exam: Vitals signs as noted above General Appearance: Frail, elderly, no apparent distress Head: normocephalic, Atraumatic Eyes: normal inspection, EOMI Neck: supple, Trachea midline Respiratory/Chest: Decreased breath sounds, CTA, No accessory muscle use Cardiovascular: S1, S2, No murmur,+ pacer Abdomen/GI:Soft, Non tender, Bowel sounds present Extremities/Musculoskeletal:normal inspection, trace edema Neurologic/Psych:AAOX3, grossly no focal neurological deficits Skin: normal color, warm Results & Data Results & Data Vital Signs (Past 12 Hours) Vital Signs Pulse Pulse Resp BP Pulse Ox O2 Del Method O2 Flow Rate 05/18/24 10:06 82 18 127/69 96 Nasal Cannula 3 05/18/24 07:53 80 20 94 Nasal Cannula 2 05/18/24 07:40 Nasal Cannula 3
[2024-05-18] MEDS: MoRPHine SULFATE 10 MG/0.5 ML UDP PO PRN (23:50)
[2024-05-19] MEDS: GLYCOPYRROLATE 0.2 MG/ML VIAL IV PRN (04:51)
[2024-05-19 11:42] VITALS: BP 114/56
--- NOTE | 2024-05-19 14:06 | Hospitalist Progress Note ---
Date of Service May 19, 2024 Assessment & Plan (1) Weakness: (2) Adult failure to thrive: (3) Metastatic adenocarcinoma: (4) Comfort measures only status: Plan: Mauricio Zamora Jr. 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 Underwent colonoscopy in October 2023 and was found to have an ulcerated and fungating nonobstructing large mass in the cecum. Reports that he was evaluated by colorectal surgery and deemed unfit for any kind of surgical management give his multiple comorbidities. Evaluated by heme/onc on 05/07/24 and it was recommended he undergo IR-guided liver biopsy. Patient underwent IR-guided liver biopsy on 05/12/24 - pathology c/w metastatic mucinous adenocarcinoma of colonic origin. As per prior hospitalist documentation: "Goals of care was discussed with patient on 05/12/24. He most likely has metastatic cancer, has significant declined in his functional capacity and has very little support at home. He would like to get biopsy done to discuss further options with oncology down the road. He reports he wouldn't want chest compression and ventilatory support in case of cardiac arrest. Code status changed, palliative care consulted for further discussion. I discussed with patient again on 05/13/24 regarding his future goal. His goal in the future is to be at home; be comfortable without any pain/discomfort. He reports that he has some support at home. I discussed possible option of hospice care at home. Patient reported that he would like to be at home with home hospice on 05/14/24. 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 Palliative care following. Comfort meds on board as ordered by palliative care. CM heavily involved with arranging home hospice care. [facility] can accept patient if he has neighbors/friends that agree to help him. Palliative care spoke with the patient's sister/MDM proxy, Princess Hernandez [ ], but unfortunately she lives in [place] and is the primary education courses sales representative for her /daughter therefore she is unable to stay with him. He does have caregivers through the [place] that come in every M/W/F from 9AM-12PM and every M/W for an hour in the afternoon to assist with ADLs. He does get MOW. His neighbor, Valerie, chatted with today and is willing to help him out at home. She is in [place] currently but will be back on Thursday to assist with arranging help for him at home with some other surrounding neighbors. (5) Acute on chronic anemia: Plan: Acute on chronic anemia with Hgb of 7.5 on 05/06/24. Baseline Hgb around 8-11 per chart review. No melonie hematochezia or melena. + FOBT. Active colonic malignancy as per above. S/p 1U PRBCs on 05/06/24. Transitioned to LINK CUTTER on 05/16/24 as per above. Palliative care following as per above. Eliquis and ASA stopped; discontinued all meds not directed towards comfort. (6) UTI (urinary tract infection): Plan: UTI/possible PNA. CXR on 05/12/24 with a mildly increased opacity at the left lung base could represent atelectasis, pneumonia, or trace pleural effusion. Blood cultures negative. Urine culture grew Proteus mirabilis. Sputum culture grew Pseudomonas aeruginosa and Escherichia coli. S/p 5-day Levaquin course. (7) Chronic hypoxemic respiratory failure: (8) COPD (chronic obstructive pulmonary disease): Plan: Subjective SOB relieved with nebulizer treatments, no increase in supplemental O2 or cough/sputum production. Continue home inhalers (LABA/LAMA/ICS), hypertonic saline + flutter valve for airway clearance. S/p prednisone taper course. (9) Depression: Plan: Continue mirtazapine per patient's request. (10) Hyperlipidemia: (11) CAD (coronary artery disease): Plan: Continue statin per patient's request. ASA stopped as per above. (12) GERD (gastroesophageal reflux disease): Plan: Continue Protonix as per patient's request. (13) Paroxysmal atrial fibrillation: Plan: Continue metoprolol as per patient's request. Eliquis stopped as per above. DVT Prophylaxis: SCDs/TEDs as tolerated, [employer] WORK[employer] Eliquis stopped as per above. Code Status: DNR/DNI - No Resuscitation PCP: Malini Szymanski MD Disposition: Transition to home hospice care when resources for home assistance become available as detailed above. Patient seen in collaboration with Dr. Saeed. Please see addendum. I spent a total of 40 minutes coordinating, documenting, and providing care for this patient excluding time spent in the performance of separately billed services or time spent by another provider/QHP. This included personally reviewing all current laboratories and imaging studies, medical reconciliation, outpatient chart review and discussion with specialists. This chart was completed in part utilizing Speech Voice Recognition Software. Grammatical errors, random word insertions, pronoun errors, and incomplete sentences are an occasional consequence of this system due to software limitations, ambient noise, and hardware issues. Any formal questions or concerns about the content, text, or information contained within the body of this dictation should be directly addressed to the provider for clarification. Admission and Anticipated Discharge Date Admission Date: May 04, 2024 Supervising Physician Co-Signing Physician Notes Patient is seen and examined at bedside. Reports chronic cough which she attributes to COPD. No new complaints today. Currently on comfort measures. Patient plan to be transition to home hospice. Physical Exam: Vitals signs as noted above General Appearance: Frail, elderly, no apparent distress Head: normocephalic, Atraumatic Eyes: normal inspection, EOMI Neck: supple, Trachea midline Respiratory/Chest: Decreased breath sounds, CTA, No accessory muscle use Cardiovascular: S1, S2, No murmur,+ pacer Abdomen/GI:Soft, Non tender, Bowel sounds present Extremities/Musculoskeletal:normal inspection, trace edema Neurologic/Psych:AAOX3, grossly no focal neurological deficits Skin: normal color, warm Metastatic adenocarcinoma of cecum, proximal ascending colon Generalized weakness, failure to thrive, deconditioning Anemia of chronic disease UTI, possible pneumonia COPD Currently on comfort measures only Plan to discharge home with hospice as able Case management to help with discharge planning Attending Note: Patient is a [] yr old [female] with PMH of [] presents with history of Physical Exam: Vitals signs as noted above General Appearance:Moderately built and nourished, no apparent distress Head: normocephalic, Atraumatic Eyes: normal inspection, EOMI, PERRL Neck: supple, Trachea midline Respiratory/Chest: Normal breath sounds, CTA, No accessory muscle use Cardiovascular: S1, S2, No murmur Abdomen/GI:Soft, Non tender, Bowel sounds present Extremities/Musculoskeletal:normal inspection, no edema Neurologic/Psych:AAOX3, grossly no focal neurological deficits Skin:normal color,warm I personally interviewed and examined the patient at bedside. I have reviewed the advanced practitioner's documentation on the date of service referred in note and agree with plan. Patient's care is coordinated with Theodora Morales PA-C. Please refer to the documentation above for details of patient's presentation and for discussion of other issues. I spent a total [id number] coordinating, documenting, and providing care for this patient excluding time spent in the performance of separately billed services or time spent by another provider/QHP. Subjective Patient eager to go home on hospice care. No new complaints or concerns. He is working on finding neighbors and/or friends to assist him at home in order to be accepted under home hospice services through [facility]. Still have some numbness and tingling in his feet but feels it is improving somewhat. Chronic cough and diarrhea. Denies any chest pain or dyspnea. Review of Systems Review of Systems: At least ten systems reviewed and negative, except as noted in the subjective section. Physical Exam Physical Exam: General: Thin/elderly M, NAD, laying down in bed, pleasant. A+Ox3. No focal neurological deficits. HEENT: Normocephalic, atraumatic. External ear and nose normal, oropharynx somewhat dry. Respiratory: Normal respiratory effort. On 2L NC. Lung sounds decreased throughout. Cardiovascular: Mildly tachycardic rate, paced rhythm, normal peripheral pulses. Trace BLE edema. Abdomen/GI: Normal bowel sounds, soft, nondistended. Nontender to palpation in all quadrants. Extremities/Musculoskeletal: Normal inspection of BLE. Able to actively move all extremities. Results & Data Results & Data Vital Signs (Past 12 Hours) Vital Signs Temp Pulse Pulse Resp BP Pulse Ox O2 Del Method 05/19/24 11:38 36.4 C L 88 18 114/56 L 98 Nasal Cannula 05/19/24 08:40 Nasal Cannula 05/19/24 08:34 112 H 114/73 05/19/24 07:33 109 H 19 96 Nasal Cannula 05/19/24 07:23 36.4 C L 112 H 18 105/67 100 Nasal Cannula O2 Flow Rate 05/19/24 11:38 2 05/19/24 08:40 3 05/19/24 08:34 05/19/24 07:33 3 05/19/24 07:23 3 (6) UTI (urinary tract infection) Hematuria presence: without hematuria Urinary tract infection type: site unspecified Qualified Code(s): N39.0 - Urinary tract infection, site not specified (8) COPD (chronic obstructive pulmonary disease) COPD type: unspecified COPD Qualified Code(s): J44.9 - Chronic obstructive pulmonary disease, unspecified (9) Depression Depression Type: unspecified Qualified Code(s): F32.A - Depression, unspecified (10) Hyperlipidemia Hyperlipidemia type: unspecified Qualified Code(s): E78.5 - Hyperlipidemia, unspecified (11) CAD (coronary artery disease) Associated angina: unspecified whether angina present Coronary Disease- Associated Artery/Lesion type: unspecified vessel or lesion type [place] vs. transplanted heart: [place] heart Qualified Code(s): I25.10 - Atherosclerotic heart disease of [place] coronary artery without angina pectoris (12) GERD (gastroesophageal reflux disease) Esophagitis presence: esophagitis presence not specified Qualified Code(s): K21.9 - Gastro-esophageal reflux disease without esophagitis
[2024-05-19] MEDS: ONDANSETRON INJ 2 MG/ML 2 ML VIAL IV PRN (17:04)
--- NOTE | 2024-05-19 19:31 | Urology Consultation ---
<Statement entered by Remi Swain MD - 05/20/24 07:52> 78-year-old male with multiple medical comorbidities, currently on comfort measures only. Since he is not having significant pain of the bladder and is dribbling some urine, and since Celaya catheter attempts were traumatic and unsuccessful, would hold off on catheterizing unless he develops worsening pain. Date of Consultation May 19, 2024 Assessment & Plan (1) Urinary retention: I visited with the patient in room 358. Urologic recommendations are as follows: As noted per my discussion with the nursing staff the patient is dribbling small amounts of urine and they were unable to straight cath the patient At visit with the patient at the bedside and as noted previously this document the patient is completely asymptomatic no urinary urgency, frequency, abdominal/suprapubic discomfort, or back/flank pain. Patient also notes that he is able to urinate small amounts. I did discuss with the patient that we can attempt to place a Celaya catheter for comfort but at the present time he does not want this modality employed in his care As the patient is voiding small amounts of urine and he is asymptomatic I feel it is reasonable to hold on further attempts at Celaya catheter at this time I did inform the patient as well as nursing staff that if anything changes in his clinical course and Celaya catheter is desired later in the course of his care to recontact urology History of Present Illness Reason for Consultation: Urinary retention Attending Physician: Thuan Saeed MD History of Present Illness This is a 78-year-old male who has been admitted to the hospital since 05/04/2024. 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 During this hospitalization the goals of care were discussed with him and he has elected to try to be discharged home with hospice and is currently on comfort measures. Urology was consulted due to concern for urinary retention. I discussed with the nurses who are attending to the patient and they notes that the patient is dribbling small amounts of urine multiple times throughout the day. They did BladderScan him and he has approximately 500 cc of urine in his bladder. Nursing staff attempted to straight cath the patient several times were unsuccessful. Because of this urology was consulted. I visited with the patient at the bedside and at the present time he notes that he is able to urinate very small amounts. He says that he is asymptomatic in this regard without urinary urgency. He also notes he does not have any abdominal pain or suprapubic discomfort. He also denies any back or flank pain. At the time of my interview he was resting comfortably in bed he was no distress. Allergies Allergy/AdvReac Type Severity Reaction Status Date / Time simvastatin AdvReac Intermediate myalgia Verified 03/25/24 15:17 Home Medications Medication Instructions Recorded Confirmed Type mucus clearing device 06/13/21 05/19/24 History Portable Oxygen #1 ea 09/25/22 05/19/24 Rx albuterol sulfate 90 mcg/actuation 2 puff inhalation Q4H PRN 09/25/22 05/19/24 Rx aerosol inhaler shortness of breath or wheezing #8.5 grams nebulizers ([email or web address] Go Nebulizer) #1 ea 09/25/22 05/19/24 Rx latanoprost (PF) 0.005 % eye drops 1 drp OPB HS 02/01/23 05/19/24 History in a dropperette polyethylene glycol 3350 17 17 g PO DAILY PRN Constipation 02/01/23 05/19/24 History gram/dose oral powder tamsulosin 0.4 mg capsule 0.4 mg PO DAILY 02/01/23 05/19/24 History L.acidop,casei,lactis,rham-B.lact,shaunna 1 cap PO DAILY #0 caps 07/14/23 05/19/24 Rx 625 mg (10 billion cell) capsule (Advanced Probiotic) acetaminophen 325 mg tablet 650 mg (2 x 325 mg) PO Q4H PRN #0 07/14/23 05/19/24 Rx tabs apixaban 5 mg tablet (Eliquis) 5 mg PO BID #0 tabs 07/14/23 05/19/24 Rx aspirin 81 mg tablet,delayed 81 mg PO QAM #0 tabs 07/14/23 05/19/24 Rx release cholecalciferol (vitamin D3) 125 125 mcg PO QAM #0 tabs 07/14/23 05/19/24 Rx mcg (5,000 unit) tablet ipratropium 0.5 mg-albuterol 3 mg 3 ml NEB QIDR PRN shortness of 07/14/23 05/19/24 Rx (2.5 mg base)/3 mL nebulization breath or wheezing #0 mL soln metoprolol succinate 25 mg 25 mg PO QAM #0 tabs 07/14/23 05/19/24 Rx tablet,extended release 24 hr pantoprazole 40 mg tablet,delayed 40 mg PO BID #0 tabs 07/14/23 05/19/24 Rx release thiamine HCl (vitamin B1) 100 mg 200 mg (2 x 100 mg) PO BID #0 tabs 07/14/23 05/19/24 Rx tablet mometasone-formoterol HFA 50 mcg-5 2 puff inhalation Q12H #13 grams 08/17/23 05/19/24 Rx mcg/actuation aerosol inhaler (Dulera) aluminum-magnesium hydroxide 200 30 ml PO Q6H PRN Indigestion 08/19/23 05/19/24 History mg-200 mg/5 mL oral suspension (MAG-AL) atorvastatin 20 mg tablet 20 mg PO QAM 08/19/23 05/19/24 History loperamide 2 mg capsule (Imodium 2 mg PO Q4H PRN Diarrhea 08/19/23 05/19/24 History A-D) melatonin 5 mg capsule 5 mg PO HS 08/19/23 05/19/24 History umeclidinium 62.5 mcg/actuation 1 inh inhalation QAM 08/19/23 05/19/24 History blister powder for inhalation (Incruse Ellipta) mirtazapine 15 mg tablet (Remeron) 15 mg PO HS 08/26/23 05/19/24 History tiotropium bromide 2.5 1 puff inhalation DAILY 08/26/23 05/19/24 History mcg/actuation mist for inhalation (Spiriva Respimat) peg 3350-electrolytes 236 240 ml PO Q10M #4,000 mL 10/01/23 05/19/24 Rx gram-22.74 gram-6.74 gram-5.86 gram solution (GaviLyte-G) cephalexin 500 mg capsule 500 mg PO TID 03/25/24 05/19/24 History Patient History Medical History History of confusion per record 07/07, pt. able to answer questions during PAT phone interview but poor historian/did not know meds - requested friend Sandra be contacted Aneurysm of left renal artery monitored by [facility] vascular surgery Hx of tachycardia-bradycardia syndrome pacer placed 03/2023, [facility] Ischemic cardiomyopathy COPD with emphysema O2 2L continuous History of prostate cancer ~2018 or 2019, sx and injection Q90D Paroxysmal atrial fibrillation f/u krystal saenz- pacer 04/08 Pacemaker (03/2023) [facility], Medtr[employer] Multiple pulmonary nodules Hx of migraines Hypertension GERD (gastroesophageal reflux disease) Dyslipidemia Depression Complete heart block Medtronic pacemaker 03/2023, follows with [place] cardiology On home O2 2L continous Chronic respiratory failure with hypoxia 2L 02 continuously C. 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 ron, [facility] History History of bronchoscopy (08/26/23) [facility] History of esophagogastroduodenoscopy (EGD) Hx of colonoscopy History of cryosurgery for prostate cancer S/P cardiac pacemaker procedure (03/2023) [facility] - follows with cardio at [facility] History of cataract removal with insertion of prosthetic lens bilateral H/O umbilical hernia repair (2007) Family History Mother , Cancer Cancer Father , Cancer Colorectal cancer Sister Heart disorder Stroke Brother Prostate cancer Denies family history of Crohn's disease Ulcerative colitis Social History Smoking Status: Former smoker Tobacco Type: Cigarettes Age Started Using Tobacco: 12; Age Quit Using Tobacco: 60; packs per day: 2.5; Cigarettes Per Day: 120 pack years; Second Hand Exposure: No; Do You Dip or Chew Tobacco: No; Hx Alcohol Use: No Hx Substance Use: No Preferred Language: Congolese Communication Ability: Effective Lap Machine Tender Required: No Beliefs That Will Affect Care: Spiritual Current Living Situation: Alone Current Living Situation Comment: nursing comes in 2x per week Feels Safe at Home: Yes Assistive Devices: Cane, Oxygen - Continuous, Walker and Wheelchair Review of Systems Review of Systems: All systems reviewed & are unremarkable except as noted in HPI & below Physical Exam Constitutional: + thin; no acute distress Eyes: Wears glasses Respiratory: no respiratory distress and no labored breathing Gastrointestinal (Abdomen): Abdomen is soft with minimal distention. There is no rebound tenderness, guar ding, or pain with palpation. There is no suprapubic discomfort with palpation Neurologic: moves all extremities Psychiatric: A+Ox3, euthymic affect Genitourinary: No CVA tenderness with percussion Results & Data Vital Signs (Past 12 Hours) Vital Signs Temp Pulse Pulse Resp BP Pulse Ox O2 Del Method 05/19/24 11:38 36.4 C L 88 18 114/56 L 98 Nasal Cannula 05/19/24 08:40 Nasal Cannula 05/19/24 08:34 112 H 114/73 05/19/24 07:33 109 H 19 96 Nasal Cannula O2 Flow Rate 05/19/24 11:38 2 05/19/24 08:40 3 05/19/24 08:34 05/19/24 07:33 3 PG Care Time/CCT Total # of Minutes Spent Total Time Spent with Patient: Total time spent is greater than 50% in coordination of care (as documented) at patient's floor/unit and/or counseling patient: Coding Level of Care Code 13532 INT INP/OBS CARE 1/40MIN Diagnoses Urinary retention R33.9
[2024-05-20] MEDS ORDERED: MoRPHine SULFATE 4 MG/ML 1 ML CARP\\VIAL IV PRN ×2 (01:33→01:35)
[2024-05-20] MEDS ORDERED: LORazepam 0.5 MG TAB PO PRN (01:35)
--- NOTE | 2024-05-20 01:37 | Communication Note ---
Date of Service: May 20, 2024 Patient shortness of breath, pain, anxiety not controlled by oral medications as per RN. Initiate IV morphine and Ativan as needed regimen
[2024-05-20] MEDS: LORazepam 2 MG/1 ML VIAL IV PRN (01:53)
[2024-05-20 07:17] VITALS: PULSE 120; RESP 20; O2SAT 91
--- NOTE | 2024-05-20 08:34 | Hospitalist Progress Note ---
Date of Service May 20, 2024 Assessment & Plan (1) Weakness: (2) Adult failure to thrive: (3) Metastatic adenocarcinoma: (4) Comfort measures only status: Plan: Mauricio Zamora Jr. 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 Underwent colonoscopy in October 2023 and was found to have an ulcerated and fungating nonobstructing large mass in the cecum. Reports that he was evaluated by colorectal surgery and deemed unfit for any kind of surgical management give his multiple comorbidities. Evaluated by heme/onc on 05/07/24 and it was recommended he undergo IR-guided liver biopsy. Patient underwent IR-guided liver biopsy on 05/12/24 - pathology c/w metastatic mucinous adenocarcinoma of colonic origin. As per prior hospitalist documentation: "Goals of care was discussed with patient on 05/12/24. He most likely has metastatic cancer, has significant declined in his functional capacity and has very little support at home. He would like to get biopsy done to discuss further options with oncology down the road. He reports he wouldn't want chest compression and ventilatory support in case of cardiac arrest. Code status changed, palliative care consulted for further discussion. I discussed with patient again on 05/13/24 regarding his future goal. His goal in the future is to be at home; be comfortable without any pain/discomfort. He reports that he has some support at home. I discussed possible option of hospice care at home. Patient reported that he would like to be at home with home hospice on 05/14/24. I called and updated his sister as well on his request." Transitioned to INSTRUCTIONAL FACILITATOR on 05/16/24. Palliative care following. Comfort meds on board as ordered by palliative care. CM heavily involved with arranging home hospice care. [facility] can accept patient if he has neighbors/friends that agree to help him. Palliative care spoke with the patient's sister/MDM proxy, Princess Hernandez [ ], but unfortunately she lives in [place] and is the primary foam machine operator for her /daughter therefore she is unable to stay with him. He does have caregivers through the [place] that come in every M/W/F from 9AM-12PM and every M/W for an hour in the afternoon to assist with ADLs. He does get MOW. His neighbor, Valerie, chatted with on 05/19/24 and is willing to help him out at home. She is in [place] currently but will be back on Thursday to assist with arranging help for him at home with some additional surrounding neighbors. (5) Acute urinary retention: Plan: Noted last evening. Nursing staff attempted to straight cath the patient several times but were unsuccessful therefore urology consulted. Remains asymptomatic. Refuses Celaya catheter placement at this time; last recorded void around 16:30 yesterday but continues to dribble. Will hold off on catheterizing patient for now unless he develops any urinary discomfort or pain. (6) Acute on chronic anemia: Plan: Acute on chronic anemia with Hgb of 7.5 on 05/06/24. Baseline Hgb around 8-11 per chart review. No melonie hematochezia or melena. + FOBT. Active colonic malignancy as per above. S/p 1U PRBCs on 05/06/24. Transitioned to INSTRUCTIONAL FACILITATOR on 05/16/24 as per above. Palliative care following as per above. Eliquis and ASA stopped; discontinued all meds not directed towards comfort. (7) UTI (urinary tract infection): Plan: UTI/possible PNA. CXR on 05/12/24 with a mildly increased opacity at the left lung base could represent atelectasis, pneumonia, or trace pleural effusion. Blood cultures negative. Urine culture grew Proteus mirabilis. Sputum culture grew Pseudomonas aeruginosa and Escherichia coli. S/p 5-day Levaquin course. (8) Chronic hypoxemic respiratory failure: (9) COPD (chronic obstructive pulmonary disease): Plan: Subjective SOB relieved with nebulizer treatments, no increase in supplemental O2 or cough/sputum production. Continue home inhalers (LABA/LAMA/ICS), hypertonic saline + flutter valve for airway clearance. S/p prednisone taper course. (10) Depression: Plan: Continue mirtazapine per patient's request. (11) Hyperlipidemia: (12) CAD (coronary artery disease): Plan: Continue statin per patient's request. ASA stopped as per above. (13) GERD (gastroesophageal reflux disease): Plan: Continue Protonix as per patient's request. (14) Paroxysmal atrial fibrillation: Plan: Continue metoprolol as per patient's request. Eliquis stopped as per above. DVT Prophylaxis: SCDs/TEDs as tolerated, DEVELOPMENT COACH Eliquis stopped as per above. Code Status: DNR/DNI - No Resuscitation PCP: Malini Szymanski MD Disposition: Transition to home hospice care when resources for home assistance become available as detailed above. Patient seen in collaboration with Dr. Saeed. Please see addendum. I spent a total of 30 minutes coordinating, documenting, and providing care for this patient excluding time spent in the performance of separately billed services or time spent by another provider/QHP. This included personally reviewing all current laboratories and imaging studies, medical reconciliation, outpatient chart review and discussion with specialists. This chart was completed in part utilizing Speech Voice Recognition Software. Grammatical errors, random word insertions, pronoun errors, and incomplete sentences are an occasional consequence of this system due to software limitations, ambient noise, and hardware issues. Any formal questions or concerns about the content, text, or information contained within the body of this dictation should be directly addressed to the provider for clarification. Admission and Anticipated Discharge Date Admission Date: May 04, 2024 Supervising Physician Co-Signing Physician Notes Patient is seen and examined at bedside. He was obtunded during my encounter this morning. Unable to obtain any history. No distress on exam. Currently on comfort measures only. Physical Exam: Vitals signs as noted above General Appearance: Frail, elderly, no apparent distress, obtunded Head: normocephalic, Atraumatic Eyes: normal inspection, EOMI Neck: supple, Trachea midline Respiratory/Chest: Decreased breath sounds, CTA, No accessory muscle use Cardiovascular: S1, S2, No murmur,+ pacer Abdomen/GI:Soft, Non tender, Bowel sounds present Extremities/Musculoskeletal:normal inspection, trace edema Neurologic/Psych: Obtunded Skin: normal color, warm Metastatic adenocarcinoma of cecum, proximal ascending colon Generalized weakness, failure to thrive, deconditioning Anemia of chronic disease UTI, possible pneumonia COPD Currently on comfort measures only Plan to discharge home with hospice as able Case management to help with discharge transit planning director noted patient to cease breathing at 16:31 on 05/20/2024. On exam patient had no heart or breath sounds on auscultation. Pupils dilated. Nonreactive to sternal rub. Patient pronounced . Patient's sister was informed over the phone. I personally interviewed and examined the patient at bedside. I have reviewed the advanced practitioner's documentation on the date of service referred in note and agree with plan. Patient's care is coordinated with Theodora Morales PA-C. Please refer to the documentation above for details of patient's presentation and for discussion of other issues. I spent a total [id number] coordinating, documenting, and providing care for this patient excluding time spent in the performance of separately billed services or time spent by another provider/QHP. Subjective Patient extremely somnolent this morning and difficult to arouse. Unable to elicit any meaningful information. Review of Systems Review of Systems: Unable to properly obtain 2/2 patient's mentation status. Physical Exam Physical Exam: General: Thin/elderly M, NAD, sleeping. Appears quite comfortable. No focal neurological deficits. HEENT: Normocephalic, atraumatic. External ear and nose normal, oropharynx somewhat dry. Respiratory: Normal respiratory effort. On 2-3L NC. Lung sounds diminished throughout. Cardiovascular: Mildly tachycardic rate, paced rhythm, normal peripheral pulses. + BLE edema. Abdomen/GI: Normal bowel sounds, soft, nondistended. Nontender to palpation in all quadrants. Extremities/Musculoskeletal: Normal inspection of BLE. Allevyn dressings in place on both heels. Results & Data Results & Data Vital Signs (Past 12 Hours) Vital Signs Pulse Resp Pulse Ox O2 Del Method O2 Flow Rate 05/20/24 07:16 120 H 20 91 Nasal Cannula 2 05/19/24 20:47 Nasal Cannula 3 05/19/24 20:40 84 18 95 Nasal Cannula 2.5 (7) UTI (urinary tract infection) Hematuria presence: without hematuria Urinary tract infection type: site unspecified Qualified Code(s): N39.0 - Urinary tract infection, site not specified (9) COPD (chronic obstructive pulmonary disease) COPD type: unspecified COPD Qualified Code(s): J44.9 - Chronic obstructive pulmonary disease, unspecified (10) Depression Depression Type: unspecified Qualified Code(s): F32.A - Depression, unspecified (11) Hyperlipidemia Hyperlipidemia type: unspecified Qualified Code(s): E78.5 - Hyperlipidemia, unspecified (12) CAD (coronary artery disease) Associated angina: unspecified whether angina present Coronary Disease- Associated Artery/Lesion type: unspecified vessel or lesion type [place] vs. tr ansplanted heart: [place] heart Qualified Code(s): I25.10 - Atherosclerotic heart disease of [place] coronary artery without angina pectoris (13) GERD (gastroesophageal reflux disease) Esophagitis presence: esophagitis presence not specified Qualified Code(s): K21.9 - Gastro-esophageal reflux disease without esophagitis
--- NOTE | 2024-05-21 07:57 | Discharge Summary ---
Discharge Summary Date of Service May 21, 2024 Principal Dx & Hospital Course #1 = Principal Diagnosis (1) Weakness: (2) Adult failure to thrive: (3) Metastatic adenocarcinoma: (4) Comfort measures only status: Mauricio Zamora Jr. 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 Underwent colonoscopy in October 2023 and was found to have an ulcerated and fungating nonobstructing large mass in the cecum. Reports that he was evaluated by colorectal surgery and deemed unfit for any kind of surgical management give his multiple comorbidities. Evaluated by heme/onc on 05/07/24 and it was recommended he undergo IR-guided liver biopsy. Patient underwent IR-guided liver biopsy on 05/12/24 - pathology c/w metastatic mucinous adenocarcinoma of colonic origin. As per prior hospitalist documentation: "Goals of care was discussed with patient on 05/12/24. He most likely has metastatic cancer, has significant declined in his functional capacity and has very little support at home. He would like to get biopsy done to discuss further options with oncology down the road. He reports he wouldn't want chest compression and ventilatory support in case of cardiac arrest. Code status changed, palliative care consulted for further discussion. I discussed with patient again on 05/13/24 regarding his future goal. His goal in the future is to be at home; be comfortable without any pain/discomfort. He reports that he has some support at home. I discussed possible option of hospice care at home. Patient reported that he would like to be at home with home hospice on 05/14/24. I called and updated his sister as well on his request." Transitioned to MENTAL HEALTH CASE MANAGER on 05/16/24. Patient pronounced on MENTAL HEALTH CASE MANAGER by Dr. Saeed at 16:31 on 05/20/24. Patient's sister, Princess, notified over the phone. Patient seen in collaboration with Dr. Saeed. Please see addendum. I spent a total of 40 minutes coordinating, documenting, and providing care for this patient excluding time spent in the performance of separately billed services or time spent by another provider/QHP. This included personally reviewing all current laboratories and imaging studies, medical reconciliation, outpatient chart review and discussion with specialists. This chart was completed in part utilizing Speech Voice Recognition Software. Grammatical errors, random word insertions, pronoun errors, and incomplete sentences are an occasional consequence of this system due to software limitations, ambient noise, and hardware issues. Any formal questions or concerns about the content, text, or information contained within the body of this dictation should be directly addressed to the provider for clarification. 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 Patient reports diffuse loss of strength, became concerned when he could not lift himself off of toilet. Denies fevers/chills, denies recent illness. Did feel more short of breath today but O2 demand at baseline 2-3L. Also notes difficulty urinating, could not void at all this morning. Also states that he thinks the tip of his penis is swollen, denies associated pain/tenderness/discharge. Later was able to urinate but notes weak stream and feeling of incomplete emptying, mild dysuria. ED Course: +Leukocytosis, elevated lactate Neg. procal, respiratory biofire UA consistent with infectious process S/P fluid resuscitation NSS x 1750mL, neb tx, IV solumedrol x40mg, IV Ceftriaxone x1 Admission Exam Per Admitting Provider Constitutional: no acute distress HEENT: NCAT, no conjunctival injection CV: +tachycardic, extremities well-perfused, no LE edema Resp: no increased work of breathing, diffuse expiratory wheezes, diminished breath sounds GI: nondistended MSK: no gross deformities Skin: warm, dry, no rash appreciated Neuro: alert, oriented, no focal neurologic deficit appreciated Discharge Exam Per Dr. Saeed's addendum: "On exam patient had no heart or breath sounds on auscultation. Pupils dilated. Nonreactive to sternal rub." Updated Medication List Medication Instructions Recorded Confirmed Type mucus clearing device 06/13/21 05/19/24 History Portable Oxygen #1 ea 09/25/22 05/19/24 Rx albuterol sulfate 90 mcg/actuation 2 puff inhalation Q4H PRN 09/25/22 05/19/24 Rx aerosol inhaler shortness of breath or wheezing #8.5 grams nebulizers (Aeroneb Go Nebulizer) #1 ea 09/25/22 05/19/24 Rx latanoprost (PF) 0.005 % eye drops 1 drp OPB HS 02/01/23 05/19/24 History in a dropperette polyethylene glycol 3350 17 17 g PO DAILY PRN Constipation 02/01/23 05/19/24 History gram/dose oral powder tamsulosin 0.4 mg capsule 0.4 mg PO DAILY 02/01/23 05/19/24 History L.acidop,casei,lactis,rham-B.lact,shaunna 1 cap PO DAILY #0 caps 07/14/23 05/19/24 Rx 625 mg (10 billion cell) capsule (Advanced Probiotic) acetaminophen 325 mg tablet 650 mg (2 x 325 mg) PO Q4H PRN #0 07/14/23 05/19/24 Rx tabs apixaban 5 mg tablet (Eliquis) 5 mg PO BID #0 tabs 07/14/23 05/19/24 Rx aspirin 81 mg tablet,delayed 81 mg PO QAM #0 tabs 07/14/23 05/19/24 Rx release cholecalciferol (vitamin D3) 125 125 mcg PO QAM #0 tabs 07/14/23 05/19/24 Rx mcg (5,000 unit) tablet ipratropium 0.5 mg-albuterol 3 mg 3 ml NEB QIDR PRN shortness of 07/14/23 05/19/24 Rx (2.5 mg base)/3 mL nebulization breath or wheezing #0 mL soln metoprolol succinate 25 mg 25 mg PO QAM #0 tabs 07/14/23 05/19/24 Rx tablet,extended release 24 hr pantoprazole 40 mg tablet,delayed 40 mg PO BID #0 tabs 07/14/23 05/19/24 Rx release thiamine HCl (vitamin B1) 100 mg 200 mg (2 x 100 mg) PO BID #0 tabs 07/14/23 05/19/24 Rx tablet mometasone-formoterol HFA 50 mcg-5 2 puff inhalation Q12H #13 grams 08/17/23 05/19/24 Rx mcg/actuation aerosol inhaler (Dulera) aluminum-magnesium hydroxide 200 30 ml PO Q6H PRN Indigestion 08/19/23 05/19/24 History mg-200 mg/5 mL oral suspension (MAG-AL) atorvastatin 20 mg tablet 20 mg PO QAM 08/19/23 05/19/24 History loperamide 2 mg capsule (Imodium 2 mg PO Q4H PRN Diarrhea 08/19/23 05/19/24 History A-D) melatonin 5 mg capsule 5 mg PO HS 08/19/23 05/19/24 History umeclidinium 62.5 mcg/actuation 1 inh inhalation QAM 08/19/23 05/19/24 History blister powder for inhalation (Incruse Ellipta) mirtazapine 15 mg tablet (Remeron) 15 mg PO HS 08/26/23 05/19/24 History tiotropium bromide 2.5 1 puff inhalation DAILY 08/26/23 05/19/24 History mcg/actuation mist for inhalation (Spiriva Respimat) peg 3350-electrolytes 236 240 ml PO Q10M #4,000 mL 10/01/23 05/19/24 Rx gram-22.74 gram-6.74 gram-5.86 gram solution (GaviLyte-G) cephalexin 500 mg capsule 500 mg PO TID 03/25/24 05/19/24 History Hospital Stay Data Consultations 05/04/24 18:24 ED Decision to Admit Stat 05/04/24 19:21 ED Decision to Admit Stat 05/06/24 17:19 Consult Gastroenterology Routine 05/12/24 08:43 Consult Palliative Care Routine 05/19/24 18:34 Consult Urology Routine Diagnostic Imagining Performed 05/12/24 08:00 IR biopsy liver US Routine Total Time Total Time Spent Total Time Spent (In Minutes): 40
== END 2024-05-20 19:00 | disposition expired | DRG 871 ==
LOC: ED 15:03 → 2S 20:57 → SUATTDRO 20:57 → 2S 23:13 → 3W 05-13 18:44